=== PATIENT | female | born 1960 | race Caucasian/White ===

== ENCOUNTER 2018-03-27 15:46 | Emergency (ER) | payer MEDICARE, MEDICAID, SELFPAY ==
[2018-03-27 15:50] VITALS: BP 166/93; PULSE 66; RESP 18; TEMP 37; O2SAT 99
[2018-03-27] MEDS: Acetaminophen 500 MG TAB 1000 MG PO (18:34)
[2018-03-27] MEDS: Ibuprofen 600 MG TAB PO (18:34)
[2018-03-27 18:36] LABS: Bilirubin Negative (Negative); Blood Small (Negative); Clarity Clear; Glucose Negative (Negative); Ketones Negative (Negative); Leukocyte Esterase Negative (Negative); Nitrite Negative (Negative); Urobilinogen 0.2 EU/dL (Up TO 0.2)
[2018-03-27 18:49] LABS: Bacteria Rare HPF (Negative); C & S Indicated? No; Crystals Negative HPF (Negative); Epithelial Cells Few HPF (Negative); Mucus Negative (Negative); RBC 0-2 (0-2); WBC 0-2 HPF (0-5)
[2018-03-27 19:03] LABS: Abs Immature Grans 0.01 k/cumm (0.0-0.09); Absolute Basophil Count 0.05 k/cumm (0.0-0.2); Absolute Eosinophil Count 0.27 k/cumm (0.0-0.7); Absolute Lymphocyte Count 1.65 k/cumm (1.2-3.4); Absolute Monocyte Count 0.45 k/cumm (0.11-0.7); Absolute Neutrophil Count 1.83 k/cumm (1.2-6.7); Basophils % 1.2; Eosinophils % 6.3; HCT 34.8 % (36.0-46.0); HGB 12.1 g/dL (12.0-15.5); Immature Grans % 0.2; Lymphocytes % 38.7; Mean Corp. HGB Concentration 34.8 g/dL (32.0-36.0); Mean Corpuscular Hemoglobin 30.6 pg (27.0-33.0); Mean Corpuscular Volume 88.1 fL (80-95); Mean Platelet Volume 8.5 fL (8.0-11.0); Monocytes % 10.6; Platelet Count 298 x1000/uL (130-400); RBC 3.95 m/cumm (4.00-5.20); RBC Distribution Width 12.2 % (11.7-14.6); White Blood Cell Count 4.26 k/cumm (4.4-10.8)
[2018-03-27 19:21] LABS: ALT 20 U/L (12-78); AST 19 U/L (15-37); Albumin 3.9 g/dL (3.4-5.0); Alkaline Phosphatase 78 U/L (46-116); Anion Gap 6.1 mmol/L (3-11); BUN 14 mg/dL (7-18); Bilirubin, Total 0.3 mg/dL (0.2-1.0); CO2 29.9 mmol/L (21.0-32.0); CREATININE 0.85 mg/dL (0.55-1.02); Calcium 8.8 mg/dL (8.5-10.1); Chloride 97 mmol/L (98-107); Glucose 93 mg/dL (70-100); Potassium 3.4 mmol/L (3.5-5.1); Sodium 133 mmol/L (136-145); Total Protein 7.2 g/dL (6.4-8.2)
[2018-03-27 19:24] LABS: Troponin I < 0.02 ng/mL (0.00-0.06)
[2018-03-27] MEDS: Potassium Chloride 20 MEQ TABCR 40 MEQ PO (19:47)
[2018-03-27] MEDS: Normal Saline 1,000 ML 1000 ML IV (19:47)
[2018-03-27 20:31] VITALS: BP 166/93; PULSE 66; RESP 18; TEMP 37; O2SAT 99
--- NOTE | 2018-03-27 20:42 | W.ED.GENAD ---
Discharge Plan Disposition Patient Disposition: HOME Condition: Fair Discharge Details Chief Complaint: GenMedical Clinical Impression: Hypokalemia Primary Care Provider: Lars Denise ED Provider: [place] Carmichael Home Meds and New Rx's Prescriptions: Continue fluticasone 16 GM spray,suspension 16 gm NS DAILY Qty: 1 RF: 0 acetaminophen [Tylenol Extra Strength] 500 MG tablet 500 mg PO PRN PRNRF: 0 losartan 25 mg Tablet RF: 0 carvedilol 12.5 MG tablet 12.5 mg PO BID RF: 0 amlodipine 2.5 MG tablet 2.5 mg PO DAILY RF: 0 ibuprofen 200 MG tablet 200 mg PO DAILY PRNRF: 0 Discharge Instructions Additional Instructions: Take all medications as prescribed Call your primary care provider first thing in the morning for follow-up appointment Referrals: Lars Denise [Primary Care Provider] - (call in am for follow up appointment) Medical Decision Making Patient with generalized complaints of fatigue. Comprehensive metabolic panel CBC and magnesium level drawn. Patient given 1 L of IV normal saline and 40 M EQ's of potassium. Rest of the labs unremarkable. Patient's vital signs stable physical exam unrevealing. She will be discharged home to follow-up with primary care provider tomorrow Lab Data Lab results reviewed: Yes I reviewed the patient's lab results. This is a 58-year-old female patient with a past medical history significant for hypertension and depression who was seen weekly by her therapist who feels her depression is well managed but reports a 2-month history of fatigue decreased appetite saying that she sleeps most of the day. She has had no fevers chills chest pain shortness of breath abdominal pain nausea vomiting or diarrhea.she saw her primary care provider last week who ordered a TSH EBV and mono and reports all those tests were negative she says she has had symptoms like this in the past when her sodium was low HPI General Date/Time Provider Initiated Documentation: 03/27/18 16:15. Related Data Home Medications Medication Instructions Recorded Confirmed amlodipine 2.5 mg PO DAILY 08/25/16 03/27/18 carvedilol 12.5 mg PO BID 08/25/16 03/27/18 fluticasone 16 gm NS DAILY #1 btl 11/05/16 03/27/18 ibuprofen 200 mg PO DAILY PRN 04/04/17 03/27/18 acetaminophen [Tylenol Extra 500 mg PO PRN PRN 08/19/17 03/27/18 Strength] losartan 03/27/18 Previous Rx's Medication Instructions Recorded fluticasone 16 gm NS DAILY #1 btl 11/05/16 Allergies Allergy/AdvReac Type Severity Reaction Status Date / Time Sulfa (Sulfonamide Allergy Severe Skin Rash Unverified 03/27/18 15:52 Antibiotics) sulfamethoxazole Allergy Severe Skin Rash Unverified 03/27/18 15:52 [From ] trimethoprim [From ] Allergy Severe Skin Rash Unverified 03/27/18 15:52 General Stated Complaint: GenMedical PAMELLA: 4 Review of Systems Review of Systems All systems reviewed & are unremarkable except as noted in HPI and below Constitutional Denies fever(s) Cardiovascular Denies chest pain, Denies syncope, Denies rapid heart rate and Denies dyspnea Respiratory Denies dyspnea Gastrointestinal Denies abdominal pain, Denies constipation, Denies nausea and Reports other (Anorexia) Neurologic Denies syncope Psychiatric Reports depression PFSH Medical History Diabetes (Chronic) Social History Smoking/Tobacco Use Status: Never Exam Const General: cooperative, healthy appearing, comfortable, no acute distress and well developed HENMS Head: normal to inspection Mouth: oral mucosae normal Chest Chest: normal inspection of the chest and normal palpation of entire chest wall Resp Effort & Inspection: normal respiratory effort, able to speak in complete sentences and no cough Auscultation: clear to auscultation bilaterally Cardio Rate: regular rate Rhythm: regular rhythm GI Inspection: normal to inspection Palpation: soft Auscultation: normal bowel sounds Skin General skin exam: no rashes or lesions noted Wounds: no wounds Neuro General: alert, awake and oriented x3 Cognition: normal cognition Speech: speech normal Gait: normal gait Extrem General: normal to inspection and full ROM Course Vital Signs Temperature 37.0 C 03/27/18 15:50 Pulse 66 03/27/18 15:50 Respiratory Rate 18 03/27/18 15:50 Blood Pressure 166/93 H 03/27/18 15:50 Pulse Oximetry 99 03/27/18 15:50 Temperature 37.0 C 03/27/18 20:31 Temperature Source Temporal Artery Scan 03/27/18 15:50 Pulse 66 03/27/18 20:31 Respiratory Rate 18 03/27/18 20:31 Respiratory Effort 09/27/18 15:53 Blood Pressure 166/93 H 03/27/18 20:31 Pulse Oximetry 99 03/27/18 20:31 Oxygen Delivery Method Room Air 03/27/18 15:50 Oxygen Flow Rate 0 03/27/18 15:50 Pain Level 0 03/27/18 20:31 Lab/Test Results Lab/Test Results: Laboratory Tests Range/Units 03/27/18 03/27/18 03/27/18 18:32 18:54 18:54 WBC (4.4-10.8) k/cumm 4.26 L RBC (4.00-5.20) m/cumm 3.95 L Hgb (12.0-15.5) g/dL 12.1 Hct (36.0-46.0) % 34.8 L MCV (80-95) fL 88.1 MCH (27.0-33.0) pg 30.6 MCHC (32.0-36.0) g/dL 34.8 RDW (11.7-14.6) % 12.2 Plt Count (130-400) x1000/uL 298 MPV (8.0-11.0) fL 8.5 Immature Gran % 0.2 Neutrophils % 43.0 Lymphocytes % 38.7 Monocytes % 10.6 Eosinophils % 6.3 Basophils % 1.2 Absolute Neutrophils (1.2-6.7) k/cumm 1.83 Absolute Lymphocytes (1.2-3.4) k/cumm 1.65 Absolute Monocytes (0.11-0.7) k/cumm 0.45 Absolute Eosinophils (0.0-0.7) k/cumm 0.27 Absolute Basophils (0.0-0.2) k/cumm 0.05 Sodium (136-145) mmol/L 133 L Potassium (3.5-5.1) mmol/L 3.4 L Chloride (98-107) mmol/L 97 L Carbon Dioxide (21.0-32.0) mmol/L 29.9 Anion Gap (3-11) mmol/L 6.1 BUN (7-18) mg/dL 14 Creatinine (0.55-1.02) mg/dL 0.85 Estimated GFR/1.73 m2 (mL/min/1.73m2) >= 60.00 Glucose (70-100) mg/dL 93 Calcium (8.5-10.1) mg/dL 8.8 Magnesium (1.8-2.4) mg/dL 2.0 Total Bilirubin (0.2-1.0) mg/dL 0.3 AST (15-37) U/L 19 ALT (12-78) U/L 20 Alkaline Phosphatase (46-116) U/L 78 Troponin I (0.00-0.06) ng/mL < 0.02 Total Protein (6.4-8.2) g/dL 7.2 Albumin (3.4-5.0) g/dL 3.9 Urine Color (Yellow) Yellow Urine Clarity Clear Urine pH (5-8) 6.0 Ur Specific Atkins (1.005-1.025) 1.010 Urine Protein (Negative) mg/dL Negative Urine Ketones (Negative) mg/dL Negative Urine Blood (Negative) Small H Urine Nitrite (Negative) Negative Urine Bilirubin (Negative) Negative Urine Urobilinogen (Up TO 0.2) EU/dL 0.2 Ur Leukocyte Esterase (Negative) Negative Urine RBC (0-2) 0-2 Urine WBC (0-5) HPF 0-2 Ur Epithelial Cells (Negative) HPF Few Urine Crystals (Negative) HPF Negative Urine Bacteria (Negative) HPF Rare Urine Mucus (Negative) Negative Ur Culture Indicated? No Urine Glucose (Negative) mg/dL Negative
== END 2018-03-27 20:40 | disposition home or self-care (01) ==
PROVIDERS: Emergency Provider Nurse Practitioner Acute Care; PCP Nurse Practitioner Family
DX: E87.6 Hypokalemia (principal); I10 Essential (primary) hypertension
CPT/HCPCS: 36415; 80053; 96360; 99284; 81003; 81015; 83735; 84484; 85025

== ENCOUNTER 2018-07-28 15:01 | Emergency (ER) | payer MEDICARE, MEDICAID, SELFPAY ==
[2018-07-28 15:18] VITALS: BP 160/108; PULSE 66; RESP 12; TEMP 36.7; O2SAT 98
--- NOTE | 2018-07-28 15:36 | W.ED.GENAD ---
Discharge Plan Disposition Patient Disposition: HOME Condition: Improving Discharge Details Chief Complaint: RespSymp Clinical Impression: Acute maxillary sinusitis Primary Care Provider: Lars Denise ED Provider: Ezio Fregoso Home Meds and New Rx's Prescriptions: New amoxicillin-pot clavulanate 875-125 mg tablet 1 tab PO BID 10 Days Qty: 20 RF: 0 Continued fluticasone 16 GM spray,suspension 16 gm NS DAILY Qty: 1 RF: 0 acetaminophen [Tylenol Extra Strength] 500 MG tablet 500 mg PO PRN PRNRF: 0 losartan 25 mg Tablet RF: 0 carvedilol 12.5 MG tablet 12.5 mg PO BID RF: 0 amlodipine 2.5 MG tablet 2.5 mg PO DAILY RF: 0 ibuprofen 200 MG tablet 200 mg PO DAILY PRNRF: 0 Discharge Instructions Instructions: Sinusitis (ED) Additional Instructions: May use Benadryl 25-50 mg at bedtime to aid in decongestion. Minimal use of [id number] decongestants during the day as they may spike your blood pressure. Continue your regular medications. Follow-up with your regular doctor in [place] if not improving in 5 days time. Return to the emergency department for any acute concerns Medical Decision Making 58-year-old female with a history of previous sinus infections states she is a 10-12 days of bifrontal/maxillary sinus pressure that is worse bending over. She has not had a stiff neck or fever. She has otherwise recently been well. She has been taking decongestant and has known high blood pressure for which she takes carvedilol and amlodipine. Her exam is consistent with acute maxillary sinusitis. Discussed with her home management including minimal use of decongestants given hypertension. She stable for outpatient management and will return for any acute concern HPI General Mode of arrival: ambulatory. Date/Time Provider Initiated Documentation: 07/28/18 15:28. Limitations to Documentation: no limitations. Information obtained by: patient. History of Present Illness 58 year old F presents to the emergency department with the chief complaint of Bifrontal sinus pain for 10 days similar to previous, described as moderate, Quality is described as aching, and is localized to the face. Patient reports no radiation. Patient started experiencing this day(s) and it has been constant. No relieving factors improve symptom(s), Other factors that worsen symptoms (Bending over) . Patient notes denies fever/chills. Patient did receive the following treatments prior to arrival, other (Decongest) Related Data Home Medications Medication Instructions Recorded Confirmed amlodipine 2.5 mg PO DAILY 08/25/16 07/28/18 carvedilol 12.5 mg PO BID 08/25/16 07/28/18 fluticasone 16 gm NS DAILY #1 btl 11/05/16 07/28/18 ibuprofen 200 mg PO DAILY PRN 04/04/17 07/28/18 acetaminophen [Tylenol Extra 500 mg PO PRN PRN 08/19/17 07/28/18 Strength] losartan 03/27/18 amoxicillin-pot clavulanate 1 tab PO BID 10 Days #20 tab 07/28/18 Previous Rx's Medication Instructions Recorded fluticasone 16 gm NS DAILY #1 btl 11/05/16 amoxicillin-pot clavulanate 1 tab PO BID 10 Days #20 tab 07/28/18 Allergies Allergy/AdvReac Type Severity Reaction Status Date / Time Sulfa (Sulfonamide Allergy Severe Skin Rash Unverified 07/28/18 15:21 Antibiotics) sulfamethoxazole Allergy Severe Skin Rash Unverified 07/28/18 15:21 [From Septra] trimethoprim [From ] Allergy Severe Skin Rash Unverified 07/28/18 15:21 General Stated Complaint: RespSymp PAMELLA: 4 Review of Systems Review of Systems 6 systems reviewed and otherwise negative [facility] Medical History Diabetes (Chronic) Social History Smoking/Tobacco Use Status: Never Exam Narrative Exam Narrative: GEN: awake, alert, oriented 3. Pleasant, well groomed, interactive. HEAD: Normocephalic, atraumatic ENT: Mucous membranes moist, oropharynx unremarkable, External ear exam unremarkable, TMs normal. Bifrontal maxillary tenderness to percussion EYES: PERRL, EOMI NECK: Full ROM, no HEBERT, no menigismus CHEST/RESP: Nontender, clear to auscultation bilateral, no wheeze/rhonchi/rales CARDIOVASCULAR: RRR, no murmur, rub jah. 2+ Rad pulse bilateral ABDOMEN: Soft, nontender, no mass. +Bowel sounds EXT: Full ROM, no edema, no rash Neuro: Grossly normal neurologic exam, conversant, interactive. Psych: Speech fluent, thoughts congruent, affect normal Course Vital Signs Temperature 36.7 C 07/28/18 15:18 Pulse 66 07/28/18 15:18 Respiratory Rate 12 07/28/18 15:18 Blood Pressure 160/108 H 07/28/18 15:18 Pulse Oximetry 98 07/28/18 15:18 Temperature 36.7 C 07/28/18 15:18 Temperature Source Temporal Artery Scan 07/28/18 15:18 Pulse 66 07/28/18 15:18 Respiratory Rate 12 07/28/18 15:18 Respiratory Effort Non-Labored 07/28/18 15:22 Respiratory Depth Normal 07/28/18 15:22 Blood Pressure 160/108 H 07/28/18 15:18 Blood Pressure Position Sitting 07/28/18 15:18 Pulse Oximetry 98 07/28/18 15:18 Oxygen Delivery Method Room Air 07/28/18 15:18 Oxygen Flow Rate 0 07/28/18 15:18 Pain Level 4 07/28/18 15:18
--- NOTE | 2018-07-28 15:39 | ED.GENADUL_ITS ---
Discharge Plan Disposition Patient Disposition: HOME Condition: Improving Discharge Details Chief Complaint: RespSymp Clinical Impression: Acute maxillary sinusitis Primary Care Provider: Lars Denise ED Provider: Ezio Fregoso Home Meds and New Rx's Prescriptions: New amoxicillin-pot clavulanate 875-125 mg tablet 1 tab PO BID 10 Days Qty: 20 RF: 0 Continued fluticasone 16 GM spray,suspension 16 gm NS DAILY Qty: 1 RF: 0 acetaminophen [Tylenol Extra Strength] 500 MG tablet 500 mg PO PRN PRNRF: 0 losartan 25 mg Tablet RF: 0 carvedilol 12.5 MG tablet 12.5 mg PO BID RF: 0 amlodipine 2.5 MG tablet 2.5 mg PO DAILY RF: 0 ibuprofen 200 MG tablet 200 mg PO DAILY PRNRF: 0 Discharge Instructions Instructions: Sinusitis (ED) Additional Instructions: May use Benadryl 25-50 mg at bedtime to aid in decongestion. Minimal use of [id number] decongestants during the day as they may spike your blood pressure. Continue your regular medications. Follow-up with your regular doctor in [place] if not improving in 5 days time. Return to the emergency department for any acute concerns Medical Decision Making 58-year-old female with a history of previous sinus infections states she is a 10-12 days of bifrontal/maxillary sinus pressure that is worse bending over. She has not had a stiff neck or fever. She has otherwise recently been well. She has been taking decongestant and has known high blood pressure for which she takes carvedilol and amlodipine. Her exam is consistent with acute maxillary sinusitis. Discussed with her home management including minimal use of decongestants given hypertension. She stable for outpatient management and will return for any acute concern HPI General Mode of arrival: ambulatory . Date/Time Provider Initiated Documentation: 07/28/18 15:28 . Limitations to Documentation: no limitations . Information obtained by: patient . History of Present Illness 58 year old F presents to the emergency department with the chief complaint of Bifrontal sinus pain for 10 days similar to previous, described as moderate, Quality is described as aching, and is localized to the face. Patient reports no radiation. Patient started experiencing this day(s) and it has been constant. No relieving factors improve symptom(s), Other factors that worsen symptoms (Bending over) . Patient notes denies fever/chills. Patient did receive the following treatments prior to arrival, other (Decongest) Related Data Home Medications Medication Instructions Recorded Confirmed amlodipine 2.5 mg PO DAILY 08/25/16 07/28/18 carvedilol 12.5 mg PO BID 08/25/16 07/28/18 fluticasone 16 gm NS DAILY #1 btl 11/05/16 07/28/18 ibuprofen 200 mg PO DAILY PRN 04/04/17 07/28/18 acetaminophen [Tylenol Extra 500 mg PO PRN PRN 08/19/17 07/28/18 Strength] losartan 03/27/18 amoxicillin-pot clavulanate 1 tab PO BID 10 Days #20 tab 07/28/18 Previous Rx's Medication Instructions Recorded fluticasone 16 gm NS DAILY #1 btl 11/05/16 amoxicillin-pot clavulanate 1 tab PO BID 10 Days #20 tab 07/28/18 Allergies Allergy/AdvReac Type Severity Reaction Status Date / Time Sulfa (Sulfonamide Allergy Severe Skin Rash Unverified 07/28/18 15:21 Antibiotics) sulfamethoxazole Allergy Severe Skin Rash Unverified 07/28/18 15:21 [From Septra] trimethoprim [From ] Allergy Severe Skin Rash Unverified 07/28/18 15:21 General Stated Complaint: RespSymp PAMELLA: 4 Review of Systems Review of Systems 6 systems reviewed and otherwise negative [facility] Medical History Diabetes (Chronic) Social History Smoking/Tobacco Use Status: Never Exam Narrative Exam Narrative: GEN: awake, alert, oriented 3. Pleasant, well groomed, interactive. HEAD: Normocephalic, atraumatic ENT: Mucous membranes moist, oropharynx unremarkable, External ear exam unremarkable, TMs normal. Bifrontal maxillary tenderness to percussion EYES: PERRL, EOMI NECK: Full ROM, no HEBERT, no menigismus CHEST/RESP: Nontender, clear to auscultation bilateral, no wheeze/rhonchi/rales CARDIOVASCULAR: RRR, no murmur, rub jah. 2+ Rad pulse bilateral ABDOMEN: Soft, nontender, no mass. +Bowel sounds EXT: Full ROM, no edema, no rash Neuro: Grossly normal neurologic exam, conversant, interactive. Psych: Speech fluent, thoughts congruent, affect normal Course Vital Signs Temperature 36.7 C 07/28/18 15:18 Pulse 66 07/28/18 15:18 Respiratory Rate 12 07/28/18 15:18 Blood Pressure 160/108 H 07/28/18 15:18 Pulse Oximetry 98 07/28/18 15:18 Temperature 36.7 C 07/28/18 15:18 Temperature Source Temporal Artery Scan 07/28/18 15:18 Pulse 66 07/28/18 15:18 Respiratory Rate 12 07/28/18 15:18 Respiratory Effort Non-Labored 07/28/18 15:22 Respiratory Depth Normal 07/28/18 15:22 Blood Pressure 160/108 H 07/28/18 15:18 Blood Pressure Position Sitting 07/28/18 15:18 Pulse Oximetry 98 07/28/18 15:18 Oxygen Delivery Method Room Air 07/28/18 15:18 Oxygen Flow Rate 0 07/28/18 15:18 Pain Level 4 07/28/18 15:18
[2018-07-28 15:48] VITALS: BP 160/108; PULSE 66; RESP 12; TEMP 36.7; O2SAT 98
== END 2018-07-28 15:48 | disposition home or self-care (01) ==
PROVIDERS: Emergency Provider Emergency Medicine; PCP Nurse Practitioner Family
DX: J01.00 Acute maxillary sinusitis, unspecified (principal); I10 Essential (primary) hypertension
CPT/HCPCS: 99282

== ENCOUNTER 2018-08-20 12:19 | Emergency (ER) | payer MEDICARE, MEDICAID, SELFPAY ==
[2018-08-20 12:48] VITALS: BP 127/79; PULSE 65; RESP 14; TEMP 36.6; O2SAT 96
--- NOTE | 2018-08-20 13:54 | ED.GENADUL_ITS ---
Discharge Plan Disposition Patient Disposition: HOME Condition: Good Discharge Details Chief Complaint: RespSymp Clinical Impression: Sinusitis Primary Care Provider: Lars Denise ED Provider: Patel Covington Home Meds and New Rx's Prescriptions: New oxymetazoline [Afrin (oxymetazoline)] 0.05 % spray,non-aerosol 2 spray AGUEDA Q12H PRN (Reason: nasal congestion) 3 Days Qty: 15 RF: 0 prednisone 50 MG tablet 50 mg PO DAILY Qty: 5 RF: 0 loratadine 10 mg tablet 10 mg PO DAILY Qty: 20 RF: 0 doxycycline hyclate 100 mg tablet 100 mg PO BID Qty: 20 RF: 0 No Action fluticasone 16 GM spray,suspension 16 gm NS DAILY Qty: 1 RF: 0 acetaminophen [Tylenol Extra Strength] 500 MG tablet 500 mg PO PRN PRNRF: 0 losartan 25 mg Tablet RF: 0 carvedilol 12.5 MG tablet 12.5 mg PO BID RF: 0 amlodipine 2.5 MG tablet 2.5 mg PO DAILY RF: 0 ibuprofen 200 MG tablet 200 mg PO DAILY PRNRF: 0 Discharge Instructions Instructions: Sinusitis (ED) Additional Instructions: Please take medication as directed. If you notice any worsening of your symptoms, or any new symptoms such as vomiting, diarrhea, fever, chills, shortness of breath, chest pain, numbness, weakness, or fainting , please return immediately to the emergency department for reevaluation. Please follow up with your primary care provider as soon as possible for reassessment and reevaluation. As always, it was a pleasure participating in your medical care today. Referrals: Lars Denise [Primary Care Provider] - Medical Decision Making This is a very pleasant 58-year-old female who was sent here by her PCP's office to be managed for sinusitis. Patient was diagnosed and treated with sinusitis this past July, she had notable improvement of her symptoms with the Augmentin, however after the antibiotic was finished her symptoms return. She has no red flags of headache, eye pain, swelling, fever, or chills. She has no risk factors for venous sinus thrombosis, and a clinical exam clinically inconsistent for dural venous sinus thrombosis. Patient sinusitis does appear mild on exam.. Her vital signs are stable and reassuring. No cranial nerve deficits or neurologic deficits. I feel that treatment with antibiotics is reasonable, in addition to recommending [place] pot, continuing the fluticasone, adding Afrin, and adding oral steroids. I discussed with the patient that this does take time to improve, and it is important follow-up with her primary care provider in regards to this. I have extensively reviewed the treatment plan and discharge instructions with the patient. I have addressed all patient concerns at this time. The patient was made aware of what symptoms to monitor for that would warrant a return to the emergency department. Discussed the plan with the patient, they demonstrate verbal understanding and agreement with our assessment and plan at this time. HPI General Date/Time Provider Initiated Documentation: 08/20/18 13:33 . HPI Narrative: This is a 58-year-old female with a past medical history of cataracts, hypertension, who was diagnosed with sinusitis this past month by Dr. Fregoso, she was started on Augmentin given fluticasone nasal spray. Patient had notable improvement of her symptoms, however after she finished the antibiotic her symptoms have gradually returned and she states that they feel like they are coming back now worse and they were before. She did call her primary care provider who recommended that she come into the ER for further management of her sinusitis. Patient denies any headache, neck pain, fever or chills. She does admit to green and yellow drainage coming from her nose that she blows out regularly. She does admit to mild facial pressure. She denies any vision changes, pain with movement of her eye, eye pain, sore throat, or difficulty swallowing. No other complaints or modifying factors at this time. She has taken Tylenol and Motrin this does not help Related Data Home Medications Medication Instructions Recorded Confirmed amlodipine 2.5 mg PO DAILY 08/25/16 08/20/18 carvedilol 12.5 mg PO BID 08/25/16 08/20/18 fluticasone 16 gm NS DAILY #1 btl 11/05/16 08/20/18 ibuprofen 200 mg PO DAILY PRN 04/04/17 08/20/18 acetaminophen [Tylenol Extra 500 mg PO PRN PRN 08/19/17 08/20/18 Strength] losartan 03/27/18 doxycycline hyclate 100 mg PO BID #20 tab 08/20/18 loratadine 10 mg PO DAILY #20 tab 08/20/18 oxymetazoline [Afrin 2 spray AGUEDA Q12H PRN 3 Days #15 ml 08/20/18 (oxymetazoline)] prednisone 50 mg PO DAILY #5 tab 08/20/18 Previous Rx's Medication Instructions Recorded fluticasone 16 gm NS DAILY #1 btl 11/05/16 doxycycline hyclate 100 mg PO BID #20 tab 08/20/18 loratadine 10 mg PO DAILY #20 tab 08/20/18 oxymetazoline [Afrin 2 spray AGUEDA Q12H PRN 3 Days #15 ml 08/20/18 (oxymetazoline)] prednisone 50 mg PO DAILY #5 tab 08/20/18 Allergies Allergy/AdvReac Type Severity Reaction Status Date / Time Sulfa (Sulfonamide Allergy Severe Skin Rash Unverified 08/20/18 12:52 Antibiotics) sulfamethoxazole Allergy Severe Skin Rash Unverified 08/20/18 12:52 [From ] trimethoprim [From ] Allergy Severe Skin Rash Unverified 08/20/18 12:52 General Stated Complaint: RespSymp PAMELLA: 5 Review of Systems Review of Systems All systems reviewed & are unremarkable except as noted in HPI and below PFSH Social History Smoking and Tabacco status: Never Exam Narrative Exam Narrative: 1.Const: Well-nourished, Well-developed, appearing stated age 2.Eyes: PERRL, no conjunctival injection, and symmetrical lids. 3.ENT: Atraumatic external nose and ears. Moist MM. Neck: Symmetric, trachea midline, No thyromegaly. Mild tenderness on percussion of the frontal and maxillary sinuses. Patient demonstrates good movement of cervical neck. There is no nuchal rigidity, no nuchal tenderness. Patient is able to flex the neck without any difficulty or significant pain. Negative Kernig's and Brudzinski sign. No evidence of periorbital edema or orbital edema. 4.CVS: +S1/S2, No murmurs or gallops. Peripheral pulses 2+ and equal in all extremities. Brisk capillary refill in all extremities. 5.RESP: Unlabored respiratory effort. Clear to auscultation bilaterally. No wheezes rales or rhonchi 6.GI: Soft, Nontender/Nondistended, No hepatosplenomegaly. No guarding or r ebound. 7.MSK: Normocephalic/Atraumatic, Extremities w/o deformity or ttp No cyanosis or clubbing, Normal movement of all extremities 8.Skin: Warm, Dry. No rashes or lesions. 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 Sensation grossly intact, no focal neurologic deficits. 10.Psych: (AAO) x3. Appropriate mood and affect Course Vital Signs Temperature 36.6 C 08/20/18 12:48 Pulse 65 08/20/18 12:48 Respiratory Rate 14 08/20/18 12:48 Blood Pressure 127/79 08/20/18 12:48 Pulse Oximetry 96 08/20/18 12:48 Temperature 36.6 C 08/20/18 12:48 Temperature Source Temporal Artery Scan 08/20/18 12:48 Pulse 65 08/20/18 12:48 Respiratory Rate 14 08/20/18 12:48 Respiratory Effort Non-Labored 08/20/18 12:53 Respiratory Depth Normal 08/20/18 12:53 Blood Pressure 127/79 08/20/18 12:48 Blood Pressure Position Sitting 08/20/18 12:48 Pulse Oximetry 96 08/20/18 12:48 Oxygen Delivery Method Room Air 08/20/18 12:48 Oxygen Flow Rate 0 08/20/18 12:48 Pain Level 3 08/20/18 12:48
== END 2018-08-20 14:05 | disposition home or self-care (01) ==
PROVIDERS: Emergency Provider Student in an Organized Health Care Education/Training Program; PCP Nurse Practitioner Family
DX: J01.90 Acute sinusitis, unspecified (principal); I10 Essential (primary) hypertension
CPT/HCPCS: 99283

== ENCOUNTER 2018-09-09 14:54 | Emergency (ER) | payer MEDICARE, MEDICAID, SELFPAY ==
[2018-09-09 14:58] VITALS: BP 154/96; PULSE 72; RESP 20; TEMP 36.7; O2SAT 97
--- NOTE | 2018-09-09 15:03 | DI.RAD_ITS ---
SYMPTOMS/DIAGNOSIS: LEFT WRIST PAIN S/P FALL LEFT WRIST: Three views. No acute fracture or dislocation is appreciated. There is an osseous density seen between the distal radius and ulna. This likely is incidental. No osseous donor site is identified. The soft tissues are unremarkable. IMPRESSION: No acute fracture or dislocation.
--- NOTE | 2018-09-09 15:05 | ED.GENADUL_ITS ---
Discharge Plan Disposition Patient Disposition: HOME Condition: Improving Discharge Details Chief Complaint: Orthopedic Clinical Impression: Contracture of left wrist Primary Care Provider: Lars Denise ED Provider: Ezio Fregoso Home Meds and New Rx's Prescriptions: Continued fluticasone propionate 16 GM spray,suspension 16 gm NS DAILY Qty: 1 RF: 0 acetaminophen [Tylenol Extra Strength] 500 MG tablet 500 mg PO PRN PRNRF: 0 losartan 25 mg Tablet 25 mg PO DAILY RF: 0 loratadine 10 mg tablet 10 mg PO DAILY Qty: 20 RF: 0 carvedilol 12.5 MG tablet 12.5 mg PO BID RF: 0 amlodipine 2.5 MG tablet 2.5 mg PO DAILY RF: 0 ibuprofen 200 MG tablet 200 mg PO DAILY PRNRF: 0 Discharge Instructions Additional Instructions: Please continue to use ice 20 minutes at a time to reduce discomfort. May use removable wrist splint 7-10 days as needed. Return if you develop increasing pain, numbness or tingling of the fingertips, or any other acute concerns. Medical Decision Making 58-year-old female slipped and fell outside on level ground onto an outstretched hand. Said dull, achy left-sided wrist pain since that time. Exam is reassuring but with some mild distal radius tenderness. Referred for x-ray to rule out underlying bony injury. No evidence of acute bony injury. Patient placed in a removable splint. She is given instructions for home management as well as return precautions. HPI General Mode of arrival: ambulatory . Date/Time Provider Initiated Documentation: 09/09/18 14:57 . Limitations to Documentation: no limitations . Information obtained by: patient . History of Present Illness 58 year old F presents to the emergency department with the chief complaint of Left wrist pain after fall, described as mild, Quality is described as aching, and is localized to the left and upper extremity. Patient reports no radiation. Patient started experiencing this hour(s) and it has been constant. Rest improves symptom(s), Movement worsens symptoms . Patient notes no other symptoms.. Patient did receive the following treatments prior to arrival, none Related Data Home Medications Medication Instructions Recorded Confirmed amlodipine 2.5 mg PO DAILY 08/25/16 09/09/18 carvedilol 12.5 mg PO BID 08/25/16 09/09/18 fluticasone propionate 16 gm NS DAILY #1 btl 11/05/16 09/09/18 ibuprofen 200 mg PO DAILY PRN 04/04/17 09/09/18 acetaminophen [Tylenol Extra 500 mg PO PRN PRN 08/19/17 09/09/18 Strength] losartan 25 mg PO DAILY 03/27/18 09/09/18 loratadine 10 mg PO DAILY #20 tab 08/20/18 09/09/18 Previous Rx's Medication Instructions Recorded fluticasone propionate 16 gm NS DAILY #1 btl 11/05/16 loratadine 10 mg PO DAILY #20 tab 08/20/18 Allergies Allergy/AdvReac Type Severity Reaction Status Date / Time Sulfa (Sulfonamide Allergy Severe Skin Rash Unverified 09/09/18 15:00 Antibiotics) sulfamethoxazole Allergy Severe Skin Rash Unverified 09/09/18 15:00 [From ] trimethoprim [From ] Allergy Severe Skin Rash Unverified 09/09/18 15:00 General Stated Complaint: Orthopedic PAMELLA: 3 Review of Systems Review of Systems 6 systems reviewed and otherwise negative. Denies back, chest, neck pain, no loss of consciousness. No numbness or tingling PFSH Social History Smoking and Tabacco status: Never Exam Narrative Exam Narrative: GEN: awake, alert, oriented 3. Pleasant, well groomed, interactive. HEAD: Normocephalic, atraumatic ENT: Mucous membranes moist, oropharynx unremarkable, External ear exam unremarkable EYES: PERRL, EOMI NECK: Full ROM, no HEBERT, no menigismus CHEST/RESP: Nontender. Back is nontender. EXT: Full ROM, no edema, no rash. Mild distal radius tenderness left on palpation. Mild tenderness of the left hand without focality Neuro: Grossly normal neurologic exam, conversant, interactive. Psych: Speech fluent, thoughts congruent, affect normal Course Vital Signs Temperature 36.7 C 09/09/18 14:58 Pulse 72 09/09/18 14:58 Respiratory Rate 20 09/09/18 14:58 Blood Pressure 154/96 H 09/09/18 14:58 Pulse Oximetry 97 09/09/18 14:58 Temperature 36.7 C 09/09/18 14:58 Temperature Source Temporal Artery Scan 09/09/18 14:58 Pulse 72 09/09/18 14:58 Respiratory Rate 20 09/09/18 14:58 Respiratory Effort Non-Labored 09/09/18 14:58 Blood Pressure 154/96 H 09/09/18 14:58 Blood Pressure Position Sitting 09/09/18 14:58 Pulse Oximetry 97 09/09/18 14:58 Oxygen Delivery Method Room Air 09/09/18 14:58 Oxygen Flow Rate 0 09/09/18 14:58 Pain Level 5 09/09/18 14:58
== END 2018-09-09 15:43 | disposition home or self-care (01) ==
PROVIDERS: Emergency Provider Emergency Medicine; PCP Nurse Practitioner Family
DX: S60.212A Contusion of left wrist, initial encounter (principal); W00.0XXA Fall on same level due to ice and snow, initial encounter; E11.9 Type 2 diabetes mellitus without complications; I10 Essential (primary) hypertension
CPT/HCPCS: 99283; 73110; L3908

== ENCOUNTER 2018-09-10 14:56 | Emergency (ER) | payer MEDICARE, MEDICAID, SELFPAY ==
[2018-09-10 15:00] VITALS: BP 151/87; PULSE 74; RESP 16; TEMP 37; O2SAT 99
--- NOTE | 2018-09-10 15:27 | W.ED.GENAD ---
Discharge Plan Disposition Patient Disposition: HOME Condition: Good Discharge Details Chief Complaint: Orthopedic Clinical Impression: Left wrist sprain Primary Care Provider: Lars Denise ED Provider: Zack Queen Meds and New Rx's Prescriptions: Continued fluticasone propionate 16 GM spray,suspension 16 gm NS DAILY Qty: 1 RF: 0 losartan 25 mg Tablet 25 mg PO DAILY RF: 0 loratadine 10 mg tablet 10 mg PO DAILY Qty: 20 RF: 0 carvedilol 12.5 MG tablet 12.5 mg PO BID RF: 0 amlodipine 2.5 MG tablet 2.5 mg PO DAILY RF: 0 Changed acetaminophen [Tylenol Extra Strength] 500 MG tablet 1,000 mg PO Q6H PRNQty: 0 RF: 0 ibuprofen 200 MG tablet 800 mg PO Q8H PRNQty: 0 RF: 0 Discharge Instructions Instructions: Wrist Sprain (ED) Additional Instructions: Please wear the splint at all times. Take it off only to ice. Use ibuprofen and acetaminophen as we discussed. Try to keep the hand elevated. Follow-up with your primary care next week for reevaluation. Return to ED for numbness, weakness, increasing pain swelling. Referrals: Lars Denise [Primary Care Provider] - Medical Decision Making I reviewed the x-rays as well as the radiology read. There is no acute fracture. Patient instructed to leave the splint on except to ice. Try to keep the arm elevated and not use it. Continue acetaminophen but increase the dose to 1 g every 6 hours. Use Motrin 800 mg every 8 hours. Follow-up with primary care next week for reevaluation. Return to ED for any neurologic changes, increasing pain or swelling. HPI General Mode of arrival: ambulatory. Date/Time Provider Initiated Documentation: 09/10/18 15:23. Limitations to Documentation: no limitations. Information obtained by: patient. HPI Narrative: Patient presents to ED with continued left wrist pain. She was seen here yesterday with x-rays which were negative and placed in a universal splint. She is left-hand dominant. She did have to work today. She has not been wearing the splint consistently though she is wearing it most of the time. She has been taking Motrin and Tylenol and icing but was concerned because there was increased pain. Related Data Home Medications Medication Instructions Recorded Confirmed amlodipine 2.5 mg PO DAILY 08/25/16 09/10/18 carvedilol 12.5 mg PO BID 08/25/16 09/10/18 fluticasone propionate 16 gm NS DAILY #1 btl 11/05/16 09/10/18 losartan 25 mg PO DAILY 03/27/18 09/10/18 loratadine 10 mg PO DAILY #20 tab 08/20/18 09/10/18 acetaminophen [Tylenol Extra 1,000 mg PO Q6H PRN #0 tab 09/10/18 09/10/18 Strength] ibuprofen 800 mg PO Q8H PRN #0 tab 09/10/18 09/10/18 Previous Rx's Medication Instructions Recorded fluticasone propionate 16 gm NS DAILY #1 btl 11/05/16 loratadine 10 mg PO DAILY #20 tab 08/20/18 acetaminophen [Tylenol Extra 1,000 mg PO Q6H PRN #0 tab 09/10/18 Strength] ibuprofen 800 mg PO Q8H PRN #0 tab 09/10/18 Allergies Allergy/AdvReac Type Severity Reaction Status Date / Time Sulfa (Sulfonamide Allergy Severe Skin Rash Unverified 09/10/18 15:04 Antibiotics) sulfamethoxazole Allergy Severe Skin Rash Unverified 09/10/18 15:04 [From Marra] trimethoprim [From ] Allergy Severe Skin Rash Unverified 09/10/18 15:04 General Stated Complaint: Orthopedic PAMELLA: 4 Review of Systems Constitutional Denies weakness Musculoskeletal Reports limited range of motion, Denies numbness and Denies tingling Comments: wrist pain Neurologic Denies numbness, Denies tingling, Denies paresthesias and Denies weakness [facility] Medical History Diabetes (Chronic) HTN (hypertension) (Chronic) Surgical History History of section (Chronic) Social History Smoking and Tabacco status: Never Exam Const General: cooperative and no acute distress Orientation: alert and oriented x3 Extrem General: normal exam except as noted Other: There is some swelling to the left wrist. She has some decreased range of motion. She has some numbness in the ulnar aspect. There is no snuffbox tenderness. There is no increased pain with axial load of the thumb. She is neurovascular intact distally. Course Vital Signs Temperature 98.6 F 09/10/18 15:00 Pulse 74 09/10/18 15:00 Respiratory Rate 16 09/10/18 15:00 Blood Pressure 151/87 H 09/10/18 15:00 Pulse Oximetry 99 09/10/18 15:00 Temperature 98.6 F 09/10/18 15:00 Temperature Source Skin 09/10/18 15:00 Pulse 74 09/10/18 15:00 Respiratory Rate 16 09/10/18 15:00 Blood Pressure 151/87 H 09/10/18 15:00 Blood Pressure Position Sitting 09/10/18 15:00 Pulse Oximetry 99 09/10/18 15:00 Oxygen Delivery Method Room Air 09/10/18 15:00 Oxygen Flow Rate 0 09/10/18 15:00 Pain Level 5 09/10/18 15:16
--- NOTE | 2018-09-10 15:34 | ED.GENADUL_ITS ---
Discharge Plan Disposition Patient Disposition: HOME Condition: Good Discharge Details Chief Complaint: Orthopedic Clinical Impression: Left wrist sprain Primary Care Provider: Lars Denise ED Provider: Zack Queen Meds and New Rx's Prescriptions: Continued fluticasone propionate 16 GM spray,suspension 16 gm NS DAILY Qty: 1 RF: 0 losartan 25 mg Tablet 25 mg PO DAILY RF: 0 loratadine 10 mg tablet 10 mg PO DAILY Qty: 20 RF: 0 carvedilol 12.5 MG tablet 12.5 mg PO BID RF: 0 amlodipine 2.5 MG tablet 2.5 mg PO DAILY RF: 0 Changed acetaminophen [Tylenol Extra Strength] 500 MG tablet 1,000 mg PO Q6H PRNQty: 0 RF: 0 ibuprofen 200 MG tablet 800 mg PO Q8H PRNQty: 0 RF: 0 Discharge Instructions Instructions: Wrist Sprain (ED) Additional Instructions: Please wear the splint at all times. Take it off only to ice. Use ibuprofen and acetaminophen as we discussed. Try to keep the hand elevated. Follow-up with your primary care next week for reevaluation. Return to ED for numbness, weakness, increasing pain swelling. Referrals: Lars Denise [Primary Care Provider] - Medical Decision Making I reviewed the x-rays as well as the radiology read. There is no acute fracture. Patient instructed to leave the splint on except to ice. Try to keep the arm elevated and not use it. Continue acetaminophen but increase the dose to 1 g every 6 hours. Use Motrin 800 mg every 8 hours. Follow-up with primary care next week for reevaluation. Return to ED for any neurologic changes, increasing pain or swelling. HPI General Mode of arrival: ambulatory . Date/Time Provider Initiated Documentation: 09/10/18 15:23 . Limitations to Documentation: no limitations . Information obtained by: patient . HPI Narrative: Patient presents to ED with continued left wrist pain. She was seen here yesterday with x-rays which were negative and placed in a universal splint. She is left-hand dominant. She did have to work today. She has not been wearing the splint consistently though she is wearing it most of the time. She has been taking Motrin and Tylenol and icing but was concerned because there was increased pain. Related Data Home Medications Medication Instructions Recorded Confirmed amlodipine 2.5 mg PO DAILY 08/25/16 09/10/18 carvedilol 12.5 mg PO BID 08/25/16 09/10/18 fluticasone propionate 16 gm NS DAILY #1 btl 11/05/16 09/10/18 losartan 25 mg PO DAILY 03/27/18 09/10/18 loratadine 10 mg PO DAILY #20 tab 08/20/18 09/10/18 acetaminophen [Tylenol Extra 1,000 mg PO Q6H PRN #0 tab 09/10/18 09/10/18 Strength] ibuprofen 800 mg PO Q8H PRN #0 tab 09/10/18 09/10/18 Previous Rx's Medication Instructions Recorded fluticasone propionate 16 gm NS DAILY #1 btl 11/05/16 loratadine 10 mg PO DAILY #20 tab 08/20/18 acetaminophen [Tylenol Extra 1,000 mg PO Q6H PRN #0 tab 09/10/18 Strength] ibuprofen 800 mg PO Q8H PRN #0 tab 09/10/18 Allergies Allergy/AdvReac Type Severity Reaction Status Date / Time Sulfa (Sulfonamide Allergy Severe Skin Rash Unverified 09/10/18 15:04 Antibiotics) sulfamethoxazole Allergy Severe Skin Rash Unverified 09/10/18 15:04 [From Marra] trimethoprim [From ] Allergy Severe Skin Rash Unverified 09/10/18 15:04 General Stated Complaint: Orthopedic PAMELLA: 4 Review of Systems Constitutional Denies weakness Musculoskeletal Reports limited range of motion, Denies numbness and Denies tingling Comments: wrist pain Neurologic Denies numbness, Denies tingling, Denies paresthesias and Denies weakness [facility] Medical History Diabetes (Chronic) HTN (hypertension) (Chronic) Surgical History History of section (Chronic) Social History Smoking and Tabacco status: Never Exam Const General: cooperative and no acute distress Orientation: alert and oriented x3 Extrem General: normal exam except as noted Other: There is some swelling to the left wrist. She has some decreased range of motion. She has some numbness in the ulnar aspect. There is no snuffbox t enderness. There is no increased pain with axial load of the thumb. She is neurovascular intact distally. Course Vital Signs Temperature 98.6 F 09/10/18 15:00 Pulse 74 09/10/18 15:00 Respiratory Rate 16 09/10/18 15:00 Blood Pressure 151/87 H 09/10/18 15:00 Pulse Oximetry 99 09/10/18 15:00 Temperature 98.6 F 09/10/18 15:00 Temperature Source Skin 09/10/18 15:00 Pulse 74 09/10/18 15:00 Respiratory Rate 16 09/10/18 15:00 Blood Pressure 151/87 H 09/10/18 15:00 Blood Pressure Position Sitting 09/10/18 15:00 Pulse Oximetry 99 09/10/18 15:00 Oxygen Delivery Method Room Air 09/10/18 15:00 Oxygen Flow Rate 0 09/10/18 15:00 Pain Level 5 09/10/18 15:16
== END 2018-09-10 15:40 | disposition home or self-care (01) ==
PROVIDERS: Emergency Provider Emergency Medicine; PCP Nurse Practitioner Family
DX: S63.502A Unspecified sprain of left wrist, initial encounter (principal); M25.532 Pain in left wrist; W19.XXXD Unspecified fall, subsequent encounter; Z91.19 Patient's noncompliance with other medical treatment and regimen
CPT/HCPCS: 99282

== ENCOUNTER → 2018-10-08 09:45 | Outpatient (BNVA) | payer MEDICARE, MEDICAID, SELFPAY | PROVIDERS: PCP Nurse Practitioner Family; Referring Provider Nurse Practitioner Family; Visit Provider Orthopaedic Surgery | DX: M65.842 Other synovitis and tenosynovitis, left hand (principal); I10 Essential (primary) hypertension; E11.9 Type 2 diabetes mellitus without complications | CPT/HCPCS: 99211; 99213; L3908 ==

== ENCOUNTER 2018-11-21 17:43 | Emergency (ER) | payer MEDICARE, MEDICAID, SELFPAY ==
[2018-11-21 17:50] VITALS: BP 173/95; PULSE 73; RESP 20; TEMP 36.6; O2SAT 99
--- NOTE | 2018-11-21 18:16 | ED.GENADUL_ITS ---
Discharge Plan Disposition Patient Disposition: HOME Condition: Improving Discharge Details Chief Complaint: Palpitatns Clinical Impression: Heart palpitations Primary Care Provider: Lars Denise ED Provider: Ezio Fregoso Home Meds and New Rx's Prescriptions: Continued fluticasone propionate 16 GM spray,suspension 16 gm NS DAILY Qty: 1 RF: 0 losartan 25 mg Tablet 25 mg PO DAILY RF: 0 carvedilol 12.5 MG tablet 12.5 mg PO BID RF: 0 amlodipine 2.5 MG tablet 2.5 mg PO DAILY RF: 0 acetaminophen [Tylenol Extra Strength] 500 MG tablet 1,000 mg PO Q6H PRNQty: 0 RF: 0 ibuprofen 200 MG tablet 800 mg PO Q8H PRNQty: 0 RF: 0 Discharge Instructions Instructions: Palpitations (ED) Additional Instructions: You have elected to defer waiting for blood test results. Please follow-up with regular doctor tomorrow for result. You elected to decline chest x-ray. Return if you have recurrent symptoms, develop a fever, or any other acute concerns. Continue your regular medications. Discharge Data Discharge Date/Time-TO BE ENTERED AT DEPARTURE: 11/21/18 18:22 Medical Decision Making 58-year-old female presents with complaints of palpitations lasting approximately 1 to 2 minutes last night. She has had a dry cough and had some anxiety regarding persistent cough throughout the day today for which she seeks evaluation in the ED. She arrives with a temperature of 36.6, pulse 73, blood pressure 173/95. After my initial exam and screening EKG, the patient requested discharge stating that she would follow-up with results tomorrow. She declined x-ray but agreed to have blood work sent but that she would not wait for results. She states she will follow-up with primary care for results tomorrow. I did review the results which reveal a white count of 5.2, hematocrit 34, fluids to 35. Patient has known hyponatremia and this is recurrent again at 132. The remainder of her chemistries including troponin are unremarkable. Lab Data Lab results reviewed: Yes I reviewed the patient's lab results. Laboratory Results - last 24 hr 11/21/18 11/21/18 18:13 18:13 WBC 5.25 RBC 3.83 L Hgb 11.7 L Hct 33.9 L MCV 88.5 MCH 30.5 MCHC 34.5 RDW 13.2 Plt Count 235 MPV 8.9 Immature Gran % 0.2 Neutrophils % 60.3 Lymphocytes % 22.3 Monocytes % 10.5 Eosinophils % 6.1 Basophils % 0.6 Absolute Neutrophils 3.17 Absolute Lymphocytes 1.17 L Absolute Monocytes 0.55 Absolute Eosinophils 0.32 Absolute Basophils 0.03 Sodium 132 L Potassium 3.8 Chloride 96 L Carbon Dioxide 27.1 Anion Gap 8.9 BUN 18 Creatinine 0.90 Estimated GFR/1.73 m2 >= 60.00 Glucose 106 H Calcium 9.1 Magnesium 1.9 Total Bilirubin 0.3 AST 17 ALT 20 Alkaline Phosphatase 74 Troponin I < 0.02 Total Protein 7.6 Albumin 4.2 ECG Data Attestation: I personally reviewed and interpreted this ECG (s) as follows: Interpretation: Normal sinus rhythm with a rate of 67, the QRS is narrow, there is no ST segment elevation present HPI General Mode of arrival: ambulatory . Date/Time Provider Initiated Documentation: 11/21/18 17:50 . Limitations to Documentation: no limitations . Information obtained by: patient . History of Present Illness 58 year old F presents to the emergency department with the chief complaint of Palpitations last night, described as moderate, and is localized to the chest. Patient reports no radiation. Patient started experiencing this minute(s) and it has been now resolved. No relieving factors improve symptom(s), No exacerbating factors reported . Patient notes other (Dry cough). Patient did receive the following treatments prior to arrival, none Related Data Home Medications Medication Instructions Recorded Confirmed amlodipine 2.5 mg PO DAILY 08/25/16 11/21/18 carvedilol 12.5 mg PO BID 08/25/16 11/21/18 fluticasone propionate 16 gm NS DAILY #1 btl 11/05/16 11/21/18 losartan 25 mg PO DAILY 03/27/18 11/21/18 acetaminophen [Tylenol Extra 1,000 mg PO Q6H PRN #0 tab 09/10/18 11/21/18 Strength] ibuprofen 800 mg PO Q8H PRN #0 tab 09/10/18 11/21/18 Previous Rx's Medication Instructions Recorded fluticasone propionate 16 gm NS DAILY #1 btl 11/05/16 acetaminophen [Tylenol Extra 1,000 mg PO Q6H PRN #0 tab 09/10/18 Strength] ibuprofen 800 mg PO Q8H PRN #0 tab 09/10/18 Allergies Allergy/AdvReac Type Severity Reaction Status Date / Time Sulfa (Sulfonamide Allergy Severe Skin Rash Unverified 11/21/18 17:53 Antibiotics) sulfamethoxazole Allergy Severe Skin Rash Unverified 11/21/18 17:53 [From ] trimethoprim [From ] Allergy Severe Skin Rash Unverified 11/21/18 17:53 General Stated Complaint: Palpitatns PAMELLA: 3 Review of Systems Review of Systems Patient reports dry cough. No significant leg pain or swelling, no recent travel. No syncope. 8 systems reviewed and otherwise - [facility] Medical History Diabetes (Chronic) HTN (hypertension) (Chronic) Surgical History History of section (Chronic) Social History Smoking/Tobacco Use Status: Never Alcohol Intake: never Drug use: Never Substance use type: does not use Do you feel safe at home: Yes Do you feel safe in your relationship?: Yes Exam Narrative Exam Narrative: GEN: awake, alert, oriented 3. Pleasant, well groomed, interactive. HEAD: Normocephalic, atraumatic ENT: Mucous membranes moist, oropharynx unremarkable, External ear exam unremarkable EYES: PERRL, EOMI NECK: Full ROM, no HEBERT, no menigismus CHEST/RESP: Nontender, clear to auscultation bilateral, no wheeze/rhonchi/rales CARDIOVASCULAR: RRR, no murmur, rub jah. 2+ Rad pulse bilateral ABDOMEN: Soft, nontender, no mass. +Bowel sounds EXT: Full ROM, no edema, no rash Neuro: Grossly normal neurologic exam, conversant, interactive. Psych: Speech fluent, thoughts congruent, affect anxious Course Vital Signs Temperature 36.6 C 11/21/18 17:50 Pulse 73 11/21/18 17:50 Respiratory Rate 20 11/21/18 17:50 Blood Pressure 173/95 H 11/21/18 17:50 Pulse Oximetry 99 11/21/18 17:50 Temperature 36.6 C 11/21/18 17:50 Temperature Source Temporal Artery Scan 11/21/18 17:50 Pulse 73 11/21/18 17:50 Respiratory Rate 20 11/21/18 17:50 Respiratory Effort Non-Labored 11/21/18 17:50 Blood Pressure 173/95 H 11/21/18 17:50 Blood Pressure Position Sitting 11/21/18 17:50 Pulse Oximetry 99 11/21/18 17:50 Oxygen Delivery Method Room Air 11/21/18 17:50 Oxygen Flow Rate 0 11/21/18 17:50
[2018-11-21 18:21] LABS: Abs Immature Grans 0.01 k/cumm (0.0-0.09); Absolute Basophil Count 0.03 k/cumm (0.0-0.2); Absolute Eosinophil Count 0.32 k/cumm (0.0-0.7); Absolute Lymphocyte Count 1.17 k/cumm (1.2-3.4); Absolute Monocyte Count 0.55 k/cumm (0.11-0.7); Absolute Neutrophil Count 3.17 k/cumm (1.2-6.7); Basophils % 0.6; Eosinophils % 6.1; HCT 33.9 % (36.0-46.0); HGB 11.7 g/dL (12.0-15.5); Immature Grans % 0.2; Lymphocytes % 22.3; Mean Corp. HGB Concentration 34.5 g/dL (32.0-36.0); Mean Corpuscular Hemoglobin 30.5 pg (27.0-33.0); Mean Corpuscular Volume 88.5 fL (80-95); Mean Platelet Volume 8.9 fL (8.0-11.0); Monocytes % 10.5; Neutrophils % 60.3; Platelet Count 235 x1000/uL (130-400); RBC 3.83 m/cumm (4.00-5.20); RBC Distribution Width 13.2 % (11.7-14.6); White Blood Cell Count 5.25 k/cumm (4.4-10.8)
[2018-11-21 18:23] VITALS: BP 173/95; PULSE 73; RESP 20; TEMP 36.6; O2SAT 99
[2018-11-21 18:45] LABS: ALT 20 U/L (12-78); AST 17 U/L (15-37); Albumin 4.2 g/dL (3.4-5.0); Alkaline Phosphatase 74 U/L (46-116); Anion Gap 8.9 mmol/L (3-11); BUN 18 mg/dL (7-18); Bilirubin, Total 0.3 mg/dL (0.2-1.0); CO2 27.1 mmol/L (21.0-32.0); Calcium 9.1 mg/dL (8.5-10.1); Chloride 96 mmol/L (98-107); Glucose 106 mg/dL (70-100); Magnesium 1.9 mg/dL (1.8-2.4); Potassium 3.8 mmol/L (3.5-5.1); Sodium 132 mmol/L (136-145); Total Protein 7.6 g/dL (6.4-8.2)
[2018-11-21 18:47] LABS: Troponin I < 0.02 ng/mL (0.00-0.06)
== END 2018-11-21 18:22 | disposition home or self-care (01) ==
PROVIDERS: Emergency Provider Emergency Medicine; PCP Nurse Practitioner Family
DX: R00.2 Palpitations (principal); E87.1 Hypo-osmolality and hyponatremia; R05 Cough; E11.9 Type 2 diabetes mellitus without complications; I10 Essential (primary) hypertension
CPT/HCPCS: 36415; 80053; 93005; 99284; 83735; 84484; 85025; 93010

== ENCOUNTER → 2018-11-25 09:59 | Outpatient (BNVA) | payer MEDICARE, MEDICAID, SELFPAY | PROVIDERS: PCP Nurse Practitioner Family; Referring Provider Nurse Practitioner Family; Visit Provider Orthopaedic Surgery | DX: M25.532 Pain in left wrist (principal); M65.832 Other synovitis and tenosynovitis, left forearm; I10 Essential (primary) hypertension; E11.9 Type 2 diabetes mellitus without complications | CPT/HCPCS: 99211; 99212; 99213 ==

== ENCOUNTER 2018-12-04 10:32 | Outpatient (CLI) | payer MEDICARE, MEDICAID, SELFPAY ==
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
== END 2018-12-04 10:52 ==
PROVIDERS: PCP Nurse Practitioner Family; Visit Provider Orthopaedic Surgery
DX: Z01.818 Encounter for other preprocedural examination (principal); E11.9 Type 2 diabetes mellitus without complications; I10 Essential (primary) hypertension; M65.832 Other synovitis and tenosynovitis, left forearm; M25.532 Pain in left wrist
CPT/HCPCS: NC

== ENCOUNTER 2018-12-04 11:58 | Emergency (ER) | payer MEDICARE, MEDICAID, SELFPAY ==
[2018-12-04 11:58] VITALS: BP 165/101; PULSE 69; RESP 16; TEMP 36.6; O2SAT 99
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
--- NOTE | 2018-12-04 12:18 | NUR.NOTE ---
Nursing Note: Referral faxed to [facility] Dr. Morris Licea on for telephone call to be set up with a primary physician in this area. Stephenie Sullivan.
== END 2018-12-04 12:18 | disposition home or self-care (01) ==
LOC: ER 12:29
PROVIDERS: Emergency Provider Emergency Medicine
DX: J01.90 Acute sinusitis, unspecified (principal); F17.210 Nicotine dependence, cigarettes, uncomplicated
CPT/HCPCS: 99283

== ENCOUNTER 2018-12-10 11:24 | Day surgery (SDC) | payer MEDICARE, MEDICAID, SELFPAY ==
[2018-12-10] VITALS (7 sets, daily range): BP systolic 126–161; BP diastolic 71–102; PULSE 66–75; RESP 15–25; TEMP 35.2–36.5; O2SAT 95–99
[2018-12-10] MEDS: Lactated Ringers 1,000 ML 80 ML IV (12:11)
[2018-12-10] MEDS: ceFAZolin 1 GM/50 ML BAG IVPB (13:08)
--- NOTE | 2018-12-10 13:44 | PDOC.DSDIS_ITS ---
Discharge Plan Disposition Patient Disposition: HOME Condition: Good Discharge Details Reason For Visit: Tenolysis ECU tendon at L wrist Attending Provider: Ezio Jaime Primary Care Provider: None,None Home Meds and New Rx's Prescriptions: Continued trazodone 50 mg tablet 50 mg PO QHS PRNRF: 0 loratadine 10 mg capsule 10 mg PO DAILY RF: 0 losartan 25 mg Tablet 25 mg PO DAILY RF: 0 bupropion HCl [Wellbutrin SR] 100 mg Tablet Sustained-Release 12 Hr 200 mg PO DAILY RF: 0 amoxicillin-pot clavulanate [Augmentin] 875-125 mg tablet 1 tab PO Q12H Qty: 14 RF: 0 carvedilol 12.5 MG tablet 12.5 mg PO BID RF: 0 amlodipine 2.5 MG tablet 2.5 mg PO HS RF: 0 acetaminophen [Tylenol Extra Strength] 500 MG tablet 1,000 mg PO Q6H PRNQty: 0 RF: 0 ibuprofen 200 MG tablet 800 mg PO Q8H PRNQty: 0 RF: 0 Discharge Instructions Additional Instructions: Take ibuprofen or tylenol for pain. Keep dressings dry and intact until return. Return to 's office in 10-14 days. May use L hand as much as your discomfort allows. Elevate L hand above heart level as much as possible overnite tonite. Wiggle fingers L 10 times/hour when awake. Stand Alone Forms: [facility] Post op Instructions, Alex Hernandez ([facility]) Referrals: Ezio Jaime MD [ [facility] STAFF PHYSICIAN] - (f/u in 10-14 days.) Equipment/Supplies: Splint Activity:: Activity as Tolerated Remove Dressings/Wound Care:: Do Not Remove Shower/Bathe:: Cover Diet:: As Tolerated Discharge Orders Discharge Orders: Discharge Order (Routine); Ordered 12/10/18 Ordered By: Ezio Jaime DS: Diagnosis Discharge Diagnosis (1) Tendonitis of wrist, left: Status: Acute
--- NOTE | 2018-12-11 06:19 | ROE_ITS ---
REPORT OF OPERATIVE PROCEDURE DATE OF SURGERY December 10, 2018 PREOPERATIVE DIAGNOSIS: Tenosynovitis ECU tendon, left wrist. POSTOPERATIVE DIAGNOSIS: Tenosynovitis ECU tendon, left wrist. PROCEDURE: Incision tendon sheath extensor carpi ulnaris tendon, left wrist. SURGEON: Ezio Jaime M.D. ANESTHESIA: General. INDICATIONS: This is a 58-year-old white female with persistent ulnar-sided left wrist pain of many weeks duration . This was felt to be arising from tenosynovitis of the extensor carpi ulnaris tendon at the left wri st. She has not responded to splinting and anti-inflammatory medications. Therefore, release of the s arnulfo of the extensor carpi ulnaris tendon was recommended to alleviate her symptoms. The risks and c omplications of the procedure were explained to the patient in detail preoperatively. PROCEDURE DESCRIPTION: The patient was taken to the Operating Room on 12/10/2018. She was placed supine on the operating tab le and a general anesthetic was administered. The left hand, wrist, and forearm were prepped and eamon ped free in the usual sterile fashion. A longitudinal incision was then made directly over the dista l ulnar and the sheath of the extensor carpi ulnaris tendon. The incision was about 3 inches in lengt h. The incision was carried down to the subcu. The extensor carpi ulnaris tendon was identified prox imal to its sheath and then traced distally. The sheath was released sharply with a scalpel. Some hy pertrophic synovium was excised with a rongeur. There were some fibrous bands from the tendon attachi ng to the sheath, these were released as well, so that the extensor carpi ulnaris tendon was able to move freely in a groove in the distal ulnar. The wound was irrigated with saline solution and the wo und margins were infiltrated with 0.5% Marcaine with epinephrine solution. The subcutaneous veins wer e cauterized. The skin edges were approximated with horizontal mattress sutures of #4-0 Nylon suture material. The wound was dressed with Xeroform gauze, sterile gauze 4x4s, wrapped with a 4-inch Kerlix bandage, followed by a 3-inch Josiah bandage. A commercial cock-up wrist splint was placed over the hernan ssings to immobilize the wrist. The procedure was done under tourniquet control. The tourniquet was released after the dressings were applied. There was no breakthrough bleeding to the dressings. The patient's anesthesia was reversed without complication. She was discharged to the Recovery Room in good condition. The patient was later discharged home from the Day Surgery Unit when fully recovered from her General anesthesia. She was given instructions to elevate her left hand above heart level as much as possible overnight t onight. She was encouraged to bend and straighten the fingers of her left hand 10 times an hour while awake to prevent stiffness and swelling. She is to keep the splint in place, keep the dressings dry and intact until she follows up with me in 10 to 14 days. She was instructed to take Tylenol or ibuprofen for pain.
== END 2018-12-10 15:15 | disposition home or self-care (01) ==
PROVIDERS: Visit Provider Orthopaedic Surgery
PROC: (CPT 25000; principal; 2018-12-10 13:15)
DX: M65.9 Synovitis and tenosynovitis, unspecified (principal)
CPT/HCPCS: 25000; J0131; J0690; J1100; J1885; J2250; J2405; J3010; L3650; L3908

== ENCOUNTER 2018-12-23 11:02 | Outpatient (CLI) | payer MEDICARE, MEDICAID, SELFPAY ==
--- NOTE | 2018-12-23 11:00 | DI.RAD_ITS ---
SYMPTOM/DIAGNOSIS: PAIN LEFT FOOT: There are no prior comparison exams. A screw is seen in the first metatarsal head. The patient is status post first metatarsal osteotomy. There is mild hallux valgus and mild degenerative changes of the first MTP joint. There is an apparent hammertoe deformity of the 2nd toe. The 2nd toe is not well profiled. An accessory navicular is seen. There are mild degenerative changes of the first tarsal metatarsal joint. IMPRESSION: Post surgical and degenerative changes.
== END 2018-12-23 11:22 ==
PROVIDERS: Visit Provider Orthopaedic Surgery
DX: M20.12 Hallux valgus (acquired), left foot (principal); M79.672 Pain in left foot; M19.072 Primary osteoarthritis, left ankle and foot; M20.42 Other hammer toe(s) (acquired), left foot; Z47.89 Encounter for other orthopedic aftercare; I10 Essential (primary) hypertension; M65.832 Other synovitis and tenosynovitis, left forearm
CPT/HCPCS: 99214; 73620; L3908

== ENCOUNTER 2018-12-31 11:21 | Day surgery (SDC) | payer MEDICARE, MEDICAID, SELFPAY ==
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
== END 2018-12-31 12:10 ==
LOC: SUR 11:22
PROVIDERS: Visit Provider Orthopaedic Surgery
DX: Z53.29 Procedure and treatment not carried out because of patient's decision for other reasons (principal)

== ENCOUNTER 2019-02-18 11:58 | Emergency (ER) | payer MEDICARE, MEDICAID, SELFPAY ==
[2019-02-18 12:02] VITALS: BP 160/100; PULSE 64; RESP 16; TEMP 36.6; O2SAT 99
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
[2019-02-18 12:52] VITALS: BP 170/100
== END 2019-02-18 12:58 | disposition home or self-care (01) ==
PROVIDERS: Emergency Provider Physician Assistant
DX: J01.90 Acute sinusitis, unspecified (principal); F17.210 Nicotine dependence, cigarettes, uncomplicated; I10 Essential (primary) hypertension; E11.9 Type 2 diabetes mellitus without complications
CPT/HCPCS: 99283

== ENCOUNTER 2019-03-18 19:32 | Emergency (ER) | payer MEDICARE, MEDICAID, SELFPAY ==
[2019-03-18 19:43] VITALS: BP 163/105; PULSE 70; RESP 16; TEMP 36.5; O2SAT 97
--- NOTE | 2019-03-18 20:17 | ED.GENADUL_ITS ---
Discharge Plan Disposition Patient Disposition: HOME Condition: Good Discharge Details Chief Complaint: Headache Clinical Impression: Acute bacterial sinusitis Primary Care Provider: None,None ED Provider: Zack Queen Meds and New Rx's Prescriptions: New amoxicillin-pot clavulanate [Augmentin] 875-125 mg tablet 1 tab PO BID Qty: 12 RF: 0 Continued trazodone 50 mg tablet 50 mg PO QHS PRNRF: 0 loratadine 10 mg capsule 10 mg PO DAILY RF: 0 losartan 25 mg Tablet 25 mg PO DAILY RF: 0 bupropion HCl [Wellbutrin SR] 100 mg Tablet Sustained-Release 12 Hr 200 mg PO DAILY RF: 0 carvedilol 12.5 MG tablet 12.5 mg PO BID RF: 0 amlodipine 2.5 MG tablet 2.5 mg PO HS RF: 0 ibuprofen 200 MG tablet 800 mg PO Q8H PRNQty: 0 RF: 0 acetaminophen [Tylenol Extra Strength] 500 MG tablet 1,000 mg PO Q6H PRN (Reason: Pain) Qty: 0 RF: 0 Discharge Instructions Instructions: Amoxicillin/Clavulanate Potassium (By mouth), Sinusitis (ED) Additional Instructions: Continue Charla and steroid nasal spray. Use Tylenol or Motrin for discomfort. Take Augmentin twice a day for 1 week. Hydrate. Follow-up with primary care next week if not better. Return to emergency department if worsening headaches, mental status changes, neurologic changes, difficulty breathing, other concerns. Medical Decision Making Patient here with 3 weeks of sinus congestion/pressure/headaches with fatigue. Has bilateral maxillary sinus tenderness. Has postnasal greenish discharge in the posterior oropharynx. Is already taking Charla and steroid nasal spray. Will start on Augmentin for presumed acute bacterial sinusitis. Will after follow-up with primary care in a week if not better. Return to ED if worsening headaches, mental status changes, neurologic changes, difficulty breathing, other concerns or problems. HPI General Mode of arrival: ambulatory . Date/Time Provider Initiated Documentation: 03/18/19 20:16 . Limitations to Documentation: no limitations . Information obtained by: patient and RN notes reviewed . HPI Narrative: Patient presents to emergency department with complaints of sinus headache, congestion, fatigue. Symptoms have been ongoing for at least 3 weeks and seem to be getting worse rather than better. She uses Charla as well as steroid nasal drops. Tylenol or Motrin does help with her sinus discomfort but it always returns. She is having a lot of postnasal drainage. When she blows her nose it is greenish in color. She is not having wheezing or shortness of breath. She is not having chest pain. She has no neurologic symptoms. She is not aware of fever but she has had some chills. She has history of sinus infections in the past. Related Data Home Medications Medication Instructions Recorded Confirmed amlodipine 2.5 mg PO HS 08/25/16 03/18/19 carvedilol 12.5 mg PO BID 08/25/16 03/18/19 losartan 25 mg PO DAILY 03/27/18 03/18/19 ibuprofen 800 mg PO Q8H PRN #0 tab 09/10/18 03/18/19 bupropion HCl [Wellbutrin SR] 200 mg PO DAILY 12/04/18 03/18/19 loratadine 10 mg capsule 10 mg PO DAILY 12/04/18 03/18/19 trazodone 50 mg tablet 50 mg PO QHS PRN 12/04/18 03/18/19 acetaminophen [Tylenol Extra 1,000 mg PO Q6H PRN #0 tab 03/18/19 03/18/19 Strength] amoxicillin-pot clavulanate 1 tab PO BID #12 tab 03/18/19 [Augmentin] Previous Rx's Medication Instructions Recorded ibuprofen 800 mg PO Q8H PRN #0 tab 09/10/18 acetaminophen [Tylenol Extra 1,000 mg PO Q6H PRN #0 tab 03/18/19 Strength] amoxicillin-pot clavulanate 1 tab PO BID #12 tab 03/18/19 [Augmentin] Allergies Allergy/AdvReac Type Severity Reaction Status Date / Time Sulfa (Sulfonamide Allergy Severe Skin Rash Unverified 03/18/19 19:47 Antibiotics) sulfamethoxazole Allergy Severe Skin Rash Unverified 03/18/19 19:47 [From ] trimethoprim [From ] Allergy Severe Skin Rash Unverified 03/18/19 19:47 General Stated Complaint: Headache PAMELLA: 3 Review of Systems Review of Systems Narrative: As documented in HPI otherwise negative as below. Const: no fever, chills, weakness Resp: no cough, SOB, pleuritic pain CV: no CP, diaphoresis, edema, syncope GI: no abdominal pain, nausea, vomiting, diarrhea Neuro: headache (sinus pain); no numbness, focal weakness, confusion [facility] Medical History Depression (Chronic) History of fracture (Acute) femur repair HTN (hypertension) (Chronic) PTSD (post-traumatic stress disorder) (Acute) Surgical History History of bunionectomy (Acute) History of cataract extraction (Chronic) Reported complication that caused her to have left elongated pupil History of section (Chronic) Social History Smoking/Tobacco Use Status: Current-Occasional Tobacco Type: cigarettes Alcohol Intake: never Drug use: Never Substance use type: does not use Do you feel safe at home: Yes Additional Social history: STATES NOT IN A CURRENT RELATIONSHIP Exam Narrative Exam Narrative: Vitals: Afebrile here. BP up. Vitals and saturations otherwise normal. Const: WDWN female in NAD. HEENT: NC/AT. TMs clear bilaterally. Bilateral maxillary sinus tenderness. Post nasal drainage noted in posterior oropharynx. Eyes: Normal conjunctiva and sclera. Abnormal left pupil from previous cataract sugery. Neck: Supple. Trachea midline. Lungs: Normal respiratory effort. Lungs are clear. Cor: RRR without murmur/gallop. Neuro: A+O x 3. CN grossly in tact. Normal strength, sensation, speech, gait and cognition. Skin: Warm and dry without rash. Course Vital Signs Vital signs: Vital Signs Temperature 97.7 F 03/18/19 19:43 Pulse 70 03/18/19 19:43 Respiratory Rate 16 03/18/19 19:43 Blood Pressure 163/105 H 03/18/19 19:43 Pulse Oximetry 97 03/18/19 19:43 Temperature 97.7 F 03/18/19 19:43 Temperature Source Temporal Artery Scan 03/18/19 19:43 Pulse 70 03/18/19 19:43 Respiratory Rate 16 03/18/19 19:43 Respiratory Effort 03/18/19 19:52 Blood Pressure 163/105 H 03/18/19 19:43 Pulse Oximetry 97 03/18/19 19:43 Oxygen Delivery Method Room Air 03/18/19 19:43 Oxygen Flow Rate 0 03/18/19 19:43 Pain Level 3 03/18/19 19:52
[2019-03-18] MEDS: Acetaminophen 325 MG TAB 650 MG PO (20:32)
[2019-03-18] MEDS: Amoxicillin 875/Clav. 125 TAB PO (20:32)
[2019-03-18 20:42] VITALS: BP 154/88
== END 2019-03-18 20:42 | disposition home or self-care (01) ==
PROVIDERS: Emergency Provider Emergency Medicine
DX: R09.81 Nasal congestion (principal); R51 Headache; J01.00 Acute maxillary sinusitis, unspecified; I10 Essential (primary) hypertension; F17.210 Nicotine dependence, cigarettes, uncomplicated
CPT/HCPCS: 99283

== ENCOUNTER 2019-04-16 12:31 | Emergency (ER) | payer MEDICARE, MEDICAID, SELFPAY ==
[2019-04-16 12:34] VITALS: BP 176/93; PULSE 78; RESP 16; TEMP 36.4; O2SAT 100
[2019-04-16 12:42] VITALS: BP 149/95; PULSE 70; RESP 16; O2SAT 98
--- NOTE | 2019-04-16 12:47 | ED.GENADUL_ITS ---
Discharge Plan Disposition Patient Disposition: HOME Condition: Stable Discharge Details Chief Complaint: RashLesion Clinical Impression: Tinea corporis Primary Care Provider: None,None ED Provider: Favio Agrawal Home Meds and New Rx's Prescriptions: New clotrimazole 1 % cream 1 applic TP TID Qty: 15 RF: 0 fluconazole 150 mg tablet 150 mg PO QWEEK 14 Days Qty: 2 RF: 0 Continued trazodone 50 mg tablet 50 mg PO QHS PRNRF: 0 loratadine 10 mg capsule 10 mg PO DAILY RF: 0 losartan 25 mg Tablet 25 mg PO DAILY RF: 0 bupropion HCl [Wellbutrin SR] 100 mg Tablet Sustained-Release 12 Hr 200 mg PO DAILY RF: 0 carvedilol 12.5 MG tablet 12.5 mg PO BID RF: 0 amlodipine 2.5 MG tablet 2.5 mg PO HS RF: 0 ibuprofen 200 MG tablet 800 mg PO Q8H PRNQty: 0 RF: 0 acetaminophen [Tylenol Extra Strength] 500 MG tablet 1,000 mg PO Q6H PRN (Reason: Pain) Qty: 0 RF: 0 Discharge Instructions Instructions: Skin Yeast Infection (ED) Medical Decision Making 59 yo female comes in with rash on right forearm.. She states it has been there for several days and has had it in the past and was treated with topical and oral antifungals. Was recently on oral antibiotics for sinus infection. She is in no distress on exam, has several small circular areas that are scaly with central clearing. Seems consistent with tinea, will start on topicals antiffungals pt requesting oral as well as topical normally doesn't work so will prescrie this Differential Diagnosis Differential Diagnosis: tinea, fungus HPI General Mode of arrival: ambulatory . Date/Time Provider Initiated Documentation: 04/16/19 12:36 . Limitations to Documentation: no limitations . Information obtained by: patient . History of Present Illness 59 year old F presents to the emergency department with the chief complaint of rash, and is localized to the right and upper extremity. Patient reports no radiation. Patient started experiencing this day(s) (2) and it has been constant. No relieving factors improve symptom(s), No exacerbating factors reported . Patient did receive the following treatments prior to arrival, none Related Data Home Medications Medication Instructions Recorded Confirmed amlodipine 2.5 mg PO HS 08/25/16 04/16/19 carvedilol 12.5 mg PO BID 08/25/16 04/16/19 losartan 25 mg PO DAILY 03/27/18 04/16/19 ibuprofen 800 mg PO Q8H PRN #0 tab 09/10/18 04/16/19 bupropion HCl [Wellbutrin SR] 200 mg PO DAILY 12/04/18 04/16/19 loratadine 10 mg capsule 10 mg PO DAILY 12/04/18 04/16/19 trazodone 50 mg tablet 50 mg PO QHS PRN 12/04/18 04/16/19 acetaminophen [Tylenol Extra 1,000 mg PO Q6H PRN #0 tab 03/18/19 04/16/19 Strength] clotrimazole 1 applic TP TID #15 gm 04/16/19 fluconazole 150 mg PO QWEEK 14 Days #2 tab 04/16/19 Previous Rx's Medication Instructions Recorded ibuprofen 800 mg PO Q8H PRN #0 tab 09/10/18 acetaminophen [Tylenol Extra 1,000 mg PO Q6H PRN #0 tab 03/18/19 Strength] clotrimazole 1 applic TP TID #15 gm 04/16/19 fluconazole 150 mg PO QWEEK 14 Days #2 tab 04/16/19 Allergies Allergy/AdvReac Type Severity Reaction Status Date / Time Sulfa (Sulfonamide Allergy Severe Skin Rash Unverified 04/16/19 12:37 Antibiotics) sulfamethoxazole Allergy Severe Skin Rash Unverified 04/16/19 12:37 [From ] trimethoprim [From ] Allergy Severe Skin Rash Unverified 04/16/19 12:37 General Stated Complaint: RashLesion PAMELLA: 4 Review of Systems Review of Systems ROS Unobtainable: All systems reviewed & are unremarkable except as noted in HPI and below Constitutional Constitutional: Denies chills, Denies fever(s) and Denies weakness ENT Ears, Nose, Mouth, and Throat: Denies change in voice Cardiovascular Cardiovascular: Denies chest pain and Denies dyspnea Respiratory Respiratory: Denies cough and Denies dyspnea Gastrointestinal Gastrointestinal: Denies abdominal pain, Denies nausea and Denies vomiting Musculoskeletal Musculoskeletal: Denies joint swelling Neurologic Neurologic: Denies weakness PFSH Social History Smoking/Tobacco Use Status: Former Tobacco Use Tobacco: How many years used: 5 Alcohol Intake: never Drug use: Never Substance use type: does not use Do you feel safe at home: Yes Do you feel safe in your relationship?: Yes Additional Social history: STATES NOT IN A CURRENT RELATIONSHIP Exam Const General: no acute distress Orientation: alert HENMT Head: normal to inspection Ears: external ears normal General nose exam: external nose normal Mouth: moist mucous membranes Eyes General: appearance normal, both eyes and all related structures Neck Neck: normal visual inspection Resp Effort & Inspection: normal respiratory effort and able to speak in complete sentences Cardio Rate: regular rate Skin General skin exam: no rashes or lesions noted Neuro General: alert and oriented x3 Extrem General: normal to inspection Psych Mental Status: mental status grossly normal Course Vital Signs Vital signs: Vital Signs Temperature 36.4 C L 04/16/19 12:34 Pulse 78 04/16/19 12:34 Respiratory Rate 16 04/16/19 12:34 Blood Pressure 176/93 H 04/16/19 12:34 Pulse Oximetry 100 04/16/19 12:34 Temperature 36.4 C L 04/16/19 12:34 Temperature Source Skin 04/16/19 12:34 Pulse 70 04/16/19 12:42 Respiratory Rate 16 04/16/19 12:42 Respiratory Effort Non-Labored 04/16/19 12:40 Blood Pressure 149/95 H 04/16/19 12:42 Blood Pressure Position Sitting 04/16/19 12:34 Pulse Oximetry 98 04/16/19 12:42 Oxygen Delivery Method Room Air 04/16/19 12:42 Oxygen Flow Rate 0 04/16/19 12:42 Pain Level 0 04/16/19 12:34 Comment 04/16/19 12:34
== END 2019-04-16 14:32 | disposition home or self-care (01) ==
PROVIDERS: Emergency Provider Emergency Medicine
DX: B35.4 Tinea corporis (principal); I10 Essential (primary) hypertension
CPT/HCPCS: 99283

== ENCOUNTER 2019-08-11 12:38 | Emergency (ER) | payer MEDICARE, MEDICAID, SELFPAY ==
[2019-08-11 12:53] VITALS: BP 135/100; PULSE 81; RESP 14; TEMP 36.7; O2SAT 98
--- NOTE | 2019-08-11 13:22 | ED.GENADUL_ITS ---
Discharge Plan Disposition Patient Disposition: HOME Condition: Stable Discharge Details Chief Complaint: GenMedical Clinical Impression: Sinusitis Primary Care Provider: None,None ED Provider: Josefina Watts Home Meds and New Rx's Prescriptions: New amoxicillin-pot clavulanate [Augmentin] 875-125 mg tablet 1 tab PO BID Qty: 20 RF: 0 Flonase Sensimist 27.5 mcg/actuation spray,suspension 2 spray AGUEDA DAILY Qty: 5.9 RF: 0 No Action loratadine 10 mg capsule 10 mg PO DAILY RF: 0 losartan 25 mg Tablet 25 mg PO DAILY RF: 0 bupropion HCl [Wellbutrin SR] 100 mg Tablet Sustained-Release 12 Hr 200 mg PO DAILY RF: 0 carvedilol 12.5 MG tablet 12.5 mg PO BID RF: 0 amlodipine 2.5 MG tablet 2.5 mg PO HS RF: 0 ibuprofen 200 MG tablet 800 mg PO Q8H PRNQty: 0 RF: 0 acetaminophen [Tylenol Extra Strength] 500 MG tablet 1,000 mg PO Q6H PRN (Reason: Pain) Qty: 0 RF: 0 Discharge Instructions Instructions: Sinusitis (ED) Additional Instructions: Drink plenty of fluids. Consider humidifier by the bedside. Increase vitamin C. Rest activities as tolerated. Use antibiotic as prescribed. Use nasal saline rinsing up to 3 times a day as discussed. 5 minutes after morning use of nasal saline rinse for use use Flonase. Motrin or Tylenol for soreness if needed. Recheck with PCP if not improving in the next 3 to 5 days as discussed. Return for any worsening, concerns or alarming symptoms sooner if needed Medical Decision Making This is a 59-year-old patient presenting to the emergency room for complaints of sinus pain, pressure, nasal congestion, postnasal drip, intermittently productive cough. Patient reports she has been sick for approximately 2 months and has trialed [id number] medications which have been unsuccessful at relieving her pain. Patient does report a history of sinus infection in the past and this feels similar. Patient does report a mild headache. No associated dizziness. Patient reports pressure behind the eyes and overlying the sinus worse when leaning forward. Denies any nausea, vomiting, diarrhea. Denies measured fevers or chills. Is eating and drinking without difficulty. Patient reports no relief with allergy medications [id number]. On exam patient does have sinus pain with palpation. TMs appear normal. Cervical lymphadenopathy is present, mild cobblestoning consistent with postnasal drip in the posterior pharynx. Breath sounds are clear. Patient appears nontoxic, vital signs reviewed. Noted to be mildly hypertensive, patient is managed with blood pressure medications with no obvious concerns of hypertensive emergency at this time. Offered antibiotic treatment, discussed conservative nasal saline rinses as well as use of Flonase. Patient agrees with plan of care. Patient prefers to avoid any imaging studies at this time rather trial antibiotic treatment and if not improved follow-up. The patient was stable and requested discharge. Prior to discharge, my usual and customary return precautions were reviewed with the patient - this included follow-up instructions and reasons to return to the Emergency Department if conditions worsens, does not improve as expected, or other new concerns arise. HPI General Date/Time Provider Initiated Documentation: 08/11/19 12:46 . HPI Narrative: Is a 59-year-old patient presenting to the ER for concern of sinus infection. Patient reports sinus headache, sinus pain and pressure. Patient reports bilateral ear congestion. Patient reports postnasal drip. Patient reports a cough intermittently productive with no associated difficulty breathing of shortness of breath or wheezing. Patient denies any chest pain. Patient denies fever, chills, nausea, vomiting or diarrhea. Patient reports approximately 2 months of symptoms. She has been using her allergy medication expecting improvement yet reports continued sinus pain and concerns of possible infection. Patient reports no relief with [id number] medications. Patient does have a history of sinus infections in the past this feels similar. Related Data Home Medications Medication Instructions Recorded Confirmed amlodipine 2.5 mg PO HS 08/25/16 08/11/19 carvedilol 12.5 mg PO BID 08/25/16 08/11/19 losartan 25 mg PO DAILY 03/27/18 08/11/19 ibuprofen 800 mg PO Q8H PRN #0 tab 09/10/18 08/11/19 bupropion HCl [Wellbutrin SR] 200 mg PO DAILY 12/04/18 08/11/19 loratadine 10 mg capsule 10 mg PO DAILY 12/04/18 08/11/19 acetaminophen [Tylenol Extra 1,000 mg PO Q6H PRN #0 tab 03/18/19 08/11/19 Strength] amoxicillin-pot clavulanate 1 tab PO BID #20 tab 08/11/19 [Augmentin] fluticasone furoate [Flonase 2 spray AGUEDA DAILY #5.9 ml 08/11/19 Sensimist] Previous Rx's Medication Instructions Recorded ibuprofen 800 mg PO Q8H PRN #0 tab 09/10/18 acetaminophen [Tylenol Extra 1,000 mg PO Q6H PRN #0 tab 03/18/19 Strength] amoxicillin-pot clavulanate 1 tab PO BID #20 tab 08/11/19 [Augmentin] fluticasone furoate [Flonase 2 spray AGUEDA DAILY #5.9 ml 08/11/19 Sensimist] Allergies Allergy/AdvReac Type Severity Reaction Status Date / Time Sulfa (Sulfonamide Allergy Severe Skin Rash Unverified 08/11/19 12:57 Antibiotics) sulfamethoxazole Allergy Severe Skin Rash Unverified 08/11/19 12:57 [From ] trimethoprim [From ] Allergy Severe Skin Rash Unverified 08/11/19 12:57 General Stated Complaint: GenMedical PAMELLA: 4 Review of Systems All systems reviewed & are unremarkable except as noted in HPI and below Constitutional Constitutional: Denies chills, Denies fatigue, Denies fever(s), Reports headache(s) and Reports malaise ENT Ears, Nose, Mouth, and Throat: Reports otalgia, Reports headache(s), Reports nasal congestion, Reports post nasal drip, Denies tinnitus, Reports sinus pain and Reports sinus pressure Cardiovascular Cardiovascular: Denies dyspnea Respiratory Respiratory: Reports chest congestion, Reports cough, Denies dyspnea and Denies wheezing Gastrointestinal Gastrointestinal: Denies abdominal pain, Denies diarrhea, Denies nausea and Denies vomiting Genitourinary Genitourinary: Denies hematuria and Denies dysuria Neurologic Neurologic: Reports headache(s) Endocrine Endocrine: Denies fatigue Allergic/Immunologic Allergic/Immunologic: Denies wheezing [facility] Medical History Depression (Chronic) History of fracture (Acute) femur repair HTN (hypertension) (Chronic) PTSD (post-traumatic stress disorder) (Acute) Social History Smoking/Tobacco Use Status: Former Tobacco Use Tobacco: How many years used: 5 Alcohol Intake: never Drug use: Never Substance use type: does not use Do you feel safe at home: Yes Exam Narrative Exam Narrative: CONST: Healthy appearing patient, in no acute distress. Well hydrated. Alert and oriented. HENMT: Head nomocephalic, normal to inspection. Atraumatic. Hearing grossly normal. TMs appear normal bilaterally. Mild posterior pharynx cobblestoning and erythema. No obvious tonsillar swelling, exudates. Sinus pain with palpation over the maxillary and frontal sinuses. EYES: General normal appearance. Alignment normal. Eyelids normal. Conjunctiva normal. NECK: Normal visual inspection. FROM. Trachea midline. No Midline tenderness. Cervical lymphadenopathy present CHEST: Normal insepection of the chest. RESP: Normal respiratory effort. Speaking full sentences. No cough. No audible wheezing. No retractions. Breath sounds are clear, full and equal bilaterally. No rhonchi, rales or wheezing. CARDIO: No JVD. No murmur, regular rate and rhythm SKIN: Normal. Dry. No rashes. No facial cellulitis Course Vital Signs Vital signs: Vital Signs Temperature 36.7 C 08/11/19 12:53 Pulse 81 08/11/19 12:53 Respiratory Rate 14 08/11/19 12:53 Blood Pressure 135/100 H 08/11/19 12:53 Pulse Oximetry 98 08/11/19 12:53 Temperature 36.7 C 08/11/19 12:53 Temperature Source Skin 08/11/19 12:53 Pulse 81 08/11/19 12:53 Respiratory Rate 14 08/11/19 12:53 Respiratory Effort Non-Labored 08/11/19 12:58 Blood Pressure 135/100 H 08/11/19 12:53 Blood Pressure Position Sitting 08/11/19 12:53 Pulse Oximetry 98 08/11/19 12:53 Oxygen Delivery Method Room Air 08/11/19 12:53 Oxygen Flow Rate 0 08/11/19 12:53 Pain Level 4 08/11/19 12:53
== END 2019-08-11 13:34 | disposition home or self-care (01) ==
PROVIDERS: Emergency Provider Physician Assistant
DX: R51 Headache (principal); R09.82 Postnasal drip; R05 Cough; J01.90 Acute sinusitis, unspecified; I10 Essential (primary) hypertension
CPT/HCPCS: 99283

== ENCOUNTER 2019-11-10 14:32 | Emergency (ER) | payer MEDICARE, MEDICAID, SELFPAY ==
[2019-11-10 14:38] VITALS: BP 167/88; PULSE 75; RESP 16; TEMP 36.5; O2SAT 99
--- NOTE | 2019-11-10 15:11 | ED.GENADUL_ITS ---
Discharge Plan Disposition Patient Disposition: HOME Condition: Stable Discharge Details Chief Complaint: RespSymp Clinical Impression: Sinusitis Primary Care Provider: None,None ED Provider: Jose Irwin Home Meds and New Rx's Prescriptions: New amoxicillin 875 mg tablet 875 mg PO BID 10 Days Qty: 20 RF: 0 No Action loratadine 10 mg capsule 10 mg PO DAILY RF: 0 losartan 25 mg Tablet 25 mg PO DAILY RF: 0 carvedilol 12.5 MG tablet 12.5 mg PO BID RF: 0 amlodipine 2.5 MG tablet 2.5 mg PO HS RF: 0 ibuprofen 200 MG tablet 800 mg PO Q8H PRNQty: 0 RF: 0 acetaminophen [Tylenol Extra Strength] 500 MG tablet 1,000 mg PO Q6H PRN (Reason: Pain) Qty: 0 RF: 0 Flonase Sensimist 27.5 mcg/actuation spray,suspension 2 spray AGUEDA DAILY Qty: 5.9 RF: 0 ibuprofen 600 mg tablet 600 mg PO Q8H PRN (Reason: fever or pain) Qty: 21 RF: 0 Discharge Instructions Instructions: Sinusitis (ED) Additional Instructions: Continue taking current medication as directed. Add on amoxicillin as directed. Please watch for new or worsening symptoms and return to the ER for any concerns. Medical Decision Making 59-year-old female presents with a month-long history of worsening sinus pain, worsening pressure and increased discharge and is now colorful. She appears well, nontoxic. Given her past medical history, duration of symptoms, and now clinical findings with discomfort over her sinuses, erythematous, boggy nasal mucosa, I do believe that initiating antibiotic therapy is reasonable. Patient will continue her other medications and add on an antibiotic that I prescribed. She has no additional questions or concerns. HPI, evaluation, disposition discussed with Dr. Fregoso. Medical Records Medical records reviewed: Yes I reviewed the patient's medical records. HPI General Mode of arrival: ambulatory . Date/Time Provider Initiated Documentation: 11/10/19 14:37 . Limitations to Documentation: no limitations . Information obtained by: patient . HPI Narrative: 59-year-old female who reports history of diabetes, hypertension, allergic rhinitis, non-smoker, presents for over 1 month history of worsening sinus infection rotation. She reports facial pain, congestion, initially started with clear drainage, now with purulent drainage. She has used her [id number] oral antihistamines and Flonase however these are no longer controlling her symptoms. She does report mild ear pressure but no pain. Denies fever, sore throat, neck pain, cough, shortness of breath, abdominal pain, nausea, vomiting. Related Data Home Medications Medication Instructions Recorded Confirmed amlodipine 2.5 mg PO HS 08/25/16 11/10/19 carvedilol 12.5 mg PO BID 08/25/16 11/10/19 losartan 25 mg PO DAILY 03/27/18 11/10/19 ibuprofen 800 mg PO Q8H PRN #0 tab 09/10/18 11/10/19 loratadine 10 mg capsule 10 mg PO DAILY 12/04/18 11/10/19 acetaminophen [Tylenol Extra 1,000 mg PO Q6H PRN #0 tab 03/18/19 11/10/19 Strength] fluticasone furoate [Flonase 2 spray AGUEDA DAILY #5.9 ml 08/11/19 11/10/19 Sensimist] ibuprofen 600 mg PO Q8H PRN #21 tab 08/11/19 11/10/19 amoxicillin 875 mg PO BID 10 Days #20 tab 11/10/19 Previous Rx's Medication Instructions Recorded ibuprofen 800 mg PO Q8H PRN #0 tab 09/10/18 acetaminophen [Tylenol Extra 1,000 mg PO Q6H PRN #0 tab 03/18/19 Strength] fluticasone furoate [Flonase 2 spray AGUEDA DAILY #5.9 ml 08/11/19 Sensimist] ibuprofen 600 mg PO Q8H PRN #21 tab 08/11/19 amoxicillin 875 mg PO BID 10 Days #20 tab 11/10/19 Allergies Allergy/AdvReac Type Severity Reaction Status Date / Time Sulfa (Sulfonamide Allergy Severe Skin Rash Unverified 11/10/19 14:41 Antibiotics) sulfamethoxazole Allergy Severe Skin Rash Unverified 11/10/19 14:41 [From ] trimethoprim [From ] Allergy Severe Skin Rash Unverified 11/10/19 14:41 General Stated Complaint: RespSymp PAMELLA: 4 Review of Systems Constitutional Constitutional: Denies fever(s) and Denies headache(s) Eyes Eyes: Denies eye discharge ENT Ears, Nose, Mouth, and Throat: Reports facial pain, Denies headache(s) and Denies sore throat Cardiovascular Cardiovascular: Denies chest pain and Denies dyspnea Respiratory Respiratory: Denies cough and Denies dyspnea Gastrointestinal Gastrointestinal: Denies nausea and Denies vomiting Integumentary/Breasts Skin/Breast: Denies rash Neurologic Neurologic: Denies headache(s) [facility] Medical History Depression (Chronic) History of fracture (Acute) femur repair HTN (hypertension) (Chronic) PTSD (post-traumatic stress disorder) (Acute) Surgical History History of bunionectomy (Acute) History of cataract extraction (Chronic) Reported complication that caused her to have left elongated pupil History of section (Chronic) Social History Smoking/Tobacco Use Status: Former Tobacco Use Tobacco: How many years used: 5 Alcohol Intake: never Drug use: Never Substance use type: does not use Do you feel safe at home: Yes Exam Const General: cooperative, healthy appearing, comfortable and no acute distress Orientation: alert, awake and oriented x3 HENMT Head: normal to inspection, normocephalic and atraumatic Ears: hearing grossly normal bilaterally, external ears normal, TM's normal bilaterally and EAC's normal General nose exam: external nose normal, mucous membranes and turbinates abnormal erythematous and nasal discharge clear Face and sinus: normal facial exam and sinus tenderness frontal and maxillary Mouth: moist mucous membranes Throat: posterior oropharynx normal Eyes Conjunctivae: conjunctivae normal Neck Neck: normal visual inspection, full ROM, no lymphadenopathy, no meningeal signs, trachea midline, supple and nontender Resp Effort & Inspection: normal respiratory effort and able to speak in complete sentences Auscultation: clear to auscultation bilaterally Cardio Rate: regular rate Rhythm: regular rhythm Skin General skin exam: no rashes or lesions noted Neuro General: patient alert, patient awake, moves all extremities and no focal motor deficits Sensory Exam: no sensory deficits noted Psych Appearance: grossly normal Mental Status: mental status grossly normal Course Vital Signs Vital signs: Vital Signs Temperature 36.5 C 11/10/19 14:38 Pulse 75 11/10/19 14:38 Respiratory Rate 16 11/10/19 14:38 Blood Pressure 167/88 H 11/10/19 14:38 Pulse Oximetry 99 11/10/19 14:38 Temperature 36.5 C 11/10/19 14:38 Temperature Source Skin 11/10/19 14:38 Pulse 75 11/10/19 14:38 Respiratory Rate 16 11/10/19 14:38 Respiratory Effort Non-Labored 11/10/19 14:38 Blood Pressure 167/88 H 11/10/19 14:38 Blood Pressure Position Sitting 11/10/19 14:38 Pulse Oximetry 99 11/10/19 14:38 Oxygen Delivery Method Room Air 11/10/19 14:38 Oxygen Flow Rate 0 11/10/19 14:38 Pain Level 0 11/10/19 14:38
[2019-11-10 15:15] VITALS: BP 167/88; PULSE 75; RESP 16; TEMP 36.5; O2SAT 99
== END 2019-11-10 15:18 | disposition home or self-care (01) ==
PROVIDERS: Emergency Provider Physician Assistant
DX: J01.80 Other acute sinusitis (principal); E11.9 Type 2 diabetes mellitus without complications; Z87.891 Personal history of nicotine dependence; I10 Essential (primary) hypertension
CPT/HCPCS: 99283

== ENCOUNTER 2020-01-05 12:38 | Emergency (ER) | payer MEDICARE, MEDICAID, SELFPAY ==
[2020-01-05 12:41] VITALS: BP 132/80; PULSE 77; TEMP 36.6; O2SAT 97
--- NOTE | 2020-01-05 12:54 | ED.GENADUL_ITS ---
Discharge Plan Disposition Patient Disposition: HOME Condition: Stable Discharge Details Chief Complaint: Headache Clinical Impression: Acute maxillary sinusitis Primary Care Provider: None,None ED Provider: Chon Giron Home Meds and New Rx's Prescriptions: New amoxicillin-pot clavulanate [Augmentin] 875-125 mg tablet 1 tab PO BID Qty: 19 RF: 0 Continued loratadine 10 mg capsule 10 mg PO HS RF: 0 losartan 25 mg Tablet 25 mg PO HS RF: 0 ibuprofen 800 mg Tablet 800 mg PO TID PRNRF: 0 carvedilol 12.5 MG tablet 12.5 mg PO BID RF: 0 amlodipine 2.5 MG tablet 2.5 mg PO HS RF: 0 acetaminophen [Tylenol Extra Strength] 500 MG tablet 1,000 mg PO Q6H PRN (Reason: Pain) Qty: 0 RF: 0 Flonase Sensimist 27.5 mcg/actuation spray,suspension 2 spray AGUEDA DAILY Qty: 5.9 RF: 0 ibuprofen 600 mg tablet 600 mg PO Q8H PRN (Reason: fever or pain) Qty: 21 RF: 0 Discharge Instructions Instructions: Sinusitis (ED) Additional Instructions: Please drink plenty of fluid to stay hydrated. Allow for plenty of rest. Please contact your primary care physician to arrange follow-up. Return to the ER for any worsening or new concerning symptoms. Medical Decision Making 59-year-old female with history of prior sinusitis, here with 3 to 4 weeks of sinus congestion. Suspect acute sinusitis. Plan to treat with Augmentin. Patient does not have a primary care physician in the area. I will ask hayden whittington to assist in arranging a primary care physician going forward. Usual customary discharge instructions were reviewed with the patient. She verbalized understanding of need for timely follow-up and need to return should have any worsening, new concerning, or persistent symptoms. HPI General Mode of arrival: ambulatory . Date/Time Provider Initiated Documentation: 01/05/20 12:50 . Limitations to Documentation: no limitations . Information obtained by: patient . HPI Narrative: 59-year-old female presents with chief complaint of sinus congestion. Patient notes 3 to 4 weeks of persistent sinus pressure and pain. Pain is localized to maxillary sinuses worse on the left and also some frontal. She has associated headache. No associated fever. No sore throat. She does have some bilateral ear fullness. Patient notes chronic intermittent sinusitis that usually responds with Augmentin. She has not had any recent flares prior to this. Related Data Home Medications Medication Instructions Recorded Confirmed amlodipine 2.5 mg PO HS 08/25/16 01/05/20 carvedilol 12.5 mg PO BID 08/25/16 01/05/20 losartan 25 mg PO HS 03/27/18 01/05/20 loratadine 10 mg capsule 10 mg PO HS 12/04/18 01/05/20 acetaminophen [Tylenol Extra 1,000 mg PO Q6H PRN #0 tab 03/18/19 01/05/20 Strength] Flonase Sensimist 2 spray AGUEDA DAILY #5.9 ml 08/11/19 01/05/20 ibuprofen 600 mg PO Q8H PRN #21 tab 08/11/19 01/05/20 amoxicillin-pot clavulanate 1 tab PO BID #19 tab 01/05/20 [Augmentin] ibuprofen 800 mg PO TID PRN 01/05/20 01/05/20 Previous Rx's Medication Instructions Recorded acetaminophen [Tylenol Extra 1,000 mg PO Q6H PRN #0 tab 03/18/19 Strength] Flonase Sensimist 2 spray AGUEDA DAILY #5.9 ml 08/11/19 ibuprofen 600 mg PO Q8H PRN #21 tab 08/11/19 amoxicillin-pot clavulanate 1 tab PO BID #19 tab 01/05/20 [Augmentin] Allergies Allergy/AdvReac Type Severity Reaction Status Date / Time Sulfa (Sulfonamide Allergy Severe Skin Rash Unverified 01/05/20 12:46 Antibiotics) sulfamethoxazole Allergy Severe Skin Rash Unverified 01/05/20 12:46 [From Marra] trimethoprim [From ] Allergy Severe Skin Rash Unverified 01/05/20 12:46 General Stated Complaint: Headache PAMELLA: 4 Review of Systems Constitutional Constitutional: Denies fever(s) Eyes Eyes: Denies blurry vision, Denies change in vision and Denies eye pain ENT Ears, Nose, Mouth, and Throat: Reports as per HPI Respiratory Respiratory: Denies cough PFSH Medical History Depression (Chronic) History of fracture (Acute) femur repair HTN (hypertension) (Chronic) PTSD (post-traumatic stress disorder) (Acute) Surgical History History of bunionectomy (Acute) History of cataract extraction (Chronic) Reported complication that caused her to have left elongated pupil History of section (Chronic) Social History Smoking/Tobacco Use Status: Former Tobacco Use Tobacco: How many years used: 5 Alcohol Intake: never Drug use: Never Substance use type: does not use Do you feel safe at home: Yes Exam Const General: cooperative and no acute distress HENMT Head: normocephalic and atraumatic General nose exam: external nose normal and nares normal Face and sinus: face symmetric, no erythema and sinus tenderness maxillary Mouth: moist mucous membranes and no trismus Throat: posterior oropharynx normal Eyes Conjunctivae: normal conjunctivae Sclera: normal sclerae EOM: EOM intact bilaterally Resp Effort & Inspection: normal respiratory effort, no cough and not labored Cardio Rate: regular rate Skin General skin exam: no rashes or lesions noted (Facial) Neuro General: patient alert, patient awake and tone normal Course Vital Signs Vital signs: Vital Signs Temperature 36.6 C 01/05/20 12:41 Pulse 77 01/05/20 12:41 Blood Pressure 132/80 01/05/20 12:41 Pulse Oximetry 97 01/05/20 12:41 Temperature 36.6 C 01/05/20 12:41 Pulse 77 01/05/20 12:41 Respiratory Effort Non-Labored 01/05/20 12:50 Blood Pressure 132/80 01/05/20 12:41 Blood Pressure Position Sitting 01/05/20 12:41 Pulse Oximetry 97 01/05/20 12:41 Oxygen Delivery Method Room Air 01/05/20 12:41 Oxygen Flow Rate 0 01/05/20 12:41 Pain Level 0 01/05/20 12:41
--- NOTE | 2020-01-05 12:59 | NUR.NOTE ---
Nursing Note: faxed to care management pt needs pcp and follow up within 1-2 weeks. kw
[2020-01-05 13:01] VITALS: BP 132/80; PULSE 77; TEMP 36.6; O2SAT 97
[2020-01-05] MEDS: Amoxicillin 875/Clav. 125 TAB PO (13:02)
--- NOTE | 2020-01-07 09:31 | PDOC.ERCMPRO ---
- If Service Date Differs Date of service: 01/07/20 Time of Service: 09:31 Care Management Progress Note At ED provider's request, PEDRO coordinates referral to TRACEY James, [facility], of [facility], to assist Myranda in establishing care with a local PCP. Myranda is seen in the ED on 01/05/2020 for sinusitis.
== END 2020-01-05 13:00 | disposition home or self-care (01) ==
PROVIDERS: Emergency Provider Student in an Organized Health Care Education/Training Program
DX: J01.00 Acute maxillary sinusitis, unspecified (principal); I10 Essential (primary) hypertension
CPT/HCPCS: 99283

== ENCOUNTER 2020-02-16 19:57 | Emergency (ER) | payer MEDICARE, MEDICAID, SELFPAY ==
[2020-02-16 20:01] VITALS: PULSE 78; RESP 16; TEMP 36.3; O2SAT 99
--- NOTE | 2020-02-16 20:03 | ED.GENADUL_ITS ---
Discharge Plan Disposition Patient Disposition: HOME Condition: Good Discharge Details Chief Complaint: RespSymp Clinical Impression: Gastric irritation Primary Care Provider: None,None ED Provider: Patel Covington Home Meds and New Rx's Prescriptions: New sucralfate [Carafate] 1 gram tablet 1 gm PO BID Qty: 20 RF: 0 pantoprazole [Protonix] 40 mg tablet,delayed release (DR/EC) 40 mg PO DAILY Qty: 30 RF: 0 Continued loratadine 10 mg capsule 10 mg PO HS RF: 0 losartan 25 mg Tablet 25 mg PO HS RF: 0 ibuprofen 800 mg Tablet 800 mg PO TID PRNRF: 0 carvedilol 12.5 MG tablet 12.5 mg PO BID RF: 0 amlodipine 2.5 MG tablet 2.5 mg PO HS RF: 0 acetaminophen [Tylenol Extra Strength] 500 MG tablet 1,000 mg PO Q6H PRN (Reason: Pain) Qty: 0 RF: 0 Flonase Sensimist 27.5 mcg/actuation spray,suspension 2 spray AGUEDA DAILY Qty: 5.9 RF: 0 ibuprofen 600 mg tablet 600 mg PO Q8H PRN (Reason: fever or pain) Qty: 21 RF: 0 Discharge Instructions Instructions: Gastritis (ED) Additional Instructions: At this time your signs and symptoms are concerning for mild gastritis or gastric ulcer. Please avoid any tomato-based products, citrus-based products, or spicy foods. Please take the Carafate and Protonix as directed to help with your symptoms. If you notice any worsening of your symptoms, or any new symptoms such as vomiting, diarrhea, fever, chills, shortness of breath, chest pain, numbness, weakness, or fainting , please return immediately to the emergency department for reevaluation. Please follow up with your primary care provider as soon as possible for reassessment and reevaluation. As always, it was a pleasure participating in your medical care today. Medical Decision Making 60-year-old female with a past medical history of hypertension, PTSD, sinusitis, who presents today for evaluation of epigastric discomfort. Patient states that she got the shingles shot a month ago, and since then she has had intermittent epigastric discomfort which she describes as having a weak stomach. She states that normally I have a very strong stomach but now it feels weak. She denies any vomiting but does admit to occasional nausea. She admits to regular bowel movements and denies any constipation or diarrhea. She did have some shrimp with cocktail sauce earlier today and this may have made the symptoms worse. Otherwise she denies any focal aggravating or relieving factors. She states that she had symptoms similar to this once in the past where she was given Zantac which completely resolves her symptomatology. She denies any significant spicy or greasy food intake aside for her regular diet of chicken salad. The patient denies any chest pain, chest tightness, bandlike sensation around the chest, chest heaviness, arm neck or shoulder pain. She denies any shortness of breath or pleuritic chest pain. She denies any history of cardiac disease. She does not smoke. She denies any exertional discomfort. Physical exam is notably unremarkable, signs and symptoms are clinically inconsistent with ACS, screening EKG is negative for evidence of STEMI. She has no exertional discomfort. Symptoms have been present for over a month, seem to be food and gastric related at this time. Signs and symptoms are clinically consistent with mild gastric irritation at this time, likely related to diet and stress. Patient was offered PCP follow-up, and she states that she is currently in communication with a new PCP and will be following up. Will prescribe Carafate and Protonix. Discussed red flags for which to return. I have extensively reviewed the treatment plan and discharge instructions with the patient. I have addressed all patient concerns at this time. The patient was made aware of what symptoms to monitor for that would warrant a return to the emergency department. Discussed the plan with the patient, they demonstrate verbal understanding and agreement with our assessment and plan at this time. EKG 20: 29 Rate 69, sinus rhythm, QTc 470, intervals otherwise normal, no significant ST elevations or depressions, inverted T wave present in V1 and V2, no evidence of STEMI HPI General Date/Time Provider Initiated Documentation: 02/16/20 19:57 . HPI Narrative: 60-year-old female with a past medical history of hypertension, PTSD, sinusitis, who presents today for evaluation of epigastric discomfort. Patient states that she got the shingles shot a month ago, and since then she has had intermittent epigastric discomfort which she describes as having a weak stomach. She states that normally I have a very strong stomach but now it feels weak. She denies any vomiting but does admit to occasional nausea. She admits to regular bowel movements and denies any constipation or diarrhea. She did have some shrimp with cocktail sauce earlier today and this may have made the symptoms worse. Otherwise she denies any focal aggravating or relieving factors. She states that she had symptoms similar to this once in the past where she was given Zantac which completely resolves her symptomatology. She denies any significant spicy or greasy food intake aside for her regular diet of chicken salad. The patient denies any chest pain, chest tightness, bandlike sensation around the chest, chest heaviness, arm neck or shoulder pain. She denies any shortness of breath or pleuritic chest pain. She denies any history of cardiac disease. She does not smoke. She denies any exertional discomfort. Related Data Home Medications Medication Instructions Recorded Confirmed amlodipine 2.5 mg PO HS 08/25/16 02/16/20 carvedilol 12.5 mg PO BID 08/25/16 02/16/20 losartan 25 mg PO HS 03/27/18 02/16/20 loratadine 10 mg capsule 10 mg PO HS 12/04/18 02/16/20 acetaminophen [Tylenol Extra 1,000 mg PO Q6H PRN #0 tab 03/18/19 02/16/20 Strength] Flonase Sensimist 2 spray AGUEDA DAILY #5.9 ml 08/11/19 02/16/20 ibuprofen 600 mg PO Q8H PRN #21 tab 08/11/19 02/16/20 ibuprofen 800 mg PO TID PRN 01/05/20 02/16/20 pantoprazole [Protonix] 40 mg PO DAILY #30 tab 02/16/20 sucralfate [Carafate] 1 gm PO BID #20 tab 02/16/20 Previous Rx's Medication Instructions Recorded acetaminophen [Tylenol Extra 1,000 mg PO Q6H PRN #0 tab 03/18/19 Strength] Flonase Sensimist 2 spray AGUEDA DAILY #5.9 ml 08/11/19 ibuprofen 600 mg PO Q8H PRN #21 tab 08/11/19 pantoprazole [Protonix] 40 mg PO DAILY #30 tab 02/16/20 sucralfate [Carafate] 1 gm PO BID #20 tab 08/18/20 Allergies Allergy/AdvReac Type Severity Reaction Status Date / Time Sulfa (Sulfonamide Allergy Severe Skin Rash Unverified 02/16/20 20:02 Antibiotics) sulfamethoxazole Allergy Severe Skin Rash Unverified 02/16/20 20:02 [From Septra] trimethoprim [From Marra] Allergy Severe Skin Rash Unverified 02/16/20 20:02 General Stated Complaint: RespSymp PAMELLA: 5 Review of Systems All systems reviewed & are unremarkable except as noted in HPI and below PFSH Medical History Depression (Chronic) History of fracture (Acute) femur repair HTN (hypertension) (Chronic) PTSD (post-traumatic stress disorder) (Acute) Surgical History History of bunionectomy (Acute) History of cataract extraction (Chronic) Reported complication that caused her to have left elongated pupil History of section (Chronic) Social History Smoking/Tobacco Use Status: Former Tobacco Use Tobacco: How many years used: 5 Alcohol Intake: never Drug use: Never Substance use type: does not use Do you feel safe at home: Yes Exam Narrative Exam Narrative: 1.Const: Well-nourished, Well-developed, appearing stated age 2.Eyes: PERRL, no conjunctival injection, and symmetrical lids. 3.ENT: Atraumatic external nose and ears. Moist MM. Neck: Symmetric, trachea midline, No thyromegaly. 4.CVS: +S1/S2, No murmurs or gallops. Peripheral pulses 2+ and equal in all extremities. Brisk capillary refill in all extremities. 5.RESP: Unlabored respiratory effort. Clear to auscultation bilaterally. No wheezes rales or rhonchi 6.GI: Soft, Nontender/Nondistended, No hepatosplenomegaly. No guarding or rebound. No pain in the epigastric region on palpation, no signs of an acute surgical abdomen. 7.MSK: Normocephalic/Atraumatic, Extremities w/o deformity or ttp No cyanosis or clubbing, Normal movement of all extremities 8.Skin: Warm, Dry. No rashes or lesions. 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 Sensation grossly intact, no focal neurologic deficits. 10.Psych: (AAO) x3. Appropriate mood and affect Course Vital Signs Vital signs: Vital Signs Temperature 36.3 C L 02/16/20 20:01 Pulse 78 02/16/20 20:01 Respiratory Rate 16 02/16/20 20:01 Pulse Oximetry 99 02/16/20 20:01 Temperature 36.3 C L 02/16/20 20:01 Temperature Source Temporal Artery Scan 02/16/20 20:01 Pulse 78 02/16/20 20:01 Respiratory Rate 16 02/16/20 20:01 Blood Pressure Position Sitting 02/16/20 20:01 Pulse Oximetry 99 02/16/20 20:01 Oxygen Delivery Method Room Air 02/16/20 20:01 Oxygen Flow Rate 0 02/16/20 20:01 Pain Level 0 02/16/20 20:01
--- NOTE | 2020-02-16 20:15 | RT.EKG_ITS ---
APPROVED REPORT Exam: Resting ECG Patient Location: E HR:69 bpm ECG Measurements Heart Rate 69 AXIS NJ 174 P 49 QRSd 109 QRS -29 QT 439 T 24 QTc 470 Conclusion EKG 20: 29 Rate 69, sinus rhythm, QTc 470, intervals otherwise normal, no significant ST elevations or depressio ns, inverted T wave present in V1 and V2, no evidence of STEMI
[2020-02-16] MEDS: Pantoprazole 40 MG TABCR (20:44)
== END 2020-02-16 20:45 | disposition home or self-care (01) ==
PROVIDERS: Emergency Provider Student in an Organized Health Care Education/Training Program
DX: K29.00 Acute gastritis without bleeding (principal); R11.0 Nausea; I10 Essential (primary) hypertension
CPT/HCPCS: 93005; 99283; 93010

== ENCOUNTER 2020-02-24 15:08 | Emergency (ER) | payer MEDICARE, MEDICAID, SELFPAY ==
[2020-02-24 15:14] VITALS: BP 166/94; PULSE 65; RESP 16; TEMP 36.6; O2SAT 98
--- NOTE | 2020-02-24 15:45 | DI.CT_ITS ---
EXAM: CT SINUS WO CLINICAL HISTORY: Frontal pressure, history of sinus infections TECHNIQUE: COMPARISON: No exams were available for comparison FINDINGS: CT examination of paranasal sinuses was performed utilizing multi slice acquisition multiplanar recon struction. Visualized brain and orbits appear intact. Mastoid air cells are clear. Temporal bone s tructures appear intact. There is minimal mucoperiosteal thickening or retention cyst both maxillary antra. Single left ethmo id air cell is opacified. Otherwise paranasal sinuses are clear. Ostiomeatal complexes of maxillary antra appear intact bilaterally. Minimal cristy bullosa of left middle turbinate noted. Otherwise nasal cavity unremarkable slight septal deviation to the right. IMPRESSION: No significant sinus disease. RADIATION DOSE DELIVERED: 156.99mGy.cm Total DLP
--- NOTE | 2020-02-24 15:47 | W.ED.GENAD ---
Discharge Plan Disposition Patient Disposition: HOME Condition: Improving Discharge Details Chief Complaint: GenMedical Clinical Impression: Sinus complaint Primary Care Provider: None,None ED Provider: Ezio Fregoso Home Meds and New Rx's Prescriptions: New azithromycin 250 mg tablet See Rx Instructions .ROUTE .COMPLEX Qty: 6 RF: 0 fluticasone propionate [Flonase Allergy Relief] 50 mcg/actuation spray,suspension 1 spray AGUEDA BID 30 Days Qty: 19.8 RF: 0 Continued loratadine 10 mg capsule 10 mg PO HS RF: 0 losartan 25 mg Tablet 25 mg PO HS RF: 0 sucralfate [Carafate] 1 gram tablet 1 gm PO BID Qty: 20 RF: 0 pantoprazole [Protonix] 40 mg tablet,delayed release (DR/EC) 40 mg PO DAILY Qty: 30 RF: 0 carvedilol 12.5 MG tablet 12.5 mg PO BID RF: 0 amlodipine 2.5 MG tablet 2.5 mg PO HS RF: 0 Discontinued Flonase Sensimist 27.5 mcg/actuation spray,suspension 2 spray AGUEDA DAILY Qty: 5.9 RF: 0 Discharge Instructions Additional Instructions: Take azithromycin as prescribed. Begin Flonase twice daily for 3 to 4 weeks time. Continue Tylenol as needed for aches and pains. May use the prescribed Zofran as needed for nausea. Follow-up to reestablish primary care as you have planned. Return to ER for any acute concerns. Medical Decision Making This is a 60-year-old female who presents from home complaining of approximately 1 month of fairly constant right sided anterior chest aching discomfort that does not have modifying factors. She reports nausea and poor appetite over the same timeframe. She was seen in the emergency department on February 15 had a negative cardiac work-up and was prescribed Protonix and Carafate for presumptive gastritis. She states she feels the medications have made no discernible change. She also states she has a history of frequent sinus infections and feels bilateral frontal sinus pressure and postnasal drip. Patient is slightly hypertensive but anxious. Her exam is reassuring but does note frontal sinus tenderness to percussion. Her nausea she states is fairly persistent and would consider gastritis that is persistent despite meds or pancreatitis. With her right chest discomfort would consider underlying mass, must exclude PE, she has had an adequate negative cardiac work-up previously. IV placed and screening laboratories obtained, patient referred for chest x-ray and CT scan of the head/sinuses. Chest x-ray consistent with mild COPD. CT of the sinuses reveals likely mucous retention cysts. Patient feels her pressure and sinus drainage is similar to previous infections. We discussed holding off on the use of antibiotics, but she is quite insistent that she feels sinus infection starting and I will prescribe her a brief course of azithromycin. Additionally we will start her on Flonase. She has plans to reestablish primary care in this area. She may use Zofran if needed for her nausea. She understands indications to seek repeat evaluation. HPI General Mode of arrival: ambulatory. Date/Time Provider Initiated Documentation: 02/24/20 15:09. Limitations to Documentation: no limitations. Information obtained by: patient. History of Present Illness 60 year old F presents to the emergency department with the chief complaint of Frontal sinus pressure, constant right chest discomfort, nausea, described as moderate, Quality is described as dull and constant, and is localized to the head and chest. Patient reports no radiation. Patient started experiencing this day(s) and it has been constant. No relieving factors improve symptom(s), No exacerbating factors reported . Patient notes denies cough, fever/chills, nausea/vomiting and shortness of breath. Patient did receive the following treatments prior to arrival, other (Taking PPI and Carafate) Related Data Home Medications Medication Instructions Recorded Confirmed amlodipine 2.5 mg PO HS 08/25/16 02/24/20 carvedilol 12.5 mg PO BID 08/25/16 02/24/20 losartan 25 mg PO HS 03/27/18 02/24/20 loratadine 10 mg capsule 10 mg PO HS 12/04/18 02/24/20 pantoprazole [Protonix] 40 mg PO DAILY #30 tab 02/16/20 02/24/20 sucralfate [Carafate] 1 gm PO BID #20 tab 02/16/20 02/24/20 azithromycin See Rx Instructions .ROUTE 02/24/20 .COMPLEX #6 tab fluticasone propionate [Flonase 1 spray AGUEDA BID 30 Days #19.8 ml 02/24/20 Allergy Relief] Previous Rx's Medication Instructions Recorded pantoprazole [Protonix] 40 mg PO DAILY #30 tab 02/16/20 sucralfate [Carafate] 1 gm PO BID #20 tab 02/16/20 azithromycin See Rx Instructions .ROUTE 02/24/20 .COMPLEX #6 tab fluticasone propionate [Flonase 1 spray AGUEDA BID 30 Days #19.8 ml 02/24/20 Allergy Relief] Allergies Allergy/AdvReac Type Severity Reaction Status Date / Time Sulfa (Sulfonamide Allergy Severe Skin Rash Unverified 02/24/20 15:24 Antibiotics) sulfamethoxazole Allergy Severe Skin Rash Unverified 02/24/20 15:24 [From ] trimethoprim [From ] Allergy Severe Skin Rash Unverified 02/24/20 15:24 General Stated Complaint: GenMedical PAMELLA: 3 Review of Systems Narrative: Denies lower extremity pain or swelling. No night sweats. Reports poor appetite and 10 pound weight loss over 1 month's time. 6 systems reviewed and otherwise negative [facility] Medical History Depression (Chronic) History of fracture (Acute) femur repair HTN (hypertension) (Chronic) PTSD (post-traumatic stress disorder) (Acute) Surgical History History of bunionectomy (Acute) History of cataract extraction (Chronic) Reported complication that caused her to have left elongated pupil History of section (Chronic) Social History Smoking/Tobacco Use Status: Former Tobacco Use Tobacco: How many years used: 5 Alcohol Intake: never Drug use: Never Substance use type: does not use Do you feel safe at home: Yes Do you feel safe in your relationship?: Yes Exam Narrative Exam Narrative: GEN: awake, alert, oriented 3. Pleasant, well groomed, interactive. HEAD: Normocephalic, atraumatic ENT: Mucous membranes moist, oropharynx unremarkable, External ear exam unremarkable, tympanic membranes partially occluded by wax but now obvious erythema or distention. Frontal sinus pressure to percussion EYES: PERRL, EOMI NECK: Full ROM, no HEBERT, no menigismus CHEST/RESP: Nontender, clear to auscultation bilateral, no wheeze/rhonchi/rales CARDIOVASCULAR: RRR, no murmur, rub jah. 2+ Rad pulse bilateral ABDOMEN: Soft, nontender, no mass. +Bowel sounds EXT: Full ROM, no edema, no rash Neuro: Grossly normal neurologic exam, conversant, interactive. Psych: Speech fluent, thoughts congruent, affect anxious Course Vital Signs Vital signs: Vital Signs Temperature 36.6 C 02/24/20 15:14 Pulse 65 02/24/20 15:14 Respiratory Rate 16 02/24/20 15:14 Blood Pressure 166/94 H 02/24/20 15:14 Pulse Oximetry 98 02/24/20 15:14 Temperature 36.6 C 02/24/20 15:14 Temperature Source Temporal Artery Scan 02/24/20 15:14 Pulse 65 02/24/20 15:14 Respiratory Rate 16 02/24/20 15:14 Respiratory Effort 02/24/20 15:26 Blood Pressure 166/94 H 02/24/20 15:14 Blood Pressure Position Sitting 02/24/20 15:14 Pulse Oximetry 98 02/24/20 15:14 Oxygen Delivery Method Room Air 02/24/20 15:14 Oxygen Flow Rate 0 02/24/20 15:14 Pain Level 4 02/24/20 15:14
[2020-02-24] MEDS: Normal Saline Flush 10 ML SYR IVP (16:05)
[2020-02-24 16:10] LABS: Abs Immature Grans 0.03 10^3/uL (0.0-0.06); Absolute Basophil Count 0.06 10^3/uL (0.0-0.2); Absolute Eosinophil Count 0.23 10^3/uL (0.0-0.7); Absolute Lymphocyte Count 1.21 10^3/uL (1.2-3.4); Absolute Monocyte Count 0.63 10^3/uL (0.1-0.8); Absolute Neutrophil Count 5.53 10^3/uL (1.2-6.7); Basophils % 0.8; HCT 35.6 % (36.0-46.0); HGB 12.5 g/dL (11.2-15.7); Immature Grans % 0.4; Lymphocytes % 15.7; MCH 30.7 pg (27.0-33.0); MCHC 35.1 % (32.0-36.0); MCV 87.5 fL (80-95); MPV 8.5 fL (8.0-11.0); Monocytes % 8.2; Neutrophils % 71.9; Nucleated RBC 0 %; Platelet Count 316 10^3/uL (130-400); RBC 4.07 10^6/uL (3.93-5.22); RDW 11.9 % (11.7-14.6); RDW-SD 38.3 fL; WBC 7.69 10^3/uL (4.4-10.8)
[2020-02-24 16:22] LABS: ALT 25 U/L (14-59); AST 20 U/L (15-37); Albumin 4.1 g/dL (3.4-5.0); Alkaline Phosphatase 67 U/L (46-116); Anion Gap 8.4 mmol/L (3-11); BUN 10 mg/dL (7-18); Bilirubin, Total 0.3 mg/dL (0.2-1.0); CO2 28.6 mmol/L (21.0-32.0); CREATININE 0.93 mg/dL (0.55-1.02); Calcium 8.9 mg/dL (8.5-10.1); Chloride 92 mmol/L (98-107); Glucose 102 mg/dL (74-106); Lipase 112 U/L (73-393); Potassium 4.1 mmol/L (3.5-5.1); Sodium 129 mmol/L (136-145); Total Protein 7.7 g/dL (6.4-8.2)
[2020-02-24] MEDS: Normal Saline 500 ML IV (16:25)
[2020-02-24 16:37] VITALS: RESP 16
[2020-02-24 16:43] LABS: D-Dimer 295 ng/mlFEU (<500)
--- NOTE | 2020-02-24 17:04 | DI.RAD_ITS ---
EXAM: XR CHEST 2V PA LATERAL CLINICAL HISTORY: Constant right anterior chest discomfort TECHNIQUE: 2D digital imaging was performed. COMPARISON: CR LEFT RIBS TO INCLUDE CXR from 08/25/2016 FINDINGS: The heart is not enlarged. The lungs are clear possible mild overinflation. No pleural effusion seen . Mediastinal contours appear intact. IMPRESSION: Normal chest except for possible hyperinflation. RADIATION DOSE DELIVERED: Total DLP
--- NOTE | 2020-02-24 17:12 | DI.VRAD_ITS ---
PROCEDURE INFORMATION: Exam: XR Chest, 2 Views Exam date and time: 02/24/2020 4:56 PM Age: 60 years old Clinical indication: Chest pain; Type not specified TECHNIQUE: Imaging protocol: XR of the chest Views: 2 views. COMPARISON: CR LEFT RIBS TO INCLUDE CXR 08/25/2016 6:01 PM FINDINGS: Lungs: The lungs are hyperinflated and clear. Pleural space: Normal. Heart/Mediastinum: Normal heart and cardiomediastinal silhouette. Vasculature: Normal pulmonary vessel caliber. Normal aorta. Bones/joints: The bones are intact. IMPRESSION: No acute disease. There is hyperinflation which suggests COPD in the proper clinical context. Dictated and Authenticated by: Bobby Block MD. Ordering:NATALIE Holguin MD
--- NOTE | 2020-02-24 17:16 | DI.VRAD_ITS ---
PROCEDURE INFORMATION: Exam: CT Maxillofacial Without Contrast Exam date and time: 02/24/2020 5:02 PM Age: 60 years old Clinical indication: Nasal congestion; Patient HX: Stuffy one month TECHNIQUE: Imaging protocol: Computed tomography images of the face without contrast. COMPARISON: No relevant prior studies available. FINDINGS: Orbits: Normal bilateral ocular globes and adjacent soft tissues. Bones/joints: The bones are intact and normally aligned. Sinuses: Anterior mid left maxillary sinus isodense convex mass measuring no more than about 3 x 7 mm. Focal opacification of a solitary left ethmoid air cell with similar findings. Both likely represent small mucous retention cysts, less likely polyps. The paranasal sinuses are otherwise normal. Mastoid air cells: The bilateral mastoid air cells are clear. Brain: Normal brain. Soft tissues: No facial soft tissue masses or other abnormalities. IMPRESSION: Negative for acute disease or evidence of sinusitis. Incidental findings include 2 small likely asymptomatic mucous retention cysts left maxillary sinus and in a solitary left ethmoid air cell. Dictated and Authenticated by: Bobby Block MD. Ordering:NATALIE Holguin MD
[2020-02-24] MEDS: Acetaminophen 500 MG TAB 1000 MG PO (17:45)
[2020-02-24 18:00] VITALS: BP 154/80; PULSE 76; RESP 16; TEMP 36.6
[2020-02-24] MEDS: Ondansetron O.D.T. 4 MG TABEF, 3 TABS/BTL PO (18:05)
== END 2020-02-24 18:00 | disposition home or self-care (01) ==
PROVIDERS: Emergency Provider Emergency Medicine
DX: R09.82 Postnasal drip (principal); R07.89 Other chest pain; R11.0 Nausea; J44.9 Chronic obstructive pulmonary disease, unspecified; I10 Essential (primary) hypertension
CPT/HCPCS: 36415; 80053; 83690; 96360; 99284; 70486; 71046; 85025; 85379

== ENCOUNTER 2020-03-31 14:01 | Emergency (ER) | payer MEDICARE, MEDICAID, SELFPAY ==
[2020-03-31 14:06] VITALS: PULSE 70; RESP 12; TEMP 36.6; O2SAT 98
--- NOTE | 2020-03-31 14:18 | W.ED.GENAD ---
Discharge Plan Disposition Patient Disposition: HOME Condition: Stable Discharge Details Clinical Impression: Sinusitis Primary Care Provider: None,None ED Provider: Ailyn Flores Home Meds and New Rx's Prescriptions: New amoxicillin-pot clavulanate [Augmentin] 875-125 mg tablet 1 tab PO BID 10 Days Qty: 20 RF: 0 fluticasone propionate 50 mcg/actuation spray,suspension 1 spray intranasal DAILY 7 Days Qty: 9.9 RF: 0 Continued loratadine 10 mg capsule 10 mg PO HS RF: 0 losartan 25 mg Tablet 25 mg PO HS RF: 0 sucralfate [Carafate] 1 gram tablet 1 gm PO BID Qty: 20 RF: 0 pantoprazole [Protonix] 40 mg tablet,delayed release (DR/EC) 40 mg PO DAILY Qty: 30 RF: 0 azithromycin 250 mg tablet See Rx Instructions .ROUTE .COMPLEX Qty: 6 RF: 0 carvedilol 12.5 MG tablet 12.5 mg PO BID RF: 0 amlodipine 2.5 MG tablet 2.5 mg PO HS RF: 0 Discharge Instructions Instructions: Sinusitis (ED) Additional Instructions: Follow up with primary care provider in 3-5 days. Return to ED sooner if any worsening or concerns. Increase oral fluids. Take medications as prescribed. Return for any worsening pain, fever, cough, shortness of breath or any concerns. Discharge Data Discharge Date/Time-TO BE ENTERED AT DEPARTURE: 03/31/20 14:46 Medical Decision Making We will give patient antibiotics for possible sinus infection due to length of illness of 3 weeks. Discussed plan of care and follow-up with PCP, verbalizes understanding. HPI General Mode of arrival: ambulatory. Date/Time Provider Initiated Documentation: 03/31/20 14:07. Limitations to Documentation: no limitations. Information obtained by: patient. HPI Narrative: Patient is complaining of frontal sinus tenderness, green mucus for the last 3 weeks. She has multiple other complaints has not seen her primary care in a while. She denies any fever, chills does endorse sweats, cough. She does have a history of depression, hypertension, PTSD. Related Data Home Medications Medication Instructions Recorded Confirmed amlodipine 2.5 mg PO HS 08/25/16 02/24/20 carvedilol 12.5 mg PO BID 08/25/16 02/24/20 losartan 25 mg PO HS 03/27/18 02/24/20 loratadine 10 mg capsule 10 mg PO HS 12/04/18 02/24/20 pantoprazole [Protonix] 40 mg PO DAILY #30 tab 02/16/20 02/24/20 sucralfate [Carafate] 1 gm PO BID #20 tab 02/16/20 02/24/20 azithromycin See Rx Instructions .ROUTE 02/24/20 .COMPLEX #6 tab amoxicillin-pot clavulanate 1 tab PO BID 10 Days #20 tab 03/31/20 [Augmentin] fluticasone propionate 1 spray INTRANASAL DAILY 7 Days 03/31/20 #9.9 ml Previous Rx's Medication Instructions Recorded pantoprazole [Protonix] 40 mg PO DAILY #30 tab 02/16/20 sucralfate [Carafate] 1 gm PO BID #20 tab 02/16/20 azithromycin See Rx Instructions .ROUTE 02/24/20 .COMPLEX #6 tab amoxicillin-pot clavulanate 1 tab PO BID 10 Days #20 tab 03/31/20 [Augmentin] fluticasone propionate 1 spray INTRANASAL DAILY 7 Days 03/31/20 #9.9 ml Allergies Allergy/AdvReac Type Severity Reaction Status Date / Time Sulfa (Sulfonamide Allergy Severe Skin Rash Unverified 02/24/20 15:24 Antibiotics) sulfamethoxazole Allergy Severe Skin Rash Unverified 02/24/20 15:24 [From Septra] trimethoprim [From Marra] Allergy Severe Skin Rash Unverified 02/24/20 15:24 General Stated Complaint: GenMedical PAMELLA: 4 Review of Systems All systems reviewed & are unremarkable except as noted in HPI and below Constitutional Constitutional: Reports headache(s) ENT Ears, Nose, Mouth, and Throat: Reports otalgia, Reports headache(s), Reports nasal discharge, Reports sinus pain and Reports sinus pressure Neurologic Neurologic: Reports headache(s) [facility] Medical History (Updated 03/31/20 @ 14:21 by Ailyn Flores) Depression History of fracture femur repair HTN (hypertension) PTSD (post-traumatic stress disorder) Surgical History History of bunionectomy History of cataract extraction Reported complication that caused her to have left elongated pupil History of section Social History Smoking/Tobacco Use Status: Former Tobacco Use Tobacco: How many years used: 5 Alcohol Intake: never Drug use: Never Substance use type: does not use Do you feel safe at home: Yes Do you feel safe in your relationship?: Yes Exam Narrative Exam Narrative: Constitutional: Alert and oriented x3. Appears stated age. Normal body habitus. Head: Normocephalic, no trauma. Eyes: Pupils PERRLA, Red reflex noted, EOM's intact. Eyelids symmetrical without lesions, discharge, or swelling. ENT: Bilateral TM's WNL, External ear normal to inspection, no mastoid TTP, swelling, or erythema, Nasal turbinates erythemic and boggy, no nasal discharge. Normal dentition, Posterior pharynx slightly erythemic, no exudate. Frontal and maxillary sinus tenderness with palpation. Chest: RRR, Normal S1, S2, distal pulses intact. Resp: Lungs clear to auscultation bilaterally, no wheezes, rales, or rhonchi. Musculoskeletal: Normal gait, 5/5 strength to all four extremities. Skin: No suspicious rashes or lesions. Capillary refill less than 2 sec. Neurologic: Cranial nerves II-XII intact. Alert and oriented x 3. DTR's intact. Hematologic/Lymphatic: No ecchymosis, no lymphadenopathy. Course Vital Signs Vital signs: Vital Signs Temperature 36.6 C 03/31/20 14:06 Pulse 70 03/31/20 14:06 Respiratory Rate 12 03/31/20 14:06 Pulse Oximetry 98 03/31/20 14:06 Temperature 36.6 C 03/31/20 14:06 Pulse 70 03/31/20 14:06 Respiratory Rate 12 03/31/20 14:06 Blood Pressure Position Sitting 03/31/20 14:06 Pulse Oximetry 98 03/31/20 14:06 Pain Level 4 03/31/20 14:06
--- NOTE | 2020-04-01 16:32 | CMPROGNOTE_ITS ---
- If Service Date Differs Date of service: 04/01/20 Time of Service: 16:32 Care Management Progress Note CM coordinated a PCP referral in December of this year to assist Myranda in establishing care. Myranda presents in the ED for the 4th time since December and still does not appear to have established with a primary care physician. PEDRO follows-up by telephone with Florecita, clinical healthcare or medical at [facility], to inquire as to the status of the referral made in December. Florecita advises she was unable to reach Myranda by telephone, so a letter was mailed to the address on file asking her to contact the the [facility], but Myranda never called. Florecita will outreach to her again on Saturday.
== END 2020-03-31 14:46 | disposition home or self-care (01) ==
LOC: ER 14:41
PROVIDERS: Emergency Provider Registered Nurse Emergency
DX: J01.10 Acute frontal sinusitis, unspecified (principal); R05 Cough; I10 Essential (primary) hypertension
CPT/HCPCS: 99283

== ENCOUNTER 2020-05-20 15:35 | Emergency (ER) | payer MEDICARE, MEDICAID, SELFPAY ==
[2020-05-20 15:41] VITALS: BP 165/102; PULSE 99; RESP 16; TEMP 36.3; O2SAT 98
--- NOTE | 2020-05-20 15:45 | DI.CT_ITS ---
EXAM: CT HEAD WO CLINICAL HISTORY: fall, L trauma. TECHNIQUE: Imaging Protocol: Axial computed tomography images with coronal and sagittal reformatted images were created and reviewed COMPARISON: CT CT SINUS WO from 02/24/2020 FINDINGS: Ventricles and Extra axial spaces: Normal in size and morphology for the patient's age. Hemorrhage: None. Cerebral parenchyma: Normal. Midline shift: None. Brainstem/Cerebellum: Normal. Calvarium: Normal. Visualized Paranasal sinuses/Mastoids: Mild ethmoid sinus mucosal thickening. Soft Tissues: Unremarkable. IMPRESSION: No acute intracranial process. RADIATION DOSE DELIVERED: 654.69mGy.cm Total DLP DATA REPOSITORY: All CT scans at this facility are submitted to the National Radiology Data Registry (NRDR) Dose Index Registry (DIR) with the [employer] (A[employer]). RADIATION OPTIMIZATION: All CT scans at this facility use at least one of these dose optimization te chniques: automated exposure control; mA and/or kV adjustment per patient size (includes targeted exa ms where dose is matched to clinical indication); or iterative reconstruction.
--- NOTE | 2020-05-20 15:45 | DI.CT_ITS ---
EXAM: CT CHEST/ABD/PEL W CLINICAL HISTORY: Fall, R thoraco-abd pain. TECHNIQUE: Imaging Protocol: Axial computed tomography images with coronal and sagittal reformatted images were created and reviewed CONTRAST MATERIAL: Intravenous: Omnipaque 350 Contrast volume:100 cc Oral: / no COMPARISON: MG MG MAMMO GENA SCREENING BILAT-M2 from 03/11/2018 FINDINGS: CHEST: Thyroid: Incidental small nodule Tracheobronchial tree: Patent where visualized. Mediastinum and Dana: No dominant adenopathy or fluid collection. Fluid in the lower esophagus could represent reflux. Pulmonary parenchyma: There is a 4 millimeter nodule in the right upper lobe. A 4 millimeter nodule is seen in the right minor fissure, consistent with a lymph node. A few scattered calcified granuloma ta are seen. There is mild respiratory motion. No focal infiltrates are seen. Pleura: No effusion or pneumothorax. Lymph nodes: Within normal limits. Aorta: Thoracic portion non-dilated. No evidence of dissection. Heart: Coronary artery calcifications Bones: Old bilateral rib fracture deformities. No acute rib fracture or acute spine fracture is seen . Degenerative disc changes. Soft tissues: No hematoma. Bilateral breast nodules which were seen on previous mammogram from 2018 from [facility]. ABDOMEN: Liver: Normal density. No measurable mass. Gallbladder and biliary tract: Question of sludge versus small stones. No biliary dilation. Pancreas: Normal density, no abnormal calcifications or inflammatory process. Spleen: Normal. Kidneys: Normal size, contour and axis. No radiodense stones or obstructive uropathy. No masses seen. Sub centimeter lesions, likely cysts. Adrenal glands: No masses seen. Aorta: Abdominal portion non-dilated. Mild atherosclerotic changes. Lymph nodes: Within normal limits. PELVIS: Bladder: Symmetric distention, no gross wall thickening. Bowel: Sigmoid diverticulosis. No evidence of diverticulitis. No obstruction or bowel wall thickeni ng. Peritoneal cavity: No ascites, collection or mesenteric inflammatory response. Bones: Degenerative disc changes in the lower lumbar spine. Reproductive organs: Within normal limits. Soft tissues: No hematoma. IMPRESSION: No acute posttraumatic abnormality. Incidental findings as mentioned above. 4 millimeter right upper lobe nodule. If the patient is at high risk for lung cancer, a CT of the est could be performed in 1 year. RADIATION DOSE DELIVERED: 1,102.17mGy.cm Total DLP DATA REPOSITORY: All CT scans at this facility are submitted to the National Radiology Data Registry (NRDR) Dose Index Registry (DIR) with the [employer] (ACR). RADIATION OPTIMIZATION: All CT scans at this facility use at least one of these dose optimization te chniques: automated exposure control; mA and/or kV adjustment per patient size (includes targeted exa ms where dose is matched to clinical indication); or iterative reconstruction.
--- NOTE | 2020-05-20 15:54 | W.ED.GENAD ---
Discharge Plan Disposition Patient Disposition: HOME Condition: Improving Discharge Details Clinical Impression: Contusion, Chest wall contusion, Contusion of head Primary Care Provider: Lars Denise ED Provider: Ezio Fregoso Home Meds and New Rx's Prescriptions: Continued loratadine 10 mg capsule 10 mg PO HS RF: 0 losartan 25 mg Tablet 25 mg PO HS RF: 0 carvedilol 12.5 MG tablet 12.5 mg PO BID RF: 0 amlodipine 2.5 MG tablet 2.5 mg PO HS RF: 0 Discharge Instructions Instructions: Contusion in Adults (ED) Additional Instructions: Home to rest evening. You may use ice to areas to reduce discomfort. May use Tylenol and/or ibuprofen as needed for pain. I have enclosed a copy of your laboratories for your outpatient follow-up. By return to the ER for any acute concerns. 05/20/20 05/20/20 05/20/20 16:00 16:00 16:00 WBC 6.24 RBC 4.31 Hgb 13.4 Hct 38.4 MCV 89.1 MCH 31.1 MCHC 34.9 RDW 12.2 Plt Count 365 MPV 9.3 Immature Gran % 0.3 Neutrophils % 63.5 Lymphocytes % 17.5 Monocytes % 13.1 Eosinophils % 4.3 Basophils % 1.3 Nucleated RBC % 0 Absolute Neutrophils 3.96 Absolute Lymphocytes 1.09 L Absolute Monocytes 0.82 H Absolute Eosinophils 0.27 Absolute Basophils 0.08 PT 11.0 INR 1.1 APTT 27.9 H Sodium 131 L Potassium 3.9 Chloride 95 L Carbon Dioxide 28.0 Anion Gap 8.0 BUN 13 Creatinine 1.06 H Estimated GFR/1.73 m2 52.53 Glucose 124 H Calcium 9.8 Total Bilirubin 0.6 AST 20 ALT 19 Alkaline Phosphatase 110 Total Protein 8.6 H Albumin 4.8 Medical Decision Making 60-year-old female who fell off a step stool onto her right side yesterday. Believes that she struck her head on the way down. Denies loss of consciousness. She is able to do her activities of daily living today but has complaint of right chest pain and left restorationism discomfort. She has a history of hypertension and is hypertensive on exam. She has left temporal ecchymosis and mild tenderness as well as right lower thoracal abdomen tenderness. IV placed, screening labs obtained and patient referred for CT scan of the head as well as images of the chest and abdomen. Her labs reveal a history of chronic hyponatremia, 131 today. CBC is unremarkable. Creatinine 1.06. Labs otherwise reassuring. CT scan reveals no acute intracranial abnormality, chest and abdomen with no evidence of acute chest trauma. Other findings as per formal report. Per patient improved following acetaminophen. She is stable and will be discharged home she was reassured. She is given a copy of her laboratories for her follow-up. Lab Data Lab results reviewed: Yes I reviewed the patient's lab results. Labs: Laboratory Results - last 24 hr 05/20/20 05/20/20 05/20/20 16:00 16:00 16:00 WBC 6.24 RBC 4.31 Hgb 13.4 Hct 38.4 MCV 89.1 MCH 31.1 MCHC 34.9 RDW 12.2 Plt Count 365 MPV 9.3 Immature Gran % 0.3 Neutrophils % 63.5 Lymphocytes % 17.5 Monocytes % 13.1 Eosinophils % 4.3 Basophils % 1.3 Nucleated RBC % 0 Absolute Neutrophils 3.96 Absolute Lymphocytes 1.09 L Absolute Monocytes 0.82 H Absolute Eosinophils 0.27 Absolute Basophils 0.08 PT 11.0 INR 1.1 APTT 27.9 H Sodium 131 L Potassium 3.9 Chloride 95 L Carbon Dioxide 28.0 Anion Gap 8.0 BUN 13 Creatinine 1.06 H Estimated GFR/1.73 m2 52.53 Glucose 124 H Calcium 9.8 Total Bilirubin 0.6 AST 20 ALT 19 Alkaline Phosphatase 110 Total Protein 8.6 H Albumin 4.8 HPI General Mode of arrival: ambulatory. Date/Time Provider Initiated Documentation: 05/20/20 15:36. Limitations to Documentation: no limitations. Information obtained by: patient. History of Present Illness 60 year old F presents to the emergency department with the chief complaint of Fall, right chest, left head pain, described as moderate, Quality is described as dull, and is localized to the chest and right. Patient reports no radiation. Patient started experiencing this hour(s) and it has been constant. No relieving factors improve symptom(s), No exacerbating factors reported . Patient notes headaches; denies loss of appetite, nausea/vomiting, shortness of breath and syncope. Patient did receive the following treatments prior to arrival, none Related Data Home Medications Medication Instructions Recorded Confirmed amlodipine 2.5 mg PO HS 08/25/16 05/20/20 carvedilol 12.5 mg PO BID 08/25/16 05/20/20 losartan 25 mg PO HS 03/27/18 05/20/20 loratadine 10 mg capsule 10 mg PO HS 12/04/18 05/20/20 Allergies Allergy/AdvReac Type Severity Reaction Status Date / Time Sulfa (Sulfonamide Allergy Severe Skin Rash Unverified 05/20/20 15:43 Antibiotics) sulfamethoxazole Allergy Severe Skin Rash Unverified 05/20/20 15:43 [From ] trimethoprim [From ] Allergy Severe Skin Rash Unverified 05/20/20 15:43 General Stated Complaint: Orthopedic PAMELLA: 3 Review of Systems Narrative: 6 systems reviewed and otherwise negative. No loss of conscious. Denies neck or back pain. No trouble breathing. She feels she has broken ribs. Left-sided headache. [facility] Medical History (Updated 05/20/20 @ 18:10 by Ezio Fregoso MD) Depression History of fracture femur repair HTN (hypertension) PTSD (post-traumatic stress disorder) Surgical History History of bunionectomy History of cataract extraction Reported complication that caused her to have left elongated pupil History of section Social History Smoking/Tobacco Use Status: Former Tobacco Use Tobacco: How many years used: 5 Smoking risk assessment performed?: Yes Alcohol Intake: never Drug use: Never Substance use type: does not use Do you feel safe at home: Yes Do you feel safe in your relationship?: Yes Exam Narrative Exam Narrative: GEN: awake, alert, oriented 3. Pleasant, well groomed, interactive. HEAD: Normocephalic, left restorationism ecchymosis, minimal tenderness. No midface instability or tenderness ENT: Mucous membranes moist, oropharynx unremarkable, External ear exam unremarkable EYES: PERRL, EOMI NECK: Full ROM, no HEBERT, no menigismus CHEST/RESP: Right lower thorax tenderness anterior, clear to auscultation bilateral, no wheeze/rhonchi/rales CARDIOVASCULAR: RRR, no murmur, rub jah. 2+ Rad pulse bilateral ABDOMEN: Soft, nontender, no mass. +Bowel sounds EXT: Full ROM, no edema, no rash Neuro: Grossly normal neurologic exam, conversant, interactive. Psych: Speech fluent, thoughts congruent, affect normal Course Vital Signs Vital signs: Vital Signs Temperature 36.3 C L 05/20/20 15:41 Pulse 99 H 05/20/20 15:41 Respiratory Rate 16 05/20/20 15:41 Blood Pressure 165/102 H 05/20/20 15:41 Pulse Oximetry 98 05/20/20 15:41 Temperature 36.3 C L 05/20/20 15:41 Temperature Source Skin 05/20/20 15:41 Pulse 99 H 05/20/20 15:41 Respiratory Rate 16 05/20/20 15:41 Respiratory Effort Non-Labored 05/20/20 15:46 Blood Pressure 165/102 H 05/20/20 15:41 Blood Pressure Position Sitting 05/20/20 15:41 Pulse Oximetry 98 05/20/20 15:41 Oxygen Delivery Method Room Air 05/20/20 15:41 Oxygen Flow Rate 0 05/20/20 15:41 Pain Level 5 05/20/20 15:41
[2020-05-20 16:28] LABS: Abs Immature Grans 0.02 10^3/uL (0.0-0.06); Absolute Basophil Count 0.08 10^3/uL (0.0-0.2); Absolute Eosinophil Count 0.27 10^3/uL (0.0-0.7); Absolute Lymphocyte Count 1.09 10^3/uL (1.2-3.4); Absolute Monocyte Count 0.82 10^3/uL (0.1-0.8); Absolute Neutrophil Count 3.96 10^3/uL (1.2-6.7); Basophils % 1.3; Eosinophils % 4.3; HCT 38.4 % (36.0-46.0); HGB 13.4 g/dL (11.2-15.7); Immature Grans % 0.3; Lymphocytes % 17.5; MCH 31.1 pg (27.0-33.0); MCHC 34.9 % (32.0-36.0); MCV 89.1 fL (80-95); MPV 9.3 fL (8.0-11.0); Monocytes % 13.1; Neutrophils % 63.5; Nucleated RBC 0 %; Platelet Count 365 10^3/uL (130-400); RBC 4.31 10^6/uL (3.93-5.22); RDW 12.2 % (11.7-14.6); WBC 6.24 10^3/uL (4.4-10.8)
[2020-05-20 16:39] LABS: INR 1.1 (0.9-1.1); PTT Activated 27.9 sec (21.0-27.5)
[2020-05-20 16:40] LABS: Albumin 4.8 g/dL (3.4-5.0); Alkaline Phosphatase 110 U/L (46-116); BUN 13 mg/dL (7-18); Bilirubin, Total 0.6 mg/dL (0.2-1.0); CREATININE 1.06 mg/dL (0.55-1.02); Calcium 9.8 mg/dL (8.5-10.1); Estimated GFR 52.53 (mL/min/1.73m2); Glucose 124 mg/dL (74-106); Total Protein 8.6 g/dL (6.4-8.2)
[2020-05-20 16:41] LABS: ALT 19 U/L (14-59); AST 20 U/L (15-37); Chloride 95 mmol/L (98-107); Potassium 3.9 mmol/L (3.5-5.1); Sodium 131 mmol/L (136-145)
[2020-05-20 17:31] VITALS: BP 169/107; PULSE 95; RESP 20; TEMP 36.4; O2SAT 99
[2020-05-20] MEDS: Normal Saline - Diluent 50 ML VIAL IV (17:32)
[2020-05-20] MEDS: Acetaminophen 500 MG TAB 1000 MG PO (17:32)
[2020-05-20] MEDS: Omnipaque 350 MG/ML 100 ML BTL IJ (17:32)
[2020-05-20] MEDS: Normal Saline Flush 10 ML SYR IVP (17:33)
--- NOTE | 2020-05-20 17:40 | DI.VRAD_ITS ---
PROCEDURE INFORMATION: Exam: CT Head Without Contrast Exam date and time: 05/20/2020 5:10 PM Age: 60 years old Clinical indication: Other: Trauma TECHNIQUE: Imaging protocol: Computed tomography of the head without contrast. Radiation optimization: All CT scans at this facility use at least one of these dose optimization techniques: automated exposure control; mA and/or kV adjustment per patient size (includes targeted exams where dose is matched to clinical indication); or iterative reconstruction. COMPARISON: No relevant prior studies available. FINDINGS: Brain: There is mild cortical volume loss, typical for age. Cerebral ventricles: No ventriculomegaly. Bones/joints: Unremarkable. No acute fracture. Paranasal sinuses: There is patchy mucoperiosteal thickening and opacity in the ethmoid air cells, mild. Mastoid air cells: Visualized mastoid air cells are well aerated. Orbital cavity: It appears the patient is status post left cataract repair. Soft tissues: Unremarkable. IMPRESSION: No evidence for acute intracranial abnormality. Dictated and Authenticated by: Laura Jones MD. Ordering:NATALIE Holguin MD
--- NOTE | 2020-05-20 18:05 | DI.VRAD_ITS ---
PROCEDURE INFORMATION: Exam: CT Chest With Contrast; Diagnostic Exam date and time: 05/20/2020 3:54 PM Age: 60 years old Clinical indication: Other: Fall, R thoraco-abd pain; Other: Back pain TECHNIQUE: Imaging protocol: Diagnostic computed tomography of the chest with intravenous contrast. Radiation optimization: All CT scans at this facility use at least one of these dose optimization techniques: automated exposure control; mA and/or kV adjustment per patient size (includes targeted exams where dose is matched to clinical indication); or iterative reconstruction. Contrast material: OMNIPAQUE 350; Contrast volume: 100 ml; Contrast route: INTRAVENOUS (IV); COMPARISON: CR XR CHEST 2V PA LATERAL 02/24/2020 4:56 PM FINDINGS: Thyroid: 11 mm nodule posterior aspect right lobe of the thyroid gland. Lungs: There are very minimal scattered subpleural ground-glass opacities in both lungs (for example see bilateral upper lobes coronal image 21). 4 mm noncalcified right upper lobe nodule (coronal image 19). Pleural space: Unremarkable. No pneumothorax. No pleural effusion. Heart: Unremarkable. No cardiomegaly. No pericardial effusion. Mediastinal space: Small amount of fluid in the esophagus which may represent secretions or gastroesophageal reflux. Aorta: Ascending aorta is mildly ectatic at 3.9 cm in diameter. No evidence of dissection with slightly limited evaluation of the ascending aorta due to motion. The there is mild aortic atherosclerosis. Lymph nodes: There are few scattered subcentimeter mediastinal lymph nodes. No mediastinal or hilar adenopathy. 4 mm triangular right intra fissural lymph node (coronal image 26) and several tiny calcified granulomata with the largest measuring 4 mm in the right upper lobe require no follow-up. Bones/joints: Old healed right lower posterior and left lower anterolateral rib fractures. No acute fracture. Mild thoracic degenerative disc disease. Soft tissues: 3.1 cm left breast nodule and 9.2 mm right breast nodule. IMPRESSION: 1. No evidence of acute chest trauma. 2. Very minimal peripheral ground-glass opacities in both lungs. These are nonspecific but can be seen in bacterial and viral pneumonia and clinical correlation is suggested including COVID status. 3. Bilateral breast nodules. Correlation with physical exam and mammography. Patient has history of prior mammograms which are not available at the time of this interpretation. 4. Ectatic ascending aorta. 5. 11 mm nodule posterior aspect right lobe of the thyroid gland. No follow-up is recommended. 6. 4 mm noncalcified right upper lobe nodule (coronal image 19). For patients at low risk (minimal or absent history of smoking and of other known risk factors), no routine follow-up is indicated. For patients at high risk (history of smoking or of other known risk factors), consider optional CT Chest at 12 months. (Reference: Susan) REFERENCES: Susan Kamara et al. Guidelines for Management of Incidental Pulmonary Nodules Detected on CT Images: From the Fleischner Society 2017. Radiology. 2017;284(1):228-243. PROCEDURE INFORMATION: Exam: CT Abdomen And Pelvis With Contrast Exam date and time: 05/20/2020 3:54 PM Age: 60 years old Clinical indication: Other: Fall, R thoraco-abd pain; Other: Back pain TECHNIQUE: Imaging protocol: Computed tomography of the abdomen and pelvis with intravenous contrast. Radiation optimization: All CT scans at this facility use at least one of these dose optimization techniques: automated exposure control; mA and/or kV adjustment per patient size (includes targeted exams where dose is matched to clinical indication); or iterative reconstruction. Contrast material: OMNIPAQUE 350; Contrast volume: 100 ml; Contrast route: INTRAVENOUS (IV); COMPARISON: CR XR CHEST 2V PA LATERAL 02/24/2020 4:56 PM FINDINGS: Liver: Normal. No mass. Gallbladder and bile ducts: Minimal high density in the dependent portion of the gallbladder which may represent sludge or stones. Pancreas: Normal. No ductal dilation. Spleen: Normal. No splenomegaly. Adrenal glands: Normal. No mass. Kidneys and ureters: Several bilateral subcentimeter low-density renal lesions which are too small to characterize but most likely represent cysts. No further workup is recommended. Stomach and bowel: Mild sigmoid diverticulosis without evidence of diverticulitis. Appendix: No evidence of appendicitis. Intraperitoneal space: Unremarkable. No free air. No significant fluid collection. Vasculature: Unremarkable. No abdominal aortic aneurysm. Lymph nodes: Unremarkable. No enlarged lymph nodes. Urinary bladder: Unremarkable as visualized. Reproductive: Unremarkable as visualized. Bones/joints: Moderate mid to lower lumbar degenerative disc disease. Chronic left L5 spondylolysis. No acute fracture. Soft tissues: Unremarkable. IMPRESSION: 1. No acute findings. 2. Possible cholelithiasis or gallbladder sludge with no evidence of cholecystitis. 3. Several bilateral subcentimeter low-density renal lesions which are too small to characterize but most likely represent cysts. No further workup is recommended. Dictated and Authenticated by: Froilan Salas MD. Ordering:NATALIE Holguin MD
== END 2020-05-20 18:23 | disposition home or self-care (01) ==
PROVIDERS: Emergency Provider Emergency Medicine; PCP Nurse Practitioner Family
DX: S00.03XA Contusion of scalp, initial encounter (principal); S20.221A Contusion of right back wall of thorax, initial encounter; W10.8XXA Fall (on) (from) other stairs and steps, initial encounter; I10 Essential (primary) hypertension
CPT/HCPCS: 36415; 74177; 80053; 99285; 70450; 71260; 85025; 85610; 85730; 99284; J3490

== ENCOUNTER 2020-06-06 17:45 | Emergency (ER) | payer MEDICARE, MEDICAID, SELFPAY ==
[2020-06-06] VITALS (15 sets, daily range): BP systolic 160–186; BP diastolic 80–135; PULSE 82–96; RESP 14–24; TEMP 36.6–37; O2SAT 85–99
--- NOTE | 2020-06-06 18:00 | DI.RAD_ITS ---
EXAM: XR HUMERUS LT CLINICAL HISTORY: pain, fall injury TECHNIQUE: COMPARISON: CT CT UPPER EXTREMITY LT WO from 06/06/2020 FINDINGS: Two views of the left shoulder and humerus were obtained followed by post reduction CT examination of the left shoulder. Initial views show anterior glenohumeral dislocation the humeral head from the g lenoid fossa. Fracture fragments are seen overlying the greater tuberosity of the humerus and cannot be distinguished from glenoid fracture on the films obtained. CT examination was obtained and shows a mildly comminuted mildly displaced fracture of the greater tu berosity of the humerus, there is no glenoid fracture or other scapular fracture. Interval reduction of the dislocation is noted with an appropriately located humeral head seen at the time of the CT exa mination. IMPRESSION: Glenohumeral dislocation with associated humeral head greater tuberosity fracture, reduced at the maral e of the CT examination. RADIATION DOSE DELIVERED: Total DLP Total DLP
[2020-06-06] MEDS: ACETAMINOPHEN 1,000 MG/100 ML BTL 400 MG IVPB (18:19)
[2020-06-06] MEDS: Normal Saline 1,000 ML 1000 ML IV (18:19)
[2020-06-06 18:28] LABS: Abs Immature Grans 0.04 10^3/uL (0.0-0.06); Absolute Basophil Count 0.02 10^3/uL (0.0-0.2); Absolute Lymphocyte Count 1.06 10^3/uL (1.2-3.4); Basophils % 0.2; HCT 38.1 % (36.0-46.0); HGB 13.4 g/dL (11.2-15.7); Immature Grans % 0.3; Lymphocytes % 9.1; MCH 30.9 pg (27.0-33.0); MCHC 35.2 % (32.0-36.0); MPV 8.8 fL (8.0-11.0); Monocytes % 6.9; Neutrophils % 83.5; Nucleated RBC 0 %; Platelet Count 281 10^3/uL (130-400); RBC 4.33 10^6/uL (3.93-5.22); RDW 11.9 % (11.7-14.6); RDW-SD 38.5 fL; WBC 11.67 10^3/uL (4.4-10.8)
[2020-06-06 18:29] LABS: Absolute Monocyte Count 0.81 10^3/uL (0.1-0.8); Absolute Neutrophil Count 9.74 10^3/uL (1.2-6.7)
[2020-06-06 18:42] LABS: Bilirubin Negative (Negative); Blood Small (Negative); Clarity Clear (Clear); Glucose 100 mg/dL (Negative); Ketones Negative (Negative); Leukocyte Esterase Negative (Negative); Nitrite Negative (Negative); Urobilinogen 0.2 EU/dL (Up TO 0.2)
--- NOTE | 2020-06-06 18:48 | DI.VRAD_ITS ---
Addendum created by Artem Garcia MD on 06/06/2020 6:48:54 PM EST: THIS REPORT CONTAINS FINDINGS THAT MAY BE CRITICAL TO PATIENT CARE. The findings were verbally communicated via telephone conference with Ezio Fregoso at 6:48 PM EST on 06/06/2020. The findings were acknowledged and understood. Initial report created on 06/06/2020 6:48:15 PM EST: PROCEDURE INFORMATION: Exam: XR Left Humerus Exam date and time: 06/06/2020 6:06 PM Age: 60 years old Clinical indication: Upper arm; Left; Patient HX: Pain, fell yesterday TECHNIQUE: Imaging protocol: XR Left humerus Views: 2 or more views. COMPARISON: No relevant prior studies available. FINDINGS: Bones/joints: Left glenohumeral dislocation is identified and the left humeral head is seen displaced inferiorly, perched along the anteroinferior margin of the glenoid fossa. Comminuted fractures are seen in the region of the greater tubercle and along the inferior margin of the glenoid fossa. Soft tissues: Unremarkable. IMPRESSION: Left glenohumeral dislocation with the left humeral head displaced along the anteroinferior margin of the glenoid fossa in association with comminuted fractures of the greater tubercle and inferior glenoid rim. Dictated and Authenticated by: Artem Garcia MD. Ordering:STEVEN Elaine MD
[2020-06-06 18:52] LABS: Bacteria Negative HPF (Negative); C & S Indicated? No; Casts 0-2 Hyaline LPF (Negative); Crystals Negative HPF (Negative); Epithelial Cells Few HPF (Negative); Mucus Negative (Negative); WBC Negative HPF (0-5)
[2020-06-06 18:55] LABS: ALT 18 U/L (14-59); AST 27 U/L (15-37); Albumin 4.5 g/dL (3.4-5.0); Alkaline Phosphatase 100 U/L (46-116); Anion Gap 13.3 mmol/L (3-11); BUN 10 mg/dL (7-18); Bilirubin, Total 0.4 mg/dL (0.2-1.0); CO2 23.7 mmol/L (21.0-32.0); Calcium 8.8 mg/dL (8.5-10.1); Chloride 88 mmol/L (98-107); Glucose 104 mg/dL (74-106); Magnesium 1.5 mg/dL (1.8-2.4); Potassium 3.2 mmol/L (3.5-5.1); Sodium 125 mmol/L (136-145); Total Protein 8.4 g/dL (6.4-8.2); Troponin I < 0.05 ng/mL (<0.06)
[2020-06-06] MEDS: Ondansetron 4 MG/2 ML VIAL IVP (19:01)
[2020-06-06 19:06] LABS: Creatine Kinase 263 U/L (26-192)
--- NOTE | 2020-06-06 19:15 | DI.CT_ITS ---
EXAM: CT UPPER EXTREMITY LT WO CLINICAL HISTORY: fracture, dislocation, s/p reduction TECHNIQUE: COMPARISON: No exams were available for comparison FINDINGS: CT examination of the shoulder was performed. There is reduction of recently noted anterior glenohum eral dislocation. There is a moderately comminuted moderately displaced fracture of the greater tube rosity of the humerus. No additional fracture seen involving the scapula. Visualized left lung is c lear, no rib fracture seen. IMPRESSION: RADIATION DOSE DELIVERED: 236.65mGy.cm Total DLP
[2020-06-06] MEDS: POTASSIUM CHLORIDE 10 MEQ/100 ML BAG 100 MEQ IVPB (19:36)
[2020-06-06] MEDS: MAGNESIUM SULFATE 1 GM/100 ML BAG IVPB (19:36)
--- NOTE | 2020-06-06 20:00 | ED.GENADUL_ITS ---
Discharge Plan Disposition Patient Disposition: HOME Condition: Stable Discharge Details Clinical Impression: Dislocation of shoulder, anterior, left, closed Primary Care Provider: Lars Denise ED Provider: [place] Carmichael Home Meds and New Rx's Prescriptions: No Action loratadine 10 mg capsule 10 mg PO HS RF: 0 bupropion HCl 100 mg tablet 100 mg PO BID RF: 0 clotrimazole 1 % cream 1 applic topical BID RF: 0 cromolyn 4 % drops 1 drp ophthalmic (eye) 6XD RF: 0 epinephrine 0.3 mg/0.3 mL auto-injector 0.3 mg IM ONCE RF: 0 fexofenadine [Allergy Relief (fexofenadine)] 180 mg tablet 180 mg PO DAILY RF: 0 fluconazole 150 mg tablet 150 mg PO DAILY RF: 0 fluticasone propionate 50 mcg/actuation spray,suspension 1 spray intranasal DAILY RF: 0 ibuprofen 800 mg tablet 800 mg PO TID RF: 0 ferrous sulfate 325 mg (65 mg iron) tablet 325 mg PO DAILY RF: 0 omeprazole 40 mg capsule,delayed release(DR/EC) 40 mg PO DAILY RF: 0 pregabalin 75 mg capsule 75 mg PO TID RF: 0 sucralfate 1 gram tablet 1 g PO BID RF: 0 timolol 0.5 % drops 1 drp ophthalmic (eye) DAILY RF: 0 trazodone 100 mg tablet 100 mg PO QHS PRNRF: 0 trazodone 50 mg tablet 50 mg PO QHS PRNRF: 0 losartan 25 mg Tablet 25 mg PO HS RF: 0 carvedilol 12.5 MG tablet 12.5 mg PO BID RF: 0 amlodipine 2.5 MG tablet 2.5 mg PO HS RF: 0 Discharge Instructions Instructions: Shoulder Dislocation (ED) Additional Instructions: keep sling and swathe on at all times until you follow up with orthopedics ice 20 minutes every 3-4 hours while awake can use acetaminophen and or ibuprofen if needed for pain Referrals: Arun Mishra MD [ [facility] STAFF PHYSICIAN] - (call in am for follow up) Medical Decision Making patient with fall last night. IV fluids NS 1 liter, acetaminophen 1000 mg IVPB given. xray humerus shows anterior dislocation. discussed with Dr Mishra, patient given morphine 4 mg IVP with good effect. shoulder reduced by Dr Fregoso. sling and swathe applied. post reduction CT obtained. Patient pain improved and she is safely re-ambulated. she will discharge home to f/u outpatient with orthopedics. good csmts and radial pulse distally post reduction. Medical Records Medical records reviewed: Yes I reviewed the patient's medical records. Medical records narrative: PROCEDURE INFORMATION: Exam: XR Left Humerus Exam date and time: 06/06/2020 6:06 PM Age: 60 years old Clinical indication: Upper arm; Left; Patient HX: Pain, fell yesterday TECHNIQUE: Imaging protocol: XR Left humerus Views: 2 or more views. COMPARISON: No relevant prior studies available. FINDINGS: Bones/joints: Left glenohumeral dislocation is identified and the left humeral head is seen displaced inferiorly, perched along the anteroinferior margin of the glenoid fossa. Comminuted fractures are seen in the region of the greater tubercle and along the inferior margin of the glenoid fossa. Soft tissues: Unremarkable. IMPRESSION: Left glenohumeral dislocation with the left humeral head displaced along the anteroinferior margin of the glenoid fossa in association with comminuted fractures of the greater tubercle and inferior glenoid rim. Dictated and Authenticated by: Artem Garcia MD. Ordering:STEVEN Elaine MD PROCEDURE INFORMATION: Exam: CT Left Upper Extremity Without Contrast, Shoulder Exam date and time: 06/06/2020 7:23 PM Age: 60 years old Clinical indication: Injury or trauma; Fall; Humerus, proximal end; Left; Patient HX: Fracture, dislocation, S/P reduction TECHNIQUE: Imaging protocol: CT of the Left upper extremity without contrast was performed. Exam focused on the shoulder. COMPARISON: No relevant prior studies available. FINDINGS: Bones/joints: There has been closed reduction for anterior dislocation of the left humerus with the left humeral head now seen concentrically located with respect to the glenoid fossa. Comminuted fractures with minimal displacement of a few small comminuted fragments noted in the region of the greater tubercle of the proximal left humerus. Soft tissues: Normal. IMPRESSION: Congregation of normal glenohumeral alignment following closed reduction for anterior humeral dislocation as above. Lab Data Lab results reviewed: Yes I reviewed the patient's lab results. Lab results narrative: Laboratory Results - last 24 hr 06/06/20 06/06/20 06/06/20 18:10 18:10 18:15 WBC 11.67 H RBC 4.33 Hgb 13.4 Hct 38.1 MCV 88.0 MCH 30.9 MCHC 35.2 RDW 11.9 Plt Count 281 MPV 8.8 Immature Gran % 0.3 Neutrophils % 83.5 Lymphocytes % 9.1 Monocytes % 6.9 Eosinophils % 0.0 Basophils % 0.2 Nucleated RBC % 0 Absolute Neutrophils 9.74 H Absolute Lymphocytes 1.06 L Absolute Monocytes 0.81 H Absolute Eosinophils 0.00 Absolute Basophils 0.02 Sodium 125 L Potassium 3.2 L Chloride 88 L Carbon Dioxide 23.7 Anion Gap 13.3 H BUN 10 Creatinine 0.90 Estimated GFR/1.73 m2 >= 60.00 Glucose 104 Calcium 8.8 Magnesium 1.5 L Total Bilirubin 0.4 AST 27 ALT 18 Alkaline Phosphatase 100 Creatine Kinase 263 H Troponin I < 0.05 Total Protein 8.4 H Albumin 4.5 Urine Color Yellow Urine Clarity Clear Urine pH 7.0 Ur Specific [place] 1.020 Urine Protein Negative Urine Ketones Negative Urine Blood Small H Urine Nitrite Negative Urine Bilirubin Negative Urine Urobilinogen 0.2 Ur Leukocyte Esterase Negative Urine RBC 3-5 H Urine WBC Negative Ur Epithelial Cells Few Urine Crystals Negative Urine Bacteria Negative Urine Casts 0-2 hyaline Urine Mucus Negative Ur Culture Indicated? No Urine Glucose 100 HPI General Date/Time Provider Initiated Documentation: 06/06/20 18:04 . Limitations to Documentation: no limitations . Information obtained by: patient . HPI Narrative: left upper extremity pain after she sustained what she reports was a mechanical fall tripping over her dog. she states was unable to get up so stayed on the floor overnight. she was able to have access to her medication and took 2 doses of ibuprofen. she denies any other injuries. Related Data Home Medications Medication Instructions Recorded Confirmed amlodipine 2.5 mg PO HS 08/25/16 06/06/20 carvedilol 12.5 mg PO BID 08/25/16 06/06/20 losartan 25 mg PO HS 03/27/18 06/06/20 loratadine 10 mg capsule 10 mg PO HS 12/04/18 06/06/20 bupropion HCl 100 mg tablet 100 mg PO BID 06/06/20 06/06/20 clotrimazole 1 % topical cream 1 applic TOPICAL BID 06/06/20 06/06/20 cromolyn 4 % eye drops 1 drp OPHTHALMIC (EYE) 6XD 06/06/20 06/06/20 epinephrine 0.3 mg/0.3 mL 0.3 mg IM ONCE 06/06/20 06/06/20 injection, auto-injector ferrous sulfate 325 mg (65 mg 325 mg PO DAILY 06/06/20 06/06/20 iron) tablet fexofenadine 180 mg tablet 180 mg PO DAILY 06/06/20 06/06/20 fluconazole 150 mg tablet 150 mg PO DAILY 06/06/20 06/06/20 fluticasone propionate 50 1 spray INTRANASAL DAILY 06/06/20 06/06/20 mcg/actuation nasal spray,suspension ibuprofen 800 mg tablet 800 mg PO TID 06/06/20 06/06/20 omeprazole 40 mg capsule,delayed 40 mg PO DAILY 06/06/20 06/06/20 release pregabalin 75 mg capsule 75 mg PO TID 06/06/20 06/06/20 sucralfate 1 gram tablet 1 g PO BID 06/06/20 06/06/20 timolol 0.5 % eye drops 1 drp OPHTHALMIC (EYE) DAILY 06/06/20 06/06/20 trazodone 100 mg tablet 100 mg PO QHS PRN 06/06/20 06/06/20 trazodone 50 mg tablet 50 mg PO QHS PRN 06/06/20 06/06/20 Allergies Allergy/AdvReac Type Severity Reaction Status Date / Time Sulfa (Sulfonamide Allergy Severe Skin Rash Unverified 06/06/20 17:53 Antibiotics) sulfamethoxazole Allergy Severe Skin Rash Unverified 06/06/20 17:53 [From ] trimethoprim [From ] Allergy Severe Skin Rash Unverified 06/06/20 17:53 General Stated Complaint: Trauma PAMELLA: 3 Review of Systems Constitutional Constitutional: Denies fever(s), Reports frequent falls and Denies headache(s) Eyes Eyes: Denies blurry vision and Denies change in vision ENT Ears, Nose, Mouth, and Throat: Denies headache(s) Cardiovascular Cardiovascular: Denies chest pain and Denies dyspnea Respiratory Respiratory: Denies cough and Denies dyspnea Gastrointestinal Gastrointestinal: Denies abdominal pain, Denies nausea and Denies vomiting Musculoskeletal Musculoskeletal: Reports deformity and Reports arthralgias Integumentary/Breasts Skin/Breast: Reports other (bruises of various stages of healing.) Neurologic Neurologic: Denies confusion, Reports frequent falls, Denies headache(s), Denies localized weakness and Denies memory loss Psychiatric Psychiatric: Denies confusion and Denies memory loss Hematologic/Lymphatic Hematologic/Lymphatic: Reports easy bruising [facility] Medical History (Updated 06/06/20 @ 20:10 by Argentina Carmichael NP) Depression History of fracture femur repair HTN (hypertension) PTSD (post-traumatic stress disorder) Surgical History History of bunionectomy History of cataract extraction Reported complication that caused her to have left elongated pupil History of section Social History Smoking/Tobacco Use Status: Former Tobacco Use Tobacco: How many years used: 5 Smoking risk assessment performed?: Yes Alcohol Intake: never Drug use: Never Substance use type: does not use Do you feel safe at home: Yes Do you feel safe in your relationship?: Yes Exam Const General: frail appearing and ill appearing chronically (older appearing than stated age) Nutritional Appearance: average body habitus Orientation: alert, awake and oriented x3 HENMS Head: normal to inspection, normocephalic and atraumatic Mouth: oral mucosae normal Neck Neck: normal visual inspection and nontender Chest Chest: normal inspection of the chest Resp Effort & Inspection: normal respiratory effort Auscultation: clear to auscultation bilaterally Cardio Rate: regular rate Rhythm: regular rhythm GI Inspection: normal to inspection Palpation: soft Auscultation: normal bowel sounds Skin General skin exam: ecchymosis (of various stages of healing) Neuro General: patient alert, patient awake, patient oriented x3 and no focal motor deficits Cognition: normal cognition Speech: speech normal Extrem Left upper extremity: shoulder/upper arm Details: abnormal ROM, deformity Location: of the proximal humerus Location: anteriorly and other (warm, good distal pulses); ROM limited, no cyanosis and no edema Course Vital Signs Vital signs: Vital Signs Temperature 36.6 C 06/06/20 17:45 Pulse 93 H 06/06/20 17:45 Respiratory Rate 17 06/06/20 17:45 Blood Pressure 186/129 H 06/06/20 17:45 Pulse Oximetry 99 06/06/20 17:45 Temperature 36.6 C 06/06/20 17:45 Temperature Source Skin 06/06/20 17:45 Pulse 93 H 06/06/20 17:45 Respiratory Rate 17 06/06/20 17:45 Respiratory Effort Non-Labored 06/06/20 17:52 Blood Pressure 186/129 H 06/06/20 17:45 Blood Pressure Position Sitting 06/06/20 17:45 Pulse Oximetry 99 06/06/20 17:45 Oxygen Delivery Method Room Air 06/06/20 17:45 Oxygen Flow Rate 0 06/06/20 17:45 Pain Level 10 06/06/20 17:45 Lab/Test Results Lab/Test Results: Laboratory Tests Range/Units 06/06/20 06/06/20 06/06/20 18:10 18:10 18:15 WBC (4.4-10.8) 10^3/uL 11.67 H RBC (3.93-5.22) 10^6/uL 4.33 Hgb (11.2-15.7) g/dL 13.4 Hct (36.0-46.0) % 38.1 MCV (80-95) fL 88.0 MCH (27.0-33.0) pg 30.9 MCHC (32.0-36.0) % 35.2 RDW (11.7-14.6) % 11.9 Plt Count (130-400) 10^3/uL 281 MPV (8.0-11.0) fL 8.8 Immature Gran % 0.3 Neutrophils % 83.5 Lymphocytes % 9.1 Monocytes % 6.9 Eosinophils % 0.0 Basophils % 0.2 Nucleated RBC % % 0 Absolute Neutrophils (1.2-6.7) 10^3/uL 9.74 H Absolute Lymphocytes (1.2-3.4) 10^3/uL 1.06 L Absolute Monocytes (0.1-0.8) 10^3/uL 0.81 H Absolute Eosinophils (0.0-0.7) 10^3/uL 0.00 Absolute Basophils (0.0-0.2) 10^3/uL 0.02 Sodium (136-145) mmol/L 125 L Potassium (3.5-5.1) mmol/L 3.2 L Chloride (98-107) mmol/L 88 L Carbon Dioxide (21.0-32.0) mmol/L 23.7 Anion Gap (3-11) mmol/L 13.3 H BUN (7-18) mg/dL 10 Creatinine (0.55-1.02) mg/dL 0.90 Estimated GFR/1.73 m2 (mL/min/1.73m2) >= 60.00 Glucose (74-106) mg/dL 104 Calcium (8.5-10.1) mg/dL 8.8 Magnesium (1.8-2.4) mg/dL 1.5 L Total Bilirubin (0.2-1.0) mg/dL 0.4 AST (15-37) U/L 27 ALT (14-59) U/L 18 Alkaline Phosphatase (46-116) U/L 100 Creatine Kinase (26-192) U/L 263 H Troponin I (<0.06) ng/mL < 0.05 Total Protein (6.4-8.2) g/dL 8.4 H Albumin (3.4-5.0) g/dL 4.5 Urine Color (Yellow) Yellow Urine Clarity (Clear) Clear Urine pH (5-8) 7.0 Ur Specific [place] (1.005-1.025) 1.020 Urine Protein (Negative) mg/dL Negative Urine Ketones (Negative) mg/dL Negative Urine Blood (Negative) Small H Urine Nitrite (Negative) Negative Urine Bilirubin (Negative) Negative Urine Urobilinogen (Up TO 0.2) EU/dL 0.2 Ur Leukocyte Esterase (Negative) Negative Urine RBC (0-2) HPF 3-5 H Urine WBC (0-5) HPF Negative Ur Epithelial Cells (Negative) HPF Few Urine Crystals (Negative) HPF Negative Urine Bacteria (Negative) HPF Negative Urine Casts (Negative) LPF 0-2 hyaline Urine Mucus (Negative) Negative Ur Culture Indicated? No Urine Glucose (Negative) mg/dL 100
--- NOTE | 2020-06-06 20:22 | DI.VRAD_ITS ---
PROCEDURE INFORMATION: Exam: CT Left Upper Extremity Without Contrast, Shoulder Exam date and time: 06/06/2020 7:23 PM Age: 60 years old Clinical indication: Injury or trauma; Fall; Humerus, proximal end; Left; Patient HX: Fracture, dislocation, S/P reduction TECHNIQUE: Imaging protocol: CT of the Left upper extremity without contrast was performed. Exam focused on the shoulder. COMPARISON: No relevant prior studies available. FINDINGS: Bones/joints: There has been closed reduction for anterior dislocation of the left humerus with the left humeral head now seen concentrically located with respect to the glenoid fossa. Comminuted fractures with minimal displacement of a few small comminuted fragments noted in the region of the greater tubercle of the proximal left humerus. Soft tissues: Normal. IMPRESSION: Cheondoism of normal glenohumeral alignment following closed reduction for anterior humeral dislocation as above. Dictated and Authenticated by: Artem Garcia MD. Ordering:STEVEN Elaine MD
== END 2020-06-06 21:50 | disposition home or self-care (01) ==
PROVIDERS: Emergency Provider Nurse Practitioner Acute Care; PCP Nurse Practitioner Family
DX: S43.012A Anterior subluxation of left humerus, initial encounter (principal); S42.142A Displaced fracture of glenoid cavity of scapula, left shoulder, initial encounter for closed fracture; S42.252A Displaced fracture of greater tuberosity of left humerus, initial encounter for closed fracture; W01.0XXA Fall on same level from slipping, tripping and stumbling without subsequent striking against object, initial encounter; I10 Essential (primary) hypertension
CPT/HCPCS: 23650; 36415; 80053; 82550; 96361; 96365; 96368; 96375; 99282; 73060; 73200; 81003; 81015; 83735; 84484; 85025; J0131; J2405; J3475; J3480

== ENCOUNTER → 2020-06-07 12:31 | Outpatient (BNVA) | payer MEDICARE, MEDICAID, SELFPAY | PROVIDERS: PCP Nurse Practitioner Family; Referring Provider Nurse Practitioner Family; Visit Provider Surgery | DX: K21.9 Gastro-esophageal reflux disease without esophagitis (principal); R19.7 Diarrhea, unspecified; Z98.890 Other specified postprocedural states | CPT/HCPCS: 99213 ==

== ENCOUNTER 2020-06-07 14:28 | Outpatient (CLI) | payer MEDICARE, MEDICAID, SELFPAY ==
--- NOTE | 2020-06-07 14:00 | DI.RAD_ITS ---
EXAM: XR SHOULDER LT COMPLETE 2+V CLINICAL HISTORY: left shoulder pain TECHNIQUE: COMPARISON: CT CT UPPER EXTREMITY LT WO from 06/06/2020 FINDINGS: Three views were obtained and show previously described fracture of the greater tuberosity of the hum erus, no gross interval change in appearance comparison with yesterday's examinations. IMPRESSION: RADIATION DOSE DELIVERED: Total DLP
== END 2020-06-07 14:48 ==
PROVIDERS: PCP Nurse Practitioner Family; Referring Provider Nurse Practitioner Family; Visit Provider Student in an Organized Health Care Education/Training Program
DX: M25.512 Pain in left shoulder (principal); S42.295A Other nondisplaced fracture of upper end of left humerus, initial encounter for closed fracture; W01.0XXA Fall on same level from slipping, tripping and stumbling without subsequent striking against object, initial encounter; K21.9 Gastro-esophageal reflux disease without esophagitis; R19.7 Diarrhea, unspecified; Z98.890 Other specified postprocedural states
CPT/HCPCS: 99204; 99213; 99215; 73030

== ENCOUNTER 2020-06-15 15:01 | Emergency (ER) | payer MEDICARE, MEDICAID, SELFPAY ==
[2020-06-15 15:05] VITALS: BP 179/88; PULSE 75; RESP 18; TEMP 36.3; O2SAT 99
--- NOTE | 2020-06-15 15:27 | W.ED.GENAD ---
Discharge Plan Disposition Patient Disposition: HOME Condition: Stable Discharge Details Clinical Impression: Left shoulder pain Primary Care Provider: None,None ED Provider: Jose Irwin Home Meds and New Rx's Prescriptions: New tramadol 50 mg tablet 50 mg PO Q8H PRNQty: 8 RF: 0 cyclobenzaprine 5 mg tablet 5 mg PO TID PRNQty: 8 RF: 0 Continued loratadine 10 mg capsule 10 mg PO HS RF: 0 epinephrine 0.3 mg/0.3 mL auto-injector 0.3 mg IM ONCE RF: 0 fluconazole 150 mg tablet 150 mg PO DAILY RF: 0 fluticasone propionate 50 mcg/actuation spray,suspension 1 spray intranasal DAILY RF: 0 omeprazole 40 mg capsule,delayed release(DR/EC) 40 mg PO DAILY RF: 0 pregabalin 75 mg capsule 75 mg PO TID RF: 0 sucralfate 1 gram tablet 1 g PO BID RF: 0 timolol 0.5 % drops 1 drp ophthalmic (eye) DAILY RF: 0 trazodone 100 mg tablet 100 mg PO QHS PRNRF: 0 trazodone 50 mg tablet 50 mg PO QHS PRNRF: 0 bisacodyl [Dulcolax (bisacodyl)] 5 mg tablet,delayed release (DR/EC) 5 mg PO ONCE Qty: 4 RF: 0 polyethylene glycol 3350 17 gram powder in packet 255 g PO DAILY Qty: 15 RF: 0 naproxen 250 mg tablet 250 mg PO BID PRN (Reason: pain) Qty: 120 RF: 0 losartan 25 mg Tablet 25 mg PO HS RF: 0 ibuprofen 800 mg Tablet 800 mg PO Q8H PRNRF: 0 acetaminophen [Acetaminophen Extra Strength] 500 mg Tablet 1,000 mg PO Q6H PRNRF: 0 carvedilol 12.5 MG tablet 12.5 mg PO BID RF: 0 amlodipine 2.5 MG tablet 2.5 mg PO HS RF: 0 Discontinued ibuprofen 800 mg tablet 800 mg PO TID RF: 0 Discharge Instructions Instructions: Shoulder Pain (ED) Care Plan Goals: X-ray obtained today does not show any obvious emergent process. We are adding on a short-term prescription for both Flexeril and tramadol, his medications may cause drowsiness. Do not drink alcohol or operate machinery while taking these medications. A CD is given to you with your x-rays on them, bring these to your orthopedic appointment at your second opinion with the [facility] orthopedic group. Cool and/or warm compresses every 2 hours for 20 minutes. Continue wearing sling, be sure to do passive range of motion at least 4 times daily to avoid a frozen shoulder. Please watch for new or worsening symptoms and return to the ER for any concerns. Discharge Data Discharge Date/Time-TO BE ENTERED AT DEPARTURE: 06/15/20 16:57 Medical Decision Making <Ailyn Flores - Last Filed: 06/17/20 08:34> 50-year-old female presents to the ED with chief complaint of left shoulder pain. She does have a history of a dislocated fractured humeral head was originally seen on June 05. She is continuing to have the pain, complains of continued numbness to her distal left upper extremity. She reports that she rolled over couple times in bed and heard a pop. She reports she has been taking Tylenol and ibuprofen which is not helping anymore. She denies any recurrent falls. Extremities pink warm and dry distal radial pulses are intact. Cap refill is less than 2 seconds. She does have a past medical history of depression, hypertension, diabetes, PTSD. Discussed previous x-rays with patient discussed that some numbness in her hand is to be expected status post fracture and dislocation. Discussed that this should return in the next 1 to 2 weeks. She is concerned for increased pain and hearing a pop while lying over in bed. We will repeat the x-rays today, give her Flexeril for some reported muscle spasm to her left posterior shoulder and some tramadol for increased pain. Care is to be handed off to oncoming provider KEVIN Duque pending x-ray results and discharge instructions. <KEVIN Pickett - Last Filed: 06/15/20 16:43> I assumed care of this 60-year-old female at shift change from my colleague TL Flores. Please see her initial HPI and examination. At time of signout, pending x-ray. Assuming x-ray does not reveal any obvious emergent process, plan is to discharge with prescription for Flexeril and tramadol. Will provide a copy of her x-rays and she already has a sling. We will be sure the sling fits her properly. She is seeking a second opinion with a different orthopedic group at [facility]. X-ray read by radiology of the left shoulder reveals greater tuberosity fracture again noted without obvious interval change. However on today's images there is also calcific density in the subacromial space noted. This is seen just medial to the coracoid process on the Grashey view. Subacromial space height is lower normal. Minimal degenerative changes in the glenohumeral joint. Discussed x-rays with patient. She has no additional questions or concerns. Reports that she has moderate relief with the Flexeril and tramadol. She is comfortable with the plan set forth by TL Flores. She has no additional questions or concerns upon discharge. Medical Records Medical records reviewed: Yes I reviewed the patient's medical records. HPI <Ailyn Flores - Last Filed: 06/17/20 08:34> General Mode of arrival: ambulatory. Date/Time Provider Initiated Documentation: 06/15/20 15:02. Limitations to Documentation: no limitations. Information obtained by: patient. HPI Narrative: 50-year-old female presents to the ED with chief complaint of left shoulder pain. She does have a history of a dislocated fractured humeral head was originally seen on June 05. She is continuing to have the pain, complains of continued numbness to her distal left upper extremity. She reports that she rolled over couple times in bed and heard a pop. She reports she has been taking Tylenol and ibuprofen which is not helping anymore. She denies any recurrent falls. Extremities pink warm and dry distal radial pulses are intact. Cap refill is less than 2 seconds. She does have a past medical history of depression, hypertension, diabetes, PTSD. Related Data Home Medications Medication Instructions Recorded Confirmed amlodipine 2.5 mg PO HS 08/25/16 06/15/20 carvedilol 12.5 mg PO BID 08/25/16 06/15/20 losartan 25 mg PO HS 03/27/18 06/15/20 loratadine 10 mg capsule 10 mg PO HS 12/04/18 06/15/20 epinephrine 0.3 mg/0.3 mL 0.3 mg IM ONCE 06/06/20 06/15/20 injection, auto-injector fluconazole 150 mg tablet 150 mg PO DAILY 06/06/20 06/15/20 fluticasone propionate 50 1 spray INTRANASAL DAILY 06/06/20 06/15/20 mcg/actuation nasal spray,suspension omeprazole 40 mg capsule,delayed 40 mg PO DAILY 06/06/20 06/15/20 release pregabalin 75 mg capsule 75 mg PO TID 06/06/20 06/15/20 sucralfate 1 gram tablet 1 g PO BID 06/06/20 06/15/20 timolol 0.5 % eye drops 1 drp OPHTHALMIC (EYE) DAILY 06/06/20 06/15/20 trazodone 100 mg tablet 100 mg PO QHS PRN 06/06/20 06/15/20 trazodone 50 mg tablet 50 mg PO QHS PRN 06/06/20 06/15/20 bisacodyl 5 mg tablet,delayed 5 mg PO ONCE #4 tab 06/07/20 06/15/20 release polyethylene glycol 3350 17 gram 255 g PO DAILY #15 ea 06/07/20 06/15/20 oral powder packet naproxen 250 mg tablet 250 mg PO BID PRN #120 tab 06/09/20 06/15/20 acetaminophen [Acetaminophen Extra 1,000 mg PO Q6H PRN 06/15/20 06/15/20 Strength] cyclobenzaprine 5 mg PO TID PRN #8 tab 06/15/20 ibuprofen 800 mg PO Q8H PRN 06/15/20 06/15/20 tramadol 50 mg PO Q8H PRN #8 tab 06/15/20 Previous Rx's Medication Instructions Recorded bisacodyl 5 mg tablet,delayed 5 mg PO ONCE #4 tab 06/07/20 release polyethylene glycol 3350 17 gram 255 g PO DAILY #15 ea 06/07/20 oral powder packet naproxen 250 mg tablet 250 mg PO BID PRN #120 tab 06/09/20 cyclobenzaprine 5 mg PO TID PRN #8 tab 06/15/20 tramadol 50 mg PO Q8H PRN #8 tab 06/15/20 Allergies Allergy/AdvReac Type Severity Reaction Status Date / Time Sulfa (Sulfonamide Allergy Severe Skin Rash Unverified 06/15/20 15:10 Antibiotics) sulfamethoxazole Allergy Severe Skin Rash Unverified 06/15/20 15:10 [From ] trimethoprim [From ] Allergy Severe Skin Rash Unverified 06/15/20 15:10 General Stated Complaint: Orthopedic PAMELLA: 3 Review of Systems <Ailyn Flores - Last Filed: 06/17/20 08:34> Narrative: Constitutional: Negative for weight loss, alert and oriented, well groomed, normal body habitus, appears comfortable. HEENT: Denies trauma, headaches, blurry vision, nasal discharge, sore throat, trouble swallowing. Chest: Denies chest pain, palpitations, irregular rhythm, hypertension. Respiratory: Denies Shortness of breath, cough, hemoptysis. GI: Denies abdominal pain, nausea, vomiting, diarrhea, constipation. : Denies dysuria, hematuria, flank pain, rectal bleeding. Neuro: Denies dizziness, blurry vision, weakness, syncope, headache or facial numbness. Hematologic: Denies easy bruising, intolerance to heat or cold, hair loss. PFSH <Ailyn Mark - Last Filed: 06/17/20 08:34> Medical History Beau's line Chest wall contusion Claustrophobia Contusion Contusion of head Depression Dislocation of shoulder, anterior, left, closed GERD (gastroesophageal reflux disease) HTN (hypertension) Infestation by Sarcoptes scabiei pau hominis PTSD (post-traumatic stress disorder) Sinusitis Tendonitis of wrist, left Tobacco user Surgical History H/O wrist surgery History of bunionectomy History of cataract extraction Reported complication that caused her to have left elongated pupil History of section S/P colonoscopy S/P ORIF (open reduction internal fixation) fracture femur Social History Smoking/Tobacco Use Status: Former Tobacco Use Tobacco: How many years used: 5 Smoking risk assessment performed?: Yes Alcohol Intake: never Drug use: Never Substance use type: does not use Current gender identity: female Do you feel safe at home: Yes Do you feel safe in your relationship?: Yes Exam <Ailyn Mark - Last Filed: 06/17/20 08:34> Narrative Exam Narrative: Constitutional: Alert and oriented x3. Appears stated age. Normal body habitus. Patient is wearing a sling to her left upper extremity. Head: Normocephalic, no trauma. Eyes: Pupils PERRLA, Red reflex noted, EOM's intact. Eyelids symmetrical without lesions, discharge, or swelling. ENT: Bilateral TM's WNL, External ear normal to inspection, no mastoid TTP, swelling, or erythema, Nasal turbinates WNL, no nasal discharge. Normal dentition, Posterior pharynx WNL, no exudate. Chest: RRR, Normal S1, S2, distal pulses intact. Resp: Lungs clear to auscultation bilaterally, no wheezes, rales, or rhonchi. Musculoskeletal: Normal gait, 5/5 strength to all four extremities. Skin: No suspicious rashes or lesions. Capillary refill less than 2 sec. Neurologic: Cranial nerves II-XII intact. Alert and oriented x 3. DTR's intact. Hematologic/Lymphatic: No ecchymosis, no lymphadenopathy. Course <Ailyn Flores - Last Filed: 06/17/20 08:34> Vital Signs Vital signs: Vital Signs Temperature 36.3 C L 06/15/20 15:05 Pulse 75 06/15/20 15:05 Respiratory Rate 18 06/15/20 15:05 Blood Pressure 179/88 H 06/15/20 15:05 Pulse Oximetry 99 06/15/20 15:05 Temperature 36.3 C L 06/15/20 15:05 Temperature Source Temporal Artery Scan 06/15/20 15:05 Pulse 75 06/15/20 15:05 Respiratory Rate 18 06/15/20 15:05 Respiratory Effort Non-Labored 06/15/20 15:09 Blood Pressure 179/88 H 06/15/20 15:05 Blood Pressure Position Sitting 06/15/20 15:05 Pulse Oximetry 99 06/15/20 15:05 Oxygen Delivery Method Room Air 06/15/20 15:05 Oxygen Flow Rate 0 06/15/20 15:05 Pain Level 7 06/15/20 15:05 Sign Out <Ailyn Flores - Last Filed: 06/17/20 08:34> Sign Out Data: Sign Out Comment: Pending XR shoulder, Flexeril and tramadol, Rx Last updated by Ailyn Flores at 06/15/20 15:55
[2020-06-15] MEDS: traMADol 50 MG TAB PO (15:35)
[2020-06-15] MEDS: Cyclobenzaprine 10 MG TAB PO (15:35)
--- NOTE | 2020-06-15 16:04 | DI.RAD_ITS ---
EXAM: XR SHOULDER LT COMPLETE 2+V CLINICAL HISTORY: Increased pain, hx fracture. TECHNIQUE: 2D digital imaging was performed. COMPARISON: 06/07/2020 x-rays FINDINGS: Greater tuberosity fractures again noted without obvious interval change. However, on today's images there is also calcific density in the subacromial space noted. This is seen just medial to the tip of the coracoid process on the Grashey view. Subacromial space height is lower normal. Minimal dege nerative changes in the glenohumeral joint. IMPRESSION: Greater tuberosity fracture site appears unchanged. However, there are calcific densities in the sub acromial region. DATA REPOSITORY: RADIATION DOSE DELIVERED:
--- OUTSIDE RECORDS SUMMARY | 2020-06-15 16:14 | XMS_ITS ---
:1960 Author Care Team Providers Name Role Phone ARTEMIO MUNOZ Primary Care Provider [phone] Allergies Code Code System Name Reaction Severity Status Onset Septra ? ? Active ? Sulfa ? ? Active ? (Sulfonamide Antibiotics) Medications Name Status Start Date Stop Date ? ? Albenza 200 mg tablet Completed ? 07/24/2019 Take oral twice per day Ambien 10 mg tablet Completed 04/24/2012 04/24/2012 1 Tablet: At bedtime as needed amitriptyline 10 mg tablet Completed ? 08/17 amitriptyline 50 mg tablet Completed 10/30/201210/30 2 (two) Tablet: at bedtime amlodipine 5 mg tablet Active ? Not avail able TAKE 1 TABLET BY MOUTH DAILY amoxicillin 875 mg tablet Completed ? 2019 amoxicillin 875 mg-potassium Completed ? clavulanate 125 mg tablet Astelin 137 mcg (0.1 %) nasal spray aerosol Completed 12/2908/13/2013 1 (one) spray(s): in each nostril twice daily Augmentin 500 mg-125 mg tablet Completed 02/13/2012 0 02/23/2012 1 Tablet: every eight hours azithromycin 250 mg tablet Completed ? 04/22 bacitracin 500 unit/gram topical ointment Completed 201204/16/2013 1 Ointment: bid - twice daily bisacodyl 5 mg tablet,delayed release Active ? Not available TAKE BY MOUTH DIRECTED FOR YOUR COLONOSCOPY bupropion HCl 100 mg tablet Active ? Not available carvedilol 12.5 mg tablet Active ? Not av ailable TK 1 T PO BID celecoxib 200 mg capsule Completed ? 020 cetirizine 10 mg tablet Completed 09/08/2012 09/09/19 13 1 Tablet: qam - every morning Chantix Continuing Month Box 1 mg tablet Completed 013 04/16/2013 1 tablet(s): 2 times per day Chantix Starting Month Box 0.5 mg (11)-1 mg (42) tablets in dose pack Completed 04/16/2013 04/16/2013 1 Tablet: As directed Cipro 500 mg tablet Completed 09/11/2012 09/14/2012 1 Tablet: twice a day clindamycin HCl 150 mg capsule Completed ? 1 07/12/2017 clindamycin HCl 300 mg capsule Completed ? 1 07/12/2017 1 (one) Capsule: Every 6 hours clotrimazole 1 % topical cream Active ? N ot available cromolyn 4 % eye drops Active ? Not avail able cyclobenzaprine 10 mg tablet Completed 12/26/201511/2015 1 (one) Tablet Tablet: every 8 hours as needed cyclobenzaprine 5 mg tablet Completed 05/06/201511/2015 1 (one) - 2 (two) Tablet Tablet: tid - three times a day Cymbalta 60 mg capsule,delayed release Completed 4 07/17/2013 1 (one) Capsule DR Part: daily diclofenac sodium 50 mg tablet,delayed release Completed 1 04/24/[address]: tid - three times a day as needed doxycycline hyclate 100 mg tablet Completed ? 07/24/2019 epinephrine 0.3 mg/0.3 mL Active ? Not av ailable injection, auto-injector fexofenadine 180 mg tablet Active ? Not a vailable fexofenadine 60 mg tablet Completed ? 2019 fluconazole 150 mg tablet Active ? Not av ailable fluoxetine 20 mg capsule Active ? Not marlin ilable TK 3 CS PO QD fluoxetine 20 mg tablet Completed 07/17/2013 07/17/19 14 4 Tablet: daily fluoxetine 40 mg capsule Completed ? 020 fluticasone propionate 50 Active ? Not av ailable mcg/actuation nasal spray,suspension Guaifenesin AC 10 mg-100 mg/5 mL oral liquid Completed 08/28/2016 2 (two) teaspoon: qhs - at bedtime hydrochlorothiazide 25 mg tablet Completed 08/15/2015 10/17/2015 1 Tablet: daily hydrocodone 5 mg-acetaminophen 325 mg tablet Completed 12/201609/14/2016 1 (one) Tablet: bid - twice daily as needed hydrocortisone 2.5 % topical cream Completed ? 02/05/2018 hydromorphone 2 mg tablet Active ? Not av ailable ibuprofen 800 mg tablet Active ? Not avai lable Iron (ferrous sulfate) 325 mg (65 mg iron) tablet Active ? Not available Take 2 tablets every day by oral route. Keflex 500 mg capsule Completed 04/05/2016 04/05/2016 1 (one) Capsule: four times daily Kerlix 4 / X 147 bandage Completed 04/16/2013 1 Misc: qam - every morning ketotifen 0.025 % (0.035 %) eye drops Completed 10/22/2013 10/22/2013 1-2 drops : daily as needed Levaquin 500 mg tablet Completed 08/20/2014 5 1 (one) Tablet: daily loratadine 10 mg tablet Active ? Not avai lable TK 1 T PO QD lorazepam 1 mg tablet Completed ? 02/05/2018 losartan 100 mg tablet Active ? Not avail able Lyrica 50 mg capsule Completed ? 02/05/2018 Macrobid 100 mg capsule Completed 05/13/2014 05/18/20 14 1 (one) Capsule: two times daily methocarbamol 500 mg tablet Completed 08/12/201708/01 1 (one) Tablet: tid - three times a day as needec for muscle s pasm methylprednisolone 4 mg tablets in Completed ? 07/24/2019 a dose pack mirtazapine 15 mg tablet Completed ? 020 mirtazapine 30 mg tablet Completed ? 020 mirtazapine 45 mg tablet Completed ? 020 mupirocin 2 % topical ointment Completed ? 0 03/25/2018 mupirocin calcium 2 % topical Completed ? cream naproxen 250 mg tablet Active ? Not avail able hjinunsw-uulrjcryn-mpotnxnpx 3.5 mg/mL-10,000 unit/mL- 1 % ear solution Completed 03/23/2016 03/30/2016 4 drops: to each ear 4 times daily Neurontin 100 mg capsule Completed 10/30/2012 013 1 (one) Capsule: See comments Nicorette 2 mg gum Completed 12/09/2014 11/01/2015 1 piece(s) piece(s): for 30 minute as needed Nix Complete 1 % topical liquid and 0.25 % surface spray Complet ed 09/26/2017 09/30/2017 1 (one) Kit: as directed Nix Creme Rinse 1 % topical liquid Completed ? 03/25/2018 nystatin 100,000 unit/mL oral suspension Completed ? 04/22/2020 Take 5 mL 4 times a day by oral route for 10 days. omeprazole 40 mg capsule,delayed Active ? Not available release pantoprazole 40 mg tablet,delayed Completed ? 04/22/2020 release Percocet 5 mg-325 mg tablet Completed 02/04/2012 08/11/2011 1 Tablet: Every 6 hours as needed permethrin 5 % topical cream Completed ? 01/2018 polyethylene glycol 3350 17 gram/dose oral powder Active ? Not available MIX IN 64OZ OF GATORADE AND JUICE AND DRINK DIRECTED prednisone 50 mg tablet Completed ? 07/24/19 20 pregabalin 75 mg capsule Active ? Not marlin ilable Shingrix (PF) 50 mcg/0.5 mL Active ? Not available intramuscular suspension, kit sucralfate 1 gram tablet Active ? Not marlin ilable Tessalon Perles 100 mg capsule Completed 08/16/2016 0 08/28/2016 1 (one) Capsule Capsule: three times a day as needed timolol maleate 0.5 % eye drops Active ? Not available tramadol 50 mg tablet Completed 02/02/2016 03/06/2016 1 (one) Tablet: every 8 hours as needed trazodone 100 mg tablet Active ? Not avai lable trazodone 50 mg tablet Active ? Not avail able triamcinolone acetonide 0.1 % Completed ? topical cream Tylenol-Codeine #3 300 mg-30 mg tablet Completed 7 02/12/2017 1 (one) Tablet: every 6 hours as needed for pain valsartan 320 mg tablet Completed ? 03/25/20 18 Vaseline Petrolatum Gauze 1 X 36 bandage Completed 04/1604/16/2013 1 Pad: qam - every morning Problems Name Status Onset Date Source ? Pediculosis Capitis Active ? 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 History Hypo-osmolality and or Hyponatremia Active ? History Overweight Active ? History Claustrophobia Active ? History Tobacco User Active ? History Depressive Disorder Active ? History Insomnia Active ? History Cellulitis of Periorbital Region Active ? History Acute Actinic Otitis Externa Active ? His tory Hypertensive Disorder Active ? History Acute Sinusitis Active ? History Acute Maxillary Sinusitis Active ? Histor y Acute Bronchitis Active ? History Chronic Sinusitis Active ? History Sinusitis Active ? History Allergic Rhinitis Active ? History Beau's Lines Active ? History Backache Active ? History Bone Density Finding Active ? History Headache Active ? History Pleuritic Pain Active ? History Dysuria Active ? History Low Back Strain Active ? History Laceration of Finger Active ? History Laceration of Thumb Active ? History Superficial Injury of Chest Active ? Hist ory Corneal Abrasion Active ? History Injury of Conjunctiva Active ? History History of Clinical Finding in Subject Active ? History Adult Health Examination Active ? History Screening Mammography Active ? History Screening for Cardiovascular System Disease Active ? History Evaluation Procedure Active ? History Procedure by Method Active ? History Clinical Finding Active ? History Pain in Right Foot Active ? History Long-term Current Use of Drug Therapy Active ? History Pain of Left Shoulder Joint Active ? Hist ory Closed Fracture of Multiple Left Ribs Active ? History Evaluation Finding Active ? History SNOMED CT Concept Active ? History Closed Fracture of Single Left Rib Active ? History Procedures Date Name Performed by ? 06/06/2020 Closed Reduction of Dislocation of Shoul wendy Information not available Notes: Left shoulder; [facility] 07/01/2010 Colonoscopy Information not avai lable ? Cataract Surgery Information not avai lable 12/05/2017 MAMMO, Screening, Digital, Bilateral [facility] (Internal) [address] [place], [place] [phone] (Work Place) 03/30/2019 MAMMO, Screening, Tomosynthesis, [facility] (Internal) Bilateral [address] [place] [id number] (Work Place) 08/17/2019 MAMMO, Screening, Tomosynthesis, [facility] (Internal) Bilateral [address] [place] [id number] (Work Place) 04/22/2020 MAMMO, Screening, Tomosynthesis, Xray Nv rh Bilateral [address] [place], [place] [address] (Work Place) Results Lab Results Date Name Specimen Result Interpretation Description Value Range Status Address ? 05/12/2018 Urinalysis, UR - UA-color yellow pale Final [facility] Dipstick, yellow [facility] (Internal) : [address] ? ? UR - UA-appear clear clear Final [facility] L ab (Internal) : [address] ? ? UR - UA-gluc negative negative Final [facility] ab (Internal) : [address] ? ? UR - UA-bili negative negative Final [facility] L ab (Internal) : [address] ? ? UR - UA-ketone negative negative [facility] [address] ? ? UR - UA-spec 1.015 1.003-1.0 Final [facility] [address] [place] [address] L ab (Internal) : [address] ? ? UR ABNOR UA-blood trace negative Final [facility] ab (Internal) : [address] ? ? UR - UA-pH 6.5 [pH] 4.6-8.0 Final [facility] [pH] [facility] L ab (Internal) : [address] ? ? UR - UA-prot negative negative Final [facility] ab (Internal) : [address] ? ? UR - UA-urobil normal normal Final [facility] ab (Internal) : [address] ? ? UR - UA-nitrite negative negative Final [facility] L ab (Internal) : [address] ? ? UR - UA-leuk Est negative negative Final [facility] ab (Internal) : [address] 05/12/2018 Urinalysis, UR - UA-WBC 0-3 [hpf] 0-3 [hpf] F inal [facility] L ab (Internal) : [address] ? ? UR - UA-RBC 0-2 [hpf] 0-2 [hpf] Final [facility] L ab (Internal) : [address] ? ? UR - UA-bacteria none seen none seen Final [facility] [hpf] [hpf] [facility] ([facility] : [address] ? ? UR - UA-epitheli rare none seen Final N amanda al [hpf] [hpf] [facility] L ab (Internal) : [address] ? ? UR - UA-mucus none seen none seen Final N amanda [hpf] [hpf] [facility] L ab (Internal) : [address] 05/12/2018 Renal Function S - g/r 100 mg/dL 74-106 Fi nal [place] Panel, Serum mg/dL [facility] L ab (Internal) : [address] ? ? S High Bun 18 mg/dL 7-17 Final [facility] mg/dL [facility] L ab (Internal) : [address] ? ? S - Crea 0.80 0.52-1.04 Final [facility] mg/dL mg/dL [facility] L ab (Internal) : [address] ? ? S - Ca 9.5 mg/dL 8.4-10.2 Final [place] mg/dL [facility] L ab (Internal) : [address] ? ? S - Phos 4.1 mg/dL 2.5-4.5 Final [place] mg/dL [facility] L ab (Internal) : [address] ? ? S Low Na 132 137-145 Final [place] mmol/L mmol/L [facility] L ab (Internal) : [address] ? ? S - K 4.2 3.5-5.1 Final [place] mmol/L mmol/L [facility] L ab (Internal) : [address] ? ? S Low Cl 93 mmol/L 98-107 Final [place] mmol/L [facility] L ab (Internal) : [address] ? ? S High Tco2 31.0 22.0-30.0 Final [place] mmol/L mmol/L [facility] L ab (Internal) : [address] ? ? S - Alb 4.5 g/dL 3.5-5.0 Final [place] g/dL [facility] L ab (Internal) : [address] ? ? S Low GFR (Calc) 73 >89 Final [facility] L ab (Internal) : [address] 04/14/2018 Renal Function S - g/r 100 mg/dL 74-106 Fi nal [place] Panel, Serum mg/dL [facility] L ab (Internal) : [address] ? ? S - Bun 15 mg/dL 7-17 Final [place] mg/dL [facility] L ab (Internal) : [address] ? ? S - Crea 0.80 0.52-1.04 Final [place] mg/dL mg/dL [facility] L ab (Internal) : [address] ? ? S - Ca 9.8 mg/dL 8.4-10.2 Final [place] mg/dL [facility] L ab (Internal) : [address] ? ? S - Phos 3.2 mg/dL 2.5-4.5 Final [facility] mg/dL [facility] L ab (Internal) : [address] [place] ? ? S Low Na 132 137-145 Final [facility] mmol/L mmol/L [facility] L ab (Internal) : [address] ? ? S - K 4.4 3.5-5.1 Final [facility] mmol/L mmol/L [facility] L ab (Internal) : [address] ? ? S Low Cl 95 mmol/L 98-107 Final [facility] mmol/L [facility] L ab (Internal) : [address] ? ? S - Tco2 29.0 22.0-30.0 Final [facility] mmol/L mmol/L [facility] L ab (Internal) : [address] ? ? S - Alb 4.6 g/dL 3.5-5.0 Final [place] g/dL [facility] L ab (Internal) : [address] [place] ? ? S Low GFR (Calc) 73 >89 Final [facility] L ab (Internal) : [address] 03/25/2018 CBC W/ Auto BLD - Wbc 5.3 5.0-10.0 Final [place] Diff 10*3/uL 10*3/uL [facility] L ab (Internal) : [address] ? ? BLD Low Rbc 3.99 4.10-5.30 Final [place] 10*6/uL 10*6/uL [facility] L ab (Internal) : [address] ? ? BLD - Hgb 12.0 g/dL 12.0-16.0 Final Nort h g/dL [facility] L ab (Internal) : [address] ? ? BLD Low Hct 35.2 % 37.0-47.0 Final [facility] L ab (Internal) : [address] ? ? BLD - Mcv 88.2 fL 80.0-96.0 Final [facility] L ab (Internal) : [address] ? ? BLD - Mch 30.1 pg 26.0-32.0 Final [facility] L ab (Internal) : [address] ? ? BLD - Mchc 34.1 g/dL 31.0-35.0 Final Nort h g/dL [facility] L ab (Internal) : [address] ? ? BLD - Rdw 11.9 % 11.5-14.[address] [facility] L ab (Internal) : [address] ? ? BLD - Plt 294 130-450 Final [facility] 10*3/uL 10*3/uL [facility] L ab (Internal) : [address] ? ? BLD - Anc 3.01 ? Final [facility] 10*3/uL [facility] L ab (Internal) : [address] ? ? BLD - Neutro 56.5 % 40.0-75.0 Final [facility] L ab (Internal) : [address] ? ? BLD - Lymph 28.8 % 20.0-50.0 Final [facility] L ab (Internal) : [address] ? ? BLD - [place] 9.8 % 2.0-10.0 Final [facility] L ab (Internal) : [address] ? ? BLD - Eos 3.8 % 1.0-6.0 % Final [facility] L ab (Internal) : [address] ? ? BLD - Baso 0.9 % 0.0-1.0 % Final [facility] L ab (Internal) : [address] ? ? BLD - Ig 0.2 % 0.0-0.9 % Final [facility] L ab (Internal) : [address] 03/25/2018 CMP, Serum or S High g/r 135 mg/dL 74-106 Fin al [facility] Plasma mg/dL [facility] (Internal) : [address] ? ? S - Bun 16 mg/dL 7-17 Final [facility] mg/dL [facility] (Internal) : [address] ? ? S - Crea 0.80 0.52-1.04 Final [facility] mg/dL mg/dL [facility] (Internal) : [address] ? ? S - Ca 9.2 mg/dL 8.4-10.2 Final [facility] mg/dL [facility] (Internal) : [address] ? ? S Low Na 133 137-145 Final [facility] mmol/L mmol/L [facility] L ab (Internal) : [address] ? ? S - K 3.7 3.5-5.1 Final [facility] mmol/L mmol/L [facility] (Internal) : [address] ? ? S Low Cl 95 mmol/L 98-107 Final [facility] mmol/L [facility] L ab (Internal) : [address] ? ? S - Tco2 28.0 22.0-30.0 Final [facility] mmol/L mmol/L [facility] (Internal) : [address] ? ? S - Tp 7.1 g/dL 6.3-8.2 Final [facility] g/dL [facility] (Internal) : [address] ? ? S - Alb 4.3 g/dL 3.5-5.0 Final [facility] g/dL [facility] (Internal) : [address] ? ? S - Tbil 0.3 mg/dL 0.2-1.3 Final [facility] mg/dL [facility] (Internal) : [address] ? ? S - Alp 64 U/L 38-126 Final [facility] U/L [facility] L ab (Internal) : [address] ? ? S - Alt (Sgpt) 18 U/L 9-52 U/L Final Nor th [facility] L ab (Internal) : [address] ? ? S - Ast (Sgot) 27 U/L 14-36 U/L Final No rth [facility] L ab (Internal) : [address] 03/25/2018 Mononucleosis, BLD - [place] negative negative F inal [facility] Heterophile Count ry Ab, Serum Hospita l Lab (Internal) : [address] 03/25/2018 TSH, Serum or S - Tsh 0.73 0.47-4.68 Fin al [facility] Plasma u[IU]/mL u[IU]/mL [facility] L ab (Internal) : [address] 03/25/2018 ESR BLD - Esr 2 mm/h 0-30 mm/h Final Nor th (Erythrocyte Coun try [facility] Lab Rate), Blood (Int ernal): [address] 03/25/2018 Sushant-osullivan S - Ebv Vca IgM negative negati ve Final [facility] Virus (Ebv) Ab, S Count ry IgG + IgM Hospita l Lab Panel, Serum (Int ernal): [address] ? ? S - Ebv Vca IgG positive negative Final [place] Ab, S [facility] L ab (Internal) : [address] ? ? S - Ebna Ab, S positive negative Final N orth [facility] L ab (Internal) : [address] ? ? S - Interpretat results ? Final Nor th ion suggest [facility] L ab infection (Shrimp Boat Captain al): . [address] 03/25/2018 Sushant-osullivan - Ebv DNA undetecte undetecte Final [facility] Virus (EBV) Detect / d IU/mL d IU/mL C ountry DNA, Quant, Quant, P Hos pital Lab PCR, Blood (Inter nal): [address] 03/17/2018 CBC W/ Auto BLD - Wbc 6.1 5.0-10.0 Final [place] Diff 10*3/uL 10*3/uL [facility] L ab (Internal) : [address] ? ? BLD - Rbc 4.12 4.10-5.30 Final [facility] 10*6/uL 10*6/uL [facility] L ab (Internal) : [address] ? ? BLD - Hgb 12.5 g/dL 12.0-16.0 Final Nort h g/dL [facility] L ab (Internal) : [address] ? ? BLD Low Hct 36.2 % 37.0-47.0 Final [facility] L ab (Internal) : [address] ? ? BLD - Mcv 87.9 fL 80.0-96.0 Final [facility] L ab (Internal) : [address] ? ? BLD - Mch 30.3 pg 26.0-32.0 Final [facility] L ab (Internal) : [address] ? ? BLD - Mchc 34.5 g/dL 31.0-35.0 Final Nort h g/dL [facility] L ab (Internal) : [address] ? ? BLD - Rdw 11.9 % 11.5-14.[address] [facility] L ab (Internal) : [address] ? ? BLD - Plt 281 130-450 Final [facility] 10*3/uL 10*3/uL [facility] L ab (Internal) : [address] ? ? BLD - Anc 3.48 ? Final [facility] 10*3/uL [facility] L ab (Internal) : [address] ? ? BLD - Neutro 57.0 % 40.0-75.0 Final [facility] L ab (Internal) : [address] ? ? BLD - Lymph 27.0 % 20.0-50.0 Final [facility] L ab (Internal) : [address] ? ? BLD - [place] 10.0 % 2.0-10.[address] [facility] L ab (Internal) : [address] ? ? BLD - Eos 4.8 % 1.0-6.0 % Final [facility] L ab (Internal) : [address] ? ? BLD - Baso 1.0 % 0.0-1.0 % Final [facility] L ab (Internal) : [address] ? ? BLD - Ig 0.2 % 0.0-0.9 % Final [facility] L ab (Internal) : [address] 03/17/2018 CMP, Serum or S High g/r 136 mg/dL 74-106 Fin al [facility] Plasma mg/dL [facility] (Internal) : [address] ? ? S - Bun 13 mg/dL 7-17 Final [facility] mg/dL [facility] L ab (Internal) : [address] ? ? S - Crea 0.80 0.52-1.04 Final [facility] mg/dL mg/dL [facility] L ab (Internal) : [address] ? ? S - Ca 9.4 mg/dL 8.4-10.2 Final [facility] mg/dL [facility] L ab (Internal) : [address] ? ? S Low Na 132 137-145 Final [facility] mmol/L mmol/L [facility] (Internal) : [address] ? ? S - K 3.6 3.5-5.1 Final [facility] mmol/L mmol/L [facility] (Internal) : [address] ? ? S Low Cl 94 mmol/L 98-107 Final [facility] mmol/L [facility] L ab (Internal) : [address] ? ? S - Tco2 29.0 22.0-30.0 Final [facility] mmol/L mmol/L [facility] (Internal) : [address] ? ? S - Tp 7.4 g/dL 6.3-8.2 Final [facility] g/dL [facility] (Internal) : [address] ? ? S - Alb 4.3 g/dL 3.5-5.0 Final [facility] g/dL [facility] (Internal) : [address] ? ? S - Tbil 0.3 mg/dL 0.2-1.3 Final [facility] mg/dL [facility] L ab (Internal) : [address] ? ? S - Alp 66 U/L 38-126 Final [facility] U/L [facility] L ab (Internal) : [address] ? ? S - Alt (Sgpt) 19 U/L 9-52 U/L Final Nor th [facility] L ab (Internal) : [address] ? ? S - Ast (Sgot) 28 U/L 14-36 U/L Final No rth [facility] L ab (Internal) : [address] 03/17/2018 Iron, Serum SERUM - Iron 71 ug/dL 37-170 Final [facility] ug/dL [facility] L ab (Internal) : [address] 03/17/2018 Ferritin, S - Ferr 107 NG/mL 11-264 Final [facility] Serum or NG/mL [facility] L ab (Internal) : [address] 03/17/2018 Vitamin B12, S - Vit B12 865.0 239.0-931 Fi nal [facility] Serum pg/mL .0 pg/mL [facility] L ab (Internal) : [address] 03/17/2018 Thyroid S - Tsh 0.65 0.47-4.68 Final No rth [place], Serum u[IU]/mL u[IU]/mL [facility] L ab (Internal) : [address] 03/17/2018 Vitamin D, S - 1,25-Dihydr 54 pg/mL 18-78 F inal [place] 1,25-Dihydroxy oxyvitamin pg/mL [facility] Serum D, S Hospital Lab (Internal) : [address] 03/11/2018 Pathology TISS - Report results ? Final N orth Study below [facility] L ab (Internal) : [address] 03/11/2018 Fecal Occult ? No ? ? ? P_nc Primary Blood X 3, observation C are Stool recorded. [place] : [address] [place] [address] 02/05/2018 Microorganism S - Specimen (see ? Fin al [facility] Identification Description note) [facility] , Unspecified Hos [facility]ital Lab Specimen (Interna l): [address], [place] ? ? S - Result (see ? Final [place] note) [facility] L ab (Internal) : [address] t ? ? S - Report (see ? Final [place] Status note) [facility] (Internal) : [address] 08/12/2017 Venipuncture BLD ? Venpn* ? ? Final [facility] L ab (Internal) : [address] 08/12/2017 Hepatic S ? Tbil 0.5 mg/dL 0.2-1.3 Final N orth Function mg/dL [facility] Panel, Serum Hosp ital Lab (Internal) : [address] t ? ? S ? Dbil 0.2 mg/dL 0.0-0.3 Final [place] mg/dL [facility] L ab (Internal) : [address] t ? ? S ? Alp 70 U/L 50-136 Final North U/L [facility] L ab (Internal) : [address] t ? ? S ? Alt (Sgpt) 29 U/L 9-52 U/L Final [facility] L ab (Internal) : [address] ? ? S High Ast (Sgot) 38 U/L 14-36 U/L Final No rth [facility] L ab (Internal) : [address] t ? ? S ? Ggt 16 U/L 12-43 U/L Final [facility] L ab (Internal) : [address] t ? ? S ? Tp 7.3 g/dL 6.3-8.2 Final North g/dL [facility] L ab (Internal) : [address] t ? ? S ? Alb 4.4 g/dL 3.5-5.0 Final [place] g/dL [facility] L ab (Internal) : [address] 08/12/2017 BMP, Serum or S ? g/r 91 mg/dL 74-106 Tressa l [place] Plasma mg/dL [facility] L ab (Internal) : [address] t ? ? S ? Bun 12 mg/dL 7-17 Final [place] mg/dL [facility] L ab (Internal) : [address] t ? ? S ? Crea 0.80 0.52-1.04 Final [place] mg/dL mg/dL [facility] L ab (Internal) : [address] t ? ? S ? Ca 9.7 mg/dL 8.4-10.2 Final [place] mg/dL [facility] L ab (Internal) : [address] t ? ? S Low Na 133 137-145 Final [place] mmol/L mmol/L [facility] L [facility] (Internal) : [address] t ? ? S ? K 4.1 3.5-5.1 Final [place] mmol/L mmol/L [facility] L [facility] (Internal) : [address] t ? ? S Low Cl 97 mmol/L 98-107 Final [place] mmol/L [facility] L [facility] (Internal) : [address] t ? ? S ? Tco2 28.0 22.0-30.0 Final [place] mmol/L mmol/L [facility] L ab (Internal) : [address] 08/12/2017 Lipid Panel, S High Chol 218 mg/dL 50-200 Tressa l [place] Serum mg/dL [facility] (Internal) : [address] ? ? S ? Trig 105 mg/dL 10-150 Final [place] mg/dL [facility] (Internal) : [address] ? ? S High Hdl 77 mg/dL 40-60 Final [place] mg/dL [facility] (Internal) : [address] ? ? S ? Ldl 120 mg/dL 0-130 Final [place] mg/dL [facility] (Internal) : [address] 08/16/2016 Urinalysis, UR ? UA-WBC 0-3 [hpf] 0-3 [hpf] F inal [place] Microscopic Count [facility] L ab (Internal) : [address] ? ? UR ? UA-RBC 0-2 [hpf] 0-2 [hpf] Final Nor th [facility] L [facility] (Internal) : [address] ? ? UR ? UA-bacteria rare none seen Final N orth [hpf] [hpf] [facility] (Internal) : [address] ? ? UR ? UA-epitheli rare none seen Final N orth al [hpf] [hpf] [facility] ab (Internal) : [address] ? ? UR ABNOR [facility]A-mucus rare none seen [facility] ab (Internal) : [address] 08/16/2016 Urinalysis, UR ? UA-color yellow pale Final [place] Dipstick, yellow [facility] Reflex Micro Hosp ital Lab (Internal) : [address] ? ? UR ? UA-appear clear clear Final [facility] ab (Internal) : [address] ? ? UR ? UA-spec 1.015 1.003-1.0 Final [place] [facility] [address] [place] [address] L ab (Internal) : [address] ? ? UR ? UA-pH 6.5 [pH] 4.6-8.0 Final [place] [pH] [facility] L ab (Internal) : [address] ? ? UR ? UA-leuk Est negative negative Final [facility] ab (Internal) : [address] ? ? UR ? UA-nitrite negative negative Final [facility] L ab (Internal) : [address] ? ? UR ABNOR UA-prot trace negative Final [facility] ab (Internal) : [address] [place] ? ? UR ? UA-gluc negative negative Final [facility] ab (Internal) : [address] ? ? UR ? UA-ketone negative negative Final No rth [facility] L ab (Internal) : [address] [place] ? ? UR ? UA-urobil normal normal Final [facility] ab (Internal) : [address] [place] ? ? UR ? UA-bili negative negative Final [facility] ab (Internal) : [address] [place] ? ? UR ABNOR UA-blood trace negative Final [facility] ab (Internal) : [address] 08/16/2016 Neutrophil BLD ? Anc-manual 2.08 ? Tressa noé [place] Count, 10*3/uL [facility] Lab (Anc), Blood (Int ernal): [address] 08/16/2016 Differential, BLD ? Polys 52 % 40-75 % Final [facility], Blood Cou [facility] L ab (Internal) : [address] ? ? BLD ? Bands 0 % 0-5 % Final [facility] L ab (Internal) : [address] ? ? BLD ? Lymphs 36 % 20-50 % Final [facility] L ab (Internal) : [address] ? ? BLD ? [place] 6 % 2-10 % Final [facility] L ab (Internal) : [address] ? ? BLD ? Eos 5 % 0-6 % Final [facility] L ab (Internal) : [address] ? ? BLD ? Baso 1 % 0-1 % Final [facility] L ab (Internal) : [address] ? ? BLD ? Atyp Lymph 0 % ? Final [facility] L ab (Internal) : [address] ? ? BLD ? Plts, Est. adequate adequate Final [facility] L ab (Internal) : [address] ? ? BLD ? RBC normal normal Final [facility] L ab (Internal) : [address] 08/16/2016 BNP (B-type S High Nt-probnp 241 pg/mL 0-125 F inal [place] Natriuretic pg/mL Count ry Peptide), Hospita l Lab Prohormone (Inter nal): N-terminal, [address], [place] Immunoassay, Blood 08/16/2016 CK (Creatine S ? Cpk <30 U/L 30-135 Final [place] Kinase), U/L [facility], Serum Hosp ital Lab (Internal) : [address] 08/16/2016 Troponin I, S ? Trop <0.06 0.00-0.06 Final [place] Serum or NG/mL NG/mL [facility] L ab (Internal) : [address] 08/16/2016 CMP, Serum or S ? g/r 102 mg/dL 74-106 Fin al [place] Plasma mg/dL [facility] (Internal) : [address], [place] ? ? S ? Bun 12 mg/dL 7-17 Final [place] mg/dL [facility] L [facility] (Internal) : [address] t ? ? S ? Crea 0.70 0.52-1.04 Final [place] mg/dL mg/dL [facility] L [facility] (Internal) : [address] t ? ? S ? Ca 9.3 mg/dL 8.4-10.2 Final [place] mg/dL [facility] (Internal) : [address] ? ? S Low Na 135 137-145 Final [place] mmol/L mmol/L [facility] (Internal) : [address] t ? ? S ? K 4.1 3.5-5.1 Final [place] mmol/L mmol/L [facility] (Internal) : [address] t ? ? S Low Cl 94 mmol/L 98-107 Final [place] mmol/L [facility] (Internal) : [address] t ? ? S ? Tco2 30.0 22.0-30.0 Final [place] mmol/L mmol/L [facility] (Internal) : [address] t ? ? S ? Tp 7.4 g/dL 6.3-8.2 Final [place] g/dL [facility] (Internal) : [address] ? ? S ? Alb 4.3 g/dL 3.5-5.0 Final [place] g/dL [facility] (Internal) : [address] ? ? S ? Tbil 0.5 mg/dL 0.2-1.3 Final [place] mg/dL [facility] (Internal) : [address] ? ? S ? Alp 87 U/L 50-136 Final [place] U/L [facility] (Internal) : [address] ? ? S ? Alt (Sgpt) 37 U/L 9-52 U/L Final Nor th [facility] (Internal) : [address] ? ? S ? Ast (Sgot) 27 U/L 14-36 U/L Final No rth [facility] (Internal) : [address] 08/16/2016 CBC W/ Auto BLD Low Wbc 4.0 5.0-10.0 Final [place] Diff 10*3/uL 10*3/uL [facility] L ab (Internal) : [address] ? ? BLD ? Rbc 4.42 4.10-5.30 Final [place] 10*6/uL 10*6/uL [facility] L ab (Internal) : [address] ? ? BLD ? Hgb 13.7 g/dL 12.0-16.0 Final Nort h g/dL [facility] L ab (Internal) : [address] ? ? BLD ? Hct 38.4 % 37.0-47.0 Final [facility] L ab (Internal) : [address] ? ? BLD ? Mcv 86.9 fL 80.0-96.0 Final [facility] L ab (Internal) : [address] ? ? BLD ? Mch 31.0 pg 26.0-32.0 Final [place] pg [facility] L ab (Internal) : [address] ? ? BLD High Mchc 35.7 g/dL 31.0-35.0 Final Nort h g/dL [facility] L ab (Internal) : [address] ? ? BLD ? Rdw 12.7 % 11.5-14.5 Final [facility] L ab (Internal) : [address] ? ? BLD ? Plt 223 130-450 Final [place] 10*3/uL 10*3/uL [facility] L ab (Internal) : [address] Past Encounters 04/22/2020 Loss of Hair; Gastroesophageal Reflux Di sease without Esophagitis; Screening Mammography Artemio Munoz [employer]: [address] [place] [phone], Ph. 08/17/2019 Depressive Disorder; Adult Health Examin ation; Low Back Strain; Hypertensive Disorder Artemio Munoz [employer]: [address] [place] [phone], Ph. Social History Tobacco Smoking Status Former Smoker Notes: Quit 19 70's Vaccine List Vaccine Type influenza, injectable, quadrivalent 04/13/2019 influenza, injectable, quadrivalent, pre servative free 04/05/2016 influenza, seasonal, injectable 05/23/2013 02/11/2014 01/30/2015?0.5 mL 02/26/2016 02/22/2017?0.5 mL influenza, seasonal, injectable, preserv ative free 03/01/2012 03/20/2013 pneumococcal polysaccharide PPV23 03/13/2014?0.5 mL Tdap 04/24/2012?0.5 mL 04/03/2016 zoster recombinant 05/17/2019 zoster, unspecified formulation 05/17/2019 Plan of Care Reminders Provider Appointments None ? ? recorded. Lab None ? ? recorded. Referral None ? ? recorded. Procedures None ? ? recorded. Surgeries None ? ? recorded. Imaging None ? ? recorded. Vitals 04/22/2020 03:40PM Acute 20 Height Weight BMI Blood Pressure 167.64 cm 75.32 kg 26.8 kg/m2 158/90 mm[Hg] 08/17/2019 03:20PM CPE 40 Height Weight BMI Blood Pressure 167.64 cm 73.03 kg 26 kg/m2 130/88 mm[Hg] 05/12/2018 11:00AM Acute 40 Height Weight BMI Blood Pressure 167.64 cm 68.49 kg 24.4 kg/m2 140/80 mm[Hg] 03/25/2018 01:40PM Acute 20 Height Weight BMI Blood Pressure 167.64 cm 66.68 kg 23.7 kg/m2 150/92 mm[Hg] 03/11/2018 03:00PM Follow Up 40 Height Weight BMI Blood Pressure 167.64 cm 65.86 kg 23.4 kg/m2 120/72 mm[Hg] 02/05/2018 02:20PM Acute 40 Height Weight BMI Blood Pressure 167.64 cm 67.13 kg 23.9 kg/m2 150/80 mm[Hg] 08/12/2017 Height Weight Blood Pressure 167.64 cm 68.13 kg 138/74 mm[Hg] 07/29/2017 Weight Blood Pressure 69.4 kg 152/88 mm[Hg] 08/28/2016 Weight Blood Pressure 67.13 kg 142/102 mm[Hg] 08/21/2016 Height Weight Blood Pressure 170.18 cm 66.22 kg 130/80 mm[Hg] 07/04/2016 Height Weight Blood Pressure 166.37 cm 68.49 kg 132/88 mm[Hg] 04/05/2016 Weight Blood Pressure 67.27 kg 134/98 mm[Hg] 03/06/2016 Height Weight Blood Pressure 170.18 cm 68.54 kg 132/84 mm[Hg] 12/30/2015 Blood Pressure 144/86 mm[Hg] 12/09/2015 Weight Blood Pressure 68.58 kg 124/76 mm[Hg] 12/05/2015 Weight Blood Pressure 68.81 kg 140/100 mm[Hg] 11/01/2015 Weight Blood Pressure 71.03 kg 132/88 mm[Hg] 10/17/2015 Weight Blood Pressure 70.53 kg 160/100 mm[Hg] 08/02/2015 Weight Blood Pressure 71.03 kg 140/88 mm[Hg] 05/06/2015 Weight Blood Pressure 70.76 kg 138/88 mm[Hg] 02/03/2015 Weight Blood Pressure 72.71 kg 114/68 mm[Hg] 12/09/2014 Weight Blood Pressure 72.94 kg 106/66 mm[Hg] 08/20/2014 Weight Blood Pressure 69.9 kg 118/80 mm[Hg] 05/24/2014 Weight Blood Pressure 70.76 kg 128/80 mm[Hg] 03/09/2014 Weight Blood Pressure 70.76 kg 144/78 mm[Hg] 12/31/2013 Height Weight Blood Pressure 167.64 cm 71.03 kg 126/82 mm[Hg] 10/30/2013 Height Weight Blood Pressure 167.64 cm 72.67 kg 140/90 mm[Hg] 08/13/2013 Height Weight Blood Pressure 167.64 cm 72.67 kg 130/90 mm[Hg] 07/17/2013 Weight Blood Pressure 77.47 kg (1) 158/96 mm[Hg] (2) 160/100 mm[Hg] 05/26/2013 Weight Blood Pressure 69.85 kg 144/72 mm[Hg] 04/16/2013 Weight Blood Pressure 70.94 kg 130/76 mm[Hg] 03/10/2013 Weight Blood Pressure 74.21 kg 144/88 mm[Hg] 02/03/2013 Weight Blood Pressure 70.85 kg 150/90 mm[Hg] 01/13/2013 Height Weight Blood Pressure 168.91 cm 72.71 kg 122/78 mm[Hg] 11/21/2012 Weight Blood Pressure 73.35 kg 110/74 mm[Hg] 09/08/2012 Weight Blood Pressure 70.08 kg 150/96 mm[Hg] 07/31/2012 Weight Blood Pressure 71.12 kg 152/90 mm[Hg] 06/02/2012 Weight Blood Pressure 69.35 kg 142/82 mm[Hg] 04/24/2012 Height Weight Blood Pressure 168.91 cm 68.45 kg 140/86 mm[Hg] 02/04/2012 Weight Blood Pressure 67.09 kg 144/96 mm[Hg] 11/06/2011 Weight Blood Pressure 66 kg (1) 164/104 mm[Hg] (2) 152/100 mm[Hg]
--- OUTSIDE RECORDS SUMMARY | 2020-06-15 16:14 | XMS_ITS | Encounter Summary ---
:1960 Author Care Team Providers Name Role Phone Lars Denise Primary Care Provider [phone] Reason for Visit None recorded. Assessment and Plan 1. Loss of hair Pt has had hair loss since get ting sick after a shingles shot 2-3 months ago. WIll check labs. Seems like telogen effuvium, and explained the etiology to the patient. If no clear course then will re toby to dermatology for kenalog injections. ? TSH, serum or plasma ? CBC w/ auto diff ? ferritin, serum or plasma ? BMP, serum or plasma 2. Gastroesophageal reflux disea se without esophagitis Some chest burning and feeling of food getting stuck. She was given sucralfate in the ED ([facility]). She is real ly worried about cancer. Seems mroe like ulcer or hiatal hernia. Will start omepr azole and refer to surgery at [facility] for scopes. ? general surgery referral - Labs were ordered but not completed ? omeprazole 40 mg capsule,d elayed release ? amylase, serum or plasma ? lipase, serum or plasma ? hepatic function panel, se rum 3. Screening mammography ? MAMMO, screening, tomosynt hesis, bilateral - Pt wants to go to [facility] for her mammogram. difficulty ordering. Discussion Note: None recorded.Patient educational handouts: No information available. Plan of Care Reminders Provider Appointments None ? ? recorded. Lab TSH, Serum or Nor th [place] Plasma 04/22/2020 Hospital Lab (Internal) ? CBC W/ Auto [place] Diff 04/22/2020 Hospital Lab (Internal) ? Ferritin, [place] C [place] Serum or Plasma 04/22/2020 Hospital Lab (Internal) ? BMP, Serum or Nor th [facility] Plasma 04/22/2020 Hospital Lab (Internal) ? Amylase, [place] Co untry Serum or Plasma 04/22/2020 Hospital Lab (Internal) ? Lipase, Serum Nor th [place] or Plasma 04/22/2020 Hospital Lab (Internal) ? Hepatic [place] Cou ntry Function Panel, Serum 04/22/2020 Hospital L ab (Internal) Referral General [facility] Surg ical Surgery Referral 04/22/2020 Group Procedures None ? ? recorded. Surgeries None ? ? recorded. Imaging MAMMO, [facility] Xray Screening, 04/22/2020 Tomosynthesis, Bilateral Medications Name Start Date ? ? amlodipine 5 mg tablet ? TAKE 1 TABLET BY MOUTH DAILY bisacodyl 5 mg tablet,delayed release ? TAKE BY MOUTH DIRECTED FOR YOUR COLONOSCOPY bupropion HCl 100 mg tablet ? Take 1 tablet by oral route. carvedilol 12.5 mg tablet ? TK 1 T PO BID clotrimazole 1 % topical cream ? cromolyn 4 % eye drops ? INSTILL 1 DROP INTO AFFECTED EYE(S) BY OPHTHALMIC ROU TE 4 TIMES PER DAY epinephrine 0.3 mg/0.3 mL injection, auto-injector ? Take 1 auto every day by injection route as needed. fexofenadine 180 mg tablet ? take 1 tablet by mouth daily fluconazole 150 mg tablet ? fluoxetine 20 mg capsule ? TK 3 CS PO QD fluticasone propionate 50 mcg/actuation nasal spray,phillips spension ? ibuprofen 800 mg tablet ? take 1 tablet by mouth three times a day Iron (ferrous sulfate) 325 mg (65 mg iron) tablet ? Take 2 tablets every day by oral route. loratadine 10 mg tablet ? TK 1 T PO QD losartan 100 mg tablet ? take 1 tablet by mouth once daily naproxen 250 mg tablet ? omeprazole 40 mg capsule,delayed release ? Take 1 capsule every day by oral route. polyethylene glycol 3350 17 gram/dose oral powder ? MIX IN 64OZ OF GATORADE AND JUICE AND DRINK DIRECT ED pregabalin 75 mg capsule ? take 1 capsule by mouth three times a day Shingrix (PF) 50 mcg/0.5 mL intramuscular suspension, kit ? sucralfate 1 gram tablet ? timolol maleate 0.5 % eye drops ? One drop each eye daily trazodone 100 mg tablet ? Take 1 tablet as needed by oral route at bedtime. trazodone 50 mg tablet ? Medications Administered None recorded. Vitals Height Weight BMI Blood Pressure 5 ft 6 in 166 lbs 1 oz 26.8 kg/m2 158/90 mm[Hg] Results Lab Results None recorded. Allergies Code Code System Name Reaction Severity Onset Septra ? ? ? Sulfa ? ? ? (Sulfonamide Antibiotics) Problems Name Status Onset Date Source ? [...] wendy Information not available Notes: Left shoulder; [facility] 07/01/2010 Colonoscopy Information not avai lable ? Cataract Surgery Information not avai lable 04/22/2020 MAMMO, Screening, Tomosynthesis, Xray Nv rh Bilateral [address], [place] [address] (Work Place) Vaccine List Vaccine Type influenza, injectable, quadrivalent 04/13/2019 influenza, injectable, quadrivalent, pre servative free 04/05/2016 influenza, seasonal, injectable 05/23/2013 02/11/2014 01/30/2015?0.5 mL 02/26/2016 02/22/2017?0.5 mL influenza, seasonal, injectable, preserv ative free 03/01/2012 03/20/2013 pneumococcal polysaccharide PPV23 03/13/2014?0.5 mL Tdap 04/24/2012?0.5 mL 04/03/2016 zoster recombinant 05/17/2019 zoster, unspecified formulation 05/17/2019 Social History Tobacco Smoking Status Former Smoker Notes: Quit 19 70's Alcohol intake None Live alone or with others? alone Animal exposure? Y Notes: 2 Dogs, Ca t, Bird Hand Dominance Left Education 2 Year College Blind or serious difficulty seeing N Language Difficulties No Chewing tobacco none Most Recent Tobacco Use Screening 05/12/2018 Hard of hearing or deaf in one or N both ears? Caffeine intake Moderate Notes: 1 cup a da y Drug Use N Occupation [employer] Tobacco-years of use 5 Functional Status No Impairment. Past Encounters 04/22/2020 Loss of Hair; Gastroesophageal Reflux Di sease without Esophagitis; Screening Mammography Lars Denise PHARMACY ASSISTANT: [address] [place] [phone], Ph. History of Present Illness Note: <p>Patient reports she has not been in awhile. Reports her stomack is improved on the omeprazole. She is eating better. Reports she got sick from the [place]. Reports she is loosing her hair. Would like blood work done. Please discuss.</p> Review of Systems ? Comprehensive General Adult ROS Reported By: Patient Constitutional: Constitutional: no fever, no significant weight gain, no exercise intolerance Cardiovascular: Cardiovascular: no chest cherry n, no shortness of breath when walking, no palpitations Respiratory: Respiratory: no cough, no wh eezing, no shortness of breath Gastrointestinal: Gastrointestinal: abdominal pain, dyspepsia, GERD Integumentary: Skin: changes in hair/nails Physical Exam ? Pulmonary Exam Reported By: Patient Constitutional: General Appearance: well-nou rished, well developed, appears stated age. Level of Distress: no a cute distress. Ambulation: ambulating normally Lungs: Respiratory effort: unlabore d. Inspection: normal chest wall expansion, no deformity. Aus cultation: breath sounds normal, no wheezing, no rales/crackles, no rhonchi Cardiovascular: Heart Rate And Rhythm: jerry l heart rate and rhythm. Heart Sounds: normal s1, no physiologicall y split S2, no pericardial friction rub, no click. Systolic Murmur: n o systolic murmurs. Diastolic Murmur: no diastolic murmurs. Observati on/Palpation of peripheral vascular system: no cyanosis, no seema a Abdomen: Inspection and Palpation: so ft, non-distended, normal aorta, no bruit, no tenderness, no mas ses. Liver: non-tender, no hepatomegaly. Spleen: non-tender, no splen omegaly. Bowel Sounds: normal, no abdominal bruits. Lymphatic: no cervical LAD, no axillary LAD, no inguinal LAD, no femoral LAD , no supraclavicular LAD, no popliteal LAD Extremities: Inspection/Palpation of digi ts and nails: no clubbing, no cyanosis, no edema Skin: Inspection and palpation: ; hair loss in patches with broken hairs of regrowth
== END 2020-06-15 16:57 | disposition home or self-care (01) ==
PROVIDERS: Emergency Provider Physician Assistant
DX: S42.252A Displaced fracture of greater tuberosity of left humerus, initial encounter for closed fracture (principal); R20.0 Anesthesia of skin; W01.0XXA Fall on same level from slipping, tripping and stumbling without subsequent striking against object, initial encounter; I10 Essential (primary) hypertension; E11.9 Type 2 diabetes mellitus without complications
CPT/HCPCS: 99283; 73030

== ENCOUNTER 2020-06-28 09:48 | Outpatient (CLI) | payer MEDICARE, MEDICAID, SELFPAY ==
--- NOTE | 2020-06-28 09:30 | DI.RAD_ITS ---
EXAM: XR SHOULDER LT COMPLETE 2+V CLINICAL HISTORY: follow up. TECHNIQUE: 2D digital imaging was performed. COMPARISON: CT CT UPPER EXTREMITY LT WO from 06/06/[address] UPPER EXTREMITY LT WO from 06/06/2020 CR XR SHOULDER LT COMPLETE 2+V from 06/15/2020 FINDINGS: There has been no change in the appearance of the greater tuberosity fracture. Calcifications are ag ain noted superior to the humeral head. There is continued widening of the glenohumeral joint space. DATA REPOSITORY: RADIATION DOSE DELIVERED:
== END 2020-06-28 10:08 ==
PROVIDERS: Referring Provider Nurse Practitioner Family; Visit Provider Physician Assistant Surgical
DX: S42.252A Displaced fracture of greater tuberosity of left humerus, initial encounter for closed fracture (principal); S43.005D Unspecified dislocation of left shoulder joint, subsequent encounter; S42.295D Other nondisplaced fracture of upper end of left humerus, subsequent encounter for fracture with routine healing; W01.0XXD Fall on same level from slipping, tripping and stumbling without subsequent striking against object, subsequent encounter
CPT/HCPCS: 99214; 73030

== ENCOUNTER 2020-07-13 14:30 | Emergency (ER) | payer MEDICARE, MEDICAID, SELFPAY ==
[2020-07-13 14:41] VITALS: BP 143/94; PULSE 75; RESP 18; O2SAT 100
--- NOTE | 2020-07-13 14:55 | ED.GENADUL_ITS ---
Discharge Plan Disposition Patient Disposition: HOME Condition: Stable Discharge Details Clinical Impression: Sinusitis Primary Care Provider: Lars Denise ED Provider: Ailyn Flores Home Meds and New Rx's Prescriptions: New amoxicillin-pot clavulanate [Augmentin] 875-125 mg tablet 1 tab PO BID 10 Days Qty: 20 RF: 0 Continued epinephrine 0.3 mg/0.3 mL auto-injector 0.3 mg IM ONCE RF: 0 fluconazole 150 mg tablet 150 mg PO DAILY RF: 0 fluticasone propionate 50 mcg/actuation spray,suspension 1 spray intranasal DAILY RF: 0 pregabalin 75 mg capsule 75 mg PO TID RF: 0 bisacodyl [Dulcolax (bisacodyl)] 5 mg tablet,delayed release (DR/EC) 5 mg PO ONCE Qty: 4 RF: 0 polyethylene glycol 3350 17 gram powder in packet 255 g PO DAILY Qty: 15 RF: 0 lidocaine [Aspercreme (lidocaine HCl)] 4 % adhesive patch,medicated 1 patch topical DAILY PRN (Reason: pain) Qty: 10 RF: 1 lidocaine 5 % adhesive patch,medicated 1 patch topical DAILY Qty: 15 RF: 0 losartan 25 mg Tablet 25 mg PO HS RF: 0 ibuprofen 800 mg Tablet 800 mg PO Q8H PRNRF: 0 acetaminophen [Acetaminophen Extra Strength] 500 mg Tablet 1,000 mg PO Q6H PRNRF: 0 cyclobenzaprine 5 mg tablet 5 mg PO TID PRNQty: 8 RF: 0 carvedilol 12.5 MG tablet 12.5 mg PO BID RF: 0 amlodipine 2.5 MG tablet 2.5 mg PO HS RF: 0 No Action loratadine 10 mg capsule 10 mg PO HS RF: 0 Discharge Instructions Instructions: Sinusitis (ED) Additional Instructions: Follow up with primary care provider or ENT in 3-5 days. Return to ED sooner if any worsening or concerns. Increase oral fluids. Please take Tylenol or Ibuprofen with food every 4-6 hours as needed for pain and swelling. Use fluticasone nasal spray as previously discussed. Return for any fever, worsening symptoms. Take antibiotics as directed. Referrals: Lars Denise [Primary Care Provider] - Discharge Data Discharge Date/Time-TO BE ENTERED AT DEPARTURE: 07/13/20 14:42 Medical Decision Making 60-year-old female presents to the ED with chief complaint of right ear pain, sinus pressure, runny nose and sinus headache for the last 2 months. Patient states that she is prone to sinus infection and have frequent sinus infections in the past. She states that last night she began with some right ear drainage. Denies any sore throat or trouble breathing. She alert and oriented x4 upon arrival she does have some tenderness noted to her frontal and maxillary sinuses with palpation. She does have boggy erythemic nasal turbinates noted with some purulent drainage noted from her left nare. Her right ear shows no effusion no tympanic perforation noted. No erythema. At this time we will treat her for sinus infection due to length of symptoms. She has used fluticasone nasal spray at home discussed continuation of using that. Discussed follow-up with primary care provider patient verbalizes understanding. HPI General Mode of arrival: ambulatory . Date/Time Provider Initiated Documentation: 07/13/20 14:32 . Limitations to Documentation: no limitations . Information obtained by: patient . HPI Narrative: 60-year-old female presents to the ED with chief complaint of right ear pain, sinus pressure, runny nose and sinus headache for the last 2 months. Patient states that she is prone to sinus infection and have frequent sinus infections in the past. She states that last night she began with some right ear drainage. Denies any sore throat or trouble breathing. She alert and oriented x4 upon arrival she does have some tenderness noted to her frontal and maxillary sinuses with palpation. She does have boggy erythemic nasal turbinates noted with some purulent drainage noted from her left nare. Her right ear shows no effusion no tympanic perforation noted. No erythema. Related Data Home Medications Medication Instructions Recorded Confirmed amlodipine 2.5 mg PO HS 08/25/16 06/28/20 carvedilol 12.5 mg PO BID 08/25/16 06/28/20 losartan 25 mg PO HS 03/27/18 06/28/20 loratadine 10 mg capsule 10 mg PO HS 12/04/18 07/13/20 epinephrine 0.3 mg/0.3 mL 0.3 mg IM ONCE 06/06/20 06/28/20 injection, auto-injector fluconazole 150 mg tablet 150 mg PO DAILY 06/06/20 06/28/20 fluticasone propionate 50 1 spray INTRANASAL DAILY 06/06/20 06/28/20 mcg/actuation nasal spray,suspension pregabalin 75 mg capsule 75 mg PO TID 06/06/20 06/28/20 bisacodyl 5 mg tablet,delayed 5 mg PO ONCE #4 tab 06/07/20 06/28/20 release polyethylene glycol 3350 17 gram 255 g PO DAILY #15 ea 06/07/20 06/28/20 oral powder packet acetaminophen [Acetaminophen Extra 1,000 mg PO Q6H PRN 06/15/20 06/28/20 Strength] cyclobenzaprine 5 mg PO TID PRN #8 tab 06/15/20 06/28/20 ibuprofen 800 mg PO Q8H PRN 06/15/20 06/28/20 lidocaine 4 % topical patch 1 patch TOPICAL DAILY PRN #10 ea 06/28/20 06/28/20 lidocaine 5 % topical patch 1 patch TOPICAL DAILY #15 ea 06/30/20 06/30/20 amoxicillin-pot clavulanate 1 tab PO BID 10 Days #20 tab 07/13/20 [Augmentin] Previous Rx's Medication Instructions Recorded bisacodyl 5 mg tablet,delayed 5 mg PO ONCE #4 tab 06/07/20 release polyethylene glycol 3350 17 gram 255 g PO DAILY #15 ea 06/07/20 oral powder packet cyclobenzaprine 5 mg PO TID PRN #8 tab 06/15/20 lidocaine 4 % topical patch 1 patch TOPICAL DAILY PRN #10 ea 06/28/20 lidocaine 5 % topical patch 1 patch TOPICAL DAILY #15 ea 06/30/20 amoxicillin-pot clavulanate 1 tab PO BID 10 Days #20 tab 07/13/20 [Augmentin] Allergies Allergy/AdvReac Type Severity Reaction Status Date / Time Sulfa (Sulfonamide Allergy Severe Skin Rash Unverified 07/13/20 14:47 Antibiotics) sulfamethoxazole Allergy Severe Skin Rash Unverified 07/13/20 14:47 [From Septra] trimethoprim [From Marra] Allergy Severe Skin Rash Unverified 07/13/20 14:47 General Stated Complaint: Headache PAMELLA: 3 Review of Systems All systems reviewed & are unremarkable except as noted in HPI and below Constitutional Constitutional: Reports headache(s) ENT Ears, Nose, Mouth, and Throat: Reports otalgia, Reports facial pain, Reports headache(s) and Reports nasal discharge Neurologic Neurologic: Reports headache(s) [facility] Medical History Beau's line Chest wall contusion Claustrophobia Contusion Contusion of head Depression Dislocation of shoulder, anterior, left, closed GERD (gastroesophageal reflux disease) HTN (hypertension) Infestation by Sarcoptes scabiei pau hominis PTSD (post-traumatic stress disorder) Sinusitis Tendonitis of wrist, left Tobacco user Surgical History H/O wrist surgery History of bunionectomy History of cataract extraction Reported complication that caused her to have left elongated pupil History of section S/P colonoscopy S/P ORIF (open reduction internal fixation) fracture femur Social History Smoking/Tobacco Use Status: Former Tobacco Use Tobacco: How many years used: 5 Smoking risk assessment performed?: Yes Alcohol Intake: never Drug use: Never Substance use type: does not use Current gender identity: female Do you feel safe at home: Yes Do you feel safe in your relationship?: Yes Exam Narrative Exam Narrative: Constitutional: Alert and oriented x3. Appears stated age. Normal body habitus. Head: Normocephalic, no trauma. Eyes: Pupils PERRLA, Red reflex noted, EOM's intact. Eyelids symmetrical without lesions, discharge, or swelling. ENT: Left TM WNL, right tympanic membrane is intact no perforation visualized, does have fluid effusion noted behind eardrum, no erythema to bilateral tympanic membranes. External ear normal to inspection, no mastoid TTP, swelling, or erythema, Nasal turbinates erythemic and boggy, green purulent discharge noted. Normal dentition, Posterior pharynx WNL, no exudate. Tenderness with palpation to the frontal and maxillary sinuses. Chest: RRR, Normal S1, S2, distal pulses intact. Resp: Lungs clear to auscultation bilaterally, no wheezes, rales, or rhonchi. Neurologic: Cranial nerves II-XII intact. Alert and oriented x 3. Hematologic/Lymphatic: No ecchymosis, no lymphadenopathy. Course Vital Signs Vital signs: Vital Signs Pulse 75 07/13/20 14:41 Respiratory Rate 18 07/13/20 14:41 Blood Pressure 143/94 H 07/13/20 14:41 Pulse Oximetry 100 07/13/20 14:41 Temperature Source Skin 07/13/20 14:41 Pulse 75 07/13/20 14:41 Respiratory Rate 18 07/13/20 14:41 Respiratory Effort 07/13/20 14:45 Blood Pressure 143/94 H 07/13/20 14:41 Blood Pressure Position Sitting 07/13/20 14:41 Pulse Oximetry 100 07/13/20 14:41 Oxygen Delivery Method Room Air 07/13/20 14:41 Oxygen Flow Rate 0 07/13/20 14:41 Pain Level 3 07/13/20 14:41 Comment 07/13/20 14:41
[2020-07-13] MEDS: Amoxicillin 875/Clav. 125 TAB PO (15:06)
== END 2020-07-13 14:42 | disposition home or self-care (01) ==
PROVIDERS: Emergency Provider Registered Nurse Emergency; PCP Nurse Practitioner Family
DX: J01.80 Other acute sinusitis (principal); I10 Essential (primary) hypertension
CPT/HCPCS: 99283

== ENCOUNTER 2020-07-15 04:03 | Outpatient (CLI) | payer MEDICARE, MEDICAID, SELFPAY ==
[2020-07-16 16:36] LABS: COVID-19 RT-PCR Result NEGATIVE (Negative)
== END 2020-07-15 04:23 ==
PROVIDERS: PCP Nurse Practitioner Family; Visit Provider Surgery
DX: Z11.52 Encounter for screening for COVID-19 (principal); Z01.818 Encounter for other preprocedural examination
CPT/HCPCS: U0003

== ENCOUNTER 2020-07-21 03:10 | Outpatient (CLI) | payer MEDICARE, MEDICAID, SELFPAY ==
--- NOTE | 2020-07-21 | DI.MRI_ITS ---
EXAM: MR UPPER JOINT LT WO CLINICAL HISTORY: LT SHOULDER PAIN, S/P FALL,GREATER TUBEROSITY FX,DISLOCATION,? ROTATOR CUFF. TECHNIQUE: Multiplanar multisequence MRI was performed. COMPARISON: CT CT UPPER EXTREMITY LT WO from 06/06/2020 CR XR SHOULDER LT COMPLETE 2+V from 06/15/2020 CR XR SHOULDER LT COMPLETE 2+V from 06/28/2020 FINDINGS: BONES: There is again seen a comminuted depressed fracture of the greater tuberosity. JOINTS: Mild degenerative signal changes are seen the acromioclavicular joint. There is superior sub luxation of the humeral head relative to the glenoid. TENDONS: Supraspinatus: Supraspinatus tendon appears displaced anteriorly. There appears to be a partial tear of the posterior aspect of the supraspinatus tendon. Infraspinatus: There is a full-thickness tear of the infraspinatus tendon with retraction almost to t he acromioclavicular joint. Subscapularis: There is thickening and intermediate signal seen in the subscapularis tendon. This ma y represent a partial tear tendinosis. Teres Minor: Unremarkable. Biceps and Aurora: Biceps tendon is intact but subluxed anteriorly. MUSCLES: Unremarkable. GLENOID LABRUM: Unremarkable on this noncontrast examination. SOFT TISSUES: There is edema seen in soft tissues around the shoulder particularly inferior to the gl enoid. No focal fluid collection is seen to suggest an abscess. LIGAMENTS: Unremarkable. OTHER: Subacromial and subdeltoid bursae are unremarkable. IMPRESSION: 1. Complete tear of the infraspinatus tendon with retraction almost to the glenohumeral joint. 2. Anterior displacement of the biceps tendon and muscle. There does appear to be a partial tear of the posterior aspect of the biceps tendon. 3. Thickening and increased signal in the subscapularis tendon. This may be tendinosis versus partia l tear. 4. Depressed comminuted fracture of the lateral aspect of the humeral head. 5. Anterior subluxation of the biceps tendon just proximal to the bicipital groove. DATA REPOSITORY:
== END 2020-07-21 03:30 ==
PROVIDERS: PCP Nurse Practitioner Family; Visit Provider Physician Assistant
DX: S46.012A Strain of muscle(s) and tendon(s) of the rotator cuff of left shoulder, initial encounter (principal); S46.212A Strain of muscle, fascia and tendon of other parts of biceps, left arm, initial encounter; S42.352A Displaced comminuted fracture of shaft of humerus, left arm, initial encounter for closed fracture
CPT/HCPCS: 73221

== ENCOUNTER → 2020-08-16 11:22 | Outpatient (BNVA) | payer MEDICARE, MEDICAID, SELFPAY | PROVIDERS: PCP Nurse Practitioner Family; Visit Provider Student in an Organized Health Care Education/Training Program | DX: R69 Illness, unspecified (principal) ==

== ENCOUNTER 2020-08-16 18:45 | Emergency (ER) | payer MEDICARE, MEDICAID, SELFPAY ==
[2020-08-16 18:50] VITALS: BP 169/112; PULSE 95; RESP 16; TEMP 36.6; O2SAT 99
--- NOTE | 2020-08-16 19:10 | ED.GENADUL_ITS ---
Discharge Plan Disposition Patient Disposition: HOME Condition: Stable Discharge Details Clinical Impression: Sinusitis Primary Care Provider: Lars Denise ED Provider: Nury Swain Home Meds and New Rx's Prescriptions: New levofloxacin 750 mg tablet 750 mg PO DAILY 6 Days Qty: 6 RF: 0 prednisone 20 mg tablet See Rx Instructions .ROUTE .COMPLEX Qty: 12 RF: 0 Continued loratadine 10 mg capsule 10 mg PO HS RF: 0 epinephrine 0.3 mg/0.3 mL auto-injector 0.3 mg IM ONCE RF: 0 fluticasone propionate 50 mcg/actuation spray,suspension 1 spray intranasal DAILY RF: 0 pregabalin 75 mg capsule 75 mg PO TID RF: 0 bisacodyl [Dulcolax (bisacodyl)] 5 mg tablet,delayed release (DR/EC) 5 mg PO ONCE Qty: 4 RF: 0 polyethylene glycol 3350 17 gram powder in packet 255 g PO DAILY Qty: 15 RF: 0 losartan 25 mg Tablet 25 mg PO HS RF: 0 ibuprofen 800 mg Tablet 800 mg PO Q8H PRNRF: 0 acetaminophen [Acetaminophen Extra Strength] 500 mg Tablet 1,000 mg PO Q6H PRNRF: 0 carvedilol 12.5 MG tablet 12.5 mg PO BID RF: 0 amlodipine 2.5 MG tablet 2.5 mg PO HS RF: 0 Discharge Instructions Instructions: Sinusitis (ED) Additional Instructions: Drink plenty of fluids and get plenty of rest. Alternate tylenol and motrin as needed and directed for pain. Take the antibiotics and steroids until finished. Continue your Flonase as directed. You can also try an [id number] sinus rinse kit or Elaina pot. Call your ear nose and throat doctor in [place] tomorrow to schedule a follow-up appointment for reevaluation. Return immediately to the emergency department if you develop any worsening or new concerning symptoms. Discharge Data Discharge Date/Time-TO BE ENTERED AT DEPARTURE: 08/16/20 19:49 Discharge Physician: Nury Swain Medical Decision Making 60-year-old female with a history of chronic sinus problems including sinus surgery presents for facial pain, headache and green nasal discharge for the past 2 months. Patient appears nontoxic. She is afebrile. She has tenderness to bilateral frontal and mastoid sinuses. Normal TMs bilaterally. Normal oropharynx. No lymphadenopathy, submandibular swelling, trismus or drooling. Review of records note that patient was treated with Augmentin for sinus infection 1 month ago. Will treat for possible antibiotic resistance with Levaquin and oral steroids. Patient advised to follow-up with ENT for further evaluation if symptoms do not improve or worsen as she may need a scope for other possible diagnoses. Advised to follow up with the primary care doctor for re-evaluation. Usual and customary return precautions given prior to discharge. HPI General Mode of arrival: ambulatory . Date/Time Provider Initiated Documentation: 08/16/20 18:51 . Limitations to Documentation: no limitations . Information obtained by: patient . HPI Narrative: Patient is a 60-year-old female with a history of chronic sinus problems and infections, and sinus surgery presents with sinus congestion, green nasal discharge, facial pain and headache for the past 2 months. Patient denies any known fever. Patient was seen her last month for similar symptoms and diagnosed with sinusitis and given a prescription for Augmentin. She states she finished this and her symptoms did not significantly improve. She states she has seen ENT in [place] in the past before for her chronic sinus infections. She states she uses Flonase without relief. She denies sore throat, coughing, chest pain, shortness of breath. Related Data Home Medications Medication Instructions Recorded Confirmed amlodipine 2.5 mg PO HS 08/25/16 08/16/20 carvedilol 12.5 mg PO BID 08/25/16 08/16/20 losartan 25 mg PO HS 03/27/18 08/16/20 loratadine 10 mg capsule 10 mg PO HS 12/04/18 08/16/20 epinephrine 0.3 mg/0.3 mL 0.3 mg IM ONCE 06/06/20 08/16/20 injection, auto-injector fluticasone propionate 50 1 spray INTRANASAL DAILY 06/06/20 08/16/20 mcg/actuation nasal spray,suspension pregabalin 75 mg capsule 75 mg PO TID 06/06/20 08/16/20 bisacodyl 5 mg tablet,delayed 5 mg PO ONCE #4 tab 06/07/20 08/16/20 release polyethylene glycol 3350 17 gram 255 g PO DAILY #15 ea 06/07/20 08/16/20 oral powder packet acetaminophen [Acetaminophen Extra 1,000 mg PO Q6H PRN 06/15/20 08/16/20 Strength] ibuprofen 800 mg PO Q8H PRN 06/15/20 08/16/20 levofloxacin 750 mg PO DAILY 6 Days #6 tab 08/16/20 prednisone See Rx Instructions .ROUTE 08/16/20 .COMPLEX #12 tab Previous Rx's Medication Instructions Recorded bisacodyl 5 mg tablet,delayed 5 mg PO ONCE #4 tab 06/07/20 release polyethylene glycol 3350 17 gram 255 g PO DAILY #15 ea 06/07/20 oral powder packet levofloxacin 750 mg PO DAILY 6 Days #6 tab 08/16/20 prednisone See Rx Instructions .ROUTE 08/16/20 .COMPLEX #12 tab Allergies Allergy/AdvReac Type Severity Reaction Status Date / Time Sulfa (Sulfonamide Allergy Severe Skin Rash Unverified 08/17/20 14:35 Antibiotics) sulfamethoxazole Allergy Severe Skin Rash Unverified 08/17/20 14:35 [From Septra] trimethoprim [From Septra] Allergy Severe Skin Rash Unverified 08/17/20 14:35 ibuprofen [From Motrin] AdvReac stomach Verified 08/17/20 14:35 upset General Stated Complaint: GenMedical PAMELLA: 4 Review of Systems All systems reviewed & are unremarkable except as noted in HPI and below Constitutional Constitutional: Reports as per HPI, Denies chills and Denies fever(s) Eyes Eyes: Denies blurry vision ENT Ears, Nose, Mouth, and Throat: Denies dizziness, Reports sinus pain, Reports sinus pressure, Denies sore throat and Denies throat swelling Cardiovascular Cardiovascular: Denies chest pain and Denies dyspnea Respiratory Respiratory: Denies cough and Denies dyspnea Gastrointestinal Gastrointestinal: Denies abdominal pain, Denies diarrhea and Denies vomiting Genitourinary Genitourinary: Denies hematuria and Denies dysuria Musculoskeletal Musculoskeletal: Denies back pain and Denies numbness Integumentary/Breasts Skin/Breast: Denies lesions and Denies rash Neurologic Neurologic: Denies dizziness, Denies localized weakness and Denies numbness Allergic/Immunologic Allergic/Immunologic: Denies throat swelling PFSH Medical History Acute herniated disc Beau's line Chest wall contusion Claustrophobia Contusion Contusion of head Depression Dislocation of shoulder, anterior, left, closed GERD (gastroesophageal reflux disease) HTN (hypertension) Infestation by Sarcoptes scabiei pau hominis PTSD (post-traumatic stress disorder) Sinusitis Finished abc 07/19/20 Tendonitis of wrist, left Tobacco user Surgical History (Updated 08/01/20 @ 09:54 by Amena Parr) H/O eye surgery H/O wrist surgery History of bunionectomy History of cataract extraction Reported complication that caused her to have left elongated pupil History of section S/P colonoscopy S/P ORIF (open reduction internal fixation) fracture femur Family History (Updated 08/01/20 @ 09:54 by Amena Parr) Mother Breast cancer Maternal Aunt Lung cancer Social History Smoking/Tobacco Use Status: Former Tobacco Use Quit Date: 07/01/94 Tobacco: How many years used: 5 Smoking risk assessment performed?: Yes Alcohol Intake: never Drug use: Never Substance use type: does not use Current gender identity: female Do you feel safe at home: Yes Do you feel safe in your relationship?: Yes Additional Social history: lives alone Exam Const General: cooperative, healthy appearing and no acute distress HENMT Head: normal to inspection Ears: hearing grossly normal bilaterally, external ears normal and TM's normal bilaterally General nose exam: external nose normal Face and sinus: normal facial exam and sinus tenderness frontal and maxillary Mouth: oral mucosae normal Throat: posterior oropharynx normal, uvula midline and no peritonsillar masses Eyes General: appearance normal, both eyes and all related structures Neck Neck: normal visual inspection Resp Effort & Inspection: normal respiratory effort and able to speak in complete sentences Auscultation: clear to auscultation bilaterally Cardio Rate: regular rate Rhythm: regular rhythm Skin General skin exam: no rashes or lesions noted Neuro General: patient alert, patient awake and patient oriented x3 Motor: muscle tone normal throughout Extrem General: normal to inspection and full ROM Psych Appearance: grossly normal Affect: normal affect Course Vital Signs Vital signs: Vital Signs Temperature 97.9 F 08/16/20 18:50 Pulse 95 H 08/16/20 18:50 Respiratory Rate 16 08/16/20 18:50 Blood Pressure 169/112 H 08/16/20 18:50 Pulse Oximetry 99 08/16/20 18:50 Temperature 97.9 F 08/16/20 18:50 Temperature Source Skin 08/16/20 18:50 Pulse 95 H 08/16/20 18:50 Respiratory Rate 16 08/16/20 18:50 Respiratory Effort 08/16/20 18:57 Blood Pressure 169/112 H 08/16/20 18:50 Blood Pressure Position Sitting 08/16/20 18:50 Pulse Oximetry 99 08/16/20 18:50 Oxygen Delivery Method Room Air 08/16/20 18:50 Oxygen Flow Rate 0 08/16/20 18:50 Pain Level 4 08/16/20 18:50
[2020-08-16] MEDS: levoFLOXacin 500 MG, levoFLOXacin 250 MG 750 MG PO (19:47)
== END 2020-08-16 19:49 | disposition home or self-care (01) ==
PROVIDERS: Emergency Provider Physician Assistant; PCP Nurse Practitioner Family
DX: J32.9 Chronic sinusitis, unspecified (principal)
CPT/HCPCS: 99283

== ENCOUNTER → 2020-08-17 14:30 | Outpatient (BNVA) | payer MEDICARE, MEDICAID, SELFPAY | PROVIDERS: PCP Nurse Practitioner Family; Referring Provider Nurse Practitioner Family; Visit Provider Student in an Organized Health Care Education/Training Program | DX: S42.295D Other nondisplaced fracture of upper end of left humerus, subsequent encounter for fracture with routine healing (principal); M75.122 Complete rotator cuff tear or rupture of left shoulder, not specified as traumatic; S14.3XXD Injury of brachial plexus, subsequent encounter; X58.XXXD Exposure to other specified factors, subsequent encounter | CPT/HCPCS: 99213; 99214 ==

== ENCOUNTER → 2020-09-06 12:59 | Outpatient (BNVA) | payer MEDICARE, MEDICAID, SELFPAY | PROVIDERS: PCP Nurse Practitioner Family; Referring Provider Nurse Practitioner Family; Visit Provider Surgery | DX: K21.9 Gastro-esophageal reflux disease without esophagitis (principal); Z80.0 Family history of malignant neoplasm of digestive organs | CPT/HCPCS: 99213; 99215 ==

== ENCOUNTER 2020-10-26 16:57 | Emergency (ER) | payer MEDICARE, MEDICAID, SELFPAY ==
[2020-10-26 17:05] VITALS: BP 128/64; PULSE 74; RESP 18; TEMP 36.6; O2SAT 97
--- NOTE | 2020-10-26 17:39 | W.ED.GENAD ---
Discharge Plan Disposition Patient Disposition: HOME Condition: Stable Discharge Details Clinical Impression: Chronic sinusitis Primary Care Provider: Lars Denise ED Provider: Jose Irwin Home Meds and New Rx's Prescriptions: Continued loratadine 10 mg capsule 10 mg PO HS RF: 0 epinephrine 0.3 mg/0.3 mL auto-injector 0.3 mg IM ONCE RF: 0 fluticasone propionate 50 mcg/actuation spray,suspension 1 spray intranasal DAILY RF: 0 pregabalin 75 mg capsule 75 mg PO TID RF: 0 omeprazole 40 mg capsule,delayed release(DR/EC) 40 mg PO DAILY Qty: 30 RF: 5 bisacodyl [Dulcolax (bisacodyl)] 5 mg tablet,delayed release (DR/EC) 5 mg PO ONCE Qty: 4 RF: 0 polyethylene glycol 3350 17 gram powder in packet 255 g PO DAILY Qty: 15 RF: 0 losartan 25 mg Tablet 25 mg PO HS RF: 0 ibuprofen 800 mg Tablet 800 mg PO Q8H PRNRF: 0 acetaminophen [Acetaminophen Extra Strength] 500 mg Tablet 1,000 mg PO Q6H PRNRF: 0 carvedilol 12.5 MG tablet 12.5 mg PO BID RF: 0 amlodipine 2.5 MG tablet 2.5 mg PO HS RF: 0 Discharge Instructions Instructions: Sinusitis (ED) Additional Instructions: At this time I do not see any clear indication for antibiotic therapy. It appears as though you are taking antihistamine, nasal steroid, anti-inflammatory, I would recommend also adding on a decongestant. I will also give you the name and number of our local ENT team if they are able to see you sooner than your ENT team in [place]. Please watch for new or worsening symptoms and return to the ER for any concerns. Referrals: Adolph Naidu DO [OSTEOPATHIC DOCTOR] - Discharge Data Discharge Date/Time-TO BE ENTERED AT DEPARTURE: 10/26/20 17:50 Medical Decision Making 60-year-old female with history of chronic sinusitis presents requesting antibiotics for increasing of her normal symptoms. She denies fever. Denies productive cough. Clinically her examination is unremarkable. I was able to review her previous records here at our facility starting back on 08-10-19 and since that time she is been on 7 courses of antibiotics including 4 courses of Augmentin, 1 of amoxicillin, 1 of azithromycin, 1 of Levaquin, placed on steroids and Flonase. I see no clear indication that she has an acute bacterial sinusitis. Given her multiple courses of antibiotics I am concerned of developing resistance, C. difficile, etc. She already takes nasal steroids, anti-inflammatory and antihistamine, I will recommend that she takes a decongestant as well. I will give her the name and number of our ENT team to see if she can be evaluated sooner than December 08 as already scheduled by her ENT team. Patient was comfortable with this plan and was agreeable to not initiate any antibiotic therapy. She has no additional questions or concerns. Standard discharge and return precautions Medical Records Medical records reviewed: Yes I reviewed the patient's medical records. HPI General Mode of arrival: ambulatory. Date/Time Provider Initiated Documentation: 10/26/20 17:12. Limitations to Documentation: no limitations. Information obtained by: patient. HPI Narrative: This is a 60-year-old female with past medical history of hypertension, depression, GERD, PTSD, chronic sinusitis, former smoker. She presents to the ER reporting chronic sinusitis symptoms which seems to be getting worse in general, she feels congested and facial pressure. Symptoms do tend to get worse with the change of season, questions of allergies could be behind her symptoms. She is scheduled to be seen by ENT on December 08. She is requesting antibiotics. She had a negative Covid test resulted yesterday. She denies headache, fever, visual change, sore throat, cough, shortness of breath, chest pain. She is scheduled to have a shoulder procedure tomorrow in [place]. She currently takes an NSAID, Flonase, and an antihistamine for her ongoing symptoms Related Data Home Medications Medication Instructions Recorded Confirmed amlodipine 2.5 mg PO HS 08/25/16 10/26/20 carvedilol 12.5 mg PO BID 08/25/16 10/26/20 losartan 25 mg PO HS 03/27/18 10/26/20 loratadine 10 mg capsule 10 mg PO HS 12/04/18 10/26/20 epinephrine 0.3 mg/0.3 mL 0.3 mg IM ONCE 06/06/20 10/26/20 injection, auto-injector fluticasone propionate 50 1 spray INTRANASAL DAILY 06/06/20 10/26/20 mcg/actuation nasal spray,suspension pregabalin 75 mg capsule 75 mg PO TID 06/06/20 10/26/20 acetaminophen [Acetaminophen Extra 1,000 mg PO Q6H PRN 06/15/20 10/26/20 Strength] ibuprofen 800 mg PO Q8H PRN 06/15/20 10/26/20 bisacodyl 5 mg tablet,delayed 5 mg PO ONCE #4 tab 09/06/20 10/26/20 release omeprazole 40 mg capsule,delayed 40 mg PO DAILY #30 cap 09/06/20 10/26/20 release polyethylene glycol 3350 17 gram 255 g PO DAILY #15 ea 09/06/20 10/26/20 oral powder packet Previous Rx's Medication Instructions Recorded bisacodyl 5 mg tablet,delayed 5 mg PO ONCE #4 tab 09/06/20 release omeprazole 40 mg capsule,delayed 40 mg PO DAILY #30 cap 09/06/20 release polyethylene glycol 3350 17 gram 255 g PO DAILY #15 ea 09/06/20 oral powder packet Allergies Allergy/AdvReac Type Severity Reaction Status Date / Time Sulfa (Sulfonamide Allergy Severe Skin Rash Unverified 10/26/20 17:09 Antibiotics) sulfamethoxazole Allergy Severe Skin Rash Unverified 10/26/20 17:09 [From Septra] trimethoprim [From Septra] Allergy Severe Skin Rash Unverified 10/26/20 17:09 ibuprofen [From Motrin] AdvReac stomach Verified 10/26/20 17:09 upset General Stated Complaint: FacialProb PAMELLA: 4 Review of Systems Constitutional Constitutional: Denies fever(s) and Denies headache(s) Eyes Eyes: Denies change in vision ENT Ears, Nose, Mouth, and Throat: Denies headache(s), Reports nasal congestion, Reports sinus pressure and Denies sore throat Cardiovascular Cardiovascular: Denies chest pain and Denies dyspnea Respiratory Respiratory: Denies cough and Denies dyspnea Neurologic Neurologic: Denies headache(s) PFSH Medical History Acute herniated disc Beau's line Chest wall contusion Claustrophobia Contusion Contusion of head Depression Dislocation of shoulder, anterior, left, closed GERD (gastroesophageal reflux disease) HTN (hypertension) Infestation by Sarcoptes scabiei pau hominis PTSD (post-traumatic stress disorder) Sinusitis Finished abc 07/19/20 Tendonitis of wrist, left Tobacco user Surgical History H/O eye surgery H/O wrist surgery History of bunionectomy History of cataract extraction Reported complication that caused her to have left elongated pupil History of section S/P colonoscopy S/P ORIF (open reduction internal fixation) fracture femur Family History Mother Breast cancer Maternal Aunt Lung cancer Social History Smoking/Tobacco Use Status: Former Tobacco Use Quit Date: 07/01/94 Tobacco: How many years used: 5 Smoking risk assessment performed?: Yes Alcohol Intake: never Drug use: Never Substance use type: does not use Current gender identity: female Do you feel safe at home: Yes Do you feel safe in your relationship?: Yes Additional Social history: lives alone Exam Const General: cooperative, healthy appearing, comfortable and no acute distress Orientation: alert and awake HENMT Head: normal to inspection, normocephalic and atraumatic Ears: external ears normal, TM's normal bilaterally and EAC's normal General nose exam: external nose normal, nares normal and nasal mucous membranes and turbinates normal Face and sinus: normal facial exam, sinuses nontender and face symmetric Mouth: oral mucosae normal and moist mucous membranes Throat: posterior oropharynx normal Eyes General: appearance normal, both eyes and all related structures Conjunctivae: conjunctivae normal Neck Neck: normal visual inspection, full ROM, no lymphadenopathy, no meningeal signs, trachea midline, supple and nontender Resp Effort & Inspection: normal respiratory effort and able to speak in complete sentences Auscultation: clear to auscultation bilaterally Cardio Rate: regular rate Rhythm: regular rhythm Skin General skin exam: no rashes or lesions noted Neuro General: patient alert, patient awake, moves all extremities and no focal motor deficits Sensory Exam: no sensory deficits noted Psych Appearance: grossly normal Mental Status: mental status grossly normal Course Vital Signs Vital signs: Vital Signs Temperature 36.6 C 10/26/20 17:05 Pulse 74 10/26/20 17:05 Respiratory Rate 18 10/26/20 17:05 Blood Pressure 128/64 10/26/20 17:05 Pulse Oximetry 97 10/26/20 17:05 Temperature 36.6 C 10/26/20 17:05 Temperature Source Temporal Artery Scan 10/26/20 17:05 Pulse 74 10/26/20 17:05 Respiratory Rate 18 10/26/20 17:05 Respiratory Effort Non-Labored 10/26/20 17:09 Blood Pressure 128/64 10/26/20 17:05 Blood Pressure Position Sitting 10/26/20 17:05 Pulse Oximetry 97 10/26/20 17:05
== END 2020-10-26 17:50 | disposition home or self-care (01) ==
PROVIDERS: Emergency Provider Physician Assistant; PCP Nurse Practitioner Family
DX: R09.81 Nasal congestion (principal); J32.9 Chronic sinusitis, unspecified
CPT/HCPCS: 99282; 99283

== ENCOUNTER 2020-12-04 11:56 | Emergency (ER) | payer MEDICARE, MEDICAID, SELFPAY ==
[2020-12-04 12:04] VITALS: BP 153/69; PULSE 87; RESP 20; O2SAT 96
--- NOTE | 2020-12-04 12:31 | ED.GENADUL_ITS ---
Discharge Plan Disposition Patient Disposition: HOME Condition: Good Discharge Details Clinical Impression: Tick bite Primary Care Provider: Lars Denise ED Provider: Ne Hobbs Home Meds and New Rx's Prescriptions: Continued loratadine 10 mg capsule 10 mg PO HS RF: 0 epinephrine 0.3 mg/0.3 mL auto-injector 0.3 mg IM ONCE RF: 0 fluticasone propionate 50 mcg/actuation spray,suspension 1 spray intranasal DAILY RF: 0 pregabalin 75 mg capsule 75 mg PO TID RF: 0 omeprazole 40 mg capsule,delayed release(DR/EC) 40 mg PO DAILY Qty: 30 RF: 5 bisacodyl [Dulcolax (bisacodyl)] 5 mg tablet,delayed release (DR/EC) 5 mg PO ONCE Qty: 4 RF: 0 polyethylene glycol 3350 17 gram powder in packet 255 g PO DAILY Qty: 15 RF: 0 losartan 25 mg Tablet 25 mg PO HS RF: 0 ibuprofen 800 mg Tablet 800 mg PO Q8H PRNRF: 0 acetaminophen [Acetaminophen Extra Strength] 500 mg Tablet 1,000 mg PO Q6H PRNRF: 0 carvedilol 12.5 MG tablet 12.5 mg PO BID RF: 0 amlodipine 2.5 MG tablet 2.5 mg PO HS RF: 0 Discharge Instructions Instructions: Tick Bite (ED) Additional Instructions: Concerns at this time that you were bit by a deer tick. To help prevent tickborne illnesses, including Lyme, you are given 200 mg of doxycycline here today. A one time dose should be all that is needed as you came is right after removal. Please continue with daily tick checks. Please follow-up with your primary care for reevaluation in the next 2 weeks. If you develop any new or worsening symptoms please seek care urgently once again. Referrals: Lars Denise [Primary Care Provider] - Discharge Data Discharge Date/Time-TO BE ENTERED AT DEPARTURE: 12/04/20 12:58 Medical Decision Making Patient is a pleasant 60-year-old female presenting today with chief complaint of tick bite. She reports that has been on for approximately 4 days after walking in the [place]. Noticed a tick this morning. States that it was not engorged deer tick. This was removed. Otherwise feeling well. On exam, patient has a small area of bite on the posterior aspect of the right knee. No surrounding erythema, warmth, drainage. No evidence of erythema migrans. Will treat with prophylactic dose of 12 mg doxycycline x1. Encourage follow-up with primary care. Return precautions were discussed. All of her questions and concerns were addressed and she is in agreement with plan. HPI General Mode of arrival: ambulatory . Date/Time Provider Initiated Documentation: 12/04/20 12:31 . Limitations to Documentation: no limitations . Information obtained by: patient and RN notes reviewed . History of Present Illness 60 year old F presents to the emergency department with the chief complaint of tick bite posterior right knee, described as moderate, Quality is described as other (itching), and is localized to the right and lower extremity. Patient reports no radiation. Patient started experiencing this day(s) (1) and it has been constant. No relieving factors improve symptom(s), No exacerbating factors reported . Patient notes no other sym ptoms.. Patient did receive the following treatments prior to arrival, none Related Data Home Medications Medication Instructions Recorded Confirmed amlodipine 2.5 mg PO HS 08/25/16 12/04/20 carvedilol 12.5 mg PO BID 08/25/16 12/04/20 losartan 25 mg PO HS 03/27/18 12/04/20 loratadine 10 mg capsule 10 mg PO HS 12/04/18 12/04/20 epinephrine 0.3 mg/0.3 mL 0.3 mg IM ONCE 06/06/20 12/04/20 injection, auto-injector fluticasone propionate 50 1 spray INTRANASAL DAILY 06/06/20 12/04/20 mcg/actuation nasal spray,suspension pregabalin 75 mg capsule 75 mg PO TID 06/06/20 12/04/20 acetaminophen [Acetaminophen Extra 1,000 mg PO Q6H PRN 06/15/20 12/04/20 Strength] ibuprofen 800 mg PO Q8H PRN 06/15/20 12/04/20 bisacodyl 5 mg tablet,delayed 5 mg PO ONCE #4 tab 09/06/20 12/04/20 release omeprazole 40 mg capsule,delayed 40 mg PO DAILY #30 cap 09/06/20 12/04/20 release polyethylene glycol 3350 17 gram 255 g PO DAILY #15 ea 09/06/20 12/04/20 oral powder packet Previous Rx's Medication Instructions Recorded bisacodyl 5 mg tablet,delayed 5 mg PO ONCE #4 tab 09/06/20 release omeprazole 40 mg capsule,delayed 40 mg PO DAILY #30 cap 09/06/20 release polyethylene glycol 3350 17 gram 255 g PO DAILY #15 ea 09/06/20 oral powder packet Allergies Allergy/AdvReac Type Severity Reaction Status Date / Time Sulfa (Sulfonamide Allergy Severe Skin Rash Unverified 12/04/20 12:06 Antibiotics) sulfamethoxazole Allergy Severe Skin Rash Unverified 10/26/20 17:09 [From Septra] trimethoprim [From Septra] Allergy Severe Skin Rash Unverified 12/04/20 12:06 ibuprofen [From Motrin] AdvReac stomach Verified 12/04/20 12:06 upset General Stated Complaint: RashLesion PAMELLA: 4 Review of Systems Constitutional Constitutional: Reports as per HPI, Denies chills and Denies fever(s) Musculoskeletal Musculoskeletal: Reports as per HPI Integumentary/Breasts Skin/Breast: Reports as per HPI Neurologic Neurologic: Reports as per HPI, Denies sensory deficit and Denies paresthesias PFSH Medical History Acute herniated disc Beau's line Chest wall contusion Claustrophobia Contusion Contusion of head Depression Dislocation of shoulder, anterior, left, closed GERD (gastroesophageal reflux disease) HTN (hypertension) Infestation by Sarcoptes scabiei pau hominis PTSD (post-traumatic stress disorder) Sinusitis Finished abc 07/19/20 Tendonitis of wrist, left Tobacco user Surgical History H/O eye surgery H/O wrist surgery History of bunionectomy History of cataract extraction Reported complication that caused her to have left elongated pupil History of section S/P colonoscopy S/P ORIF (open reduction internal fixation) fracture femur Family History Mother Breast cancer Maternal Aunt Lung cancer Social History Smoking/Tobacco Use Status: Former Tobacco Use Quit Date: 07/01/94 Tobacco: How many years used: 5 Smoking risk assessment performed?: Yes Alcohol Intake: never Drug use: Never Substance use type: does not use Current gender identity: female Do you feel safe at home: Yes Do you feel safe in your relationship?: Yes Additional Social history: lives alone Exam Const General: cooperative, healthy appearing, comfortable, no acute distress and well developed Nutritional Appearance: average body habitus and well nourished Orientation: alert and awake Resp Effort & Inspection: normal respiratory effort, able to speak in complete sentences and no respiratory distress Auscultation: clear to auscultation bilaterally Cardio Rate: regular rate Rhythm: regular rhythm Heart Sounds: S1 normal and S2 normal Skin General skin exam: erythema Neuro General: patient alert and patient awake Cognition: normal cognition Speech: speech normal Gait: normal gait Sensory Exam: no sensory deficits noted Extrem Knee images: 1. area of tick bite. Small area of erythema. No warmth, drainage, pain with palpation. Calf is soft and nontender. Psych Appearance: grossly normal and well kempt Mental Status: mental status grossly normal Speech and Movement: speech and movement normal Course Vital Signs Vital signs: Vital Signs Pulse 87 12/04/20 12:04 Respiratory Rate 20 12/04/20 12:04 Blood Pressure 153/69 H 12/04/20 12:04 Pulse Oximetry 96 12/04/20 12:04 Pulse 87 12/04/20 12:04 Respiratory Rate 20 12/04/20 12:04 Respiratory Effort Non-Labored 12/04/20 12:09 Blood Pressure 153/69 H 12/04/20 12:04 Blood Pressure Position Sitting 12/04/20 12:04 Pulse Oximetry 96 12/04/20 12:04 Oxygen Delivery Method Room Air 12/04/20 12:04 Oxygen Flow Rate 0 12/04/20 12:04 Comment 12/04/20 12:04
[2020-12-04] MEDS: Doxycycline Hyclate 100 MG CAP 200 MG PO (12:56)
== END 2020-12-04 12:58 | disposition home or self-care (01) ==
PROVIDERS: Emergency Provider Physician Assistant; PCP Nurse Practitioner Family
DX: S80.261A Insect bite (nonvenomous), right knee, initial encounter (principal); W57.XXXA Bitten or stung by nonvenomous insect and other nonvenomous arthropods, initial encounter
CPT/HCPCS: 99283

== ENCOUNTER 2020-12-22 02:44 | Outpatient (CLI) | payer MEDICARE, MEDICAID, SELFPAY ==
--- NOTE | 2020-12-22 15:56 | DI.MAMMO_ITS ---
Exam(s) MAMMO SCREENING EXAM: MAMMO SCREENING CLINICAL HISTORY: SCREENING, Z12.31. TECHNIQUE: Bilateral full field digital CC and MLO mammographic images were obtained with 3D tomosyn thesis and utilizing computer aided detection (CAD). COMPARISON: Prior outside mammograms dating back to 2013, the most recent being March 2018. Prior outside limited left breast ultrasound performed December 2015 was reviewed. FINDINGS: The fibroglandular tissue pattern is moderately dense towards the upper outer quadrants, there is suma ewhat decreasing the sensitivity of the mammogram for finding hidden underlying lesions. In the right breast there is a biopsy marker clip towards the lateral aspect located 9 cm in from the nipple. Just posterior to this is a well-defined noncalcified slightly lobulated nodule measuring 1 .3 by 1.2 cm, unchanged from prior recent studies and actually and smaller than on the mammogram of 2 014. It appears stable since 2016. There are no malignant-appearing microcalcification groups in th is region nor elsewhere in the right breast. In the opposite-left breast there is a subtle relatively well-defined nodular density measuring appro ximately 6 by 4 cm located approximately 2 centimetres in from the nipple, noncalcified. This has be en present on prior mammograms. Within this nodule is a some limits of another possible nodule which show some contains fat and is also unchanged. 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 No malignant-appearing microcalcification groups in this region or elsewhere in the left br east. No new skin thickening-retraction nor new architectural distortion in either breast. IMPRESSION: Bilateral findings as described above which appear stable mammographically when compared to prior out side mammograms listed above. I recommend baseline bilateral ultrasound to determine if the finding in the right breast is cyst or solid as well as to compare size measurements to the ultrasound findin g in the left breast from outside institution performed December 2015. BI-RADS Category 0 - Assessment Incomplete: Need additional imaging evaluation Breast Density - Category C - Heterogeneously dense Breast density Category C or D implies that the patient has dense breast tissue. Dense breast tissue can make it harder to find cancer on a mammogram. Dense breast tissue is also associated with an incr eased risk of breast cancer. This information about the result of the mammogram report was provided to the patient to raise their awareness. Use this report when you speak with the patient about their risks for breast cancer, which includes their family history. At that time, you may recommend additional screening tests (Ultrasoun d or MRI) as these tests may add significant information. A negative radiographic report should not delay biopsy if a dominant or clinically suspicious mass is present. Up to ten percent of cancers are not identified on mammography. A negative report may reinforce clinical impression. Adenosis and dense breasts may obscure an underlying neoplasm. False positive reports average 6 to 10%. Patient will receive a letter notifying them of these results.
== END 2020-12-22 03:04 ==
PROVIDERS: PCP Nurse Practitioner Family; Visit Provider Nurse Practitioner Family
DX: Z12.31 Encounter for screening mammogram for malignant neoplasm of breast (principal)
CPT/HCPCS: 77063; 77067

== ENCOUNTER 2020-12-26 01:53 | Outpatient (CLI) | payer MEDICARE, MEDICAID, SELFPAY ==
--- NOTE | 2020-12-26 15:15 | DI.CT_ITS ---
Exam(s) CT SINUS WO EXAM: CT SINUS WO CLINICAL HISTORY: CHRONIC SINUSITIS J32.9. TECHNIQUE: Imaging Protocol: Axial computed tomography images with coronal and sagittal reformatted images were created and reviewed. No IV Contrast COMPARISON: CT CT HEAD WO from 05/20/2020 FINDINGS: MAXILLARY SINUSES: No significant mucosal thickening nor fluid levels.There is minimal mucosal thickening anteriorly on the anterior wall of the left maxillary sinus, medially. There is no evidence of bone dehiscence. OSTIOMEATAL UNITS: Patent bilaterally ETHMOIDAL AIR CELLS: Well aerated. No mucosal thickening nor fluid levels. SPHENOID SINUSES: Well aerated. No mucosal thickening nor fluid levels. FRONTAL SINUSES: Well aerated. No mucosal thickening nor fluid levels. NASAL SEPTUM AND TURBINATES:Nasal septum is relatively midline with no evidence of significant nasal septal spur. Some aeration of the left middle turbinate is noted. No evidence of nasal passage obstr uction. IMPRESSION: 1. No evidence of sinusitis. 2. There is minimal mucosal thickening noted in the anterior medial wall of the left maxillary sinus . No associated fluid level. Ostiomeatal units are patent RADIATION DOSE DELIVERED: 116.48mGy.cm Total DLP DATA REPOSITORY: All CT scans at this facility are submitted to the National Radiology Data Registry (NRDR) Dose Index Registry (DIR) with the [employer] ([employer]). RADIATION OPTIMIZATION: All CT scans at this facility use at least one of these dose optimization te chniques: automated exposure control; mA and/or kV adjustment per patient size (includes targeted exa ms where dose is matched to clinical indication); or iterative reconstruction.
== END 2020-12-26 02:13 ==
PROVIDERS: PCP Nurse Practitioner Family; Visit Provider Otolaryngology
DX: J34.89 Other specified disorders of nose and nasal sinuses (principal)
CPT/HCPCS: 70486

== ENCOUNTER 2021-03-21 12:14 | Emergency (ER) | payer MEDICARE, MEDICAID, SELFPAY ==
[2021-03-21 12:20] VITALS: BP 165/103; PULSE 92; TEMP 36.4; O2SAT 97
[2021-03-21 12:35] VITALS: RESP 20
--- NOTE | 2021-03-21 12:50 | ED.GENADUL_ITS ---
Discharge Plan Disposition Patient Disposition: HOME Condition: Improving Discharge Details Clinical Impression: Acute frontal sinusitis Primary Care Provider: Lars Denise ED Provider: Ezio Fregoso Home Meds and New Rx's Prescriptions: New amoxicillin-pot clavulanate 875-125 mg tablet 1 tab PO BID 10 Days Qty: 20 RF: 0 Continued loratadine 10 mg capsule 10 mg PO HS RF: 0 epinephrine 0.3 mg/0.3 mL auto-injector 0.3 mg IM ONCE RF: 0 fluticasone propionate 50 mcg/actuation spray,suspension 1 spray intranasal DAILY RF: 0 pregabalin 75 mg capsule 75 mg PO TID RF: 0 omeprazole 40 mg capsule,delayed release(DR/EC) 40 mg PO DAILY Qty: 30 RF: 5 bisacodyl [Dulcolax (bisacodyl)] 5 mg tablet,delayed release (DR/EC) 5 mg PO ONCE Qty: 4 RF: 0 polyethylene glycol 3350 17 gram powder in packet 255 g PO DAILY Qty: 15 RF: 0 losartan 25 mg Tablet 25 mg PO HS RF: 0 ibuprofen 800 mg Tablet 800 mg PO Q8H PRNRF: 0 acetaminophen [Acetaminophen Extra Strength] 500 mg Tablet 1,000 mg PO Q6H PRNRF: 0 carvedilol 12.5 MG tablet 12.5 mg PO BID RF: 0 amlodipine 2.5 MG tablet 2.5 mg PO HS RF: 0 Discharge Instructions Instructions: Sinusitis (ED) Additional Instructions: Please follow-up with regular doctor if not improved in 5 to 7 days time. Return sooner if you develop worsening headache, vomiting, or any other acute concerns. I recommend you take an [id number] probiotic or once daily live culture yogurt during the middle of the day while on antibiotics. Home to rest today. Medical Decision Making 61-year-old female with a history of sinusitis, seasonal allergies, presents with frontal headache over 2 weeks time that she is worried may have been exposure to carbon oxide in her home. She arrives to the ER afebrile in no acute distress. Her carbon monoxide level was 2. Patient has exam consistent with sinusitis. She did note some urinary frequency but elected to decline to leave a urine sample and we discussed that single antibiotic coverage to treat both sinusitis and the possibility of UTI. She is stable and appropriate for outpatient management. HPI General Mode of arrival: ambulatory . Date/Time Provider Initiated Documentation: 03/21/21 12:15 . Limitations to Documentation: no limitations . Information obtained by: patient . History of Present Illness 61 year old F presents to the emergency department with the chief complaint of Frontal headache, sinus pressure, concern for carbon monoxide, described as moderate, Quality is described as dull, and is localized to the head. Patient reports no radiation. Patient started experiencing this hour(s) and it has been constant. No relieving factors improve symptom(s), No exacerbating factors reported . Patient notes denies fever/chills, loss of appetite, nausea/vomiti ng, seizure and shortness of breath. Patient did receive the following treatments prior to arrival, none Related Data Home Medications Medication Instructions Recorded Confirmed amlodipine 2.5 mg PO HS 08/25/16 12/04/20 carvedilol 12.5 mg PO BID 08/25/16 12/04/20 losartan 25 mg PO HS 03/27/18 12/04/20 loratadine 10 mg capsule 10 mg PO HS 12/04/18 12/04/20 epinephrine 0.3 mg/0.3 mL 0.3 mg IM ONCE 06/06/20 12/04/20 injection, auto-injector fluticasone propionate 50 1 spray INTRANASAL DAILY 06/06/20 12/04/20 mcg/actuation nasal spray,suspension pregabalin 75 mg capsule 75 mg PO TID 06/06/20 12/04/20 acetaminophen [Acetaminophen Extra 1,000 mg PO Q6H PRN 06/15/20 12/04/20 Strength] ibuprofen 800 mg PO Q8H PRN 06/15/20 12/04/20 bisacodyl 5 mg tablet,delayed 5 mg PO ONCE #4 tab 09/06/20 12/04/20 release omeprazole 40 mg capsule,delayed 40 mg PO DAILY #30 cap 09/06/20 12/04/20 release polyethylene glycol 3350 17 gram 255 g PO DAILY #15 ea 09/06/20 12/04/20 oral powder packet amoxicillin-pot clavulanate 1 tab PO BID 10 Days #20 tab 03/21/21 Previous Rx's Medication Instructions Recorded bisacodyl 5 mg tablet,delayed 5 mg PO ONCE #4 tab 09/06/20 release omeprazole 40 mg capsule,delayed 40 mg PO DAILY #30 cap 09/06/20 release polyethylene glycol 3350 17 gram 255 g PO DAILY #15 ea 09/06/20 oral powder packet amoxicillin-pot clavulanate 1 tab PO BID 10 Days #20 tab 03/21/21 Allergies Allergy/AdvReac Type Severity Reaction Status Date / Time Sulfa (Sulfonamide Allergy Severe Skin Rash Unverified 12/04/20 12:06 Antibiotics) sulfamethoxazole Allergy Severe Skin Rash Unverified 10/26/20 17:09 [From Septra] trimethoprim [From Septra] Allergy Severe Skin Rash Unverified 12/04/20 12:06 ibuprofen [From Motrin] AdvReac stomach Verified 12/04/20 12:06 upset General Stated Complaint: ChemExpose PAMELLA: 3 Review of Systems Narrative: History of sinus infections. No fall or injury. No neck pain. Does report some intermittent episodes of urinary urgency, no fever or back pain. 7 systems reviewed and otherwise negative. PFSH Medical History Acute herniated disc Beau's line Chest wall contusion Claustrophobia Contusion Contusion of head Depression Dislocation of shoulder, anterior, left, closed GERD (gastroesophageal reflux disease) HTN (hypertension) Infestation by Sarcoptes scabiei pau hominis PTSD (post-traumatic stress disorder) Sinusitis Finished abc 07/19/20 Tendonitis of wrist, left Tobacco user Surgical History H/O eye surgery H/O wrist surgery History of bunionectomy History of cataract extraction Reported complication that caused her to have left elongated pupil History of section S/P colonoscopy S/P ORIF (open reduction internal fixation) fracture femur Family History Mother Breast cancer Maternal Aunt Lung cancer Social History Smoking/Tobacco Use Status: Former Tobacco Use Quit Date: 07/01/94 Tobacco: How many years used: 5 Smoking risk assessment performed?: Yes Alcohol Intake: never Drug use: Never Substance use type: does not use Current gender identity: female Do you feel safe at home: Yes Do you feel safe in your relationship?: Yes Additional Social history: lives alone Exam Narrative Exam Narrative: GEN: awake, alert, oriented 3. Pleasant, well groomed, interactive. HEAD: Normocephalic, atraumatic ENT: Mucous membranes moist, oropharynx unremarkable, left greater than right middle ear effusion, no erythema, frontal sinus tender to percussion. External ear exam unremarkable EYES: PERRL, EOMI NECK: Full ROM, no HEBERT, no menigismus CHEST/RESP: Nontender, clear to auscultation bilateral, no wheeze/rhonchi/rales CARDIOVASCULAR: RRR, no murmur, rub jah. 2+ Rad pulse bilateral EXT: Full ROM, no edema, no rash Neuro: Grossly normal neurologic exam, conversant, interactive. Psych: Speech fluent, thoughts congruent, affect normal Course Vital Signs Vital signs: Vital Signs Temperature 36.4 C L 03/21/21 12:20 Pulse 92 H 03/21/21 12:20 Blood Pressure 165/103 H 03/21/21 12:20 Pulse Oximetry 97 03/21/21 12:20 Temperature 36.4 C L 03/21/21 12:20 Temperature Source Temporal Artery Scan 03/21/21 12:20 Pulse 92 H 03/21/21 12:20 Respiratory Rate 20 03/21/21 12:35 Respiratory Effort Non-Labored 03/21/21 12:35 Respiratory Depth Normal 03/21/21 12:35 Respiratory Pattern Normal 03/21/21 12:35 Blood Pressure 165/103 H 03/21/21 12:20 Blood Pressure Position Sitting 03/21/21 12:20 Pulse Oximetry 97 03/21/21 12:20 Oxygen Delivery Method Room Air 03/21/21 12:20 Oxygen Flow Rate 0 03/21/21 12:20 Pain Level 0 03/21/21 12:20 Lab/Test Results Lab/Test Results: Laboratory Tests Range/Units 03/21/21 12:47 Urine Color Cancelled Urine Clarity Cancelled Urine pH Cancelled Ur Specific [place] Cancelled Urine Protein Cancelled Urine Ketones Cancelled Urine Blood Cancelled Urine Nitrite Cancelled Urine Bilirubin Cancelled Urine Urobilinogen Cancelled Ur Leukocyte Esterase Cancelled Urine Glucose Cancelled
== END 2021-03-21 13:11 | disposition home or self-care (01) ==
PROVIDERS: Emergency Provider Emergency Medicine; PCP Nurse Practitioner Family
DX: J01.10 Acute frontal sinusitis, unspecified (principal)
CPT/HCPCS: 99283; 81003

== ENCOUNTER 2021-07-14 17:24 | Outpatient (REF) | payer MEDICARE, MEDICAID, SELFPAY ==
[2021-07-16 15:43] LABS: COVID-19 RT-PCR UVMMC Result Negative (Negative)
== END 2021-07-14 17:25 | disposition home or self-care (01) ==
LOC: LBN 17:24
PROVIDERS: PCP Nurse Practitioner Family; Visit Provider Physician Assistant
DX: Z20.822 Contact with and (suspected) exposure to COVID-19 (principal)
CPT/HCPCS: U0003

== ENCOUNTER 2021-09-13 15:05 | Emergency (ER) | payer MEDICARE, MEDICAID, SELFPAY ==
[2021-09-13 15:09] VITALS: BP 166/101; PULSE 84; RESP 18; TEMP 36.4; O2SAT 97
--- NOTE | 2021-09-13 15:15 | DI.CT_ITS ---
Exam(s) CT HEAD ORBITS WO EXAM: CT HEAD ORBITS WO CLINICAL HISTORY: fall, left sided head pain and eye pain. TECHNIQUE: Imaging Protocol: Axial computed tomography images with coronal and sagittal reformatted images were created and reviewed COMPARISON: CT CT SINUS WO from 12/26/2020 FINDINGS: CT HEAD WITHOUT IV CONTRAST: There are no skull fractures nor fluid in the visualized paranasal sinuses. There is no evidence of intracranial hemorrhage, mass effect, or shift of midline structures. There are no extra-axial fluid collections. The ventricles are not enlarged or shifted and there is no blo od within the ventricular system nor within the basal cisterns. Incidentally noted is heavy calcification of the right vertebral artery at the skull base. CT ORBITS WITHOUT IV CONTRAST: There are no fractures. No evidence of orbital blowout fracture. No fluid in the maxillary sinuses. No fluid in the sphenoid and frontal sinuses. Mild mucosal thickening noted in few left-sided ethm oidal air cells. Orbital globes: No fluid levels. Left lens is absent. Retro conal compartments: On remarkable. Extra-ocular muscles: Unremarkable. Lacrimal glands: Unremarkable. IMPRESSION: No acute intracranial findings on this noninfused CT scan of the brain. No significant orbital findings. No evidence of orbital blowout fracture. Report called by myself to ER physician RADIATION DOSE DELIVERED: 1,140.95mGy.cm Total DLP DATA REPOSITORY: All CT scans at this facility are submitted to the National Radiology Data Registry (NRDR) Dose Index Registry (DIR) with the [employer] (A[employer]). RADIATION OPTIMIZATION: All CT scans at this facility use at least one of these dose optimization te chniques: automated exposure control; mA and/or kV adjustment per patient size (includes targeted exa ms where dose is matched to clinical indication); or iterative reconstruction.
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
[2021-09-13] MEDS: Acetaminophen 500 MG TAB 1000 MG PO (15:28)
--- NOTE | 2021-09-13 17:40 | NUR.NOTE ---
Nursing Note: Referral faxed to [facility] for traumatic mydriasis within 1 week. MD note and CT report also faxed. Stephenie Sullivan
== END 2021-09-13 17:43 | disposition home or self-care (01) ==
PROVIDERS: Emergency Provider Emergency Medicine; PCP Nurse Practitioner Family
DX: H57.04 Mydriasis (principal); S09.8XXA Other specified injuries of head, initial encounter; W00.0XXA Fall on same level due to ice and snow, initial encounter; J01.90 Acute sinusitis, unspecified
CPT/HCPCS: 99284; 70450; 70480; 99283

== ENCOUNTER → 2021-11-03 23:51 | Outpatient (CLI) | payer MEDICARE, MEDICAID, SELFPAY ==
--- NOTE | 2021-11-03 16:30 | DI.RAD_ITS ---
Exam(s) XR KNEE RT 3V AP,LAT,MAUREEN EXAM: XR KNEE RT 3V AP,LAT,MAUREEN CLINICAL HISTORY: trauma, [id number]. TECHNIQUE: 2D digital imaging was performed. COMPARISON: No exams were available for comparison FINDINGS: 3 views No evidence of fracture but there does appear to be a small amount of joint fluid. This may signify an internal derangement. Indeed, on the frontal view there is a calcific density seen in the midline (therefore not patella). May represent avulsion injury IMPRESSION: As above. Appropriate follow-up recommended DATA REPOSITORY: RADIATION DOSE DELIVERED:
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
== END ==
PROVIDERS: PCP Nurse Practitioner Family; Visit Provider Nurse Practitioner Family
DX: M25.561 Pain in right knee (principal); M25.461 Effusion, right knee; M23.8X1 Other internal derangements of right knee; S89.81XA Other specified injuries of right lower leg, initial encounter
CPT/HCPCS: 73562

== ENCOUNTER → 2021-11-21 14:39 | Outpatient (BNVA) | payer MEDICARE, MEDICAID, SELFPAY | PROVIDERS: PCP Nurse Practitioner Family; Referring Provider Nurse Practitioner Family; Visit Provider Physician Assistant | DX: M23.91 Unspecified internal derangement of right knee (principal); M25.561 Pain in right knee | CPT/HCPCS: 99214 ==

== ENCOUNTER 2021-12-24 14:54 | Emergency (ER) | payer MEDICARE, MEDICAID, SELFPAY ==
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
[2021-12-24 15:03] VITALS: BP 144/84; PULSE 72; RESP 16; TEMP 36.1; O2SAT 95
[2021-12-24] MEDS: Amoxicillin 875/Clav. 125 TAB PO (15:46)
[2021-12-24] MEDS: Amox. 875/Clav. 125, 2 TABS/BTL 1 TAB PO (15:47)
== END 2021-12-24 15:46 | disposition home or self-care (01) ==
PROVIDERS: Emergency Provider Physician Assistant; PCP Nurse Practitioner Family
DX: S61.451A Open bite of right hand, initial encounter (principal); S51.851A Open bite of right forearm, initial encounter; L03.011 Cellulitis of right finger; W54.0XXA Bitten by dog, initial encounter
CPT/HCPCS: 90471; 99284; 99283

== ENCOUNTER 2022-01-16 15:17 | Emergency (ER) | payer MEDICARE, MEDICAID, SELFPAY ==
[2022-01-16 15:41] VITALS: BP 130/75; PULSE 77; RESP 20; TEMP 37.3; O2SAT 95
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
[2022-01-16] MEDS: Cephalexin 500 MG CAP PO (17:04)
== END 2022-01-16 17:03 | disposition home or self-care (01) ==
PROVIDERS: Emergency Provider Nurse Practitioner Family; PCP Nurse Practitioner Family
DX: L03.115 Cellulitis of right lower limb (principal)
CPT/HCPCS: 99283

== ENCOUNTER 2022-01-23 09:59 | Emergency (ER) | payer MEDICARE, MEDICAID, SELFPAY ==
--- NOTE | 2022-01-23 10:00 | DI.RAD_ITS ---
Exam(s) XR FOOT RT COMPLETE EXAM: XR FOOT RT COMPLETE CLINICAL HISTORY: redness medial foot, ?foreign body. TECHNIQUE: 2D digital imaging was performed of the right foot. Three images were obtained. AP, obl ique and lateral views were obtained. COMPARISON: No exams were available for comparison FINDINGS: BONES: No acute fracture is present. No bony destructive lesion is seen. Postsurgical changes seen in the 1st metatarsal bone. JOINTS: No dislocation present. SOFT TISSUE: Soft tissue swelling medial to the 1st metatarsal. No radiopaque foreign body. IMPRESSION: No radiopaque foreign body. DATA REPOSITORY: RADIATION DOSE DELIVERED:
[2022-01-23 10:02] VITALS: BP 119/83; PULSE 67; RESP 18; TEMP 36.8; O2SAT 98
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
--- OUTSIDE RECORDS SUMMARY | 2022-01-23 10:14 | XMS_ITS | Encounter Summary ---
:1960 Author Organization [facility] Address [address] [place] [address] Care Team Providers Name Role Phone Lars Denise APRN Primary Care Provider Reason for Visit Reason Comments Back Pain low back pain Leg Pain right leg pain Encounter Details Date Type Department Care Team Description 06/22/2013 Office Visit [facility] - Panda Gama Back pain (Primary [facility] E, DO Dx) [facility] [address] Interventional Pain [place], [place] [address] [phone] [place] [phone] Social History Tobacco Use Types Packs/Day Years Used Date Former Smoker Smokeless Tobacco: Never Used Alcohol Use Standard Drinks/Week Comments No 0 (1 standard drink = 0.6 oz pure alcoho l) Sex Assigned at Date Recorded Not on file documented as of this encounter Last Filed Vital Signs Vital Sign Reading Time Taken Comments Blood Pressure 153/96 06/22/2013 1543 EST Pulse 67 06/22/2013 1543 EST Temperature 36 ??C (96.8 ??F) 06/22/2013 1503 EST Respiratory Rate 18 06/22/2013 1543 EST Oxygen Saturation - - Inhaled Oxygen Concentration - - Weight 70.3 kg (155 lb) 06/22/2013 1503 EST Height 170.2 cm (5' 7) 06/22/2013 1503 EST Body Mass Index 24.28 06/22/2013 1503 EST documented in this encounter Discharge Diagnoses Diagnosis 724.8 OTHER BACK SYMPTOMS[ICD-9-CM] 724.2 LUMBAGO[ICD-9-CM] 716.98 ARTHROPATHY NOS-OTHER SITE[ICD-9- CM] documented in this encounter Patient Instructions Patient InstructionsPoAddy beebe RN - 06/22/2013 15:40 EST [facility] [address] [address] Medial Branch Block Patient Instructions You underwent a procedure called MEDIAL BRANCH BLOCK today. This is a diagnostic test to determine if this is the cause of your pain. Your results from today???s injection will help us guide further care for you. Please call us back tomorrow with your hours and % of relief. Following this procedure, continue to be active for the remainder of the day and maintain your usual daily routine. Please contact our office the day after your Medial Branch Block with your results. Keep track of how long you received relief as well as what percentage of pain relief immediately following the procedure. This diagnostic procedure is ONLY intended to last for a number of hours, not days or weeks. PROCEDURE END TIME: (nurse) 3:45 PM PAIN RELIEF START TIME: 3:49 PM PAIN RELIEF END TIME: HOURS OF RELIEF PERCENTAGE OF RELIEF (0-100%) ADDITIONAL MEDIAL BRANCH BLOCK INSTRUCTIONS Do not operate an automobile or other motorized equipment for the remainder of the day today. You may resume your normal activities or rest tomorrow. If you feel sore where the needles were placed, please use ice to the area for up to 20 minutes at atime. Do not use heat, as this may cause swelling. If you have any of the following symptoms, please contact us immediately. - Severe or worsening pain - Unexplained fever or chills If you have any questions about your block, please call Patient Education Topic: Method: Handout and Verbal Taught to: Patient Barriers: None Outcomes: independent and verbalized understanding Signature:ADDY ARREOLA RN documented in this encounter Progress Notes Panda Gama DO - 06/22/2013 1645 EST Patient Name: Myranda Soto : 1960 Date of Service: 06/22/2013 Cane Flume Feeding Machine Operator: Panda Gama DO Procedure: Lumbar Medial Branch Blocks Interval History Ms. Soto presents at the request of Cat Gross for evaluation and treatment of his chronic back pain. The pain is primarily localized to the bilateral lumbar spine and radiates to the right buttock. This pain has been present since 2005 and is described as throbbing and aching in c haracter. The average pain intensity is 8/10 and is aggravated by physical activities. The patient???s chronic pain has negatively impacted level of function, resulting in a lower generalactivity level. 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 Allergies: Allergies Allergen Reactions ??? Septra (Sulfamethoprim Ds) Rash and Fever Review of Systems: GENERAL: no complaints CARDIOVASCULAR: no complaints RESPIRATORY: no complaints GASTROINTESTINAL: no complaints GENITOURINARY: no complaints MUSCULOSKELETAL: Positive for joint pain, muscle pain, restricted movements NEUROLOGICAL: Possible weakness secondary to pain HEMATOLOGICAL: Negative Physical Examination: Vital signs: Patient Vitals for the past 24 hrs: BP Temp Temp src Pulse Resp Height Weight 06/22/13 1543 153/96 mmHg - - 67 18 - - 06/22/13 1503 145/102 mmHg 36 ??C (96.8 ??F) Tympanic 65 16 170.2 cm (67) 70.308 kg (155 lb) General:awake, alert, cooperative, no apparent distress Extremities: no clubbing, cyanosis, or edema Skin: clear, warm, dry and intact and no rashes, bruises or petechiae noted Musculoskeletal: Gait: Normal Assessment: Lumbar facet syndrome Lumbar facet arthropathy Request by orthospine for diagnostic procedure-please see electronic medical record system for details and orders Gait disturbance Encounter Diagnosis Name Primary? Back pain Yes Plan: Proceed with diagnostic medial branch blocks at Lt L4, Rt L4, Lt L5, Rt L5, Lt Sacral Ala and Rt Sacral Ala Follow up: as needed for routine follow up Procedure: The patient gave informed written consent to proceed with this procedure following a detailed discussion of the risks and benefits associated with lumbar medial branch blocks. The patient was then placed in prone position, the skin over the neck was prepped with chlorhexadine, and the site was draped with sterile towels. Strict sterile technique was maintained throughout the procedure. A rosas moment was performed with full staff present to identify the patient, verify the procedure being performed, and review allergies Flouroscopy was used to identify the appropriate lumbar anatomy. The skin and subcutaneous tissue were anesthetized with 2% lidocaine. A 22 guage 3.5 inch spinal needle was inserted under fluoroscopic guidance to contact the junction of the superior articulating process and transverse process at the Lt L4, Rt L4, Lt L5, Rt L5, Lt Sacral Ala and Rt Sacral Ala levels. Final needle position was confirmed with fluoroscopy. Aspiration was negative for blood or CSF. Next, 0.3 ml of 0.5% bupivacaine was injected at each site, the needles were restyletted and withdrawn. There was no paresthesia during needle placement and aspiration was negative at all times. The patient tolerated the procedure well and there were no apparent complications. Written and verbal discharge instructions were reviewed with the patient prior to discharge. They will report the results of today???s diagnostic injection via telephone within 24 hours Myranda Caicedo - 06/22/2013 1506 EST [facility] Rooming Note Does patient have a Reimbursement Liaison? Yes Alf Is patient NPO? (Solids since midnight & liquids for 4 hrs) na Blood Thinners: Is patient on Blood Thinners? no If yes, taking? If stopped, who authorized stopping? Related comments: Infections: Any recent infections, fever of illnesses? no If on antibiotics, is it 7-10 days past the date of completion of antibiotics? no : (for females of child-bearing age) Is there a chance current ? no Other: documented in this encounter Plan of Treatment Not on filedocumented as of this encounter Visit Diagnoses Diagnosis Back pain - Primary Backache, unspecified documented in this encounter Historical Medications This list may reflect changes made after this encounter. Medication Sig Dispensed Refills Start Date End Date DULoxetine (CYMBALTA) 60 Take 60 mg by mouth 0 02/01/2016 mg capsule daily. mirtazapine (REMERON) 45 Take 45 mg by mouth 0 02/01/2016 mg tablet daily. added in this encounter Care Teams Sewing Pattern Layout Technician Relationship Specialty Start Date End Date Lars Denise APRN PCP - General 04/16/12 04/17/[address] [place] [address] [address] [place] [address] documented as of this encounter
--- OUTSIDE RECORDS SUMMARY | 2022-01-23 10:14 | XMS_ITS | Encounter Summary ---
:1960 Author Organization [facility] Address [address] [place] [address] Care Team Providers Name Role Phone Unknown, Provider Primary Care Provider Lars Denise APRN Unavailable Reason for Visit Reason Onset Date Comments Labs Only 07/06/2016 Encounter Details Date Type Department Care Team Description 07/06/2016 Telephone [facility] Radha Sesay , Labs Only Nephrology - S Prosp ect MD 1 [facility] [address] [place] [address] Rehab, [place], [place] [phone] (Wo rk) Social History Tobacco Use Types Packs/Day Years Used Date Former Smoker Smokeless Tobacco: Never Used Alcohol Use Standard Drinks/Week Comments No 0 (1 standard drink = 0.6 oz pure alcoho l) Sex Assigned at Date Recorded Not on file documented as of this encounter Miscellaneous Notes Telephone Encounter - Radha Sesay MD - 07/06/2016 1136 EST Called to let patient know about her recent lab results. Patient told me she had not been restricting fluid intake and had started adding salt to meals. She reports drinking a gallon of water a day. Her SNa was 133 up from 127mEq/L. And Urine sodium was 20 mmol/L, urine potassium 19 mmol/L. i've asked her to restrict po fluid intake to 800ml/day and to stop adding salt to meals. Repeat labs next week to reassess. documented in this encounter Plan of Treatment Not on filedocumented as of this encounter Visit Diagnoses Diagnosis Hyponatremia - Primary Hyposmolality and/or hyponatremia documented in this encounter Care Teams Resident Care Coordinator Relationship Specialty Start Date End Date Unknown, Provider, PCP - General 04/18/16 01/27/17 Lars Denise APRN 04/18/[address] [place] [address] [address] [place] [address] documented as of this encounter
--- OUTSIDE RECORDS SUMMARY | 2022-01-23 10:14 | XMS_ITS | Encounter Summary ---
:1960 Author Organization [facility] Address [address] [place] [address] Care Team Providers Name Role Phone Lars Denise APRN Primary Care Provider Reason for Referral Laboratory Services (Routine) - Closed Specialty Diagnoses / Procedures Referred By Contact Refer red To Contact Diagnoses Hyposmolality and/or hyponatremia Radha Sesay MD Procedures POTASSIUM, URINE RANDOM [address] [phone] Referral ID Status Reason Start Date Expiration Date Visits Requ ested Visits Authorized [id number] Closed 01/31/2016 1 1 aboratory Services (Routine) - Closed Specialty Diagnoses / Procedures Referred By Contact Refer red To Contact Diagnoses Hyposmolality and/or hyponatremia Radha Sesay MD Procedures SODIUM, URINE RANDOM 1 [facility], [address] [phone] Referral ID Status Reason Start Date Expiration Date Visits Requ ested Visits Authorized [id number] Closed 01/31/2016 1 1 aboratory Services (Routine) - Closed Specialty Diagnoses / Procedures Referred By Contact Refer red To Contact Diagnoses Hyposmolality and/or hyponatremia Radha Sesay MD Procedures OSMOLALITY, URINE 1 [facility], [facility] [address] [place] [address] Referral ID Status Reason Start Date Expiration Date Visits Requ ested Visits Authorized [id number] Closed 01/31/2016 1 1 aboratory Services (Routine) - Closed Specialty Diagnoses / Procedures Referred By Contact Refer red To Contact Diagnoses Hyposmolality and/or hyponatremia Radha Sesay MD Procedures BASIC METABOLIC PANEL 1 [facility], [facility] [address] [place] [address] Referral ID Status Reason Start Date Expiration Date Visits Requ ested Visits Authorized [id number] Closed 01/31/2016 1 1 Reason for Visit Reason Onset Date Comments Labs Only 01/31/2016 Encounter Details Date Type Department Care Team Description 01/31/2016 Orders Only [facility] Radha Sesay Hypo smolality and/or Nephrology - Aakash Saleh MD hyponatremia (Primary [place] 1 [facility] Dx) [address] [place] [address] Rehab, [facility] [place] [phone] (Wo rk) Social History Tobacco Use Types Packs/Day Years Used Date Former Smoker Smokeless Tobacco: Never Used Alcohol Use Standard Drinks/Week Comments No 0 (1 standard drink = 0.6 oz pure alcoho l) Sex Assigned at Date Recorded Not on file documented as of this encounter Progress Notes Nalini Reyes RN - 01/31/2016 1512 EDT Patient notified. States can have labs drawn prior to appointment. Orders routed to [facility] signed by Nalini Reyes RN at 01/31/2016 15:14 EDT documented in this encounter Plan of Treatment Scheduled Orders Name Type Priority Associated Diagnoses Order S chedule OSMOLALITY, URINE Lab Routine Hyposmolality and/or Ex pected: 01/31/2016 hyponatremia (Approximate), Expires: 2016 SODIUM, URINE RANDOM Lab Routine Hyposmolality and/or Expected: 01/31/2016 hyponatremia (Approximate), Expires: 2016 POTASSIUM, URINE Lab Routine Hyposmolality and/or Exp ected: 01/31/2016 RANDOM hyponatremia (Approximate), Expires: 2016 documented as of this encounter Results BASIC METABOLIC PANEL (03/06/2016) Pathologist Sig nature GFR, Calculated, External EXTERNAL LAB Glucose, Serum, External 112 EXTERNAL LAB Calculated Calcium, External EXTERNAL LAB BUN, External 17 EXTERNAL LAB Calcium, External 9.3 EXTERNAL LAB Chloride, External 91 EXTERNAL LAB CO2, External 31.0 EXTERNAL LAB Creatinine, External 0.70 EXTERNAL LAB Fasting?, External EXTERNAL LAB Potassium, External 4.3 EXTERNAL LAB Sodium, External 127 EXTERNAL LAB Specimen Blood specimen (specimen) Performing Organization Address City/State/ZIP Code Phon e Number EXTERNAL LAB documented in this encounter Visit Diagnoses Diagnosis Hyposmolality and/or hyponatremia - Prim jacek documented in this encounter Care Teams Ergonomist Relationship Specialty Start Date End Date Lars Denise APRN PCP - General 04/16/12 04/17/16 [facility] [address] [place] [address] documented as of this encounter
--- OUTSIDE RECORDS SUMMARY | 2022-01-23 10:14 | XMS_ITS | Encounter Summary ---
:1960 Author Organization [facility] Address [address] [place] [address] Care Team Providers Name Role Phone Lars Denise APRN Primary Care Provider Reason for Visit Reason Onset Date Comments Results 10/17/2012 Encounter Details Date Type Department Care Team Description 10/17/2012 Telephone [facility] - Addy Driver , Results [facility] RN Center Interventiona l Pain [address] [place] [phone] Social History Tobacco Use Types Packs/Day Years Used Date Former Smoker Smokeless Tobacco: Never Used Alcohol Use Standard Drinks/Week Comments No 0 (1 standard drink = 0.6 oz pure alcoho l) Sex Assigned at Date Recorded Not on file documented as of this encounter Miscellaneous Notes Telephone Encounter - Addy Driver RN - 10/17/2012 0189 EDT RN called pt to verify results. Pt had a difficult time determining results after RN explained that we wanted to know how she felt when local was working. Initially she said it was only the local that made her feel better better and when it wore off her pain was back and then quantified the following results. Date and type of procedure:10/16/12 bilateral L4-L5 and L5-S1 Provider:Natan Hours of relief:1-2 hrs % of relief:20% Next appointment: pt will call at 2 weeks with % of relief Telephone Encounter - Addy Driver RN - 10/17/2012 1430 EDT Message copied by ADDY DRIVER on SatOct 17, 2012 [id number] ------ Message from: ADDY DRIVER Created: Xiomara Oct 16, 2012 1150 Regarding: result Contact: [phone] Facet Diagnostic Block done on:10/16/12 Provider:Natan Levels:BL Lum L4, L5 Call back number: [phone] documented in this encounter Plan of Treatment Not on filedocumented as of this encounter Visit Diagnoses Not on filedocumented in this encounter Care Teams Financial Coach Relationship Specialty Start Date End Date Lars Denise APRN PCP - General 04/16/12 04/17/[address] [place] [address] [address] [place] [address] documented as of this encounter
--- OUTSIDE RECORDS SUMMARY | 2022-01-23 10:14 | XMS_ITS | Encounter Summary ---
:1960 Author Organization [facility] Address [address] [place] [address] Care Team Providers Name Role Phone HowieLars Keesha CONROY Unavailable None, Provider Primary Care Provider Unavailable Reason for Referral Consult (Routine/Next Available) - Authorization Not Required Specialty Diagnoses / Procedures Referred By Contact Refer red To Contact Dermatology Diagnoses Rash and nonspecific skin eruption Santhosh Velázquez, Wp5 Dermatology PALeonel [address] [place] [address] Phone: [facility] [address] [place] [address] Referral ID Status Reason Start Expiration Visits Visits Date Date Requested Authorized [id number] Authorization Specialty 1 1 Not Required Services 8 Required Question Answer Reason for Request: Generalized rash of the scal p, amities, lower extremities, back, chest. Chronic. 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 Reason for Visit Reason Comments Medical Evaluation Arrives reporting 6 months o f body sores Patient reports mainly in her hair. Patient also re porting I have been seeing worms in my stool. Reportings recent weight loss. 5/10 pain. n/v. no resp distress. skin pwd. Encounter Details Date Type Department Care Team Description 12/09/2017 Emergency [facility] Santhosh Velázquez PA-C [address] [place] [address], [address] [place] [address] Generalized abdominal pain (Primary Dx); Emergency Department Emergency, MD Leatha Barroso; - [facility] Rash and nonspecific skin er uption [address] [place], [place] [id number] Social History Tobacco Use Types Packs/Day Years Used Date Former Smoker Smokeless Tobacco: Never Used Alcohol Use Standard Drinks/Week Comments No 0 (1 standard drink = 0.6 oz pure alcoho l) Sex Assigned at Date Recorded Not on file documented as of this encounter Last Filed Vital Signs Vital Sign Reading Time Taken Comments Blood Pressure 188/98 12/09/2017 1143 EDT Pulse 65 12/09/2017 1143 EDT Temperature 36.5 ??C (97.7 ??F) 12/09/2017 1143 EDT Respiratory Rate 22 12/09/2017 1143 EDT Oxygen Saturation 100% 12/09/2017 1143 EDT Inhaled Oxygen Concentration - - Weight 68 kg (150 lb) 12/09/2017 1143 EDT Height - - Body Mass Index 22.81 09/02/2013 0913 EST documented in this encounter Discharge Diagnoses Diagnosis R21 Rash and other nonspecific skin erup tion-R21[ICD-10-CM] R10.84 Generalized abdominal pain-R10.84 [ICD-10-CM] R53.81 Other malaise-R53.81[ICD-10-CM] R11.0 Nausea-R11.0[ICD-10-CM] R63.4 Abnormal weight loss-R63.4[ICD-10- CM] I10 Essential (primary) hypertension-I10 [ICD-10-CM] Z88.2 Allergy status to sulfonamides sta tus-Z88.2[ICD-10-CM] Z87.891 Personal history of nicotine dep endence-Z87.891[ICD-10-CM] documented in this encounter Discharge Instructions Santhosh Coburn PA - 12/09/2017 12:24 EDT At your Emergency Department visit today, you were evaluated for abdominal pain, feeling generally unwell, generalized rash, concern for worms in your stool. Your medical work-up included physical examination, review of your medical records. The examination performed showed no signs of obvious skin infection, but multiple sores. He had generalized abdominal discomfort, with prior negative stool testing. It is unclear as to the cause of your symptoms. To further evaluate her condition, outpatient testing for stool evaluation has been ordered. A referral to the invasive manager has also been placed on your behalf. You are being prescribed triamcinolone cream to apply to the sores once to twice daily as needed. Return to the Emergency Department if you develop worsening of your condition, including severe abdominal pain, vomiting, fevers, inability to tolerate oral intake, signs of infection at the sores. documented in this encounter Medications at Time of Discharge Medication Sig Dispensed Refills Start Date End Date carvedilol (COREG) 12.5 mg Take 12.5 mg by 0 tablet mouth 2 times daily. EPINEPHrine HCl, PF, 0.3 mg. 0 (ADRENALIN) 1 mg/mL (1 mL) injection fluoxetine (PROZAC) 40 mg Take 80 mg by mouth 0 capsule daily. ibuprofen (MOTRIN) 800 mg Take 800 mg by mouth 0 tablet every 8 hours as needed. MULTIVITAMIN,THER AND Take by mouth daily. 0 MINERALS (VITAMINS AND MINERALS ORAL) oxycodone-acetaminophen Take 1 Tab by mouth 10 Tab 0 (PERCOCET) 5-325 mg per every 6 hours. tablet pregabalin (LYRICA) 100 mg Take 100 mg by mouth 0 capsule 3 times daily as needed. trazodone (DESYREL) 100 mg Take 100 mg by mouth 0 tablet at bedtime. triamcinolone (KENALOG) 0.1 Applied to wound 45 g 0 % cream areas twice daily as needed. valsartan (DIOVAN) 160 mg Take 320 mg by mouth 0 tablet daily. documented as of this encounter Ordered Prescriptions Prescription Sig Dispensed Refills Start Date End Date triamcinolone (KENALOG) 0.1 Applied to wound 45 g 0 % cream areas twice daily as needed. documented in this encounter Discharge Disposition Disposition Code Departure Means Destination Home or Self Care documented in this encounter ED Notes Santhosh Velázquez PA-C - 12/09/2017 1230 EDT DOS: 12/09/2017 Chief Complaint Patient presents with ??? Medical Evaluation Arrives reporting 6 months of body sores Patient reports mainly in her hair. Patient also reporting I have been seeing worms in my stool. Reportings recent weight loss. 5/10 pain. n/v. no resp distress. skin pwd. HPI The patient is a 57 y.o. female who presents today with Medical Evaluation (Arrives reporting 6 months of body sores Patient reports mainly in her hair. Patient also reporting I have been seeing worms in my stool. Reportings recent weight loss. 5/10 pain. n/v. no resp distress. skin pwd. ) HPI 57 year-old female presents complaining of parasites in her body for years. These have become increasingly symptomatic over the last 12 months. Denies any history of foreign or domestic travel, unusualfood consumption, sick contacts. She lives in the [facility] and states she has sought multiplemedical evaluations for this condition in the last several months, including her PCP, [facility], [facility], and [facility]. She recently fired her PCP, due to the feeling her complaints were being inadequately evaluated. Presents today with her friend who was coming to [place] today, hoping for second opinion. Over the past year she has developed sores all over her body, including the arms, legs, scalp, back. She also states she has been pulling worms from her skin, mouth, and has seen them in her stool. She has kept the worms pulled from her mouth in vials, and has cataloged photos of her stool over several months. Denies fevers, chills, sweats,change in appetite, cough, shortness of breath, chest pain. Occasionally experiences nausea and abdominal discomfort. Denies diarrhea, bright red or melanous stools, vomiting, extremity swelling, confusion, dizziness, fatigue. She undergone several blood tests, stool studies, all of which were negative. She requests that these be repeated. Also requests additional testing to determine the source. States her PCP was unwilling to refer her to a invasive manager, requests referral. Review of Systems Review of Systems Constitutional: Negative for activity change, appetite change, chills, diaphoresis, fatigue, fever and unexpected weight change. HENT: Positive for mouth sores. Negative for congestion, ear pain, sore throat and trouble swallowing. Eyes: Negative for visual disturbance. Respiratory: Negative for cough, shortness of breath and wheezing. Cardiovascular: Negative for chest pain, palpitations and leg swelling. Gastrointestinal: Positive for nausea. Negative for abdominal distention, abdominal pain, anal bleeding, blood in stool, constipation, diarrhea, rectal pain and vomiting. Genitourinary: Negative for dysuria, flank pain, frequency and urgency. Musculoskeletal: Negative for arthralgias, gait problem and myalgias. Skin: Positive for rash and wound. Negative for color change and pallor. Allergic/Immunologic: Negative for immunocompromised state. Neurological: Negative for dizziness, syncope, weakness and light-headedness. Psychiatric/Behavioral: Positive for dysphoric mood. The patient is nervous/anxious. The patient's past medical, family and social history was reviewed and updated as needed. Allergies Allergen Reactions ??? Septra [Sulfamethoprim Ds] Rash and Fever ??? Sulfa (Sulfonamide Antibiotics) Vital Signs Temp: 36.5 ??C (97.7 ??F) Pulse: 65 Resp: 22 SpO2: 100 % BP: (!) 188/98 BP Device: BP Machine Physical Exam Constitutional: She is oriented to person, place, and time. She appears well- developed and well-nourished. No distress. HENT: Head: Normocephalic and atraumatic. Right Ear: External ear normal. Left Ear: External ear normal. Nose: Nose normal. Mouth/Throat: Oropharynx is clear and moist. Eyes: Conjunctivae and EOM are normal. Pupils are equal, round, and reactive to light. Neck: Normal range of motion. Neck supple. Cardiovascular: Normal rate, regular rhythm, normal heart sounds and intact distal pulses. No murmur heard. Pulmonary/Chest: Effort normal and breath sounds normal. No respiratory distress. She has no wheezes. She has no rales. Abdominal: Soft. Bowel sounds are normal. She exhibits no distension. There is no tenderness. There is no rebound and no guarding. Musculoskeletal: Normal range of motion. She exhibits no edema or tenderness. Neurological: She is alert and oriented to person, place, and time. No cranial nerve deficit. Coordination normal. Skin: Skin is warm and dry. No rash noted. She is not diaphoretic. No erythema. No pallor. Multiple small scatters sores of various stages of healing, 2mm in diameter to back, chest, arms, legs, scalp, sparing the face, oral mucosa, palms, soles of feet. No surrounding erythema. Psychiatric: Her speech is normal and behavior is normal. Her mood appears anxious. Cognition and memory are normal. Nursing note and vitals reviewed. RESULTS EKG orders: None Radiology orders: None Procedures ED COURSE A medical screening exam was performed. Patient presents with longstanding history of skin sores, concern for parasitic infection. Extensive workup previously performed. Patient showed a catalog of hundreds of photos of stool, with stated worms, which I am not able to visualize. Physical exam benign. Appears highly anxious. Suspect somatization of underlying anxiety disorder, with picking syndrome and delusions of parasites after previous negative workup. Discussed that further workup was not indicated. Repeat stool studies ordered at the patient's request, as well as Dermatology referral. Also provided topical steroid cream for sores as patient feels this has helped int he past. ASSESSMENT AND PLAN Final diagnoses: Generalized abdominal pain Malaise Rash and nonspecific skin eruption ED Current Prescriptions Medication Dispense Auth. Provider triamcinolone (KENALOG) 0.1 % cream 45 g Santhosh Velázquez PA DISPOSITION: Discharged The patient's pain was managed to an adequate level weighing risk vs. benefit of further medications. Upon departure from the Emergency Department, the patient's pain was 2 on a zero to ten scale. Any further pain treatment will be at the discretion of the provider following up with the patient based on their clinical assessment. Condition at departure from the Emergency Department: Stable PCP: Provider None MDM Number of Diagnoses or Management Options Generalized abdominal pain: new, needed workup Malaise: new, needed workup Rash and nonspecific skin eruption: new, needed workup Amount and/or Complexity of Data Reviewed Clinical lab tests: ordered Decide to obtain previous medical records or to obtain history from someone other than the patient: yes Obtain history from someone other than the patient: yes Review and summarize past medical records: yes Risk of Complications, Morbidity, and/or Mortality Presenting problems: low Diagnostic procedures: minimal Management options: minimal Patient Progress Patient progress: stable Bill Pires was available for supervision. 12/22/2017 9:42 No flowsheet data found. Barrett Eastman RN - 12/09/2017 1229 EDT NAD at time of d/c, breathing even and unlabored. Rx and out-patient lab sheets given to pt at time of d/c. documented in this encounter Plan of Treatment Scheduled Referrals Name Type Priority Associated Diagnoses Order S chedule AMB CONS/FOLLOW UP Outpatient Referral Routine Rash and nonspe cific Ordered: DERMATOLOGY skin eruption 12/09/2017 documented as of this encounter Results FECAL BACTERIAL PATHOGENS BY PCR (12/30/2017 12:00 EDT) Salmonella PCR No Salmonella spp. DNA [facility] detected [facility] Shigella No Shigella spp. or [facility] Enteroinvasive E.coli [facility] DNA detected. SERVICES Campylobacter PCR No Campylobacter spp. [facility] (jejuni or coli) DNA [facility]. SERVICES Shiga Toxin PCR No Shiga toxin [facility] producing genes [facility] detected. SERVICES Specimen Feces Performing Organization Address City/[facility]/ZIP Code Phon e Number [facility] [address] [place] [address] SERVICES OVA/PARASITE EXAM (12/30/2017 12:00 EDT) Pathologist Sig nature Result No ova and parasites seen. ( If Cryptosporidium, Cyclospora, or Microsporidium are suspected, [facility] specific tests must be reque sted.) Single negative specimen does not rule out the possibility LABORATORY SERVICES of a parasitic infection. Specimen Other (qualifier value) - Feces Performing Organization Address City/[facility]/ZIP Code Phon e Number [facility] [address] [place] [address] SERVICES documented in this encounter Visit Diagnoses Diagnosis Generalized abdominal pain - Primary Abdominal pain, generalized Malaise Other malaise and fatigue Rash and nonspecific skin eruption Rash and other nonspecific skin eruption documented in this encounter Care Teams Water Resources Engineer Relationship Specialty Start Date End Date None, Provider PCP - General 12/09/17 Lars Denise, SENIOR PAYROLL MANAGER 04/18/[address] [place] [address] [address] [place] [address] documented as of this encounter
--- OUTSIDE RECORDS SUMMARY | 2022-01-23 10:14 | XMS_ITS | Encounter Summary ---
:1960 Author Organization [facility] Address [address] [place] [address] Care Team Providers Name Role Phone Lars Denise APRN Primary Care Provider Encounter Details Date Type Department Care Team Description 03/13/2016 Abstract [facility] Radha Sesay Hypo smolality and/or Nephrology - S MD Therese hyponatremia ([facility] Dx) [address] [place] [address] Rehab, [place] [address] (Wo rk) Social History Tobacco Use Types Packs/Day Years Used Date Former Smoker Smokeless Tobacco: Never Used Alcohol Use Standard Drinks/Week Comments No 0 (1 standard drink = 0.6 oz pure alcoho l) Sex Assigned at Date Recorded Not on file documented as of this encounter Plan of Treatment Not on filedocumented as of this encounter Procedures Procedure Name Priority Date/Time Associated Diagnosis Comme nts SODIUM, URINE RANDOM Routine 03/06/2016 Hyposmolality and/or Results for this hyponatremia procedure are i n the results section . BASIC METABOLIC PANEL Routine 03/06/2016 Hyposmolality and/o r Results for this (BMP) hyponatremia procedure are i n the results section . documented in this encounter Results SODIUM, URINE RANDOM (03/06/2016) Pathologist Sig nature Sodium, Ur, External 9 EXTERNAL LAB Specimen Urine (substance) Performing Organization Address City/State/ZIP Code Phon e Number EXTERNAL LAB BASIC METABOLIC PANEL (03/06/2016) Pathologist Sig nature [...] - Prim jacek documented in this encounter Orders Lab Orders Without Results Count Last Ordered Date Fir st Ordered Date OSMOLALITY, URINE 1 03/13/2016 POTASSIUM, URINE RANDOM 1 03/13/2016 documented in this encounter Care Teams Anthropology Professor Relationship Specialty Start Date End Date Lars Denise APRN PCP - General 04/16/12 04/17/[address] [place] [address] [address] [place] [address] documented as of this encounter
--- OUTSIDE RECORDS SUMMARY | 2022-01-23 10:14 | XMS_ITS | Encounter Summary ---
:1960 Author Organization [facility] Address [address] [place] [address] Care Team Providers Name Role Phone Lars Denise APRN Primary Care Provider Reason for Referral Laboratory Services (Routine) - Closed Specialty Diagnoses / Procedures Referred By Contact Refer red To Contact Diagnoses Hyposmolality and/or hyponatremia Radha Sesay MD Procedures SODIUM [address] [address] Referral ID Status Reason Start Date Expiration Date Visits Requ ested Visits Authorized [id number] Closed 02/07/2016 1 1 aboratory Services (Routine) - Closed Specialty Diagnoses / Procedures Referred By Contact Refer red To Contact Diagnoses Hyposmolality and/or hyponatremia Radha Sesay MD Procedures OSMOLALITY, URINE [address] [address] Referral ID Status Reason Start Date Expiration Date Visits Requ ested Visits Authorized [id number] Closed 02/07/2016 1 1 aboratory Services (Routine) - Closed Specialty Diagnoses / Procedures Referred By Contact Refer red To Contact Diagnoses Hyposmolality and/or hyponatremia Radha Sesay MD Procedures POTASSIUM, URINE RANDOM 1 [facility] 2 [place] [address] Referral ID Status Reason Start Date Expiration Date Visits Requ ested Visits Authorized [id number] Closed 02/07/2016 1 1 aboratory Services (Routine) - Closed Specialty Diagnoses / Procedures Referred By Contact Refer red To Contact Diagnoses Hyposmolality and/or hyponatremia Radha Sesay MD Procedures SODIUM, URINE RANDOM 1 [facility], Level 2 [place] [address] Referral ID Status Reason Start Date Expiration Date Visits Requ ested Visits Authorized [id number] Closed 02/07/2016 1 1 Reason for Visit Reason Comments Chronic Kidney Disease Consult (Routine) - Closed Specialty Diagnoses / Procedures Referred By Contact Refer red To Contact Nephrology Diagnoses Hyponatremia Lars Denise APRN Nephrology Clinic [address] [place] [address] 1 [facility] [address] [address] Referral ID Status Reason Start Date Expiration Date Visits Requ ested Visits Authorized [id number] Closed 1 1 Encounter Details Date Type Department Care Team Description 02/01/2016 Office Visit [facility] Radha Sesay smolality and/or Nephrology - [place] MD Therese hyponatremia (Primary 1 [facility] 1 [facility] D[facility]) [place] [address] Rehab, [place] [address] (Wo rk) Social History Tobacco Use Types Packs/Day Years Used Date Former Smoker Smokeless Tobacco: Never Used Alcohol Use Standard Drinks/Week Comments No 0 (1 standard drink = 0.6 oz pure alcoho l) Sex Assigned at Date Recorded Not on file documented as of this encounter Last Filed Vital Signs Vital Sign Reading Time Taken Comments Blood Pressure 188/111 02/01/2016 1138 EDT Pulse 78 02/01/2016 1138 EDT Temperature - - Respiratory Rate - - Oxygen Saturation - - Inhaled Oxygen Concentration - - Weight 68.1 kg (150 lb 2.1 oz) 02/01/2016 1138 EDT Height - - Body Mass Index 22.83 09/02/2013 0913 EST documented in this encounter Progress Notes Radha Sesay MD - 02/01/2016 1138 EDT [facility] Nephrology New Patient DATE OF SERVICE: 02/01/2016 NAME: Myranda Soto REASON FOR VISIT: Chronic Kidney Disease DATE OF : 1960 HISTORY OF PRESENT ILLNESS: 56 y.o. year old female who I am requested to see in consultation by Lars Denise for Hyponatremia. History gathered from patient and review of medical records from [facility] and [facility] records. Hyponatremia was first noted in October of this year. She describes presenting with a rash inApril or October and then a month of nausea. She was fatigued and concerned she may have encephalitis from a dog bite. She presented to the ED and was told her sodium level was low. Her HCTZ was discontinued. Subsequent sodium levels fluctuated but continued to be low 126-134mEq/L. The latest SNa was 128mEq/L on December 29. No history of heart failure or liver disease. No evidence of nephrotic syndrome. Not thirsty but does drink about 1-1.5gallons of water per day. Last 24 hours food intake: ham + cheese sandwich on rye bread, yoghurt, brown rice, broccoli and baked chicken. Diagnosed in 1993 with hypertension. Started on HCTZ and 3 other bp meds initiatlly. She was on hctzfor 25 years. No h/o DM. No h/o kidney stones. No frequent UTI. No kidney cysts. No hematuria, foamy urine, dysuria. FHx: mother had nephrectomy for renal cancer. She had polycythemia vera. No other fhx of kidney disease. Past Medical History Diagnosis Date ??? HTN (hypertension) ??? Femur fracture ??? Low back pain Past Surgical History Procedure Laterality Date ??? Bunionectomy with screws ??? Appendectomy ??? section Current Outpatient Prescriptions Medication Sig ??? carvedilol (COREG) 12.5 mg tablet Take 12.5 mg by mouth 2 times daily. ??? EPINEPHrine HCl, PF, (ADRENALIN) 1 mg/mL (1 mL) injection 0.3 mg. ??? fluoxetine (PROZAC) 40 mg capsule Take 80 mg by mouth daily. ??? ibuprofen (MOTRIN) 800 mg tablet Take 800 mg by mouth every 8 hours as needed. ??? MULTIVITAMIN,THER AND MINERALS (VITAMINS AND MINERALS ORAL) Take by mouth daily. ??? oxycodone-acetaminophen (PERCOCET) 5-325 mg per tablet Take 1 Tab by mouth every 6 hours. ??? pregabalin (LYRICA) 100 mg capsule Take 100 mg by mouth 3 times daily as needed. ??? trazodone (DESYREL) 100 mg tablet Take 100 mg by mouth at bedtime. ??? valsartan (DIOVAN) 160 mg tablet Take 320 mg by mouth daily. Allergies Allergen Reactions ??? Septra [Sulfamethoprim Ds] Rash and Fever ??? Sulfa (Sulfonamide Antibiotics) SOCIAL HISTORY: past smoker FAMILY HISTORY: yes (describe) mother -renal cancer, cysts, hematuria family history of kidney disease REVIEW OF SYSTEMS: Cardiovascular: No chest pain Constitutional: No fever Respiratory: No hemoptysis Skin: No rash Eyes: No visual change Genitourinary: No dysuria Gastrointestinal: No nausea Musculoskeletal: No inflammatory arthritis Neuro: no muscle jerks Mouth: No ulcers PHYSICAL EXAMINATION: Vital Signs: Wt 68.1 kg (150 lb 2.1 oz) Constitutional: No distress, restless. Neatly dressed but with dirt under nails. Mouth: No ulcers Cardiovascular: Heart regular; no abdominal bruit; edema absent Skin: No rash but multiple insect bites with scabs in various stages of healing around her ankles Gastrointestinal: Abdomen soft, non-tender Eyes: Sclerae anicteric. Left pupil> right with corrective lens on left. Respiratory: Clear to auscultation bilaterally Neuro: No asterixis STUDIES: 11/01/2015: TSH 0.63 (WNL) and cortisol 8 (drawn at 4pm). Usom 316. Prior UA by PNP SG 1.000 Urinalysis was not performed by lab Repeat labs after clinic [facility] IMPRESSION: 56 year old WF with h/o depression, chronic low back pain, prior tobacco use and hypertension presents for evaluation of hyponatremia. She has normal thyroid function. The cortisol is hard to interpret given that it was not drawn in the morning. She is euvolemic by exam and endorses high fluid intake out of habit and has low specific gravity, suggesting she may have primary polydipsia. Urine osmolality on 11/01/15 was 316 however, which suggests presence of ADH, although I do not have a concurrent serum sodium or osm from that same date. The repeat labs on clinic day demonstrate a low urine sodium, consistent with sodium avid/fasted state (had not eaten since last night). This is not alan acteristic of SIADH nor does it fit with her elevated urine osmolality. We will repeat the labs whenagustin had not been fasting a prolonged period of time, and if her urine sodium is not low and her other labs are similar, the most likely diagnosis is SIADH +/- concomitant polydipsia. In that case we will ask her to fluid restrict to 800cc/day and re-measure. 1. Hyponatremia 2. Hypertension- poorly controlled today but reports not taking her medications today. RECOMMENDATIONS: 1. Labs as above 2. Return to clinic in 3-4 months with labs (basic metabolic panel, urine osmolality, urine sodium, urine potassium) obtained prior to the visit I spent 60 minutes of [id number] time with the patient, greater than 50% of which was spent in counseling regarding the disease, workup, management and prognosis. Radha Sesay MD documented in this encounter Plan of Treatment Scheduled Orders Name Type Priority Associated Diagnoses Order S chedule POTASSIUM, URINE Lab Routine Hyposmolality and/or Exp ected: 02/07/2016 RANDOM hyponatremia (Approximate), Expires: 2016 OSMOLALITY, URINE Lab Routine Hyposmolality and/or Ex pected: 02/07/2016 hyponatremia (Approximate), Expires: 2016 documented as of this encounter Results SODIUM, URINE RANDOM (03/06/2016) Pathologist Sig nature Sodium, Ur, External 9 EXTERNAL LAB Specimen Urine (substance) Performing Organization Address City/State/ZIP Code Phon e Number EXTERNAL LAB documented in this encounter Visit Diagnoses Diagnosis Hyposmolality and/or hyponatremia - Prim jacek documented in this encounter Discontinued Medications Medication Sig Discontinue Reason Start Date End Date AMLODIPINE BESYLATE Take by mouth 016 (AMLODIPINE ORAL) daily. cyclobenzaprine (FLEXERIL) 10 Take 10 mg by 02/01/2016 mg tablet mouth 3 times daily. DULoxetine (CYMBALTA) 60 mg Take 60 mg by 02/01/2016 capsule mouth daily. FLUTICASONE PROPIONATE, BULK, 50 mcg by misc 02/01/2016 MISC (non-drug; combo route) route 2 times daily. hydrochlorothiazide Take 25 mg by 016 (MICROZIDE) 12.5 mg capsule mouth daily. mirtazapine (REMERON) 45 mg Take 45 mg by 02/01/2016 tablet mouth daily. documented as of this encounter Orders Lab Orders Without Results Count Last Ordered Date Fir st Ordered Date SODIUM 1 02/07/2016 documented in this encounter Care Teams Contract Loader Relationship Specialty Start Date End Date Lars Denise APRN PCP - General 04/16/12 04/17/[address] [place] [address] [address] [place] [address] documented as of this encounter
--- OUTSIDE RECORDS SUMMARY | 2022-01-23 10:14 | XMS_ITS | Encounter Summary ---
:1960 Author Organization [facility] Address [address] [place] [address] Care Team Providers Name Role Phone Lars Denise APRN Primary Care Provider Encounter Details Date Type Department Care Team Description 01/17/2016 Abstract [facility] Samantha Sesay MD Nephrology - S Prosp ect 1 [facility] [address] [place] [address] [place] [address] (Wo rk) Social History Tobacco [...] Name Priority Date/Time Associated Diagnosis Comme nts URINALYSIS WITH Routine 12/31/2013 Results for this MICROSCOPIC IF POSITIVE proc edure are in the results section . OCCULT BLOOD DIAGNOSTIC, Routine 08/13/2013 Res ults for this FECES procedure are i n the results section . COMPLETE BLOOD COUNT Routine 08/13/2013 Results for this procedure are i n the results section . CHOLESTEROL Routine 08/13/2013 Results for thi s procedure are i n the results section . COMPREHENSIVE METABOLIC Routine 08/13/2013 Resu lts for this PANEL (CMP) procedure are i n the results section . URINALYSIS WITH Routine 11/21/2012 Results for this MICROSCOPIC IF POSITIVE proc edure are in the results section . documented in this encounter Results URINALYSIS WITH REFLEX MICROSCOPIC (12/31/2013) Pathologist Sig nature Color UA, External EXTERNAL LAB Clarity UA, External EXTERNAL LAB Glucose UA, External negative EXTERNAL LAB Bilirubin UA, External negative EXTERNAL LAB Ketones UA, External negative EXTERNAL LAB Specific [place] UA, 1.000 EXTERNAL LAB External Blood UA, External Hemolyzed Trace EXTERNAL LAB pH UA, External 7.5 EXTERNAL LAB Protein UA, External negative EXTERNAL LAB Urobilinogen UA, EXTERNAL LAB External Nitrite UA, External negative EXTERNAL LAB Leukocyte Esterase UA, negative EXTERNAL LAB External Specimen Urine (substance) Performing Organization Address [facility]/ZIP Code Phon e Number EXTERNAL LAB OCCULT BLOOD DIAGNOSTIC, FECES (08/13/2013) Pathologist Sig nature Report Status, External EXTERNAL LAB Result, External negative EXTERNAL LAB Specimen Description, External EXTERNAL L AB Specimen Stool specimen (specimen) Performing Organization Address [facility]/ZIP Code Phon e Number EXTERNAL LAB CHOLESTEROL (08/13/2013) Pathologist Sig nature Cholesterol, External 271 EXTERNAL LAB Specimen Blood specimen (specimen) Performing Organization Address [facility] Code Phon e Number EXTERNAL LAB COMPREHENSIVE METABOLIC PANEL (CMP) (08/13/2013) Pathologist Sig nature GFR, Calculated, External EXTERNAL LAB Glucose, Serum, External 94 EXTERNAL LAB Albumin, External 4.6 EXTERNAL LAB Total Alkaline Phosphatase, EXTERNAL LAB External ALT, External 44 EXTERNAL LAB AST, External 57 EXTERNAL LAB BUN, External 13 EXTERNAL LAB Calculated Calcium, External EXTERNAL LAB Calcium, External 9.9 EXTERNAL LAB Chloride, External 90 EXTERNAL LAB CO2, External 32.6 EXTERNAL LAB Creatinine, External 0.80 EXTERNAL LAB Fasting?, External EXTERNAL LAB Potassium, External 3.6 EXTERNAL LAB Sodium, External 134 EXTERNAL LAB Total Protein, External 8.3 EXTERNAL LAB Bilirubin, Total, External 0.4 EXTERNAL LAB Specimen Blood specimen (specimen) Performing Organization Address [facility]/ZIP Code Phon e Number EXTERNAL LAB HEMAGRAM (08/13/2013) Pathologist Sig nature HCT, External 34.7 EXTERNAL LAB MCH, External EXTERNAL LAB MCV, External EXTERNAL LAB MCHC, External EXTERNAL LAB Hemoglobin, External 12.3 EXTERNAL LAB WBC, External 5.4 EXTERNAL LAB RBC, External 4.11 EXTERNAL LAB PLT, External 352 EXTERNAL LAB RDW-CV, External 11.5 EXTERNAL LAB Specimen Blood specimen (specimen) Performing Organization Address City/State/ZIP Code Phon e Number EXTERNAL LAB URINALYSIS WITH REFLEX MICROSCOPIC (11/21/2012) Pathologist Sig nature Color UA, External EXTERNAL LAB Clarity UA, External EXTERNAL LAB Glucose UA, External normal EXTERNAL LAB Bilirubin UA, External negative EXTERNAL LAB Ketones UA, External negative EXTERNAL LAB Specific [place] UA, External 1.010 EXTERNAL LA B Blood UA, External negative EXTERNAL LAB pH UA, External 5.0 EXTERNAL LAB Protein UA, External negative EXTERNAL LAB Urobilinogen UA, External EXTERNAL LAB Nitrite UA, External negative EXTERNAL LAB Leukocyte Esterase UA, External negative EXTERNAL LAB Specimen Urine (substance) Performing Organization Address City/State/ZIP Code Phon e Number EXTERNAL LAB documented in this encounter Visit Diagnoses Not on filedocumented in this encounter Historical Medications This list may reflect changes made after this encounter. Medication Sig Dispensed Refills Start Date End Date ibuprofen (MOTRIN) 800 mg Take 800 mg by 0 tablet mouth every 8 hours as needed. EPINEPHrine HCl, PF, 0.3 mg. 0 (ADRENALIN) 1 mg/mL (1 mL) injection pregabalin (LYRICA) 100 mg Take 100 mg by 0 capsule mouth 3 times daily as needed. MULTIVITAMIN,THER AND Take by mouth 0 MINERALS (VITAMINS AND daily. MINERALS ORAL) cyclobenzaprine (FLEXERIL) Take 10 mg by 0 02/01/2016 10 mg tablet mouth 3 times daily. FLUTICASONE PROPIONATE, 50 mcg by misc 0 02/01/2016 BULK, MISC (non-drug; combo route) route 2 times daily. added in this encounter Care Teams Bunker Worker Relationship Specialty Start Date End Date Lars Denise APRN PCP - General 04/16/12 04/17/[address] [place] [address] [address] [place] [address] documented as of this encounter
--- OUTSIDE RECORDS SUMMARY | 2022-01-23 10:14 | XMS_ITS | Encounter Summary ---
:1960 Author Organization [facility] Address [address] [place] [address] Care Team Providers Name Role Phone Lars Denise APRN Primary Care Provider Encounter Details Date Type Department Care Team Description 10/08/2013 Results Only [facility] Malia Solomon MD Laboratory Services - [address] [address] [place] [address] [place] [address] [phone] Social History Tobacco Use Types Packs/Day Years Used Date Former Smoker Smokeless Tobacco: Never Used Alcohol Use Standard Drinks/Week Comments No 0 (1 standard drink = 0.6 oz pure alcoho l) Sex Assigned at Date Recorded Not on file documented as of this encounter Plan of Treatment Not on filedocumented as of this encounter Procedures Procedure Name Priority Date/Time Associated Diagnosis Comme [facility] SURGICAL PATHOLOGY Routine 10/08/2013 9:02 EDT Re sults for this procedure are i n the results section. documented in this encounter Results SURGICAL PATHOLOGY (10/08/2013 9:02 EDT) Pathology Report: SURGICAL PATHOLOGY REPORT BREON[facility] ROSE Reports generated via electronic interface contain valeri ginal data; LAB however they are lacking the format of the original re port. Caution should be taken when reading/interpreting unfo rmatted reports. Name: ? MYRANDA SOTO ? Accession #: ? [id number] ? : ? 1960 (Age: 53) ??F ? Collect Date: ? 10/08/2013 ? Location: ? [facility] ? Receive Date: ? 014 ? Provider: CATALINA SOLOMON MD Copy to: ? Final Pathologic Diagnosis: BREAST, RIGHT, 10 O'CLOCK, 6 CM FROM NIPPLE, 17.0 MM M ASS, ULTRASOUND GUIDED CORE BIOPSY: - Nodular fibrocystic changes, including: - Sclerosing adenosis. - Apocrine metaplasia. - Cyst formation. - Dense interlobular fibrosis. ?? Document reviewed and electronically signed by: TAMY DAO MD Report ??Date: 10/13/2013 13:04 By the signature above, the attending physician certif ies that he/she has personally conducted a gross and/or microscopic examin ation of the described specimens and rendered or confirmed the above diagnosi s. Specimen(s) Received: 17.0 mm mass, R breast, 10 o'clock, 6 cm from nipple, 6 core biopsies, 14g Clinical History: Not listed Gross Description: ? Received in formalin labelled with proper patient identification (initials K, S) and not otherwise specified are six yellow and w murphy fibrofatty tissue cores (0.6 cm to 1.5 cm in l ength, and each 0.2 cm in diameter) and a 0.7 x 0.6 x 0.3 cm aggregate of barry-yellow fatty t issue. ??Entirely submitted in 1 and 2 cores and 3 aggregate Time removed from patient: Not available Time placed in formalin: ??10/08/2013 at 1530 hrs Time out of formalin: ??10/09/2013 at 1900 hrs Enedelia Lee 10/09/2013 01:05 PM End of Report Specimen Performing Organization Address City/State/ZIP Code Phon e Number [facility] [address] [place] [address] SERVICES [facility] [address] [place] [address] documented in this encounter Visit Diagnoses Not on filedocumented in this encounter Care Teams Warehousing Technician Relationship Specialty Start Date End Date Lars Denise APRN PCP - General 04/16/12 04/17/[address] [place] [address] [address] [place] [address] documented as of this encounter
--- OUTSIDE RECORDS SUMMARY | 2022-01-23 10:14 | XMS_ITS | Encounter Summary ---
:1960 Author Organization [facility] Address [address] [place] [address] Care Team Providers Name Role Phone Lars Denise APRN Primary Care Provider Reason for Visit Reason Onset Date Comments Results 07/22/2013 Encounter Details Date Type Department Care Team Description 07/22/2013 Telephone [facility] Panda Gama DO Results of [facility] [address] Interventional [place] [address] [address] [address] [place] [address] Social History Tobacco Use Types Packs/Day Years Used Date Former Smoker Smokeless Tobacco: Never Used Alcohol Use Standard Drinks/Week Comments No 0 (1 standard drink = 0.6 oz pure alcoho l) Sex Assigned at Date Recorded Not on file documented as of this encounter Miscellaneous Notes Telephone Encounter - Soumya Melo - 09/03/2013 1412 EST Patient's insurance is Medicare. No authorization is needed. Patient is scheduled. elephone Encounter - Cathleen Huang RN - 07/22/2013 1110 EST Recorded in doc flow sheets.Post-MBB Pain Relief: Hours of relief: 9 hours Percentage relief: 75% Type of next appointment scheduled: Forward to [place] for next appt elephone Encounter - Maria Alejandra Brian - 07/22/2013 1047 EST Patient is calling with injection results, pt had 75% for 9 hours. documented in this encounter Plan of Treatment Not on filedocumented as of this encounter Visit Diagnoses Not on filedocumented in this encounter Care Teams Photography Assistant Relationship Specialty Start Date End Date Lars Denise APRN PCP - General 04/16/12 04/17/[address] [place] [address] [address] [place] [address] documented as of this encounter
--- OUTSIDE RECORDS SUMMARY | 2022-01-23 10:14 | XMS_ITS | Encounter Summary ---
:1960 Author Organization [facility] Address [address] [place] [address] Care Team Providers Name Role Phone Unavailable Primary Care Provider Unavailable Encounter Details Date Type Department Care Team Description 11/09/2010 Results Only [facility] Evans Montes MD Laboratory [facility] [address] [address] [place] [address] [phone] Social History Tobacco Use Types Packs/Day Years Used Date Never Assessed Sex Assigned at Date Recorded Not on file documented as of this encounter Plan of Treatment Not on filedocumented as of this encounter Procedures Procedure Name Priority Date/Time Associated Diagnosis Comme [facility] SURGICAL PATHOLOGY Routine 11/09/2010 0:00 EDT Re sults for this procedure are i n the results section. documented in this encounter Results SURGICAL PATHOLOGY (11/09/2010 0:00 EDT) Pathology Report: SURGICAL PATHOLOGY REPORT ? [facility]ON[facility] Reports generated via electr St[employer] interface contain original data; ? LAB however they are lacking the format of the original report. ? Caution should be taken when reading/interpreting unformatted reports. ? Name: ? CHARLES, MYRANDA ? Accession #: ? [id number] ? : ? 1960 (Age: 50) ??F ? Collec t Date: ? 11/09/2010 ? Location: ? [facility] ? R eceive Date: ? 11/11/2010 ? Provider: EVANS W ANGUS MD ? Copy to: DEJON MECH MD ? Final Pathologic Diagnosis: ? Rectum, polyp, biopsy : ? - Rectal-type mucosa with phillips rface hyperplastic changes and features suggestive ?? of mucosal prolapse. See com ment. ? Comment: ? Deeper levels have be en examined; no adenomatous epithelium is identified. (Dr. Owens)/mpl ? Document reviewed and electr onically signed by: ? LESTER OWENS MD ? Report ??Date: 11/17/2010 09 :32 ? By the signature above, the attending physician certifies that he/she has ? personally conducted a gross and/or microscopic examination of the described ? specimens and rendered or co nfirmed the above diagnosis. ? Specimen(s) Received: ? Rectal polyp ? Clinical History: ? Screening ? Gross Description: ? Received in formalin labelled Charles, Myranda and rectal polyp is a single 0.2 x 0.2 x 0.2 cm pink-barry irregular soft tissue, submitted in toto in a single cassette. (Estefany Cruz)/mpl ? End of Report ? Specimen Performing Organization Address City/State/ZIP Code Phon e Number [facility] [address] [place] [address] SERVICES [facility] [address] [place] [address] documented in this encounter Visit Diagnoses Not on filedocumented in this encounter
--- OUTSIDE RECORDS SUMMARY | 2022-01-23 10:14 | XMS_ITS | Encounter Summary ---
:1960 Author Organization [facility] Address [address] [place] [address] Care Team Providers Name Role Phone Lars Denise APRN Primary Care Provider Reason for Visit Reason Onset Date Comments Advice Only 09/23/2012 Encounter Details Date Type Department Care Team Description 09/23/2012 Telephone [facility] [place] Advice Only Ankle Program - Mary [address] [place] [address] [place] [address] Social History Tobacco Use Types Packs/Day Years Used Date Former Smoker Smokeless Tobacco: Never Used Alcohol Use Standard Drinks/Week Comments No 0 (1 standard drink = 0.6 oz pure alcoho l) Sex Assigned at Date Recorded Not on file documented as of this encounter Miscellaneous Notes Telephone Encounter - Aster Lockett - 09/23/2012 1542 EDT Myranda called today wanting to re schedule her appointment at the center for [facility] The order was put in 04/11 I advised her to call and try to re schedule the appointment but she May have to schedule an appointment with someone from Spine for a new order to be put in. Aster Lockett 09/23/2012 15:47 documented in this encounter Plan of Treatment Not on filedocumented as of this encounter Visit Diagnoses Not on filedocumented in this encounter Care Teams Entertainment Dancer Relationship Specialty Start Date End Date Lars Denise APRN PCP - General 04/16/12 04/17/[address] [place] [address] [address] [place] [address] documented as of this encounter
--- OUTSIDE RECORDS SUMMARY | 2022-01-23 10:14 | XMS_ITS | Encounter Summary ---
:1960 Author Organization [facility] Address [address] [place] [address] Care Team Providers Name Role Phone Jame Wood MD Primary Care Provider Encounter Details Date Type Department Care Team Description 12/27/2011 Results Only [facility]- Jae Walker MD [phone] [address] [place], [place] [address] (Wo rk) Social History Tobacco Use Types [...] Procedure Name Priority Date/Time Associated Diagnosis Comme [facility] SURGICAL PATHOLOGY Routine 12/27/2011 0:00 EDT Re sults for this procedure are i n the results section. documented in this encounter Results SURGICAL PATHOLOGY (12/27/2011 0:00 EDT) Pathology Report: SURGICAL PATHOLOGY REPORT BREONNA ROSE Reports generated via electronic interface contain valeri ginal data; LAB however they are lacking the format of the original re port. Caution should be taken when reading/interpreting unfo rmatted reports. Name: ? MYRANDA SOTO ? Accession #: ? [id number] ? : ? 1960 (Age: 51) ??F ? Collect Date: ? 12/27/2011 ? Location: ? [facility] ? Receive Date: ? 012 ? Provider: JAE DAMON MD Copy to: DEJON AGGARWAL MD ? Final Pathologic Diagnosis: A. ?Soft tissue of metatarsal head region , right 1st, excision: 1. ?Ganglion cyst. ??See comment. B. ?Foot, left, foreign body and exostos is, excision: 1. ?Fibroconnective tissue with suture gr anuloma. 2. ? Osseous tissue not identified. ??See comment. Comment: ? Liquor Clerk sections of (A) and (B) were rev iewed at the intradepartmental consultation conference. ??(Dr. Page or)/laura Document reviewed and electronically signed by: ROHITH ROSENBAUM MD Report ??Date: 01/01/2012 14:37 By the signature above, the attending physician certif ies that he/she has personally conducted a gross and/or microscopic examin ation of the described specimens and rendered or confirmed the above diagnosi s. Specimen(s) Received: A. ?R 1st metatarsal head ganglion (#1) B. ? L foot foreign body and exostosis (#2) Clinical History: ? Not listed Gross Description: ? Received in formalin labelled Myranda Soto and #1 is a 0.9 x 0.5 x 0.3 cm ty-white, partially dis rupted cystic structure. ??The outer surface is inked black. ??The specimen is bisected and entirely submitt ed in (A). Received in formalin labelled Myranda Soto and #2 are three irregular fragments of firm, barry-white , fibrous tissues that range from 0.8 x 0.5 x 0.2 cm to 1.1 x 0.5 x 0.2 cm. ??No definitive calcified or bony component is identified within these fragments. ??Al so received in the specimen container is a 5.3 cm in length by less than 0.1 cm in diameter light blue port ion of synthetic thread-like probable suture material. ??This structure has no adherent soft tissue. ??The fragments of t issue are entirely submitted as (B). ??No sections of the probable suture material are submitted. ??(Estefany Low ing)/kmm ?? End of Report Specimen Performing Organization Address City/State/ZIP Code Phon e Number [facility] [address] [place] [address] SERVICES [facility] [address] [place] [address] documented in this encounter Visit Diagnoses Not on filedocumented in this encounter Care Teams Manual Tester Relationship Specialty Start Date End Date Jame Wood MD PCP - General 02/08/11 04/15/[address] [place] [id number] documented as of this encounter
--- OUTSIDE RECORDS SUMMARY | 2022-01-23 10:14 | XMS_ITS | Encounter Summary ---
:1960 Author Organization [facility] Address [address] [place] [address] Care Team Providers Name Role Phone Lars Denise APRN Primary Care Provider Encounter Details Date Type Department Care Team Description 02/03/2016 Abstract [facility] Samantha Sesay MD Nephrology - S Prosp ect 1 [facility] [address] [place], [place] [address] [place] [phone] (Wo rk) Social History Tobacco Use [...] Diagnosis Comme nts SODIUM, URINE RANDOM Routine 02/01/2016 Results for this procedure are i n the results section . POTASSIUM Routine 02/01/2016 Results for thi s procedure are i n the results section . documented in this encounter Results POTASSIUM (02/01/2016) Pathologist Sig nature Potassium, External 81Comment: K mmol/L [facility] urine, urine HOSPITAL LAB [id number] Specimen Blood specimen (specimen) Performing Organization Address City/[facility]/ZIP Code Phon e Number [facility] SODIUM, URINE RANDOM (02/01/2016) Pathologist Sig nature Sodium, Ur, External 13 [facility] Specimen Urine (substance) Performing Organization Address City/[facility]/ZIP Code Phon e Number [facility] documented in this encounter Visit Diagnoses Not on filedocumented in this encounter Care Teams Live Ammunition Inspector Relationship Specialty Start Date End Date Lars Denise APRN PCP - General 04/16/12 04/17/[address] [place] [address] [address] [place] [address] documented as of this encounter
--- OUTSIDE RECORDS SUMMARY | 2022-01-23 10:14 | XMS_ITS | Encounter Summary ---
:1960 Author Organization [facility] Address [address] [place] [address] Care Team Providers Name Role Phone HowieLars Keesha CONROY Unavailable None, Provider Primary Care Provider Unavailable Encounter Details Date Type Department Care Team Description 07/15/2020 Lab Requisition [facility] Outr Resulting Lab, Pathology & Laboratory Provider [facility] [address] [place], [place] [id number] Social History Tobacco Use Types Packs/Day Years Used Date Former Smoker Smokeless Tobacco: Never Used Alcohol Use Standard Drinks/Week Comments No 0 (1 standard drink = 0.6 oz pure alcoho l) Sex Assigned at Date Recorded Not on file documented as of this encounter Plan of Treatment Not on filedocumented as of this encounter Procedures Procedure Name Priority Date/Time Associated Comments Diagnosis DO NOT ORDER Today 07/15/2020 11:00 Results for this STANDALONE - [facility]OAD EST procedure are in COVID TEST the results section. COVID-19 TESTING Routine 07/15/2020 11:00 Results for this EST procedure are i n the results section. documented in this encounter Results DO NOT ORDER STANDALONE - BROAD COVID TEST (07/15/2020 11:00 EST) COVID-19 rt-PCR NEGATIVE Negative [facility] Result Comment: LABORATORY 2019-novel Coronavirus (2019 -nCoV) not detected by the qRT-PCR assay. Consider testing for other respiratory viruses or re-collecting for 2019-nCoV testing. Note: Optimum timing for peak viral levels du ring infections caused by 20 -nCoV have not been determined. Collection of multiple specimens from the same patient may be necessary to detect the virus. Limitations Positive results are indicat bouchra of active infection with SARS-CoV-2 but do not rule out bacterial infection or co-infection with other viruses. The agent detected may not be the definite cause of diseas e. In addition, detection of viral RNA may not indicate the presence of infectious virus or that SARS-CoV-2 is the causative agent for clinical symptoms. Negative results do not prec lude SARS-CoV-2 infection and should not be used as the sole basis for patient management decisions. Negative results must be combined with clinical observations, patient his tory, and epidemiological in formation. False negative results may also occur if amplification inhibitors are present in the specimen or if inadequate numbers of organisms are present in the specimen. Op timum specimen types and maral ing for peak viral levels during infections caused by SARS-CoV-2 have not been fully determined. Collection of multiple specimens (types and time points) from the same patient may be necessary to detect the virus. The test was validated for u se with upper respiratory specimens obtained via nasopharyngeal or oropharyngeal swabs in VTM, UTM, M4, M5, M6, saline, and MTM media. The performance of this test has not be en established for other spe cimens. Specimens collected using other FDA recommended Specimen Collection Materials listed in the FDA COVID-19 [employer] communication (September 24, 2019) are pr ocessed with the caveat that they were not all validated for use with this test and the result must be interpreted in this context. Furthermore, a false negative results may occur if a specimen is improperly collected, transported or handled. If the virus mutates in the RT-PCR target region, SARS-CoV-2 may not be detected or may be detected less predictably. Inhibitors or other types of interference may produce a false negative result. An interference study evaluating the effect of common cold medications was not performed. This test is not FDA-cleared but its performance characteristics were established by our CLIA-certified, CAP-accredited, high complexity laboratory in accordance with CLIA regulations, College of [employer]ologists (CAP) guidel fernanda (Sep 17, 2019), and FDA guidance (Aug 29, 2019). This test is only for use un wendy the Food and Drug Administration's Emergency Use Authorization. Specimen Swab - Entire nasopharynx (body structur e) Performing Organization Address City/State/ZIP Code Phon e Number [facility] [place] COVID-19 TESTING (07/15/2020 11:00 EST) COVID-19 rt-PCR NEGATIVE Negative [facility] Result Comment: LABORATORY 2019-novel Coronavirus (2019 -nCoV) not detected by the qRT-PCR assay. Consider testing for other respiratory viruses or re-collecting for 2019-nCoV testing. Note: Optimum timing for peak viral levels du ring infections caused by 20 -nCoV have not been determined. Collection of multiple specimens from the same patient may be necessary to detect the virus. Limitations Positive results are indicat bouchra of active infection with SARS-CoV-2 but do not rule out bacterial infection or co-infection with other viruses. The agent detected may not be the definite cause of diseas e. In addition, detection of viral RNA may not indicate the presence of infectious virus or that SARS-CoV-2 is the causative agent for clinical symptoms. Negative results do not prec lude SARS-CoV-2 infection and should not be used as the sole basis for patient management decisions. Negative results must be combined with clinical observations, patient his tory, and epidemiological in formation. False negative results may also occur if amplification inhibitors are present in the specimen or if inadequate numbers of organisms are present in the specimen. Op timum specimen types and maral ing for peak viral levels during infections caused by SARS-CoV-2 have not been fully determined. Collection of multiple specimens (types and time points) from the same patient may be necessary to detect the virus. The test was validated for [facility] with upper respiratory specimens obtained via nasopharyngeal or oropharyngeal swabs in VTM, UTM, M4, M5, M6, saline, and MTM media. The performance of this test has not be en established for other [facility] cimens. Specimens collected using other FDA recommended Specimen Collection Materials listed in the FDA COVID-19 [employer] communication (September 24, 2019) are pr ocessed with the caveat that they were not all validated for use with this test and the result must be interpreted in this context. Furthermore, a false negative results may occur if a specimen is improperly collected, transported or handled. If the virus mutates in the RT-PCR target region, SARS-CoV-2 may not be detected or may be detected less predictably. Inhibitors or other types of interference may produce a false negative result. An interference study evaluating the effect of common cold medications was not performed. This test is not FDA-cleared but its performance characteristics were established by our CLIA-certified, CAP-accredited, high complexity laboratory in accordance with CLIA regulations, College of [employer] an Pathologists (CAP) guidel fernanda (Sep 17, 2019), and FDA guidance (Aug 29, 2019). This test is only for use un wendy the Food and Drug Administration's Emergency Use Authorization. Performing Lab [facility] LABORATORY SERVICES Specimen Swab Performing Organization Address City/State/[facility] Code Phon e Number [facility] [address] [place] [address] SERVICES [facility] [place], [place] documented in this encounter Visit Diagnoses Not on filedocumented in this encounter Care Teams Trophy Assembler Relationship Specialty Start Date End Date None, Provider PCP - General 12/09/17 Lars Denise APRN 04/18/[address] [place] [address] [address] [place], [place] [phone] documented as of this encounter
--- OUTSIDE RECORDS SUMMARY | 2022-01-23 10:14 | XMS_ITS | Encounter Summary ---
:1960 Author Organization [facility] Address [address] [place] [address] Care Team Providers Name Role Phone Artemio Munoz PASSENGER TIRE BUILDER Unavailable None, Provider Primary Care Provider Unavailable Encounter Details Date Type Department Care Team Description 03/11/2018 Results Only [facility] Artemio Munoz, PASSENGER TIRE BUILDER [phone] [place] [address] [address] [place], [place] [address] (Wo rk) Social History Tobacco Use Types [...] Name Priority Date/Time Associated Diagnosis Comme [facility] SURGICAL PATHOLOGY Routine 03/11/2018 9:01 EDT Re sults for this procedure are i n the results section. documented in this encounter Results SURGICAL PATHOLOGY (03/11/2018 9:01 EDT) Pathology SURGICAL PATHOLOGY REPORT [facility] MEDICAL Report: Reports generated via electronic interface conta in original data; CENTER LABORATORY however they are lacking the format of the original re port. SERVICES Caution should be taken when reading/interpreting unfo rmatted reports. Name: ? MYRANDA SOTO ? Accession #: ? [id number] ? : ? 1960 (Age: 58 ) ??F ? Collect Date: ? 03/11/2018 ? Location: ? [facility] ? Receive Date: ? 03/12/20 18 ? Provider: ARTEMIO MUNOZ NP Copy to: ? Final Pathologic Diagnosis: SKIN OF LEG, RIGHT LOWER, PUNCH BIOPSY: - Epidermal hyperplasia with ulceration and secondary impetiginization. See microscopic and comment. Comment: The biopsy predominantly shows features of excoriation . At one edge, the epidermis is detached from the underlying dermis with overlying crust and secondary impetiginization. There are un derlying reparative changes consistent with ulcer bed. ??The intact epidermis d oes not show appreciable spongiosis to suggest an eczematous dermat itis. Clinical correlation is recommended. This case was shown in intradepartmental consultation. (Dr. Arturo razo)/jds ?? Microscopic Description: Sections consist of a punch biopsy of skin. At one edg e, the epidermis is from the underlying dermis with overly ing serum crust and secondary impetiginization. Underlying this is granulation tissu e with aggregates of neutrophils, as well as patchy mixed lymphomononuclear inflammation. Deeper levels have been examined. (Dr. Fields)/jds Document reviewed and electronically signed by: MARTINEZ FIELDS MD Report ??Date: 03/14/2018 13:37 By the signature above, the attending physician certif ies that he/she has personally conducted a gross and/or microscopic examin ation of the described specimens and rendered or confirmed the above diagnosi s. Specimen(s) Received: Right lower leg Clinical History: Dermatitis; spongiotic dermatitis Gross Description: ? Received in formalin labelled with proper patient identification (initials K, S) and not otherwise spec ified is a punch biopsy of barry-white skin (0.3 cm in diameter and 0.2 cm in thickness). Submitted intact in 1. Carrillo Carney 03/13/2018 9:48 AM End of Report Specimen Performing Organization Address City/State/ZIP Code Phon e Number [facility] [address] [place] [address] SERVICES documented in this encounter Visit Diagnoses Not on filedocumented in this encounter Care Teams Meat Boner And Slicer Relationship Specialty Start Date End Date None, Provider PCP - General 12/09/17 Artemio Munoz, RAFIQ 04/18/[address] [place] [address] [address] [place], [place] [id number] documented as of this encounter
--- OUTSIDE RECORDS SUMMARY | 2022-01-23 10:14 | XMS_ITS | Encounter Summary ---
:1960 Author Organization [facility] Address [address] [place] [address] Care Team Providers Name Role Phone HowieLars Keesha AUTOMOTIVE PARTS PERSON Unavailable None, Provider Primary Care Provider Unavailable Encounter Details Date Type Department Care Team Description 07/15/2021 Lab Requisition [facility] Outr Resulting Lab, Pathology & Laboratory Provider [facility] [address] [place] [address] Social History Tobacco Use Types Packs/Day Years Used Date Former Smoker Smokeless Tobacco: Never Used Alcohol Use Standard Drinks/Week Comments No 0 (1 standard drink = 0.6 oz pure alcoho l) Sex Assigned at Date Recorded Not on file documented as of this encounter Plan of Treatment Not on filedocumented as of this encounter Procedures Procedure Name Priority Date/Time Associated Diagnosis Comme nts COVID-19 TEST [facility] Today 07/14/2021 15:30 LAB PCR EST COVID-19 TESTING Routine 07/14/2021 15:30 Results for this EST procedure are i n the results section. documented in this encounter Results COVID-19 TEST [facility] LAB PCR (07/14/2021 15:30 EST) Specimen Swab Performing Organization Address City/State/ZIP Code Phon e Number [facility] [address] [place] [address] SERVICES COVID-19 TESTING (07/14/2021 15:30 EST) COVID-19 rt-PCR Negative Negative [facility] MEDICAL Result Comment: CENTER LABORATORY This test has not been FDA c leared or approved. This test has been authorized by FDA under an EUA for use by authorized laboratories. This test has been authorized only for detection of nucleic acid fro SERVICES m 2019-nCoV, not for any oth er viruses or pathogens. This test is only authorized for the duration of the declaration that circumstances exist justifying the authorization of emergency use of in vitro d iagnostic tests for detectio n and/or diagnosis of 2019-nCoV under section 564(b)(1) of Act, 21 U.S.C ?? 360bbb-3(b) (1), unless the authorization is terminated or revoked sooner. Negative results do not prec lude 2019-nCoV infection and should not be used as the sole basis for treatment or other patient management decisions. Negative results must be combined with clinical observa tions, patient history, and epidemiological informatio n. This test was developed and its performance characteristics determined by [facility]. It has not been cleared or approved by the US Food and Drug Administration. FDA does not require this test to go through premarket FDA review. This t est is used for clinical purposes. It should not be regarded as investigational or for research. This laboratory is certified under the Clinical Laboratory Improvement Amendm ents (CLIA) as qualified to perform high complexity clinical laboratory testing. This test is based on the CD C COVID-19 Emergency Use Authorization (EUA) assay, with minor modification as defined by the FDA Performed on the Clinical Inko 7 Pro RT-PCR System. Performing Lab [facility] Lab [facility] SERVICES Specimen Swab Performing Organization Address City/State/ZIP Code Phon e Number [facility] [address] [place] [address] SERVICES documented in this encounter Visit Diagnoses Not on filedocumented in this encounter Care Teams Aluminum Sheet Cutter Relationship Specialty Start Date End Date None, Provider PCP - General 12/09/17 Lars Denise, AUTOMOTIVE PARTS PERSON 04/18/[address] [place] [address] [address] [place], [place] [phone] documented as of this encounter
--- OUTSIDE RECORDS SUMMARY | 2022-01-23 10:14 | XMS_ITS | Encounter Summary ---
:1960 Author Organization [facility] Address [address] [place] [address] Care Team Providers Name Role Phone Lars Denise APRN Primary Care Provider Reason for Visit Reason Comments Back Pain low back pain Encounter Details Date Type Department Care Team Description 09/02/2013 Office Visit [facility] - Panda Gama Back pain (Primary [facility] E, DO Dx) [facility] [address] Interventional Pain [place] [address] [address] [phone] [place] [phone] Social History Tobacco Use Types Packs/Day Years Used Date Former Smoker Smokeless Tobacco: Never Used Alcohol Use Standard Drinks/Week Comments No 0 (1 standard drink = 0.6 oz pure alcoho l) Sex Assigned at Date Recorded Not on file documented as of this encounter Last Filed Vital Signs Vital Sign Reading Time Taken Comments Blood Pressure 141/80 09/02/2013 0913 EST Pulse 71 09/02/2013 0913 EST Temperature 35.9 ??C (96.6 ??F) 09/02/2013 0913 EST Respiratory Rate 16 09/02/2013 0913 EST Oxygen Saturation - - Inhaled Oxygen Concentration - - Weight 72.6 kg (160 lb) 09/02/2013 09 EST Height 172.7 cm (5' 8) 09/02/2013 09 EST Body Mass Index 24.33 09/02/2013 0913 EST documented in this encounter Discharge Diagnoses Diagnosis 724.8 OTHER BACK SYMPTOMS[ICD-9-CM] 724.2 LUMBAGO[ICD-9-CM] documented in this encounter Progress Notes Panda Gama DO - 09/02/2013 0956 EST [facility] Follow Up Note-no chart office visit Patient Name: Myranda Soto : 1960 Date of Service: 09/02/2013 Interval History: Ms. Soto presents for radiofrequency ablation, we had intended on having her appointment further in the future but she may have been rescheduled to advance the appointment, at her request. She was instructed not to return for the elective procedure untill the soft tissue issue had resolved. Regardless she initially reported only being off of her antibiotic 2 days which is not consistent with our guidelines with interventional procedures. We attempted to explain our concerns at the last visit with pursuing an elective interventional procedure. It is unclear from her story if this is a burn, spider bite, or some other issue. On a positive note it does appear to be resolving though still of concern. Unfortunately today with a changing story during this visit we were not confident about the duration of her antibiotics, or associated symptoms. I did have a nurse present for the examination of the soft tissue as well as our discussion. Physical Examination: Vital signs: Patient Vitals for the past 24 hrs: BP Temp Temp src Pulse Resp Height Weight 09/02/13 0913 141/80 mmHg 35.9 ??C (96.6 ??F) Tympanic 71 16 172.7 cm (68) 72.576 kg (160 lb) General:awake, alert, anxious, and somewhat angry Resolving soft tissue issue, upper buttock. Currently it is scabbed over with some redness remaining. Assessment: Resolving soft tissue issue/infection Some questions on patient's reported history Completed antibiotics in past few days Anxiety-history Significant procedure anxiety Encounter Diagnosis Name Primary? Back pain Yes Plan: Can reschedule the patient for repeat attempt at radiofrequency ablation, can offer a nursing visit prior if patient wants confirmation that we can proceed with procedure Please see previous note Followup primary care if soft tissue issue does not completely resolve Ginna Harrell RN - 09/02/2013 0918 EST [facility] Rooming Note Does patient have a Temperature Control Inspector? yes Is patient NPO? (Solids since midnight & liquids for 4 hrs) n/a Blood Thinners: Is patient on Blood Thinners? no If yes, taking? If stopped, who authorized stopping? Related comments: Infections: Any recent infections, fever of illnesses? no If on antibiotics, is it 7-10 days past the date of completion of antibiotics? no : (for females of child-bearing age) no Is there a chance current ? Other: documented in this encounter Procedure Notes Panda Gama DO - 09/02/2013 1008 EST Procedure: Procedures documented in this encounter Plan of Treatment Not on filedocumented as of this encounter Visit Diagnoses Diagnosis Back pain - Primary Backache, unspecified documented in this encounter Care Teams News Agent Relationship Specialty Start Date End Date Lars Denise APRN PCP - General 04/16/12 04/17/[address] [place] [address] [address] [place] [address] documented as of this encounter
--- OUTSIDE RECORDS SUMMARY | 2022-01-23 10:14 | XMS_ITS | Encounter Summary ---
:1960 [address] [facility] Address [address] [place] [address] Care Team Providers Name Role Phone Lars Denise APRN Primary Care Provider Reason for Visit Reason Onset Date Comments Results 03/16/2016 Encounter Details Date Type Department Care Team Description 03/16/2016 Telephone [facility] Radha Sesay , Results Nephrology - S Prosp ect MD [address] [address] Rehab, [place] [phone] (Wo rk) Social History Tobacco Use Types Packs/Day Years Used Date Former Smoker Smokeless Tobacco: Never Used Alcohol Use Standard Drinks/Week Comments No 0 (1 standard drink = 0.6 oz pure alcoho l) Sex Assigned at Date Recorded Not on file documented as of this encounter Miscellaneous Notes Telephone Encounter - Shadia Duff RN - 03/19/[address] Sesay notified that pt has called back. (e-mail sent). done elephone Encounter - Radha Sesay MD - 03/16/2016 1842 EDT Called to discuss lab results. Gave mother the phone number for office. Also advised for patient to try to drink less water about 1 L per day and to repeat blood work early next week. documented in this encounter Plan of Treatment Not on filedocumented as of this encounter Visit Diagnoses Not on filedocumented in this encounter Care Teams Pantomimist Relationship Specialty Start Date End Date Lars Denise APRN PCP - General 04/16/12 04/17/[address] [place] [address] [address] [place] [address] documented as of this encounter
--- OUTSIDE RECORDS SUMMARY | 2022-01-23 10:14 | XMS_ITS | Encounter Summary ---
:1960 Author Organization [facility] Address [address] [place] [address] Care Team Providers Name Role Phone Lars Denise APRN Primary Care Provider Reason for Referral Consult (Routine/Next Available) - Closed Specialty Diagnoses / Procedures Referred By Contact Refer red To Contact Pain Medicine Diagnoses Low back pain Cat Gross PA-C [facility] [place] [address], [place] [phone] Phone: Fax: Referral ID Status Reason Start Date Expiration Date Visits V isits Requested Authorized [id number] Closed Specialty 02/27/2013 1 1 Services Required Question Answer Reason for Request: lumbar MBB/RFA Reason for Visit Reason Comments Back Pain Encounter Details Date Type Department Care Team Description 02/27/[address] [facility] Cat Gross ba ck pain (Primary Dx); Spine Program - MART[facility]N Finn Lumbar radic [place] [address] Social History Tobacco Use Types Packs/Day Years [...] - - Weight 72.6 kg (160 lb) 02/27/2013 1428 EDT Height 172.7 cm (5' 8) 02/27/2013 1428 EDT Body Mass Index 24.33 02/27/2013 1428 EDT documented in this encounter Progress Notes Cat Gross PA - 02/27/2013 1527 EDT SUBJECTIVE: Myranda is a 53-year-old female who returns for followup with continued constant lower back pain. She describes it as an aching and soreness. Nothing in particular makes the pain worse as itis always very painful. Ninety percent of the time it is located in the lower back and then 10% of the time she experiences pain into the right gluteus and then the right lateral thigh. She had L4-5, L5-S1 facet joint injections in September 2012, with 20% relief from these injections. She currently ratesher pain a 6/10. She currently takes trazodone. She is not currently taking any pain relievers. In the past, she has tried chiropractic manipulation, TENS units, and has done physical therapy without si gnificant relief. OBJECTIVE: Lumbar spine MRI without contrast 02/17/2013 [facility], moderate disk desiccation at L2-3, no foraminal protrusion or significant bulging, no central or foraminal stenosis. At L3-4, moderate desiccation without disk protrusion, foraminal or central stenosis. Prominent desiccation at L4-5 with mild bulging with disk osteophyte complexes bulging into both foramina but without evidence of spinal or foraminal stenosis. Moderate mixed Modic change at L3-4 with prominent type 1 Modic change at L4-5. ASSESSMENT/PLAN: A 53-year-old female with chronic mechanical lower back pain with multilevel disk degeneration. Her most recent MRI is relatively unchanged and I do not see any gross nerve root compression. We discussed treatment options including further facet joint injections, medial branch blocks with radiofrequency ablation, and surgical options. Unfortunately, I do not see an easy solution in treating her lower back pain. Iit is likely that she has multiple disks that are causing her pain. Therefore, I would recommend lumbar medial branch blocks with radiofrequency ablation at this time and she would like to be referred to the pain center for this. She will follow up as needed and may perform all activities as tolerated. I spent a total of 15 minutes in face to face time with this patient today and 15 minutes of that time was spent counseling the patient on the risks and treatment options for low back pain, lumbar radiculopathy. documented in this encounter Plan of Treatment Scheduled Referrals Name Type Priority Associated Diagnoses Order S chetim AMB CONSULT PAIN Outpatient Referral Routine Low back pain Ord ered: CLINIC 02/27/2013 documented as of this encounter Visit Diagnoses Diagnosis Low back pain - Primary Lumbago Lumbar radiculopathy Thoracic or lumbosacral neuritis or radi culitis, unspecified documented in this encounter Care Teams Hog Ribber Relationship Specialty Start Date End Date Lars Denise APRN PCP - General 04/16/12 04/17/[address] [place] [address] [address] [place] [address] documented as of this encounter
--- OUTSIDE RECORDS SUMMARY | 2022-01-23 10:14 | XMS_ITS | Encounter Summary ---
:1960 Author Organization [facility] Address [address] [place] [address] Care Team Providers Name Role Phone Unavailable Primary Care Provider Unavailable Encounter Details Date Type Department Care Team Description 11/09/2010 Hospital Encounter [facility] - Bryce Holder [place] MD [address] [place] [address] [place], [place] [phone] (Wo rk) Social History Tobacco Use Types Packs/Day Years Used Date Never Assessed Sex Assigned at Date Recorded Not on file documented as of this encounter Discharge Disposition Disposition Code Departure Means Destination Home or Self Care documented in this encounter Plan of Treatment Pending Results Name Type Priority Associated Diagnoses Date/Ti me OUTSIDE CD - MRI NEURO Imaging 08/28 18:49 EST OUTSIDE CD - MRI NEURO Imaging 02/27 15:49 EDT Scheduled Orders Name Type Priority Associated Diagnoses Order S chedule OUTSIDE CD - MRI NEURO Imaging ONCE for 1 Occurrences starting 2011 OUTSIDE CD - MRI NEURO Imaging ONCE for 1 Occurrences starting 2012 documented as of this encounter Visit Diagnoses Not on filedocumented in this encounter
--- OUTSIDE RECORDS SUMMARY | 2022-01-23 10:14 | XMS_ITS | Encounter Summary ---
:1960 Author Organization [facility] Address [address] [place] [address] Care Team Providers Name Role Phone Lars Denise APRN Primary Care Provider Reason for Visit Reason Onset Date Comments Appointment Related 08/21/2013 Encounter Details Date Type Department Care Team Description 08/21/2013 Telephone [facility] - Panda Gamao intment Related [facility] [address] Interventional [place] [address] [address] [phone] [place] [phone] Social History Tobacco Use Types Packs/Day Years Used Date Former Smoker Smokeless Tobacco: Never Used Alcohol Use Standard Drinks/Week Comments No 0 (1 standard drink = 0.6 oz pure alcoho l) Sex Assigned at Date Recorded Not on file documented as of this encounter Miscellaneous Notes Telephone Encounter - Brooklyn Garcia RN - 08/21/2013 1141 EST Pt. Asking about anesthesia for her RFA on Saturday. She is worried about hitting a nerve. I explainedthe procedure to her, that we needed her to be awake and cooperative about what she felt during the procedure. She is hopeful Dr. Gama was going to be doing it. I assured her she was on his schedule. Telephone Encounter - Lesly Hanson - 08/21/2013 1113 EST Patient calling to inquire about anesthesia for her appt on Saturday. Please call to clarify with her. documented in this encounter Plan of Treatment Not on filedocumented as of this encounter Visit Diagnoses Not on filedocumented in this encounter Care Teams Nurse Private Duty Relationship Specialty Start Date End Date Lars Denise APRN PCP - General 04/16/12 04/17/[address] [place] [address] [address] [place] [address] documented as of this encounter
--- OUTSIDE RECORDS SUMMARY | 2022-01-23 10:14 | XMS_ITS | Encounter Summary ---
:1960 Author Organization [facility] Address [address] [place] [address] Care Team Providers Name Role Phone Lars Denise APRN Primary Care Provider Reason for Visit Reason Comments Back Pain lower Encounter Details Date Type Department Care Team Description 10/16/2012 Office Visit [facility] - Panda Gama Back pain (Primary [facility] E, DO Dx) [facility] [address] Interventional Pain [place] [address] [address] [phone] [place] [address] Social History Tobacco Use Types Packs/Day Years Used Date Former Smoker Smokeless Tobacco: Never Used Alcohol Use Standard Drinks/Week Comments No 0 (1 standard drink = 0.6 oz pure alcoho l) Sex Assigned at Date Recorded Not on file documented as of this encounter Last Filed Vital Signs Vital Sign Reading Time Taken Comments Blood Pressure 139/81 10/16/2012 1141 EDT Pulse 63 10/16/2012 1141 EDT Temperature 35.6 ??C (96.1 ??F) 10/16/2012 1052 EDT Respiratory Rate 16 10/16/2012 1141 EDT Oxygen Saturation - - Inhaled Oxygen Concentration - - Weight 72.6 kg (160 lb) 10/16/2012 1052 EDT Height 172.7 cm (5' 8) 10/16/2012 1052 EDT Body Mass Index 24.33 10/16/2012 1052 EDT documented in this encounter Patient Instructions Patient InstructionsAddy Arreola RN - 10/16/2012 11:38 EDT [facility] [address] [address] Patient Instructions You have had your bilateral lumbar Facet Steroid Injection. The purpose of this procedure has been to place medication which may help relieve your pain. Steroid may be used to decrease the swelling andnerve irritation which may be causing your pain. The following information should help you over the next few days regarding what you may expect. Today please stay busy/active doing things that would normally cause you pain. Keep track of your hours of relief and your percentage of relief today (0 to 100 , 0 = no relief and 100% = total relief). DO NOT drive a car for the remainder of the day. If you feel sore where the needle(s) entered for the block or develop a flare- up of pain over the next few days, please use ice on the area. You may leave the ice on for up to 20 minutes at a time. Donot use heat, as this may cause swelling. As long as your primary doctor has indicated no restrictions, you may take a mild pain medicine, such as acetaminophen (Tylenol), ibuprofen (Advil, Nuprin, Motrin IB, etc.) or aspirin, if needed. The steroid injection usually takes a few days to become effective. On average, you may notice somerelief in 3 -5 days. However, it may take up to 10 ??? 14 days to know whether the injection was helpful. If the block causes numbness/weakness, it should wear off within a few hours. If the area that the needle(s) were inserted becomes hot, red, swollen, or increasingly tender, or if you develop a fever (100.5 or greater) or chills along with these symptoms, please call our officeimmediately. If you develop increasingly severe neck/back pain, continued numbness or weakness of the arms/legs or changes in your bladder or bowel functions, please call our office at once. Today please stay busy/active doing things that would normally cause you pain. Keep track of your hours of relief and your percentage of relief today (0 to 100 , 0 = no relief and 100% = total relief).Separate the pressure and tightness that we caused you from your regular pain and see what your relief is. Call us back tomorrow with this information. Procedure end time:___11:40 Pain relief start time____11:45 Returned to baseline pain Hours of relief Percentage of relief 0-100 (0 = no relief, 100 = total relief) Instructions for follow-up If you have any questions about your block, please call Patient Education Topic: Method: Handout and Verbal Taught to: Patient Barriers: None Outcomes: independent and verbalized understanding Signature:ADDY ARREOLA RN documented in this encounter Discharge Disposition Disposition Code Departure Means Destination Auto Discharge documented in this encounter Progress Notes Panda Gama DO - 10/16/2012 1222 EDT Patient Name: Myranda Soto : 1960 Date of Service: 10/16/2012 Marine Rigger: Panda Gama DO Procedure: Lumbar facet joint injection Interval History: Ms. Soto presents at the request of Cat Gross for evaluation and treatment ofher chronic back pain. The pain is primarily localized to the bilateral low back and does not radiate distally. This pain has been present for 7 year(s) and is described as sharp, dull, throbbing, aching and shooting in character. The average pain intensity is 8/10 and is aggravated by lifting and bending. Medications alleviates the pain. Associated symptoms include numbness and weakness at times. The patient???s chronic pain has negatively impacted level of function, resulting in a lower generalactivity level, more difficulty performing normal work and difficulty performing the basic activities of daily living. Therapeutic measures that have helped include-medications specifically Percocet(but not all the time) For complete review of previous treatments-please see notes orthospine Diagnostic workup includes -lumbar MRI, orthospine consultation-please see notes and requested procedures Allergies: Allergies Allergen Reactions ??? Septra (Sulfamethoprim Ds) Rash and Fever Review of Systems: GENERAL: no complaints CARDIOVASCULAR: no complaints RESPIRATORY: no complaints GASTROINTESTINAL: no complaints GENITOURINARY: no complaints MUSCULOSKELETAL: Joint pain, muscle pain, restricted movements NEUROLOGICAL: Numbness, weakness ENDOCRINE: no complaints HEMATOLOGICAL: negative for easy bruising/bleeding bleeding disorder coumadin anti-platelet meds Physical Examination: Vital signs: BP 139/81 Pulse 63 Temp(Src) 35.6 ??C (96.1 ??F) (Tympanic) Resp 16 Ht 172.7 cm(68) Wt 72.576 kg (160 lb) BMI 24.33 kg/m2 General:awake, alert, cooperative, flat affect HEAD: normocephalic and atraumatic Neck: supple Cardiorespiratory: Unlabored breathing Extremities: no clubbing, cyanosis, or edema and SLT positive bilateral Skin: clear, warm, dry and intact and no rashes, bruises or petechiae noted Musculoskeletal: Gait: Mildly antalgic, giveaway weakness noted bilaterally Unable to heel or toe walk Significant pain with extension rotation of lumbar spine Lumbar Spine: paraspinal tenderness at the bilateral Assessment: Encounter Diagnosis Name Primary? Back pain Yes 716.98 Uspecified arthropathy: Use for facet arthropathy and 721.30 Lumbosacral spondylosis without myelopathy Some procedure anxiety Plan: Proceed with diagnostic and therapeutic facet joint injections at bilateral L4- L5 and L5-S1 Follow up: as needed for further evaluation may also consider lumbar epidural steroid injection-see notes from orthospine, Procedure: The patient gave informed written consent to proceed with this procedure following a detailed discussion of the risks and benefits associated with lumbar facet joint injection. The patient was then placed in the prone position, the skin over the lumbosacral area was prepped with chlorhexadine, and thesite was draped with sterile towels. Strict sterile technique was maintained throughout the procedure. A rosas moment was performed with full staff present to identify the patient, verify the procedure being performed, and review allergies. Flouroscopy was used to identify the lumbar anatomy and align the facet joints. The skin and subcutaneous tissue over the bilateral L4-L5 and L5-S1 facet joints was anesthetized with 2% lidocaine. A 22guage 3.5 inch spinal needle was inserted under fluoroscopic guidance using coaxial technique into each of the aforementioned facet joints. After negative aspiration, each joint was injected with .75 mls 0.25% Bupivacaine and 20 mg Depo-Medrol. There were no paresthesias during needle placement and aspiration was negative at all times. The patient tolerated the procedure well, there were no apparent complications, and she was discharged in stable condition. Written and verbal discharge instructions were reviewed with the patient prior to discharge. Nitza Melgar - 10/16/2012 1054 EDT [facility] Rooming Note Does patient have a Supplier Quality? yes Is patient NPO? (Solids since midnight [...] current ? Other: documented in this encounter Miscellaneous Notes Scanned Note-Null - BRICKMASON APPRENTICE, SCAN 2 - 10/17/2012 1319 EDT documented in this encounter Plan of Treatment Not on filedocumented as of this encounter Visit Diagnoses Diagnosis Back pain - Primary Backache, unspecified documented in this encounter Care Teams Sofa Inspector Relationship Specialty Start Date End Date Lars Denise APRN PCP - General 04/16/12 04/17/[address] [place] [address] [address] [place] [address] documented as of this encounter
--- OUTSIDE RECORDS SUMMARY | 2022-01-23 10:14 | XMS_ITS | Encounter Summary ---
:1960 Author Organization [facility] Address [address] [place] [address] Care Team Providers Name Role Phone Lars Denise APRN Unavailable None, Provider Primary Care Provider Unavailable Reason for Visit Reason Comments Rash lower legs, upper back, head and neck: present 3-4 months. intermittent burning. Consult (Routine/Next Available) - Authorization Not Required Specialty Diagnoses / Procedures Referred By Contact Refer red To Contact Dermatology Diagnoses Rash and nonspecific skin eruption Santhosh Velázquez, Wp5 Dermatology PA-C [address] [place] [address] Phone: [facility] [address] [place] [address] Referral ID Status Reason Start Expiration Visits Visits Date Date Requested Authorized [id number] Authorization Specialty 1 1 Not Required Services 8 Required Encounter Details Date Type Department Care Team Description 12/30/2017 Office Visit [facility] Devante Falcon ph, MD [address] [facility], [address] [place] [address] Rash (Primary Dx) Dermatology - [facility] Sathish Briggs MD [address] [place] [address] [address] Social History Tobacco Use Types Packs/Day Years Used Date Former Smoker Smokeless Tobacco: Never Used Alcohol Use Standard Drinks/Week Comments No 0 (1 standard drink = 0.6 oz pure alcoho l) Sex Assigned at Date Recorded Not on file documented as of this encounter Discharge Diagnoses Diagnosis R21 Rash and other nonspecific skin erup tion-R21[ICD-10-CM] documented in this encounter Ordered Prescriptions Prescription Sig Dispensed Refills Start Date End Date mupirocin (BACTROBAN) 2 % Apply topically to 30 g 3 ointmentIndications: Rash affected area 2 times daily. documented in this encounter Discharge Disposition Disposition Code Departure Means Destination Auto Discharge documented in this encounter Progress Notes Sathish Briggs MD - 12/30/2017 0890 EDT Dermatology Outpatient Visit Note Chief Complaint Patient presents with ??? Rash lower legs, upper back, head and neck: present 3-4 months. intermittent burning. Dermatologic History: - None Last Dermatology office visit: new patient SUBJECTIVE Ms. Soto is a 57 y.o. female who presents for new evaluation and treatment for rash and sores. Patient has had a rash on her extremities, back and scalp for the past several months. She states that she does not tend to pick at her skin. Has tried hydrocortisone cream and anti-fungals OTC with no improvement. She has been trying some over the counter herbs that seem to be helping. Otherwise,patient denies any spots that are changing, bleeding, itching, painful. Patient is most bothered by the worms in her stool. She has a stool sample today that she would like to have tested but she forgot the order at home. She has not been seen by GI or ID and would like to be evaluated by them. For full Medical, Surgical, Family, and Social histories, please see the History section of this encounter in the electronic chart which I have personally reviewed. For Review of Systems, Medications and Allergies, please see those sections of this encounter in theelectronic chart which I have also reviewed. She has a current medication list which includes the following prescription(s): carvedilol, epinephrine hcl (pf), fluoxetine, ibuprofen, multivitamin,ther and minerals, oxycodone-acetaminophen, pregabalin, trazodone, triamcinolone, and valsartan. She is allergic to septra [sulfamethoprim ds] and sulfa (sulfonamide antibiotics). OBJECTIVE VS: There were no vitals taken for this visit. Ms. Soto is healthy female sitting on the examination table with a normal affect. She is alert and oriented to person, place and time. She has Naidu type II skin. Cutaneous full body examination including the hair, scalp, face, eyelids, lips, neck, chest, back, abdomen, all four extremities, hands, feet, digits and nails was performed.The examination was normal with the addition of the following comments: There were no lesions suspicious for malignancy. - Bilateral upper/lower extremities, scalp and upper back: several excoriated erythematous papules/plaques at various stages of healing ASSESSMENT and PLAN 1. Prurigo nodularis: improving - Recommend limiting manipulation to areas - Recommend mupirocin ointment BID to open areas to prevent infection - Can consider addition or risperidone or olanzapine in the future, if (sensation of parasitic infestation in the absence of demonstrated organism) symptoms persist - Patient feels skin is improving with herbs she is taking - PRT PRN She will f/u as planned or in the interim should problems arise. Sathish Briggs MD 12/30/2017 15:37 Attestation Statement: I saw and examined the patient with the resident/fellow. I agree with the findings and plan of care documented in the resident's/fellow's note. Froilan Falcon MD Cassidy Cobb - 12/30/2017 8924 EDT Review of Systems Constitutional: Negative for fatigue, fever and unexpected weight change. HENT: Negative for mouth sores. Eyes: Negative for pain. Respiratory: Negative for cough and shortness of breath. Cardiovascular: Negative for chest pain and palpitations. Gastrointestinal: Positive for abdominal pain and blood in stool. Negative for constipation, diarrhea, nausea and vomiting. Genitourinary: Negative for dysuria, frequency and hematuria. Musculoskeletal: Negative for myalgias, joint swelling, arthralgias and muscle stiffness in the morning. Skin: Positive for rash. Neurological: Positive for headaches. Negative for numbness. Endo/Heme/Allergies: Does not bruise/bleed easily. Psychiatric/Behavioral: Negative for sleep disturbance. The patient is not nervous/anxious. Cassidy Lovell 12/30/2017 15:18 documented in this encounter Plan of Treatment Not on filedocumented as of this encounter Visit Diagnoses Diagnosis Rash - Primary Rash and other nonspecific skin eruption documented in this encounter Care Teams County Manager Relationship Specialty Start Date End Date None, Provider PCP - General 12/09/17 Lars Denise, FOREST PATHOLOGY ASSOCIATE PROFESSOR 04/18/[address] [place] [address] [address] [place] [address] documented as of this encounter
--- OUTSIDE RECORDS SUMMARY | 2022-01-23 10:14 | XMS_ITS | Clinical Summary ---
:1960 Author Organization [facility] Address [address] [place] [address] Care Team Providers Name Role Phone Howie Lars Thao APRN Unavailable None, Provider Primary Care Provider Unavailable Allergies Active Allergy Reactions Severity Noted Date Comments Sulfamethoprim Ds Rash, Fever 08/28/2011 Sulfa (Sulfonamide Antibiotics) 6 Medications Medication Sig Dispensed Refills Start Date End Date Status carvedilol (COREG) 12.5 Take 12.5 mg by 0 Active mg tablet mouth 2 times daily. valsartan (DIOVAN) 160 Take 320 mg by 0 Active mg tablet mouth daily. fluoxetine (PROZAC) 40 Take 80 mg by 0 Active mg capsule mouth daily. trazodone (DESYREL) 100 Take 100 mg by 0 Active mg tablet mouth at bedtime. oxycodone-acetaminophen Take 1 Tab by 10 Tab 0 04/17/2012 Active (PERCOCET) 5-325 mg per mouth every 6 tablet hours. Additional Information Patient not taking. Reported on 12/30/2017 MULTIVITAMIN,THER AND MINERALS Take by mouth daily. 0 Active (VITAMINS AND MINERALS ORAL) pregabalin (LYRICA) 100 mg Take 100 mg by mouth 3 0 Active capsule times daily as needed. EPINEPHrine HCl, PF, (ADRENALIN) 0.3 mg. 0 Active 1 mg/mL (1 mL) injection ibuprofen (MOTRIN) 800 mg tablet Take 800 mg by mouth 0 Active every 8 hours as needed. triamcinolone (KENALOG) 0.1 % Applied to wound areas 45 g 0 12/09/2017 Active cream twice daily as needed. mupirocin (BACTROBAN) 2 % Apply topically to 30 g 3 12/30 Active ointmentIndications: Rash affected area 2 times daily. Active Problems Problem Noted Date Hyposmolality and/or hyponatremia 02/01/2016 Essential hypertension with goal blood pressure less t armenta 140/90 02/01/2016 Surgical History Surgery Date Site/Laterality Comments BUNIONECTOMY with screws APPENDECTOMY SECTION FRACTURE SURGERY Medical History Medical History Date Comments HTN (hypertension) Femur fracture (HCC-CMS) (HCC) Low back pain Family History Medical History Relation Name Comments Cancer Maternal Uncle Cancer Mother Cancer Sister Relation Name Status Comments Maternal Uncle Mother Sister Social History Tobacco Use Types Packs/Day Years Used Date Former Smoker Smokeless Tobacco: Never Used Alcohol Use Standard Drinks/Week Comments No 0 (1 standard drink = 0.6 oz pure alcoho l) Sex Assigned at Date Recorded Not on file Last Filed Vital Signs Vital Sign Reading Time Taken Comments Blood Pressure 188/98 12/09/2017 1143 EDT Pulse 65 12/09/2017 1143 EDT Temperature 36.5 ??C (97.7 ??F) 12/09/2017 1143 EDT Respiratory Rate 22 12/09/2017 1143 EDT Oxygen Saturation 100% 12/09/2017 1143 EDT Inhaled Oxygen Concentration - - Weight 68 kg (150 lb) 12/09/2017 1143 EDT Height 172.7 cm (5' 8) 09/02/2013 0913 EST Body Mass Index 22.81 09/02/2013 0913 EST Plan of Treatment Health Maintenance Due Date Last Done Comments Hepatitis C Screen 05/03/2014 Care Teams Digital Marketing Assistant Relationship Specialty Start Date End Date None, Provider PCP - General 12/09/17 Lars Denise APRN 04/18/[address] [place] [address] [address] [place] [address]
--- OUTSIDE RECORDS SUMMARY | 2022-01-23 10:14 | XMS_ITS | Encounter Summary ---
:1960 Author Organization [facility] Address [address] [place] [address] Care Team Providers Name Role Phone Lars Denise APRN Primary Care Provider Reason for Visit Reason Onset Date Comments Results 06/25/2013 Encounter Details Date Type Department Care Team Description 06/25/2013 Telephone [facility] [place] Panda Gama DO Results of [facility] [address] Interventional Pain [place], [place] [address] [address] [place] [address] Social History Tobacco Use Types Packs/Day Years Used Date Former Smoker Smokeless Tobacco: Never Used Alcohol Use Standard Drinks/Week Comments No 0 (1 standard drink = 0.6 oz pure alcoho l) Sex Assigned at Date Recorded Not on file documented as of this encounter Miscellaneous Notes Telephone Encounter - Brooklyn Garcia RN - 06/25/2013 0936 EST Post-MBB Pain Relief: lumbar Hours of relief: 14 hours Percentage relief: 90% relief Type of next appointment scheduled: Repeat lumbar mbb on 08/07/13 Telephone Encounter - Maria Alejandra Brian - 06/25/2013 0939 EST Patient is calling with injection results, PT had 90% for 14 hours. documented in this encounter Plan of Treatment Not on filedocumented as of this encounter Visit Diagnoses Not on filedocumented in this encounter Care Teams Qual Research Manager Relationship Specialty Start Date End Date Lars Denise APRN PCP - General 04/16/12 04/17/[address] [place] [address] [address] [place] [address] documented as of this encounter
--- OUTSIDE RECORDS SUMMARY | 2022-01-23 10:14 | XMS_ITS | Encounter Summary ---
:1960 Author Organization [facility] Address [address] [place] [address] Care Team Providers Name Role Phone Lars Denise APRN Primary Care Provider Encounter Details Date Type Department Care Team Description 10/08/2013 Hospital Encounter [facility] [place] Unknown, Provider, [facility] [address] [facility] [phone] [place] [address] (Work) [phone] Social History Tobacco Use Types Packs/Day Years Used Date Former Smoker Smokeless Tobacco: Never Used Alcohol Use Standard Drinks/Week Comments No 0 (1 standard drink = 0.6 oz pure alcoho l) Sex Assigned at Date Recorded Not on file documented as of this encounter Medications at Time of Discharge Medication Sig Dispensed Refills Start Date End Date carvedilol (COREG) 12.5 mg Take 12.5 mg by 0 tablet mouth 2 times daily. fluoxetine (PROZAC) 40 mg Take 80 mg by 0 capsule mouth daily. oxycodone-acetaminophen Take 1 Tab by 10 Tab 0 2 (PERCOCET) 5-325 mg per tablet mouth every 6 hours. trazodone (DESYREL) 100 mg Take 100 mg by 0 tablet mouth at bedtime. valsartan (DIOVAN) 160 mg Take 320 mg by 0 tablet mouth daily. AMLODIPINE BESYLATE Take by mouth 0 (AMLODIPINE ORAL) daily. DULoxetine (CYMBALTA) 60 mg Take 60 mg by 0 02/01/2016 capsule mouth daily. hydrochlorothiazide Take 25 mg by 0 (MICROZIDE) 12.5 mg capsule mouth daily. mirtazapine (REMERON) 45 mg Take 45 mg by 0 02/01/2016 tablet mouth daily. documented as of this encounter Discharge Disposition Disposition Code Departure Means Destination Home or Self Custodial documented in this encounter Plan of Treatment Not on filedocumented as of this encounter Visit Diagnoses Not on filedocumented in this encounter Care Teams First Aid Attendant Relationship Specialty Start Date End Date Lars Denise APRN PCP - General 04/16/12 04/17/[address] [place] [address] [address] [place] [address] documented as of this encounter
--- OUTSIDE RECORDS SUMMARY | 2022-01-23 10:14 | XMS_ITS | CCD ---
:1960 Author Care Team Providers Name Role Phone NATHANAEL, DANNI LINE OPERATOR Attending Physician Unavailable Vital Signs Unknown or Not Available. Allergies Allergy Code Allergy Type Reaction Status SULFA (sulfonamide) 0 Drug allergy Hives Active Procedures Unknown or Not Available. History of Immunizations Unknown or Not Available. Problems Unknown or Not Available. Results Unknown or Not Available. Active Medications Unknown or Not Available. Medications Administered During Visit Unknown or Not Available. Encounters Encounter Diagnosis Diagnosis Code Start Date Aftercare [id number] 12/23/2020 Social History Smoking Status Code Start Date End Date Former smoker [id number] 1978 01/06/1988 Patient Decision Aids Unknown or Not Available. Discharge Instructions You were admitted to on 12/23/2020 14:50 with a principal diagnosis of Aftercare following joint r eplacement surgery You were discharged from on 12/23/2020 14:50 Should you have any questions prior to d ischarge, please contact a member of your healthcare team. If you have left the ho spital and have any questions, please contact your primary care physician. Chief Complaint and Reason For Visit Unknown or Not Available. Function Status Unknown or Not Available. Plan of Care Unknown or Not Available. Referral/Transition of Care Unknown or Not Available.
--- OUTSIDE RECORDS SUMMARY | 2022-01-23 10:14 | XMS_ITS | Encounter Summary ---
:1960 Author Organization [facility] Address [address] [place] [address] Care Team Providers Name Role Phone Lars Denise APRN Primary Care Provider Reason for Referral Laboratory Services (Routine) - Closed Specialty Diagnoses / Procedures Referred By Contact Refer red To Contact Diagnoses Hyposmolality and/or hyponatremia Radha Sesay MD Procedures OSMOLALITY, URINE [address] [address] Referral ID Status Reason Start Date Expiration Date Visits Requ ested Visits Authorized [id number] Closed 03/19/2016 1 1 aboratory Services (Routine) - Closed Specialty Diagnoses / Procedures Referred By Contact Refer red To Contact Diagnoses Hyposmolality and/or hyponatremia Radha Sesay MD Procedures SODIUM, URINE RANDOM [address] [address] Referral ID Status Reason Start Date Expiration Date Visits Requ ested Visits Authorized [id number] Closed 03/19/2016 1 1 aboratory Services (Routine) - Closed Specialty Diagnoses / Procedures Referred By Contact Refer red To Contact Diagnoses Hyposmolality and/or hyponatremia Radha Sesay MD Procedures BASIC METABOLIC PANEL 1 [facility] [address] [place] [address] Referral ID Status Reason Start Date Expiration Date Visits Requ ested Visits Authorized [id number] Closed 03/19/2016 1 1 Reason for Visit Reason Onset Date Comments Returning Call 03/19/2016 Encounter Details Date Type Department Care Team Description 03/19/2016 Telephone [facility] Radha Sesay , Returning Call Nephrology - S Prosp ect [address] [address] Rehab, [place] [address] (Wo rk) Social History Tobacco Use Types Packs/Day Years Used Date Former Smoker Smokeless Tobacco: Never Used Alcohol Use Standard Drinks/Week Comments No 0 (1 standard drink = 0.6 oz pure alcoho l) Sex Assigned at Date Recorded Not on file documented as of this encounter Miscellaneous Notes Telephone Encounter - Shadia Duff RN - 03/19/2016 1257 EDT Orders routed to [facility]. done elephone Encounter - Radha Sesay MD - 03/19/2016 1237 EDT Called to discuss lab results and plan to improve serum sodium. Last Saturday I had advised through her mom that I'd like her reduce fluid intake. I left VM on her machine as she requested with my recommendations. After she has been able to reducefluid intake she should have blood and urine tests. Orders to be faxed to [facility]. elephone Encounter - ReneMaxinePebbles - 03/19/2016 0957 EDT Patient was returning Dr. Sesay's call. Said that a message can be left if she is not there. documented in this encounter Plan of Treatment Scheduled Orders Name Type Priority Associated Diagnoses Order S chedule OSMOLALITY, URINE Lab Routine Benign hypertensive kid edmundo Expected: 03/19/2016 disease without CKD (Approxi mate), Expires: 03/19/2017 documented as of this encounter Results SODIUM, URINE RANDOM (07/04/2016 3:43 EST) Pathologist Sig nature Sodium, Ur, External 20 EXTERNAL FACILITY Specimen Urine (substance) Performing Organization Address City/[facility] Code Phon e Number EXTERNAL FACILITY BASIC METABOLIC PANEL (07/04/2016) Pathologist Sig nature GFR, Calculated, External EXTERNAL FACILI TY Glucose, Serum, External 91 EXTERNAL FACILIT Y Calculated Calcium, External EXTERNAL FAC ILITY BUN, External 16 EXTERNAL FACILITY Calcium, External 9.3 EXTERNAL FACILITY Chloride, External 95 EXTERNAL FACILITY CO2, External 29.0 EXTERNAL FACILITY Creatinine, External 0.70 EXTERNAL FACILITY Fasting?, External EXTERNAL FACILITY Potassium, External 4.1 EXTERNAL FACILITY Sodium, External 133 EXTERNAL FACILITY Specimen Blood specimen (specimen) Performing Organization Address [facility] Code Phon e Number EXTERNAL FACILITY documented in this encounter Visit Diagnoses Diagnosis Hyposmolality and/or hyponatremia - Prim jacek documented in this encounter Care Teams Management Trainee Relationship Specialty Start Date End Date Lars Denise APRN PCP - General 04/16/12 04/17/[address] [place] [address] [address] [place] [address] documented as of this encounter
--- OUTSIDE RECORDS SUMMARY | 2022-01-23 10:14 | XMS_ITS | Encounter Summary ---
:1960 Author Organization [facility] Address [address] [place] [address] Care Team Providers Name Role Phone Unavailable Primary Care Provider Unavailable Encounter Details Date Type Department Care Team Description 04/28/2004 Results Only [facility] [place] - Huy Cal[place], [place] conversion [address] [facility] [place] [address] [place], [place] [address] [phone] Social History Tobacco Use Types Packs/Day Years Used Date Never Assessed Sex Assigned at Date Recorded Not on file documented as of this encounter Plan of Treatment Not on filedocumented as of this encounter Procedures Procedure Name Priority Date/Time Associated Diagnosis Comme nts CYTOPATHOLOGY Routine 04/28/2004 0:00 EDT Results for this procedure are i n the results section . documented in this encounter Results CYTOPATHOLOGY (04/28/2004 0:00 EDT) Pathology Report: CYTOPATHOLOGY REPORT [facility] Reports generated via electronic interface contain valeri ginal data; however they are lacking the format of the original re port. Caution should be taken when reading/interpreting unfo rmatted reports. Name: ? MYRANDA SOTO ? Accession #: ? [id number] : ? 1960 (Age: 44) ??F ?Collect Date: ? 04/01 Location: ? [facility] ? Receive Date : ? 05/01/2004 Provider: ?MARY CALHOUN CNM Copy to: ?XENIA STODDARD MD ? Specimen/Source: ?ThinPrep Pap Test, Cervix/ Endocervix Last Menstrual Period: ? Other: ? HPVA - HPV testing requested if ASC-US on the current ThinPrep Pap test. ? SPECIMEN ADEQUACY ? Satisfactory for Evaluation - transformation zone component present - scant squamous epithelial component secondary to exc essive blood GENERAL CATEGORIZATION ? Negative for Intraepithelial Lesion or Malignan cy ? Document reviewed and electronically signed by: ? DELILAH España(ASCP) ? Report Date: ??05/04/2004 09:40 End of Report Specimen Performing Organization Address City/State/ZIP Code Phon e Number [facility] [address] [place] [address] SERVICES [facility] [address] [place] [address] documented in this encounter Visit Diagnoses Not on filedocumented in this encounter
--- OUTSIDE RECORDS SUMMARY | 2022-01-23 10:14 | XMS_ITS | Encounter Summary ---
:1960 Author Organization [facility] Address [address] [place] [address] Care Team Providers Name Role Phone Unknown, Provider Primary Care Provider Encounter Details Date Type Department Care Team Description 11/16/2010 Results Only [facility] Filiberto Fagan, JAMES Laboratory Services - [address] am[address] [address] [place] [address] [phone] Social History Tobacco Use Types Packs/Day Years Used Date Never Assessed Sex Assigned at Date Recorded Not on file documented as of this encounter Plan of Treatment Not on filedocumented as of this encounter Procedures Procedure Name Priority Date/Time Associated Diagnosis Comme nts PAP TEST- RESULT Routine 11/16/2010 0:00 EDT Resu lts for this ONLY procedure are i n the results section. documented in this encounter Results PAP TEST- RESULT ONLY (11/16/2010 0:00 EDT) Pathology Report: CYTOPATHOLOGY REPORT ? [facility] ? LAB Reports generated via electr onic interface contain original data; ? however they are lacking the format of the original report. ? Caution should be taken when reading/interpreting unformatted reports. ? Name: ? MYRANDA SOTO ? Accession #: ? [id number] ? : ? 1960 (Age: 50) ??F ?Collect Date: ? 11/16/2010 ? Location: ? [facility] ? R eceive Date: ? 11/20/2010 ? Provider: RACHELLE GILMAR F PARTY HOST/HOSTESS ? Copy to: ? Final Report ? SPECIMEN ADEQUACY ? Satisfactory for Eval uation ? - transformation zone compon ent absent ? GENERAL CATEGORIZATION ? Negative for Intraepi thelial Lesion or Malignancy ? Specimen/Source: ??Pap Test, Endocervix, ThinPrep Imaging System with manual ? evaluation ? Document reviewed and electr onically signed by: ? Naz [place](ASCP) ? Report ??Date: 05/25/ 2011 16:31 ? HPV with Pap Test ? Date Ordered: ? 0 11/22/2010 ? Status: ?? Signed Out ?Date Complete: ? 11/28/2010 ? By: ??System Interface ? Date Reported: ? 11/28/2010 ? Interpretation ? RESULT: Negative for HPV typ es 16, 18, 31, 33, 35, 39, 45, 51, 52, ? 56, 58, 59, and 68. ? Comments ? Document reviewed and electr onically signed by: ? System Interface ? Report date: //20 05 ? By the signature above, the attending physician certifies that he/she has ? personally conducted a gross and/or microscopic examination of the described ? specimens and rendered or co nfirmed the above diagnosis. ? End of Report ? Specimen Performing Organization Address City/State/ZIP Code Phon e Number [facility] [address] [place] [address] SERVICES [facility] [address] [place] [address] documented in this encounter Visit Diagnoses Not on filedocumented in this encounter Care Teams Wood Caulker Relationship Specialty Start Date End Date Unknown, Provider, PCP - General 11/14/10 02/07/11 documented as of this encounter
--- OUTSIDE RECORDS SUMMARY | 2022-01-23 10:14 | XMS_ITS | Encounter Summary ---
:1960 Author Organization [facility] Address [address] [place] [address] Care Team Providers Name Role Phone Unknown, Provider Primary Care Provider Encounter Details Date Type Department Care Team Description 02/05/2011 Results Only [facility]- Jame Watkins MD [phone] [facility] [address] [place], [place] [address] (Wo rk) Social History Tobacco Use Types Packs/Day Years Used Date Never Assessed Sex Assigned at Date Recorded Not on file documented as of this encounter Plan of Treatment Not on filedocumented as of this encounter Procedures Procedure Name Priority Date/Time Associated Diagnosis Comme nts SURGICAL PATHOLOGY Routine 02/05/2011 0:00 EDT Re sults for this procedure are i n the results section. documented in this encounter Results SURGICAL PATHOLOGY (02/05/2011 0:00 EDT) Pathology Report: SURGICAL PATHOLOGY REPORT ? [facility] Reports generated via electr [employer] interface contain original data; ? LAB however they are lacking the format of the original report. ? Caution should be taken when reading/interpreting unformatted reports. ? Name: ? CHARLES, MYRANDA ? Accession #: ? [id number] ? : ? 1960 (Age: 51) ??F ? Collec t Date: ? 02/05/2011 ? Location: ? [facility] ? R eceive Date: ? 02/06/2011 ? Provider: PETER JAYLEN MD ? Copy to: ? Final Pathologic Diagnosis: ? Skin of back, curetta ge: ? - Fragments of skin with epi dermal hyperplasia, reactive nuclear changes, and ?? dermal fibrosis. ??See ?comment. ? Comment: ? The specimen consists of multiple irregular fragments of skin. ??A few of ?? the fragments have intact ep idermis that has reactive hyperplasia and features ?? suggestive of prurigo nodula ris. ??The epithelium is transected at the base of ?? the biopsy where there is as sociated fibrosis and mild chronic inflammation. ??No definitive neoplastic proces s is evident. ??However, the epithelium is transected at the base of the largest p ortion of tissue and, therefore, a neoplastic ? process cannot be entirely e xcluded. ??The inflammation has a relatively ? non-specific pattern and chapman s not have features suggestive of an infectious ? etiology. ??Correlation with the clinical history is recommended. (Dr. aPrr)/mpl ? Microscopic Description: ? Sections consist of m ultiple irregular portions of skin. ??Many of the ? portions of tissue consist o f thickened stratum corneum consisting of scale ? crust with generated inflamm atory cells and bacterial colonies. ??The portions of epidermis show marked irregu lar hyperplasia with overlying hyperkeratosis and ?? parakeratosis. ??The epiderm al keratinocytes show reactive changes with areas of thickened granular layer. ?? Centrally, in the largest portion of tissue (A2), the epidermis has a markedly irr egular contour with associated fibrosis and reactive vascular proliferation. ??Th ere is sparse chronic inflammation. (Dr. Parr)/mpl ? Document reviewed and electr onically signed by: ? BRIE PARR MD ? Report ??Date: 02/08/2011 15 :27 ? By the signature above, the attending physician certifies that he/she has ? personally conducted a gross and/or microscopic examination of the described ? specimens and rendered or co nfirmed the above diagnosis. ? Specimen(s) Received: ? Removed with curette ? Clinical History: ? Non-healing wound mina k ? Gross Description: ? Received in formalin labelled Charles, Myranda and wound back is a ? barry-white, crusted, irregula r tissue fragment measuring 0.9 x 0.8 x 0.1 cm. ? Also received is a barry-white , irregular tissue fragment measuring 0.6 x 0.2 x ?? 0.1 cm. ??The larger tissue fragment is trisected and entirely submitted as (A1) and the smaller tissue fragm ent is submitted intact as (A2). ??/[facility] ? End of Report ? Specimen Performing Organization Address City/State/ZIP Code Phon e Number [facility] [address] [place] [address] SERVICES [facility] [address] [place] [address] documented in this encounter Visit Diagnoses Not on filedocumented in this encounter Care Teams Nurse Supervisor Relationship Specialty Start Date End Date Unknown, Provider, PCP - General 11/14/10 02/07/11 documented as of this encounter
--- OUTSIDE RECORDS SUMMARY | 2022-01-23 10:14 | XMS_ITS | Encounter Summary ---
:1960 Author Organization [facility] Address [address] [place] [address] Care Team Providers Name Role Phone Artemio Munoz APRN Primary Care Provider Encounter Details Date Type Department Care Team Description 08/13/2013 Results Only [facility]- [facility] Artemio Munoz APRN [phone] [place] [address] [address] [place], [place] [address] (Wo rk) Social History Tobacco [...] Diagnosis Comme nts PAP TEST- RESULT Routine 08/13/2013 0:00 EST Resu lts for this ONLY procedure are i n the results section. documented in this encounter Results PAP TEST- RESULT ONLY (08/13/2013 0:00 EST) Pathology Report: CYTOPATHOLOGY REPORT [facility] Reports generated via electronic interface contain valeri ginal data; however they are lacking the format of the original re port. Caution should be taken when reading/interpreting unfo rmatted reports. Name: ? MYRANDA SOTO ? Accession #: ? [id number] ? : ? 1960 (Age: 53) ??F ?Collect Da te: ? 08/13/2013 ? Location: ? [facility] ? Receive Date: ? 014 ? Provider: ARTEMIO MUNOZ WELT STITCH CLEANER Copy to: ? Final Report SPECIMEN ADEQUACY ? Satisfactory for Evaluation - transformation zone component present GENERAL CATEGORIZATION ? Negative for Intraepithelial Lesion or Malignan cy ?? Last Menstrual Period: 10+ yrs ago Other: Additional clinical information: Last menses ag e 48 Specimen/Source: ??Pap Test, Cervix/Endocervix, ThinPr ep Imaging System with manual evaluation Document reviewed and electronically signed by: ? DELILAH Baez(ASCP) ? Report ??Date: 08/18/2013 09:02 HPV with Pap Test ? Date Ordered: ? 08/18/2013 ? Status: ?? Signed Out ?Date Complete: ? 08/20/2013 ? By: ??S ystem Interface ? Date Reported: ? 08/20/2013 ? Interpretation RESULT: Negative for HPV. No E6 or E7 mRNA is detected from HPV types 16,18,31,3 3,35, 39,45,51,52,56,58,59,66, and 68 by hearing aid technician media cornelius amplification. Comments Document reviewed and electronically signed by: ? System Interface ? Report date: 08/20/2013 By the signature above, the attending physician certif ies that he/she has personally conducted a gross and/or microscopic examin ation of the described specimens and rendered or confirmed the above diagnosi s. End of Report Specimen Performing Organization Address City/State/ZIP Code Phon e Number [facility] [address] [place] [address] SERVICES [facility] [address] [place] [address] documented in this encounter Visit Diagnoses Not on filedocumented in this encounter Care Teams Farm Products Shipper Relationship Specialty Start Date End Date Artemio Munoz APRN PCP - General 04/16/12 04/17/[address] [place] [address] [address] [place] [address] documented as of this encounter
--- OUTSIDE RECORDS SUMMARY | 2022-01-23 10:14 | XMS_ITS | Encounter Summary ---
:1960 Author Organization [facility] Address [address] [place] [address] Care Team Providers Name Role Phone Howie Lars Thao APRN Unavailable None, Provider Primary Care Provider Unavailable Encounter Details Date Type Department Care Team Description 12/30/2017 Phlebotomy Only [facility], [facility] Outpatient abdominal pain [address] [facility] (Primary Dx) [place] [address] Social History Tobacco Use Types Packs/Day Years Used Date Former Smoker Smokeless Tobacco: Never Used Alcohol Use Standard Drinks/Week Comments No 0 (1 standard drink = 0.6 oz pure alcoho l) Sex Assigned at Date Recorded Not on file documented as of this encounter Plan of Treatment Not on filedocumented as of this encounter Procedures Procedure Name Priority Date/Time Associated Diagnosis Comme nts FECAL BACTERIAL Routine 12/30/2017 12:00 Generalized Results for this PATHOGENS BY PCR EDT abdominal pain procedure are in the results section. OVA/PARASITE EXAM Routine 12/30/2017 12:00 Generalized Result s for this EDT abdominal pain procedure are in the results section. documented in this encounter Results FECAL BACTERIAL PATHOGENS BY [...] detected. SERVICES Specimen Feces Performing Organization Address City/State/ZIP Code Phon e Number [facility] [address] [place] [address] SERVICES OVA/PARASITE EXAM (12/30/2017 12:00 EDT) Pathologist Sig nature Result No ova and parasites seen. ( If Cryptosporidium, Cyclospora, or Microsporidium are suspected, [facility] specific tests must be reque sted.) Single negative specimen does not rule out the possibility LABORATORY SERVICES of a parasitic infection. Specimen Other (qualifier value) - Feces Performing Organization Address City/State/ZIP Code Phon e Number [facility] [address] [place] [address] SERVICES documented in this encounter Visit Diagnoses Diagnosis Generalized abdominal pain - Primary Abdominal pain, generalized documented in this encounter Care Teams Organizational Development Consultant Relationship Specialty Start Date End Date None, Provider PCP - General 12/09/17 Lars Denise APRN 04/18/[address] [place] [address] [address] [place] [address] documented as of this encounter
--- OUTSIDE RECORDS SUMMARY | 2022-01-23 10:14 | XMS_ITS | Encounter Summary ---
:1960 Author Organization [facility] Address [address] [place] [address] Care Team Providers Name Role Phone Lars Denise APRN Primary Care Provider Encounter Details Date Type Department Care Team Description 04/25/2012 Abstract [facility] Cat Gross PA- C Rehabilitation Therapy - [address],, [place] [address] Social History Tobacco Use Types Packs/Day [...] on filedocumented in this encounter Care Teams Plastic Tool Maker Relationship Specialty Start Date End Date Lars Denise APRN PCP - General 04/16/12 04/17/[address] [place] [address] [address] [place], [place] [address] documented as of this encounter
--- OUTSIDE RECORDS SUMMARY | 2022-01-23 10:14 | XMS_ITS | Encounter Summary ---
:1960 Author Organization [facility] Address [address] [place] [address] Care Team Providers Name Role Phone Lars Denise APRN Primary Care Provider Reason for Visit Reason Onset Date Comments Results 07/16/2013 Bil. SARMIENTO Encounter Details Date Type Department Care Team Description 07/16/[address] [facility] - Tosha Cooely, Results (Bil. SARMIENTO) [facility] Interventional Pain [address] [place] [phone] Social History Tobacco Use Types Packs/Day Years Used Date Former Smoker Smokeless Tobacco: Never Used Alcohol Use Standard Drinks/Week Comments No 0 (1 standard drink = 0.6 oz pure alcoho l) Sex Assigned at Date Recorded Not on file documented as of this encounter Miscellaneous Notes Telephone Encounter - Maria Alejandra Brian Teto - 07/22/2013 1553 EST Called pt and left message for her to call back to schedule an appt.TOSHA COOLEY RN elephone Encounter - Soumya Melo - 07/22/2013 1305 EST Patient's insurance is Medicare and Medicaid. No authorization is needed. elephone Encounter - Addy Arreola RN - 07/21/2013 1429 EST RN called and left a message to have patient call back with results Post-MBB Pain Relief: 07/16/13 bilateral L4, L5, Sacral ala Serafini Hours of relief: 7 hours Percentage relief: 95% Type of next appointment scheduled: Will forward to pss for LRFA, PA Recorded in doc flow sheets. elephone Encounter - Addy Arreola RN - 07/21/2013 1309 EST Message copied by ADDY ARREOLA on SatJul 21, 2013 1309 ------ Message from: TOSHA COOLEY Created: SatJul 16, 2013 1240 Regarding: result Contact: Diagnostic ------ Telephone Encounter - Cathleen Huang RN - 07/20/2013 1556 EST Left message for patient to return call with results of LMBB on 07/16/13. elephone Encounter - Tosha Cooley RN - 07/16/2013 1234 EST TOSHA COOLEY RN documented in this encounter Plan of Treatment Not on filedocumented as of this encounter Visit Diagnoses Not on filedocumented in this encounter Care Teams Behavioral Geneticist Relationship Specialty Start Date End Date Lars Denise APRN PCP - General 04/16/12 04/17/[address] [place] [address] [address] [place] [address] documented as of this encounter
--- OUTSIDE RECORDS SUMMARY | 2022-01-23 10:14 | XMS_ITS | Encounter Summary ---
:1960 Author Organization [facility] Address [address] [place] [address] Care Team Providers Name Role Phone Unavailable Primary Care Provider Unavailable Encounter Details Date Type Department Care Team Description 05/15/2004 Results Only [facility] - Ines olson, Provider, conversion [address] [place] [address] [place] [address] Social History Tobacco Use Types Packs/Day Years Used Date Never Assessed Sex Assigned at Date Recorded Not on file documented as of this encounter Plan of Treatment Not on filedocumented as of this encounter Procedures Procedure Name Priority Date/Time Associated Diagnosis Comme nts RUBELLA IGG AB Routine 05/15/2004 13:10 EST Resul ts for this procedure are i n the results section . documented in this encounter Results RUBELLA IGG AB (05/15/2004 13:10 EST) Pathologist Sig nature Rubella IgG Scr Antibody detected [facility] Specimen Performing Organization Address City/State/ZIP Code Phon e Number [facility] [address] [place] [address] SERVICES [facility] [address] [place] [address] documented in this encounter Visit Diagnoses Not on filedocumented in this encounter
--- OUTSIDE RECORDS SUMMARY | 2022-01-23 10:14 | XMS_ITS | Encounter Summary ---
:1960 Author Organization [facility] Address [address] [place] [address] Care Team Providers Name Role Phone Lars Denise APRN Primary Care Provider Reason for Visit Reason Onset Date Comments Labs Only 02/07/2016 Encounter Details Date Type Department Care Team Description 02/07/2016 Telephone [facility] Liliana Todd RN Labs Only Nephrology - S Prosp ect [id number] [place] [address] Social History Tobacco Use Types Packs/Day Years Used Date Former Smoker Smokeless Tobacco: Never Used Alcohol Use Standard Drinks/Week Comments No 0 (1 standard drink = 0.6 oz pure alcoho l) Sex Assigned at Date Recorded Not on file documented as of this encounter Miscellaneous Notes Telephone Encounter - Nissa Todd RN - 02/07/2016 1145 EDT Spoke with patient and asked her to get repeat labs for Dr Sesay this week and to make sure she eats and drinks prior to going to the lab. Orders routed to [facility]. Done. Telephone Encounter - Nissa Todd RN - 02/07/2016 1148 EDT ----- Message from Radha Sesay MD sent at 02/07/2016 11:05 EDT ----- Hi, Can you please ask this patient to repeat her urine and blood tests this week if possible? She should have had something to eat and drink before her tests. Last time she told me she had not eaten anything (doesn't eat breakfast). documented in this encounter Plan of Treatment Not on filedocumented as of this encounter Visit Diagnoses Not on filedocumented in this encounter Care Teams Automated Teller Manager Relationship Specialty Start Date End Date Lars Denise APRN PCP - General 04/16/12 04/17/[address] [place] [address] [address] [place] [address] documented as of this encounter
--- OUTSIDE RECORDS SUMMARY | 2022-01-23 10:14 | XMS_ITS | Encounter Summary ---
:1960 Author Organization [facility] Address [address] [place] [address] Care Team Providers Name Role Phone Lars Denise APRN Primary Care Provider Encounter Details Date Type Department Care Team Description 02/03/2016 Abstract [facility] Liliana Todd RN Nephrology - S Prosp ect [id number] [place] [address] Social History Tobacco Use Types Packs/Day Years [...] on filedocumented in this encounter Care Teams Auto Porter Relationship Specialty Start Date End Date Lars Denise APRN PCP - General 04/16/12 04/17/[address] [place] [address] [address] [place], [place] [address] documented as of this encounter
--- OUTSIDE RECORDS SUMMARY | 2022-01-23 10:14 | XMS_ITS | Encounter Summary ---
:1960 Author Organization [facility] Address [address] [place] [address] Care Team Providers Name Role Phone Unavailable Primary Care Provider Unavailable Encounter Details Date Type Department Care Team Description 11/26/2005 Results Only [facility] - Ines olson, Provider, conversion [address] [facility] [place], [place] [id number] Social History Tobacco Use Types Packs/Day Years Used Date Never Assessed Sex Assigned at Date Recorded Not on file documented as of this encounter Plan of Treatment Not on filedocumented as of this encounter Procedures Procedure Name Priority Date/Time Associated Diagnosis Comme nts DRUG SCREEN 6 Routine 11/26/2005 20:33 EDT Result s for this procedure are i n the results section . documented in this encounter Results DRUG SCREEN 6 (11/26/2005 20:33 EDT) Amphetamine Screen, Negative drug screen reporting FLE TCHER LISA Urine Suitable for medical purposes only. LAB Will not detect all drugs within class. Cutoff = 1000 ng/ml Barbiturate Screen, Negative drug screen reporting FLE TCHER LISA Urine Suitable for medical purposes only. LAB Will not detect all drugs within class. Cutoff = 300 ng/ml Benzodiazepine Screen, Negative drug screen reporting RAVI LISA Urine Suitable for medical purposes only. LAB Will not detect all drugs within class. Cutoff = 300 ng/ml Cannabinoid Scrn, Ur Negative drug screen reporting FL ETCHER LISA Suitable for medical purposes only. LAB Will not detect all drugs within class. Cutoff = 50 ng/ml Cocaine Metabolites, Positive drug screen reporting FL ETCHER LISA Ur Suitable for medical purposes only. LAB Will not detect all drugs within class. Cutoff = 300 ng/ml Opiate Scrn, Ur Negative drug screen reporting PARRISH GONZALEZ Suitable for medical purposes only. LAB Will not detect all drugs within class. Cutoff = 300 ng/ml Does not detect oxycodone, oxycontin or methadone. Specimen Performing Organization Address City/State/ZIP Code Phon e Number [facility] [address] [place] [id number] SERVICES [facility] [address] [place] [address] documented in this encounter Visit Diagnoses Not on filedocumented in this encounter
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
== END 2022-01-23 11:11 | disposition home or self-care (01) ==
PROVIDERS: Emergency Provider Emergency Medicine; PCP Nurse Practitioner Family
DX: S91.301A Unspecified open wound, right foot, initial encounter (principal); Z87.891 Personal history of nicotine dependence; X58.XXXA Exposure to other specified factors, initial encounter
CPT/HCPCS: 99283; 73630; 99282

== ENCOUNTER 2022-04-24 12:11 | Emergency (ER) | payer MEDICARE, MEDICAID, SELFPAY ==
[2022-04-24 12:11] VITALS: BP 155/101; PULSE 70; RESP 16; TEMP 36.5; O2SAT 98
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
--- NOTE | 2022-04-24 13:14 | DI.RAD_ITS ---
Exam(s) XR SHOULDER LT COMPLETE 2+V EXAM: XR SHOULDER LT COMPLETE 2+V CLINICAL HISTORY: fall/pain, hx of surgery. TECHNIQUE: 2D digital imaging was performed. COMPARISON: CR XR SHOULDER LT COMPLETE 2+V from 06/28/2020 FINDINGS: There is a reverse shoulder prosthesis in place. There is a fracture of the lateral aspect of the cl avicle and cyst offset of the AC joint. The actual prosthesis components appear to remain in satisfa ctory position alignment. IMPRESSION: Lateral clavicle fracture as described above. Reverse prosthesis appears satisfactory. DATA REPOSITORY: RADIATION DOSE DELIVERED:
[2022-04-24 13:49] VITALS: BP 126/88; PULSE 70; RESP 18; TEMP 36.8; O2SAT 99
[2022-04-24] MEDS: oxyCODONE 5 mg/Acetaminophen 325 mg TAB 1 TAB PO (13:57)
--- NOTE | 2022-04-24 14:05 | NUR.NOTE ---
confirmed that ABX was electronically sent to [facility] in [place]
== END 2022-04-24 14:04 | disposition home or self-care (01) ==
PROVIDERS: Emergency Provider Physician Assistant; PCP Nurse Practitioner Family
DX: S42.002A Fracture of unspecified part of left clavicle, initial encounter for closed fracture (principal); E11.9 Type 2 diabetes mellitus without complications; W19.XXXA Unspecified fall, initial encounter
CPT/HCPCS: 99283; 73030; 99284

== ENCOUNTER 2022-06-09 15:54 | Emergency (ER) | payer MEDICARE, MEDICAID, SELFPAY ==
[2022-06-09 16:01] VITALS: BP 175/98; PULSE 92; RESP 17; TEMP 36.6; O2SAT 98
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
[2022-06-09] MEDS: Amoxicillin 875/Clav. 125 TAB PO (16:35)
== END 2022-06-09 16:43 | disposition home or self-care (01) ==
PROVIDERS: Emergency Provider Emergency Medicine; PCP Nurse Practitioner Family
DX: J01.90 Acute sinusitis, unspecified (principal)
CPT/HCPCS: 99283

== ENCOUNTER 2022-07-21 13:53 | Emergency (ER) | payer MEDICARE, MEDICAID, SELFPAY ==
[2022-07-21 14:11] VITALS: BP 145/92; PULSE 68; RESP 18; TEMP 36.8; O2SAT 99
--- NOTE | 2022-07-21 14:30 | DI.CT_ITS ---
Exam(s) CT CERVICAL SPINE WO EXAM: CT CERVICAL SPINE WO CLINICAL HISTORY: pain s/p fall. TECHNIQUE: Imaging Protocol: Axial computed tomography images with coronal and sagittal reformatted images were created and reviewed COMPARISON: No exams were available for comparison FINDINGS: CERVICAL SPINE: There is no evidence of acute fracture. No significant prevertebral soft tissue swelling. No significant listhesis. There is chronic disc space narrowing at C5-6 and C6-7 levels and anterior osteophytes at these 2 lev els also evident. Facet arthropathy evident but no significant facet joint malalignment. No significant osseous lesions evident. IMPRESSION: No evidence of cervical spine fracture, malalignment, nor acute compromise of the cervical spinal can al. Degenerative changes as described above. RADIATION DOSE DELIVERED: 375.12mGy.cm Total DLP DATA REPOSITORY: All CT scans at this facility are submitted to the National Radiology Data Registry (NRDR) Dose Index Registry (DIR) with the [employer] (ACR). RADIATION OPTIMIZATION: All CT scans at this facility use at least one of these dose optimization te chniques: automated exposure control; mA and/or kV adjustment per patient size (includes targeted exa ms where dose is matched to clinical indication); or iterative reconstruction.
--- NOTE | 2022-07-21 14:30 | DI.CT_ITS ---
Exam(s) CT THORACIC LUMBAR SPINE WO EXAM: CT THORACIC LUMBAR SPINE WO CLINICAL HISTORY: pain s/p fall. TECHNIQUE: Imaging Protocol: Axial computed tomography images with coronal and sagittal reformatted images were created and reviewed. CONTRAST MATERIAL: None COMPARISON: No exams were available for comparison FINDINGS: THORACIC SPINAL COLUMN: There is compression fracture at superior endplate of T7, approximately 20 pe rcent. Mild indentation of superior endplate of T6 noted. No significant central spinal canal compr omise at these levels. No other fractures identified in the thoracic vertebral bodies. LUMBOSACRAL SPINAL COLUMN: No evidence of acute fracture nor listhesis. 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 SI joints appear unremarkable. There is chronic advanced disc space narrowing at L3-4 and L 4-5 levels and milder disc space narrowing at L2-3. L5-S1 level exhibits normal height. IMPRESSION: There is a 20 percent compression fracture of T6 noted, probably acute. No significant retropulsion. No compromise of the central canal at this level nor elsewhere in the thoracic spinal column. No evidence of acute fractures of the lumbar vertebral bodies. Incidentally noted is a left-sided pa rs defect at L5 level. No listhesis evident. Multilevel chronic disc space narrowing in the lumbar spine as described above. Mild ground-glass infiltrate noted in the incompletely included left lower lobe. No pleural effusion . No obvious pneumothorax evident. RADIATION DOSE DELIVERED: 776.47mGy.cm Total DLP DATA REPOSITORY: All CT scans at this facility are submitted to the National Radiology Data Registry (NRDR) Dose Index Registry (DIR) with the [employer] (ACR). RADIATION OPTIMIZATION: All CT scans at this facility use at least one of these dose optimization te chniques: automated exposure control; mA and/or kV adjustment per patient size (includes targeted exa ms where dose is matched to clinical indication); or iterative reconstruction.
--- NOTE | 2022-07-21 14:37 | NUR.NOTE ---
Nursing Note: pt states she slipped on ice 2 days ago and fell on back. positive HS and LOC. pt believes her LOC only lasted a few seconds. denies headache, blurred vision or dizziness. pt has uneven pupils. left larger than right. pt aware and states it is from an old eye injury.
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
[2022-07-21] MEDS: Acetaminophen 500 MG TAB 1000 MG PO (15:38)
--- NOTE | 2022-07-21 15:49 | DI.VRAD_ITS ---
PROCEDURE INFORMATION: Exam: CT Cervical Spine Without Contrast Exam date and time: 07/21/2022 3:19 PM Age: 62 years old Clinical indication: Injury or trauma; Fall; Blunt trauma; Additional info: Patient fell on ice today R/O FX TECHNIQUE: Imaging protocol: Computed tomography of the cervical spine without contrast. COMPARISON: No relevant prior studies available. FINDINGS: Bones/joints: Minimal grade 1 anterolisthesis of C4 on C5 which appears chronic and degenerative in nature. No evidence of acute fracture. No aggressive osseous lesion is identified. Alignment at the craniocervical junction is appropriate. Chronic healed fracture of the left posterior 2nd rib. Diffuse degenerative changes of the cervical spine with multilevel moderate to severe bony neural foraminal narrowing there is likely [id number] diffuse spinal canal stenosis, without gross high-grade spinal canal stenosis appreciated. Lungs: Lung apices are normal. Thyroid: Heterogeneous multinodular appearance of the right thyroid with dominant nodule measuring up to 12 mm at the posterior right thyroid (series 7, image 303). By ACR guidance, no further follow-up is recommended. Soft tissues: Unremarkable. IMPRESSION: 1. No evidence of acute cervical spine fracture. 2. Diffuse degenerative changes of the cervical spine with multilevel [id number] spinal canal stenosis and moderate to severe neural foraminal narrowing. If symptomatic, MRI could be performed for further characterization. Dictated and Authenticated by: Zack Oconnor MD. Ordering:MELINDA Stahl MD
--- NOTE | 2022-07-21 16:04 | DI.VRAD_ITS ---
PROCEDURE INFORMATION: Exam: CT Thoracic Spine Without Contrast Exam date and time: 07/21/2022 3:25 PM Age: 62 years old Clinical indication: Injury or trauma; Other: PT fell on ice today; Other: Fall on ice; Additional info: Patient fell on ice today R/O FX TECHNIQUE: Imaging protocol: Computed tomography of the thoracic spine without contrast. COMPARISON: CT CHEST/ABD/PEL W 05/20/2020 5:15 PM FINDINGS: Bones/joints: There are 13 rib-bearing thoracic type vertebral bodies. Mild superior endplate deformity at T6 is new as compared to the prior CT with loss of vertebral body height measured at 20%. Superior endplate fracture at T7 extending to the anterior vertebral cortex is associated with vertebral sclerosis. Loss of vertebral body height is measured at 60%. There are otherwise stable mild degenerative changes of the thoracic spine with endplate Schmorl's nodes. No aggressive osseous lesion is identified. Note is made of a subacute to chronic left posterior 2nd rib fracture (see series 6, image 21). Soft tissues: Unremarkable. Lungs: Patchy nonspecific ground-glass opacities of the lungs are incompletely evaluated however appears somewhat changed in distribution as compared to 05/20/2020. IMPRESSION: 1. Transitional thoracic vertebral anatomy with 13 rib-bearing thoracic type vertebral bodies. Close correlation with vertebral body numbering is recommended prior to any planned intervention. 2. Mild superior endplate deformity at T6 with 20% loss of vertebral body height. This is suspected to be acute, MRI may be of benefit for further characterization. 3. Findings consistent with most likely subacute or chronic fractures of the left posterior 2nd rib and T7 vertebral body. Again, MRI may be of benefit for further characterization. 4. Patchy nonspecific ground-glass opacities of the lungs may be related to infectious or inflammatory changes. PROCEDURE INFORMATION: Exam: CT Lumbar Spine Without Contrast Exam date and time: 07/21/2022 3:25 PM Age: 62 years old Clinical indication: Injury or trauma; Other: PT fell on ice today; Other: Fall on ice; Additional info: Patient fell on ice today R/O FX TECHNIQUE: Imaging protocol: Computed tomography of the lumbar spine without contrast. COMPARISON: CT CHEST/ABD/PEL W 05/20/2020 5:15 PM FINDINGS: Bones/joints: Five [id number] lumbar type vertebral bodies. Osteoporosis, with bone marrow density at L1 measuring 47 Hounsfield units. No evidence of acute fracture or subluxation. No aggressive osseous lesion is identified. Incidental note is made of spina bifida occulta at L5, of doubtful clinical significance. There is loss of intervertebral disc space height with endplate sclerosis and endplate osteophyte formation at L2-L3 through L4-L5. No gross high-grade spinal canal stenosis or neural foraminal narrowing is appreciated. Mild degenerative changes of the sacroiliac joints. Stomach and bowel: Diverticulosis of the colon is incompletely evaluated. Vasculature: Scattered calcifications of the abdominal aorta. No gross aneurysm. Soft tissues: Unremarkable. IMPRESSION: 1. Osteoporosis. 2. No evidence of acute fracture or subluxation of the lumbar spine. 3. Degenerative changes at L2-L3 through L4-L5 without gross high-grade spinal canal stenosis or neural foraminal narrowing. Dictated and Authenticated by: Zack Oconnor MD. Ordering:MELINDA Stahl MD
--- NOTE | 2022-07-21 17:07 | NUR.NOTE ---
Nursing Note: oxycodone tabs provided to pt upon discharge. unable to scan
== END 2022-07-21 17:06 | disposition home or self-care (01) ==
PROVIDERS: Emergency Provider Emergency Medicine; PCP Nurse Practitioner Family
DX: S22.050A Wedge compression fracture of T5-T6 vertebra, initial encounter for closed fracture (principal); S16.1XXA Strain of muscle, fascia and tendon at neck level, initial encounter; S30.0XXA Contusion of lower back and pelvis, initial encounter; W00.0XXA Fall on same level due to ice and snow, initial encounter; Y93.01 Activity, walking, marching and hiking
CPT/HCPCS: 99284; 72125; 72128; 72131